=== PATIENT | female | born 1965 | race Caucasian/White ===

== ENCOUNTER 2020-03-28 07:28 | Outpatient (REF) | payer OTHER, SELFPAY ==
[2020-03-28 11:29] LABS: Hematocrit 45.1 % (37-47); Hemoglobin 13.8 g/dl (12.0-16.0); Mean Corpuscular HGB Conc 30.6 g/dl (31.0-35.0); Mean Corpuscular Hemoglobin 26.7 pg (27.0-33.0); Mean Corpuscular Volume 87.4 fL (80-98); Platelet Count 358 X10*3/uL (160-400); Red Blood Count 5.16 X10*6/uL (4.20-5.50); Red Cell Distribution Width 14.4 % (11.0-16.0); White Blood Count 10.1 X10*3/uL (4.8-10.8)
[2020-03-28 11:51] LABS: Alanine Aminotransferase 37 U/L (0-31); Alkaline Phosphatase 65 U/L (39-117); Anion Gap 16 (12-20); Aspartate Amino Transferase 25 U/L (5-31); Bilirubin Total 0.4 mg/dL (0.0-1.0); Blood Urea Nitrogen 10 mg/dL (9-16); Calcium 9.1 mg/dL (8.4-10.2); Carbon Dioxide 26 mmol/L (22-29); Chloride 105 mmol/L (96-108); Cholesterol 201 mg/dL; Estimated Glomerular Filt Rate 59; Glucose Fasting 85 mg/dL (60-99); HDL Cholesterol 68 mg/dL; LDL Cholesterol Calculated 113 mg/dl; Potassium 4.6 mmol/l (3.3-5.1); Sodium 142 mmol/L (135-145); Total Protein 7.2 g/dL (6.5-8.0); Triglycerides 101 mg/dL
[2020-03-28 12:16] LABS: Estimated Average Glucose 120 mg/dL; Hemoglobin A1c % 5.8 %
== END 2020-03-28 07:29 | disposition home or self-care (01) ==
LOC: HO.HMGCLDS 07:28
PROVIDERS: PCP Internal Medicine; Visit Provider Internal Medicine
DX: R53.83 Other fatigue (principal); F17.210 Nicotine dependence, cigarettes, uncomplicated; E66.01 Morbid (severe) obesity due to excess calories; Z68.41 Body mass index [BMI] 40.0-44.9, adult
CPT/HCPCS: 36415; 80053; 80061; 83036; 85027

== ENCOUNTER 2020-05-17 09:12 | Outpatient (REF) | payer OTHER, SELFPAY ==
[2020-05-18 11:03] LABS: BV Int Neg Control Negative (Negative); BV Int Pos Control Positive (Positive)
[2020-05-23 09:47] LABS: HPV mRNA E6/E7 rflx Not Detected (Not Detected)
== END 2020-05-17 09:13 | disposition home or self-care (01) ==
LOC: HO.LAB 09:12
PROVIDERS: Visit Provider Obstetrics & Gynecology
DX: Z01.419 Encounter for gynecological examination (general) (routine) without abnormal findings (principal); Z78.0 Asymptomatic menopausal state
CPT/HCPCS: 87480; 87510; 87624; 87625; 87660; 88142

== ENCOUNTER → 2020-06-05 07:46 | Outpatient (BNVA) | payer OTHER, SELFPAY | PROVIDERS: PCP Internal Medicine; Referring Provider Internal Medicine; Visit Provider Student in an Organized Health Care Education/Training Program | DX: M70.62 Trochanteric bursitis, left hip (principal); M70.61 Trochanteric bursitis, right hip; M79.7 Fibromyalgia | CPT/HCPCS: 20610; 99212 ==

== ENCOUNTER 2020-06-12 08:36 | Outpatient (REF) | payer OTHER, SELFPAY ==
--- NOTE | 2020-06-12 | MR_ITS ---
MRI OF THE BRAIN WITHOUT IV CONTRAST INDICATION: Encephalopathy. COMPARISON: None available. TECHNIQUE: Multiplanar multisequence MR imaging of the brain was obtained without IV contrast. FINDINGS: There is no hydrocephalus, extra-axial surface collection, or herniation. No parenchymal signal abnormality. The major flow voids at the skull base are preserved. There is no acute infarct on diffusion-weighted imaging. There is no intracranial hemorrhage on the gradient recalled echo acquisition. The midline structures are normal. The cerebellar tonsils are normally positioned. The cerebellum and brainstem are normal. The craniocervical junction is normal. Osseous marrow signal intensity is homogenous. The visualized soft tissues are unremarkable. MR/MR head/brain wo con IMPRESSION: Unremarkable noncontrast MRI of the brain.
== END 2020-06-12 08:37 | disposition home or self-care (01) ==
LOC: HO.MRI 08:36
PROVIDERS: Visit Provider Psychiatry & Neurology Neurology
DX: G93.40 Encephalopathy, unspecified (principal)
CPT/HCPCS: 70551

== ENCOUNTER 2020-06-26 07:14 | Outpatient (REF) | payer OTHER, SELFPAY ==
--- NOTE | 2020-06-26 07:18 | MM_ITS ---
EXAMINATION: MM SCREENING DIGITAL BREAST TOMOSYNTHESIS, BILATERAL CLINICAL INFORMATION: Screening. Asymptomatic. The lifetime risk of breast cancer based on the Tyrer-Cuzick Model is 0.4%. COMPARISON: Mammography: October 27, 2018 and studies dating back to June 24, 2011 TECHNIQUE: Digital breast tomosynthesis is performed in both the craniocaudal and mediolateral oblique views along with computer-aided detection (CAD). Synthesized 2D images are generated from the tomosynthesis. FINDINGS: The breasts are heterogeneously dense, which may obscure small masses (ACR BI-RADS breast composition Category c). There are no significant masses, abnormal calcifications, or other abnormalities. MM/MM tomosynthesis screening BI IMPRESSION: There are no significant changes from prior study. ASSESSMENT: BI-RADS BI-RADS 1 RECOMMENDATION: Routine annual mammography screening. This patient's information was entered into a reminder system with a target due date for their next mammogram.
== END 2020-06-26 07:15 | disposition home or self-care (01) ==
LOC: HO.MAMMO 07:14
PROVIDERS: PCP Internal Medicine; Visit Provider Internal Medicine
DX: Z12.31 Encounter for screening mammogram for malignant neoplasm of breast (principal)
CPT/HCPCS: 77063; 77067

== ENCOUNTER → 2020-07-02 09:14 | Outpatient (BNVA) | payer OTHER, SELFPAY | PROVIDERS: PCP Internal Medicine; Visit Provider Internal Medicine | DX: E66.01 Morbid (severe) obesity due to excess calories (principal); G47.33 Obstructive sleep apnea (adult) (pediatric); J45.909 Unspecified asthma, uncomplicated; Z99.89 Dependence on other enabling machines and devices | CPT/HCPCS: 99212 ==

== ENCOUNTER 2020-08-26 03:28 | Emergency (ER) | payer OTHER, SELFPAY ==
[2020-08-26 03:46] VITALS: BP 161/81; PULSE 79; RESP 18; TEMP 36.6; O2SAT 96; BMI 45.7
[2020-08-26] MEDS: Ketorolac Tromethamine 60 MG/2 ML VIAL IM (04:16)
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
== END 2020-08-26 05:00 | disposition home or self-care (01) ==
PROVIDERS: Emergency Provider Emergency Medicine; PCP Internal Medicine
DX: M54.5 Low back pain (principal); Z87.891 Personal history of nicotine dependence; Z79.899 Other long term (current) drug therapy
CPT/HCPCS: 96372; 99283; 99284; J1885

== ENCOUNTER → 2020-10-03 07:38 | Outpatient (BNVA) | payer OTHER, SELFPAY | PROVIDERS: PCP Internal Medicine; Visit Provider Student in an Organized Health Care Education/Training Program | DX: M70.62 Trochanteric bursitis, left hip (principal); M70.61 Trochanteric bursitis, right hip; M79.7 Fibromyalgia | CPT/HCPCS: 20610; 99212 ==

== ENCOUNTER → 2020-11-18 10:38 | Outpatient (BNVA) | payer OTHER, SELFPAY | PROVIDERS: PCP Internal Medicine; Visit Provider Physician Assistant | DX: D21.6 Benign neoplasm of connective and other soft tissue of trunk, unspecified (principal); G47.33 Obstructive sleep apnea (adult) (pediatric); Z99.89 Dependence on other enabling machines and devices; Z79.899 Other long term (current) drug therapy | CPT/HCPCS: 99202 ==

== ENCOUNTER → 2020-12-16 08:55 | Outpatient (BNVA) | payer OTHER, SELFPAY | PROVIDERS: PCP Internal Medicine; Visit Provider Internal Medicine | DX: Z01.818 Encounter for other preprocedural examination (principal); E66.01 Morbid (severe) obesity due to excess calories; G47.33 Obstructive sleep apnea (adult) (pediatric); J45.909 Unspecified asthma, uncomplicated; Z99.89 Dependence on other enabling machines and devices | CPT/HCPCS: 99212 ==

== ENCOUNTER 2020-12-17 11:10 | Day surgery (SDC) | payer OTHER, SELFPAY ==
[2020-12-12 11:27] VITALS: BMI 45.7
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
[2020-12-17 12:08] VITALS: BP 130/78; PULSE 74; RESP 16; TEMP 36.2; O2SAT 96
[2020-12-17 12:14] VITALS: BMI 45.7
[2020-12-17] MEDS: Lactated Ringers 1,000 ML 100 ML IVCONT (12:28)
--- NOTE | 2020-12-17 13:37 | MHC.SHP ---
Pre-Procedural Eval Section A Date of Service: 12/17/20 The patient is an INPATIENT: No Changes since office visit: Yes Patient answered all questions; No Cold of Flu in the past 2 weeks, No New Medical Problems and No Changes in Medication The History & Physical has been completed within 30 days and I have reviewed it.: Yes Section B Chief Complaint: benign neoplasm of colon Allergies: Allergies Allergy/AdvReac Type Severity Reaction Status Date / Time amphetamine [Adderall] Allergy Severe Difficulty Verified 12/17/20 11:51 Breathing dextroamphetamine Allergy Severe DIFFICULTY Verified 12/17/20 11:51 [From ADDERALL] BREATHING bupropion Allergy Intermediate TREMORS Verified 12/17/20 11:51 [From WELLBUTRIN SR] gabapentin [GABAPENTIN] Allergy Intermediate TREMORS Verified 12/17/20 11:51 risperidone [From RISPERDAL] Allergy Intermediate TARDIVE Verified 12/17/20 11:51 DYSKINESIA Exam Surgical H&P Exam: Normal: Heart, Normal: Lungs, Normal: Extremities and Normal: Abdomen Plan Diagnosis/Plan: Unchanged I have reviewed the history and physical and performed a pertinent physical examination on my patient. No changes have occurred unless specified.
[2020-12-17 14:15] VITALS: PULSE 71; RESP 18; TEMP 36.1; O2SAT 98
--- NOTE | 2020-12-17 14:22 | PC.NURSE ---
patient alert and awake. laying on left side. passing flatus. no nausea.
--- NOTE | 2020-12-17 14:24 | PC.NURSE ---
md mcgee by bedside speaking to patient.
--- NOTE | 2020-12-17 14:27 | PC.NURSE ---
hob 90 degrees. patient alert and awake. drinking apple juice. emelia nausea or pain.
[2020-12-17 14:30] VITALS: BP 131/86; PULSE 62; RESP 16; TEMP 36.8; O2SAT 98
--- NOTE | 2020-12-17 17:46 | W.PM.OPN ---
Operative Note Operative Note Date of Service: 12/17/20 Narrative: Pre-op diagnosis: Colon cancer screening, hx of colon polyps Post-op diagnosis: other (Colon polyps, diverticulosis, hemorrhoids) Procedure: COLONOSCOPY TILL CECUM WITH BIOPSIES Consent: Indications for the procedure and potential complications of bleeding, perforation, reaction to medications and missed diagnosis were discussed with the patient and informed consent was obtained. Instrument: Olympus PCF H 190 L variable stiffness pediatric colonoscope Monitoring: Vital signs and clinical assessment, intermittent blood pressure monitoring, continuous EKG monitoring, Pulse oximetry and Carbon Dioxide monitoring were done throughout the procedure. Colon withdrawl time was 17 minutes. Procedure: The patient was placed in the left lateral decubitis position and pre-procedure medications were administered. After a digital rectal examination of the ano-rectum, the video colonoscope was inserted into the rectum and advanced through the colon to the cecum. The colonoscope was slowly withdrawn in a retrograde panoramic fashion and the colon mucosa was carefully examined including a retroflexed view of the rectum. Findings and interventions are described below. Procedure Difficulty: Without difficulty Findings: Terminal Ileum: Not evaluated Cecum: Normal Ascending Colon: Normal Transverse Colon: Normal Descending Colon: Normal Sigmoid Colon: A 3-4 mm sessile polyp removed with a cold bx. Moderate diverticulosis Rectum: A few 5-7 mm diminutive appearing polyps - one was biopsied. Ano-rectum: Normal Colon preparation: Good of after some irrigation Impression and Post Procedure Diagnosis: Colonoscopy Findings: One tiny polyp removed. A few 5-7 mm diminutive appearing polyps - one was biopsied. Moderate diverticulosis seen in the sigmoid colon Moderate hemorrhoids on retroflexed exam. Plan: Await pathology results Patient has an appointment on 02/05/21 in the GI Clinic with ALAN Alvarado . Repeat Colonoscopy interval based on path results - in 3-5 years if polyps are adenomatous and 10 years if polyps are hyperplastic. Above findings were reviewed with the patient and colon polyps and diverticulosis handouts were given in the discharge area Surgeon: Satish Ledesma MD Anesthesia: MAC (Dr Vo) Was an Silverware Buffing Machine Operator used for this Procedure?: Yes Silverware Buffing Machine Operator: Jesse Gray Estimated blood loss (mL): 0 Pathology: other (A- RANDOM COLON BXS R/O MICROSCOPIC COLITIS B- SIGMOID POLYP C- RECTUM POLYP) Condition: stable Disposition: PACU
== END 2020-12-17 15:00 | disposition home or self-care (01) ==
PROVIDERS: PCP Internal Medicine; Visit Provider Internal Medicine Gastroenterology
PROC: 0DJD8ZZ Inspection of Lower Intestinal Tract, Via Natural or Artificial Opening Endoscopic (ICD-10-PCS; CPT 45378; principal; 2020-12-17 12:30)
DX: Z12.11 Encounter for screening for malignant neoplasm of colon (principal); Z86.010 Personal history of colon polyps; D12.5 Benign neoplasm of sigmoid colon; K62.1 Rectal polyp; K57.30 Diverticulosis of large intestine without perforation or abscess without bleeding; K64.8 Other hemorrhoids; J45.20 Mild intermittent asthma, uncomplicated; G47.33 Obstructive sleep apnea (adult) (pediatric); E66.01 Morbid (severe) obesity due to excess calories; Z79.899 Other long term (current) drug therapy; Z99.89 Dependence on other enabling machines and devices; Z88.8 Allergy status to other drugs, medicaments and biological substances; F17.210 Nicotine dependence, cigarettes, uncomplicated
CPT/HCPCS: 45380; 88305

== ENCOUNTER 2020-12-29 21:52 | Emergency (ER) | payer OTHER, SELFPAY ==
[2020-12-29 22:26] VITALS: BP 144/85; PULSE 76; RESP 18; TEMP 36.6; O2SAT 95; BMI 45.7
--- NOTE | 2020-12-29 23:16 | ED.SKABFB ---
HPI - Skin/Abscess/Foreign Bdy General Chief complaint: Skin/Abscess/Foreign Body Stated complaint: leg pain Time Seen by Provider: 12/29/20 23:15 Source: patient Mode of arrival: ambulatory Limitations: no limitations History of Present Illness HPI narrative: 55-year-old female came in for evaluation of possible skin infection in both legs. Symptoms started 2 days ago with bilateral leg pain and redness that is been progressing and getting worse, patient declined any fever chills, no recent trauma, no swelling or calf tenderness, no recent travel, however patient stated that she has been having sun exposure lately, patient also been using CBD oil rubbing her legs which may contribute to worsening of the redness. Related Data Home Medications Medication Instructions Recorded Confirmed albuterol sulfate 90 mcg/actuation 2 puff INHALATION Q6H PRN 04/02/20 12/12/20 aerosol inhaler aripiprazole 20 mg tablet 20 mg PO QAM 04/02/20 12/12/20 benztropine 1 mg tablet 1 mg PO BID 04/02/20 12/12/20 diclofenac sodium 1 % topical gel g TOPICAL 04/02/20 10/11/20 hydroxyzine pamoate 25 mg capsule 25 mg PO Q6H PRN 04/02/20 12/12/20 nystatin 100,000 unit/gram topical 1 applic TOPICAL TID 04/02/20 10/11/20 cream trazodone 100 mg tablet 100 mg PO BEDTIME PRN 04/02/20 12/12/20 oxcarbazepine 150 mg tablet 150 mg PO DAILY tab 07/02/20 12/12/20 oxcarbazepine 300 mg tablet 300 mg PO .qhs tab 07/02/20 12/12/20 lamotrigine 25 mg tablet 25 mg PO DAILY 08/30/20 12/12/20 Previous Rx's Medication Instructions Recorded tizanidine 4 mg tablet 4 mg PO BEDTIME PRN #30 tab 06/05/20 tramadol 50 mg tablet 50 mg PO BID PRN #60 tab 06/05/20 doxycycline hyclate 100 mg PO BID #14 tab 12/30/20 Allergies Allergy/AdvReac Type Severity Reaction Status Date / Time amphetamine [Adderall] Allergy Severe Difficulty Verified 12/17/20 11:51 Breathing dextroamphetamine Allergy Severe DIFFICULTY Verified 12/17/20 11:51 [From ADDERALL] BREATHING bupropion Allergy Intermediate TREMORS Verified 12/17/20 11:51 [From WELLBUTRIN SR] gabapentin [GABAPENTIN] Allergy Intermediate TREMORS Verified 12/17/20 11:51 risperidone [From RISPERDAL] Allergy Intermediate TARDIVE Verified 12/17/20 11:51 DYSKINESIA Review of Systems Review of Systems: All other systems are reviewed and are negative Constitutional: Reports as per HPI and Reports no additional constitutional complaints Eyes: Reports as per HPI and Reports no additional eye complaints Reports system reviewed and no additional complaints, except as documented Cardiovascular: Reports as per HPI and Reports no additional cardiovascular complaints Respiratory: Reports as per HPI and Reports no additional respiratory complaints Gastrointestinal: Reports as per HPI and Reports no additional gastrointestinal complaints Genitourinary: Reports no additional female genitourinary complaints Musculoskeletal: Reports no additional musculoskeletal complaints Skin/Breast: Reports system reviewed and no additional complaints, except as docu Psychiatric: Reports no additional psychiatric complaints Endocrine: Reports no additional endocrine complaints Hematologic/Lymphatic: Reports no additional hematologic/lymphatic complaints Allergic/Immunologic: Reports no additional allergic/immunologic complaints Reports system reviewed and no additional complaints, except as documented and Reports Abnormal speech present [facility] Past Medical History Medical History Asthma Bipolar 1 disorder Fibromyalgia Hiatal hernia History of cocaine abuse History of ETOH abuse History of post traumatic stress disorder Impaired fasting blood sugar Memory changes Morbid obesity Obesity Obstructive sleep apnea NELSON on CPAP Surgical History History of back surgery History of esophagogastroduodenoscopy (EGD) History of knee surgery History of suburethral sling procedure Family History Family History Father Medical history non-contributory Mother Medical history non-contributory Other Adopted Social History Social History Household Members: Friend(s) Alcohol intake: never Patient Tobacco Use Status: Current everyday Tobacco user Tobacco use type: Cigarette Cigarettes Per Day: 12 Years Smoked: 25 Advance Directives: No Advance Directives Information Provided: Yes Patient : No 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 Blood pressure normal. Heart rate normal. Respiration rate normal. Temperature normal. Oxygen saturation normal. Appearance: Alert. Oriented X3. No acute distress. Head: Normal external exam. Normocephalic. Atraumatic. No Roberson signs noted. No raccoon eyes noted Eyes: PERRLA. EOMI. Conjunctiva and sclera normal. Eyelids normal. ENT: TM's Normal. Pharynx normal. Uvula midline. Moist mucous membranes. No trismus noted. No drooling noted. No muffled voice noted. Neck: Normal inspection. Neck supple. FROM. No adenopathy. Thyroid Normal. No meningeal signs. No neck mass noted. CVS: Normal heart rate and rhythm. Heart sound normal. No murmurs noted. Pulses normal throughout. Respiratory: No respiratory distress. Painless inspiration. Breath sounds normal. No wheezes/rales/rhonchi noted. Chest nontender. No accessory muscle usage noted or decreased air movement noted. Abdomen: Soft and nontender. Bowel sounds normal in all 4 quadrants. No distention noted. No organomegaly noted. No visible injury noted. Back: No CVA tenderness. Full range of motion noted. Skin: Skin warm and dry. Normal skin color. Normal skin turgor. No rashes/lesions/lacerations noted. Extremities: Bilateral lower extremities about 5 x 7 cm area of redness, hotness, tenderness to touch, neurovascular exam is intact bilaterally. Neuro: Oriented X 3. No motor deficit. No sensory deficit. Reflexes normal. Course Course Course Narrative: Assessment and plan. 55-year-old female came in with bilateral lower extremities cellulitis, possible sunburn. Patient do not meet criteria for SIRS will start the patient doxycycline for 1 week. MDM - Skin/Abscess/Foreign Bdy Medical Records Attestation: I reviewed the patient's medical records. Lab Data Attestation: I reviewed the patient's lab results. Result diagrams: 12/29/20 23:37 12/29/20 23:37 Labs: Lab Results 12/29/20 12/29/20 Range/Units 23:37 23:37 WBC 10.8 (4.8-10.8) X10*3/uL RBC 4.93 (4.20-5.50) X10*6/uL Hgb 13.5 (12.0-16.0) g/dl Hct 41.6 (37-47) % MCV 84.4 (80-98) fL MCH 27.4 (27.0-33.0) pg MCHC 32.5 (31.0-35.0) g/dl RDW 14.2 (11.0-16.0) % Plt Count 325 (160-400) X10*3/uL MPV 9.4 (9.4-12.3) fL Immature Gran % (Auto) 0.5 H (0.0-0.4) % Neut % (Auto) 60.8 (45-73) % Lymph % (Auto) 29.0 (20-40) % Upson % (Auto) 6.5 (2-11) % Eos % (Auto) 2.7 (0-4) % Baso % (Auto) 0.5 (0-2) % Lymph # (Auto) 3.1 (1.2-4.9) X10*3/uL Upson # (Auto) 0.7 (0.1-1.2) X10*3/uL Eos # (Auto) 0.3 (0.0-0.4) X10*3/uL Baso # (Auto) 0.1 (0.0-0.2) X10*3/uL Abs Immat Gran (auto) 0.05 H (0.00-0.03) X10*3/uL Absolute Neuts (auto) 6.5 (2.0-8.3) X10*3/uL Absolute Nucleated RBC 0.000 (0.0-0.012) X10*3/uL Nucleated RBC % (auto) 0.0 (0.0-0.2) /100WBC Sodium 142 (135-145) mmol/L Potassium 3.9 (3.3-5.1) mmol/L Chloride 106 (96-108) mmol/L Carbon Dioxide 27 (22-29) mmol/L Anion Gap 13 (12-20) BUN 16 D (9-16) mg/dL Creatinine 0.84 (0.5-1.4) mg/dL Estim Creat Clear Calc 84.7 Estimated GFR > 60 Random Glucose 104 (60-115) mg/dL Calcium 8.9 (8.4-10.2) mg/dL Discharge Plan Discharge Clinical Impression: Cellulitis Qualifiers: Site of cellulitis of extremity: lower extremity Laterality: unspecified laterality Patient Disposition: Home, Self-Care Instructions: Cellulitis (ED) Prescriptions: New doxycycline hyclate 100 mg tablet 100 mg PO BID Qty: 14 RF: 0 No Action nystatin 100,000 unit/gram cream 1 applic topical TID RF: 0 diclofenac sodium 1 % gel topical RF: 0 aripiprazole 20 mg tablet 20 mg PO QAM RF: 0 hydroxyzine pamoate 25 mg capsule 25 mg PO Q6H PRN (Reason: anxiety) RF: 0 benztropine 1 mg tablet 1 mg PO BID RF: 0 trazodone 100 mg tablet 100 mg PO BEDTIME PRN (Reason: insomnia) RF: 0 albuterol sulfate 90 mcg/actuation HFA aerosol inhaler 2 puff inhalation Q6H PRN (Reason: Wheezing) RF: 0 oxcarbazepine 300 mg tablet 300 mg PO .qhs RF: 0 oxcarbazepine 150 mg tablet 150 mg PO DAILY RF: 0 lamotrigine 25 mg tablet 25 mg PO DAILY RF: 0 tizanidine 4 mg tablet 4 mg PO BEDTIME PRN (Reason: muscle spasticity) Qty: 30 RF: 3 tramadol 50 mg tablet 50 mg PO BID PRN (Reason: pain) Qty: 60 RF: 3 Referrals: Adilson Prak MD [Primary Care Provider] - 2 days
[2020-12-29 23:42] LABS: Basophils Absolute Auto 0.1 X10*3/uL (0.0-0.2); Basophils Percent Auto 0.5 % (0-2); Eosinophils Absolute Auto 0.3 X10*3/uL (0.0-0.4); Eosinophils Percent Auto 2.7 % (0-4); Hematocrit 41.6 % (37-47); Hemoglobin 13.5 g/dl (12.0-16.0); Imm Gran Abs Auto 0.05 X10*3/uL (0.00-0.03); Imm Gran Pct Auto 0.5 % (0.0-0.4); Lymphocytes Absolute Auto 3.1 X10*3/uL (1.2-4.9); MANUAL DIFF FLAG NO; Mean Corpuscular HGB Conc 32.5 g/dl (31.0-35.0); Mean Corpuscular Hemoglobin 27.4 pg (27.0-33.0); Mean Corpuscular Volume 84.4 fL (80-98); Mean Platelet Volume 9.4 fL (9.4-12.3); Monocytes Absolute Auto 0.7 X10*3/uL (0.1-1.2); Monocytes Percent Auto 6.5 % (2-11); Neutrophils Absolute Auto 6.5 X10*3/uL (2.0-8.3); Neutrophils Percent Auto 60.8 % (45-73); Platelet Count 325 X10*3/uL (160-400); Red Blood Count 4.93 X10*6/uL (4.20-5.50); Red Cell Distribution Width 14.2 % (11.0-16.0); White Blood Count 10.8 X10*3/uL (4.8-10.8)
[2020-12-30 00:19] LABS: Anion Gap 13 (12-20); Blood Urea Nitrogen 16 mg/dL (9-16); Calcium 8.9 mg/dL (8.4-10.2); Carbon Dioxide 27 mmol/L (22-29); Chloride 106 mmol/L (96-108); Creatinine Clr Calc Pharmacy 84.7; Estimated Glomerular Filt Rate > 60; Glucose Random 104 mg/dL (60-115); Potassium 3.9 mmol/L (3.3-5.1); Sodium 142 mmol/L (135-145)
--- NOTE | 2020-12-30 00:41 | PC.NURSE ---
REDNESS TO BILATERAL LOWER EXTREMITIES, BELOW THE KNEES. PT SLEEPING WHEN READY FOR DISCHARGE. PT UNDERSTANDS TO RETURN FOR ANY FEVER, CHILLS OR NAUSEA. RETURN FOR INCREASED REDNESS OR SWELLING. TAKE ENTIRE COURSE OF ANTIBIOTICS.
== END 2020-12-30 00:44 | disposition home or self-care (01) ==
PROVIDERS: Emergency Provider Emergency Medicine; PCP Internal Medicine
DX: L03.116 Cellulitis of left lower limb (principal); L03.115 Cellulitis of right lower limb; M79.605 Pain in left leg; M79.604 Pain in right leg; E66.01 Morbid (severe) obesity due to excess calories
CPT/HCPCS: 36415; 80048; 85025; 99283

== ENCOUNTER → 2021-01-31 07:16 | Outpatient (BNVA) | payer OTHER, SELFPAY | PROVIDERS: PCP Internal Medicine; Visit Provider Student in an Organized Health Care Education/Training Program | DX: M70.62 Trochanteric bursitis, left hip (principal); M70.61 Trochanteric bursitis, right hip; E66.01 Morbid (severe) obesity due to excess calories; Z68.42 Body mass index [BMI] 45.0-49.9, adult; Z88.8 Allergy status to other drugs, medicaments and biological substances; Z79.899 Other long term (current) drug therapy | CPT/HCPCS: 20610; 99212 ==

== ENCOUNTER → 2021-02-05 11:06 | Outpatient (BNVA) | payer OTHER, SELFPAY | PROVIDERS: PCP Internal Medicine; Visit Provider Physician Assistant | CPT/HCPCS: Q3014 ==

== ENCOUNTER 2021-05-10 12:46 | Outpatient (REF) | payer OTHER, SELFPAY | END 2021-05-10 12:47 | disposition home or self-care (01) | LOC: HO.LNP 12:46 | PROVIDERS: Visit Provider Physician Assistant Medical | DX: Z20.822 Contact with and (suspected) exposure to COVID-19 (principal) | CPT/HCPCS: U0003; U0005 ==

== ENCOUNTER → 2021-05-23 09:38 | Outpatient (BNVA) | payer OTHER, SELFPAY | PROVIDERS: Visit Provider Advanced Practice Midwife ==

== ENCOUNTER 2021-05-28 14:06 | Outpatient (REF) | payer OTHER, SELFPAY | END 2021-05-28 14:07 | disposition home or self-care (01) | LOC: HO.HMGCLDS 14:06 | PROVIDERS: Visit Provider Internal Medicine | DX: Z20.822 Contact with and (suspected) exposure to COVID-19 (principal) | CPT/HCPCS: C9803; U0003; U0005 ==

== ENCOUNTER → 2021-06-18 08:50 | Outpatient (BNVA) | payer OTHER, SELFPAY | PROVIDERS: PCP Internal Medicine; Visit Provider Internal Medicine | DX: G47.33 Obstructive sleep apnea (adult) (pediatric) (principal); E66.01 Morbid (severe) obesity due to excess calories; Z68.42 Body mass index [BMI] 45.0-49.9, adult; Z99.89 Dependence on other enabling machines and devices | CPT/HCPCS: 99212 ==

== ENCOUNTER 2021-07-24 07:27 | Outpatient (REF) | payer OTHER, SELFPAY ==
--- NOTE | ~2021-07-24 | MM_ITS ---
EXAMINATION: MM SCREENING DIGITAL BREAST TOMOSYNTHESIS, BILATERAL CLINICAL INFORMATION: Screening. Asymptomatic. The lifetime risk of breast cancer based on the Tyrer-Cuzick Model is 10%. COMPARISON: Mammography: 08/05/2020, 10/27/2018, 09/30/2017, 08/31/2016, 07/27/2015, 08/29/2014 TECHNIQUE: Digital breast tomosynthesis is performed in both the craniocaudal and mediolateral oblique views along with computer-aided detection (CAD). Synthesized 2D images are generated from the tomosynthesis. Additional left MLO view is provided. FINDINGS: The breasts are heterogeneously dense, which may obscure small masses (ACR BI-RADS breast composition Category c). Left breast parenchymal pattern is similar to prior studies. There is no interval mass or developing density. There is chronic mild bilateral anterior breasts ductal ectasia similar to prior exams. Neither breast shows architectural abnormality or abnormal calcifications. The bilateral axilla and skin contours are unremarkable. Right CC view has asymmetric density anterior outer aspect 6.5 cm from nipple, more conspicuous when compared with prior exams. Patient will be recalled for additional imaging. MM/MM tomosynthesis screening BI IMPRESSION: 1. Right: Asymmetric density anterior outer right breast on CC view. 2. Left: No mammographic evidence of malignancy. ASSESSMENT: BI-RADS 0: Incomplete - Need Additional Imaging Evaluation RECOMMENDATION: 1. Additional views of the right breast (spot CC, rolled CC x2). 2. Targeted ultrasound if warranted after review of the additional views. 3. Radiology department staff will contact the patient for additional imaging. This patient's information was entered into a reminder system with a target due date for their next mammogram.
== END 2021-07-24 07:28 | disposition home or self-care (01) ==
LOC: HO.MAMMO 07:27
PROVIDERS: PCP Internal Medicine; Visit Provider Internal Medicine
DX: Z12.31 Encounter for screening mammogram for malignant neoplasm of breast (principal)
CPT/HCPCS: 77063; 77067

== ENCOUNTER 2021-07-29 08:06 | Outpatient (REF) | payer OTHER, SELFPAY ==
--- NOTE | ~2021-07-29 | MM_ITS ---
EXAMINATION: MM DIAGNOSTIC DIGITAL BREAST TOMOSYNTHESIS, RIGHT US DIAGNOSTIC ULTRASOUND BREAST, RIGHT CLINICAL INFORMATION: Recall from screening for nodular asymmetric density anterior outer right breast. COMPARISON: Mammography: 07/24/2021, 06/26/2020, 10/27/2018, 09/30/2017, 08/31/2016, 07/15/2015, 08/29/2014 TECHNIQUE: Digital breast tomosynthesis is performed. 2D images are generated from the tomosynthesis. The following views are obtained: Spot CC, rolled CC x2 Ultrasound right breast is targeted to the anterior outer breast. Grayscale imaging and color Doppler are performed without and with harmonics. FINDINGS: The breasts are heterogeneously dense, which may obscure small masses (ACR BI-RADS breast composition Category c). The additional views confirm a nodule anterior outer right breast corresponding to recent screening exam. The margins are smooth. There is no spiculation. Some minor duct ectasia is again seen retroareolar breast similar to prior studies. Ultrasound right breast demonstrates an acorn cyst 9:00 position 5-7 cm from nipple with overall dimensions approximately 0.9 x 0.5 cm. There are some geographic internal echoes. Margins are circumscribed. There is no internal or peripheral color flow. Finding most likely represents a complicated cyst related to apocrine metaplasia. Nodule will be reassessed again in 6 months. Results are discussed with the patient at time of visit. MM/MM tomosynthesis added views R IMPRESSION: Smooth benign-appearing subcentimeter complicated avascular acorn cyst 9:00 right breast. ASSESSMENT: BI-RADS 3: Probably Benign RECOMMENDATION: Diagnostic right mammography and targeted right breast ultrasound in 6 months. This patient's information was entered into a reminder system with a target due date for their next mammogram.
== END 2021-07-29 08:07 | disposition home or self-care (01) ==
LOC: HO.MAMMO 08:06
PROVIDERS: Visit Provider Internal Medicine
DX: R92.2 Inconclusive mammogram (principal)
CPT/HCPCS: 76642; 77061; 77065

== ENCOUNTER 2021-08-06 08:33 | Outpatient (REF) | payer OTHER, SELFPAY ==
[2021-08-06 11:03] LABS: MANUAL DIFF FLAG NO
[2021-08-06 11:11] LABS: Basophils Absolute Auto 0.1 X10*3/uL (0.0-0.2); Basophils Percent Auto 0.6 % (0-2); Eosinophils Absolute Auto 0.3 X10*3/uL (0.0-0.4); Eosinophils Percent Auto 3.8 % (0-4); Hemoglobin 15.1 g/dl (12.0-16.0); Imm Gran Abs Auto 0.03 X10*3/uL (0.00-0.03); Imm Gran Pct Auto 0.4 % (0.0-0.4); Lymphocytes Absolute Auto 2.3 X10*3/uL (1.2-4.9); Lymphocytes Percent Auto 27.9 % (20-40); Mean Corpuscular HGB Conc 32.1 g/dl (31.0-35.0); Mean Corpuscular Hemoglobin 26.9 pg (27.0-33.0); Mean Corpuscular Volume 83.8 fL (80.0-98.0); Mean Platelet Volume 10.3 fL (9.4-12.3); Monocytes Absolute Auto 0.5 X10*3/uL (0.1-1.2); Monocytes Percent Auto 6.1 % (2-11); Neutrophils Absolute Auto 5.1 x10*3/uL (2.0-8.3); Neutrophils Percent Auto 61.2 % (45-73); Platelet Count 350 X10*3/uL (160-400); Red Blood Count 5.61 X10*6/uL (4.20-5.50); Red Cell Distribution Width 13.7 % (11.0-16.0); White Blood Count 8.2 X10*3/uL (4.8-10.8)
[2021-08-06 11:30] LABS: Estimated Average Glucose 126 mg/dL
[2021-08-06 11:44] LABS: TSH reflex Free T4 1.62 uIU/mL (0.32-4.0)
[2021-08-06 11:59] LABS: Alanine Aminotransferase 45 U/L (0-31); Albumin Level 4.1 g/dL (3.5-5.0); Alkaline Phosphatase 61 U/L (39-117); Anion Gap 15 (12-20); Aspartate Amino Transferase 35 U/L (5-31); Bilirubin Total 0.6 mg/dL (0.0-1.0); Blood Urea Nitrogen 14 mg/dL (9-16); Calcium 9.6 mg/dL (8.4-10.2); Carbon Dioxide 24 mmol/L (22-29); Chloride 104 mmol/L (96-108); Cholesterol 187 mg/dL; Estimated Glomerular Filt Rate 59; Glucose Fasting 96 mg/dL (60-99); HDL Cholesterol 54 mg/dL; LDL Cholesterol Calculated 113 mg/dl; Potassium 4.4 mmol/L (3.3-5.1); Sodium 139 mmol/L (135-145); Total Protein 7.3 g/dL (6.5-8.0); Triglycerides 104 mg/dL
[2021-08-07 07:02] LABS: LDL Cholesterol Direct 110 mg/dL (<100)
== END 2021-08-06 08:34 | disposition home or self-care (01) ==
LOC: HO.HMGCLDS 08:33
PROVIDERS: Visit Provider Internal Medicine
DX: Z00.01 Encounter for general adult medical examination with abnormal findings (principal); G47.33 Obstructive sleep apnea (adult) (pediatric); K44.9 Diaphragmatic hernia without obstruction or gangrene; R73.01 Impaired fasting glucose; E66.01 Morbid (severe) obesity due to excess calories; F32.2 Major depressive disorder, single episode, severe without psychotic features
CPT/HCPCS: 36415; 80048; 80053; 80061; 83036; 83721; 84443; 85025

== ENCOUNTER 2021-08-12 07:54 | Outpatient (REF) | payer OTHER, SELFPAY ==
--- NOTE | ~2021-08-12 | XR_ITS ---
EXAMINATION: XR BILATERAL HIPS WITH AP PELVIS CLINICAL INFORMATION: Pain. COMPARISON: None TECHNIQUE: AP view of the pelvis and single views of each hip were obtained. FINDINGS: The bones and soft tissues are normal. No fracture. Sacroiliac and hip joints are normal. Pubic symphysis is normal. There is a calcified enthesophyte incidentally noted arising from the right ischium. No further abnormal soft tissue calcifications. XR/XR hip BI w [id number] IMPRESSION: Unremarkable pelvis and hips.
--- NOTE | ~2021-08-12 | XR_ITS ---
EXAMINATION: XR HAND, RIGHT CLINICAL INFORMATION: Pain. COMPARISON: None TECHNIQUE: PA, lateral, and oblique views of the right hand. FINDINGS: Bony alignment and mineralization are normal. There is a mild ulnar minus variance. There is mild osteoarthritic change of the interphalangeal joint of the thumb, the second through fifth distal interphalangeal joints and the second, fourth and fifth proximal interphalangeal joints. No fracture or dislocation is seen. The proximal and distal carpal rows are intact. There is no abnormal bony erosive change. No soft tissue swelling or foreign body is seen. XR/XR hand LT 2V IMPRESSION: 1. There are multi-focal mild osteoarthritic changes of the right fingers. 2. No fracture or dislocation is seen. 3. There is no abnormal bony erosive change. EXAMINATION: XR HAND, LEFT CLINICAL INFORMATION: Pain. COMPARISON: None TECHNIQUE: PA, lateral, and oblique views of the left hand. FINDINGS: Bony alignment and mineralization are normal. There is a slight ulnar minus variance. There is mild osteoarthritic change of the interphalangeal joint of the thumb, of the second through fifth distal interphalangeal joints and of the second and fourth proximal interphalangeal joints. There is mild osteoarthritic change of the first carpometacarpal joint. No fracture or dislocation is seen. The proximal distal carpal rows are intact. There is no abnormal bony erosive change. No soft tissue swelling or foreign body is seen. IMPRESSION: 1. There are multi-focal mild osteoarthritic changes of the left fingers and of the first carpometacarpal joint. 2. No fracture or dislocation is seen. 3. There is no abnormal bony erosive change.
--- NOTE | ~2021-08-12 | XR_ITS ---
EXAMINATION: XR HAND, RIGHT CLINICAL INFORMATION: Pain. COMPARISON: None TECHNIQUE: PA, lateral, and oblique views of the right hand. FINDINGS: Bony alignment and mineralization are normal. There is a mild ulnar minus variance. There is mild osteoarthritic change of the interphalangeal joint of the thumb, the second through fifth distal interphalangeal joints and the second, fourth and fifth proximal interphalangeal joints. No fracture or dislocation is seen. The proximal and distal carpal rows are intact. There is no abnormal bony erosive change. No soft tissue swelling or foreign body is seen. XR/XR hand RT 2V IMPRESSION: 1. There are multi-focal mild osteoarthritic changes of the right fingers. 2. No fracture or dislocation is seen. 3. There is no abnormal bony erosive change. EXAMINATION: XR HAND, LEFT CLINICAL INFORMATION: Pain. COMPARISON: None TECHNIQUE: PA, lateral, and oblique views of the left hand. FINDINGS: Bony alignment and mineralization are normal. There is a slight ulnar minus variance. There is mild osteoarthritic change of the interphalangeal joint of the thumb, of the second through fifth distal interphalangeal joints and of the second and fourth proximal interphalangeal joints. There is mild osteoarthritic change of the first carpometacarpal joint. No fracture or dislocation is seen. The proximal distal carpal rows are intact. There is no abnormal bony erosive change. No soft tissue swelling or foreign body is seen. IMPRESSION: 1. There are multi-focal mild osteoarthritic changes of the left fingers and of the first carpometacarpal joint. 2. No fracture or dislocation is seen. 3. There is no abnormal bony erosive change.
== END 2021-08-12 07:55 | disposition home or self-care (01) ==
LOC: HO.XRAY 07:54
PROVIDERS: PCP Internal Medicine; Visit Provider Internal Medicine Rheumatology
DX: M25.50 Pain in unspecified joint (principal); M79.7 Fibromyalgia; M19.041 Primary osteoarthritis, right hand; M19.042 Primary osteoarthritis, left hand; G47.33 Obstructive sleep apnea (adult) (pediatric); Z99.89 Dependence on other enabling machines and devices
CPT/HCPCS: 73120; 73521; 99212

== ENCOUNTER → 2021-11-10 07:46 | Outpatient (BNVA) | payer OTHER, SELFPAY | PROVIDERS: PCP Internal Medicine; Visit Provider Internal Medicine Rheumatology | DX: M70.61 Trochanteric bursitis, right hip (principal); M70.62 Trochanteric bursitis, left hip; M79.7 Fibromyalgia; M47.816 Spondylosis without myelopathy or radiculopathy, lumbar region; M19.049 Primary osteoarthritis, unspecified hand | CPT/HCPCS: 20610; 99212 ==

== ENCOUNTER → 2021-12-30 08:58 | Outpatient (BNVA) | payer OTHER, SELFPAY | PROVIDERS: PCP Internal Medicine; Visit Provider Internal Medicine | DX: J45.909 Unspecified asthma, uncomplicated (principal); G47.33 Obstructive sleep apnea (adult) (pediatric); E66.01 Morbid (severe) obesity due to excess calories; Z99.89 Dependence on other enabling machines and devices | CPT/HCPCS: 99212 ==

== ENCOUNTER 2022-01-01 09:26 | Outpatient (REF) | payer OTHER, SELFPAY ==
--- NOTE | 2022-01-01 09:29 | EMG_ITS ---
Right tibial and peroneal motor studies were performed. Right superficial peroneal and sural sensory studies were performed. Tibial H-reflex was obtained and paraspinal muscles were tested with a needle. IMPRESSION: [id number] sensory and motor chronic peripheral neuropathy. MD RAHEEM Kimble/CORTNEY / [id number]
== END 2022-01-01 09:27 | disposition home or self-care (01) ==
LOC: HO.NEURO 09:26
PROVIDERS: PCP Internal Medicine; Visit Provider Internal Medicine
DX: R20.2 Paresthesia of skin (principal)
CPT/HCPCS: 95886; 95909

== ENCOUNTER 2022-01-27 08:53 | Outpatient (REF) | payer OTHER, SELFPAY ==
--- NOTE | ~2022-01-27 | MM_ITS ---
EXAMINATION: MM DIAGNOSTIC DIGITAL BREAST TOMOSYNTHESIS, RIGHT. Targeted right breast ultrasound CLINICAL INFORMATION: Six-month follow-up right breast nodule The lifetime risk of breast cancer based on the Tyrer-Cuzick Model is 9.1%. COMPARISON: Mammography: July 29, 2021 and studies dating back to July 15, 2015 TECHNIQUE: Digital breast tomosynthesis is performed in both the craniocaudal and mediolateral oblique views along with computer-aided detection (CAD). Synthesized 2D images are generated from the tomosynthesis. Targeted right breast ultrasound FINDINGS: The breasts are heterogeneously dense, which may obscure small masses (ACR BI-RADS breast composition Category c). There are no new significant masses, abnormal calcifications, or other abnormalities. Multiple circumscribed densities are again noted. Targeted right breast ultrasound demonstrated at the 9:00 position 7 cm from the nipple stable appearance of a circumscribed heterogeneous hypoechoic lesion with some increased through sound transmission and no distal sound shadowing without internal vascularity and measuring 8 x 6 mm in size. Lesion is wider than it is tall. Results are discussed with the patient at time of visit. MM/MM tomosynthesis diagnostic RT IMPRESSION: There are no significant changes from prior study. Probably benign complex cyst. Recommend 6 month follow-up ultrasound examination bilateral mammography. ASSESSMENT: BI-RADS 3: Probably Benign RECOMMENDATION: Diagnostic mammography in 6 months. This patient's information was entered into a reminder system with a target due date for their next mammogram.
== END 2022-01-27 08:54 | disposition home or self-care (01) ==
LOC: HO.MAMMO 08:53
PROVIDERS: Visit Provider Internal Medicine
DX: N63.15 Unspecified lump in the right breast, overlapping quadrants (principal)
CPT/HCPCS: 76642; 77061; 77065

== ENCOUNTER → 2022-02-02 09:09 | Outpatient (BNVA) | payer OTHER, SELFPAY | PROVIDERS: PCP Internal Medicine; Visit Provider Internal Medicine | DX: M96.1 Postlaminectomy syndrome, not elsewhere classified (principal) | CPT/HCPCS: 99202 ==

== ENCOUNTER → 2022-07-07 09:39 | Outpatient (BNVA) | payer OTHER, SELFPAY | PROVIDERS: PCP Internal Medicine; Visit Provider Internal Medicine | DX: G47.33 Obstructive sleep apnea (adult) (pediatric) (principal); J45.909 Unspecified asthma, uncomplicated; E66.01 Morbid (severe) obesity due to excess calories; Z99.89 Dependence on other enabling machines and devices; Z68.38 Body mass index [BMI] 38.0-38.9, adult | CPT/HCPCS: 99212 ==

== ENCOUNTER 2022-07-15 12:17 | Outpatient (REF) | payer OTHER, SELFPAY ==
[2022-07-15 13:03] LABS: Influenza A PCR NEGATIVE (Negative); Influenza B PCR NEGATIVE (Negative); Resp Syncy Virus RNA Qual PCR NEGATIVE (Negative); SARS COV2 PCR INHOUSE NEGATIVE (Negative)
== END 2022-07-15 12:18 | disposition home or self-care (01) ==
LOC: HO.LNP 12:17
PROVIDERS: Visit Provider Internal Medicine
DX: R09.89 Other specified symptoms and signs involving the circulatory and respiratory systems (principal); Z20.822 Contact with and (suspected) exposure to COVID-19
CPT/HCPCS: 0241U

== ENCOUNTER 2022-10-14 14:22 | Outpatient (REF) | payer OTHER, SELFPAY ==
--- NOTE | ~2022-10-14 | MM_ITS ---
EXAMINATION: MM DIAGNOSTIC DIGITAL BREAST TOMOSYNTHESIS, BILATERAL US DIAGNOSTIC ULTRASOUND BREAST, RIGHT CLINICAL INFORMATION: Due for yearly. Also follow-up probable benign complicated cyst lateral right breast. The lifetime risk of breast cancer based on the Tyrer-Cuzick Model is 9%. COMPARISON: Mammography: 01/27/2022, 07/29/2021, 07/24/2021 (BI-RADS 0), 06/26/2020, 10/27/2018; right breast ultrasound 01/27/2022 and 07/29/2021. TECHNIQUE: Digital breast tomosynthesis is performed in both the craniocaudal and mediolateral oblique views along with computer-aided detection (CAD). Synthesized 2D images are generated from the tomosynthesis. Additional left CC view is provided. Ultrasound ultrasound right breast is targeted to the lateral breast using grayscale imaging and color Doppler without and with harmonics. FINDINGS: The breasts are heterogeneously dense, which may obscure small masses (ACR BI-RADS breast composition Category c). Parenchymal pattern is similar to prior studies and there is no interval developing density or architectural abnormality or significant mass. There are no abnormal calcifications. Smooth nodularity anterior medial right breast is stable. The axilla and skin contours are unremarkable. Ultrasound right breast demonstrates the complicated cyst 9:00 position 7 cm from nipple with similar ultrasound characteristics to prior targeted ultrasound exams. The margins appear smooth. The overall size is similar, just under 1 cm. There is no associated internal or peripheral color flow. There is mild increased through-transmission of sound. Results are discussed with the patient at time of visit. Management plan is for short interval six-month follow-up targeted right breast ultrasound. MM/MM tomosynthesis diagnostic BI IMPRESSION: -Mammogram shows no significant changes from prior exams. -Benign-appearing complicated cyst lateral right breast likely apocrine metaplasia/acorn cyst, stable. ASSESSMENT: BI-RADS 3: Probably Benign RECOMMENDATION: Targeted ultrasound right breast in 6 months. This patient's information was entered into a reminder system with a target due date for their next mammogram.
== END 2022-10-14 14:23 | disposition home or self-care (01) ==
LOC: HO.MAMMO 14:22
PROVIDERS: PCP Internal Medicine; Visit Provider Internal Medicine
DX: N60.01 Solitary cyst of right breast (principal)
CPT/HCPCS: 76642; 77062; 77066

== ENCOUNTER 2022-12-22 08:06 | Outpatient (REF) | payer OTHER, SELFPAY ==
--- NOTE | ~2022-12-22 | XR_ITS ---
EXAMINATION: XR KNEE, RIGHT CLINICAL INFORMATION: Right knee pain. COMPARISON: 03/20/2019 TECHNIQUE: 3 views of the right knee. FINDINGS: Patella is more inferiorly located relative to the femur on the lateral view with progression of moderate degenerative changes. Moderate narrowing of the medial and patellofemoral compartment joint spaces and small marginal osteophytes. Small suprapatellar effusion. Redemonstration of sclerotic density with central lucency in the proximal tibia, possibly from previous intervention. XR/XR knee RT 3V IMPRESSION: Progression of degenerative changes in the medial and patellofemoral compartment as detailed above. Redemonstration of ill-defined sclerotic density in the proximal left tibia of indeterminate etiology, possibly related to prior intervention. Correlation with clinical history and exam recommended to determine further management. Additional imaging with CT scan or MRI should be considered for better visualization as these modalities are much more sensitive for detection of fracture or other underlying pathology.
== END 2022-12-22 08:07 | disposition home or self-care (01) ==
LOC: HO.HOSX 08:06
PROVIDERS: Visit Provider Orthopaedic Surgery
DX: S83.241A Other tear of medial meniscus, current injury, right knee, initial encounter (principal)
CPT/HCPCS: 73562; 99202

== ENCOUNTER 2022-12-22 08:51 | Outpatient (AMB) | payer OTHER, SELFPAY ==
[2022-12-22 09:09] VITALS: BMI 38.7
--- NOTE | 2022-12-22 09:09 | A.OFFVIS_ITS ---
Intake Vital Signs 12/22/22 09:09 Height 5 ft 1 in Weight 205 lb BMI 38.7 Intake Visit Reasons: New Pt - Right Knee Pain Intake Note: Anjelica is a 57 year old female who presents today as a new patient with complaints of right knee pain and giving way. The patient reports that she had an Arthroscopic Surgery done with Dr. Santiago in 2018. The patient states that initially she got fairly good relief from that procedure. She states that approximately 2 years ago she twisted her knee and had acute onset of pain along the medial aspect of her knee. Her symptoms have gotten worse in spite of continued non operative treatments. She has had multiple injections which gave her minimal relief. She has also done physical therapy for 12 weeks over the last 6 months which aggravated her pain. She has tried Tylenol and anti- inflammatory medicines which gave her minimal relief. She states the right knee will give out several times per day. Allergies amphetamine [Adderall] Allergy (Severe, Verified 12/22/22 09:12) Difficulty Breathing dextroamphetamine [From ADDERALL] Allergy (Severe, Verified 12/22/22 09:12) DIFFICULTY BREATHING gabapentin [GABAPENTIN] Allergy (Intermediate, Verified 12/22/22 09:12) TREMORS risperidone [From RISPERDAL] Allergy (Intermediate, Verified 12/22/22 09:12) TARDIVE DYSKINESIA Medication List - Last Reconciled 12/22/22 by Stevo Crowe MD benztropine 1 mg PO BID hydroxyzine pamoate 25 mg PO Q6H PRN lamotrigine 25 mg PO DAILY oxcarbazepine 300 mg PO .qhs oxcarbazepine 150 mg PO DAILY tizanidine 4 mg PO BEDTIME PRN PFSH Medical History Asthma Bipolar 1 disorder Fibromyalgia Hiatal hernia History of cocaine abuse History of ETOH abuse History of post traumatic stress disorder Impaired fasting blood sugar Memory changes Morbid obesity Morbid obesity Obesity Obstructive sleep apnea NELSON on CPAP Osteoarthritis of lumbar spine Osteoarthritis, hand, primary localized Surgical History History of back surgery History of esophagogastroduodenoscopy (EGD) History of knee surgery History of suburethral sling procedure Hx of colonoscopy Family History Father Medical history non-contributory Mother Medical history non-contributory Other Adopted Social History (Updated 12/22/22 @ 09:13 by Tracy Neri CMA) Household Members: Friend(s) Housing: House Alcohol intake: never Patient Tobacco Use Status: Former Tobacco user Tobacco use type: Cigarette Cigarettes Per Day: 12 Years Smoked: Quit smoking 2 weeks ago has patches and gum e-Cigarette/Vaping Use: Never Used Substance Use Type: Crack/Cocaine service: No Current occupational status: employed 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 - [employer] Sexual orientation: Lesbian/Kelley/Homosexual Gender identity: Female Cognitive needs: No Hearing needs: No Vision needs: No Female Reproductive History Menstrual Age of Menarche: 9 Physical Exam Vital Signs: BMI result Body Mass Index 38.7 Const Other: Well-nourished well-developed very friendly female awake alert and oriented x3 in no acute distress Extrem Other: Bilateral lower extremity examination shows good capillary refill, no skin lesions noted, normal sensation light touch Right knee examination shows a minimal effusion, minimal crepitus with range of motion, tenderness along her medial joint line, positive Melissa's test, no instability Results Reviewed Results Reviewed: X-rays of the patient's right knee taken today show mild to moderate diffuse joint space narrowing, no acute Assessment & Plan Assessment & Plan (1) Tear of medial meniscus of right knee: Code(s): S83.241A - Other tear of medial meniscus, current injury, right knee, initial encounter Plan: Ms. Amaral presents with progressively worsening right knee pain and mechanical symptoms due to early degenerative joint disease as well as possible tearing of her medial meniscus. Thus, I will send the patient for an MRI of her right knee for further evaluation. I will see her back once the MRI is completed to discuss the findings and treatment options. Feel free to call me at any time should questions regarding her orthopedic management arise. Thank you very much for asking me to see this very friendly patient. Orders: Orders XR knee RT 3V Today M25.561 - Pain in right knee MR knee RT wo con Today S83.241A - Other tear of medial meniscus, current injury, right knee, initial encounter Coding Level of Care Code New Pt Level 2 (61933) Diagnoses Tear of medial meniscus of right knee S83.241A
== END 2022-12-22 09:42 | disposition home or self-care (01) ==
PROVIDERS: PCP Internal Medicine; Visit Provider Orthopaedic Surgery
DX: S83.241A Other tear of medial meniscus, current injury, right knee, initial encounter (principal)
CPT/HCPCS: 99202

== ENCOUNTER 2022-12-31 10:31 | Outpatient (AMB) | payer OTHER, SELFPAY ==
--- NOTE | 2022-12-31 10:48 | A.OFFVIS_ITS ---
Intake Intake Visit Reasons: aida Intake Note: Patient states here today follow up CPAP doing well. Independent Living Specialist Required: No Allergies amphetamine [Adderall] Allergy (Severe, Verified 12/31/22 11:03) Difficulty Breathing dextroamphetamine [From ADDERALL] Allergy (Severe, Verified 12/31/22 11:03) DIFFICULTY BREATHING gabapentin [GABAPENTIN] Allergy (Intermediate, Verified 12/31/22 11:03) TREMORS risperidone [From RISPERDAL] Allergy (Intermediate, Verified 12/31/22 11:03) TARDIVE DYSKINESIA Medication List - Last Reconciled 12/31/22 by Clyde Sewell MD benztropine 1 mg PO BID CPAP (CPAP Machine/Device) As directed hydroxyzine pamoate 25 mg PO Q6H PRN lamotrigine 25 mg PO DAILY oxcarbazepine 300 mg PO .qhs oxcarbazepine 150 mg PO DAILY tizanidine 4 mg PO BEDTIME PRN Do you need a note to return to daycare/school/sports/work: No HPI aida HPI Details Yady is 57 years old female, moderately obese and diagnosis of obstructive sleep apnea. She is a regular user of CPAP, comes after 6 months for follow-up. The current large fullface mask is fairly comfortable, and she is using the CPAP on a regular basis, . Sleeps well She also smokes about 1 and half pack of cigarettes a day, which she has done , throughout her adult life. Has mild intermittent cough but denies any wheezing or shortness of breath. Talked about quitting or at least cutting down on the smoking. She she said she is trying her best, and would cut it down to 1 pack a day. So for she has not been treated for obstructive airway disorder, but does need an up to date pulmonary function test. We also talked about annual lung screening program, and she is agreeable to participate in the program. PFSH Medical History Asthma Bipolar 1 disorder Fibromyalgia Hiatal hernia History of cocaine abuse History of ETOH abuse History of post traumatic stress disorder Impaired fasting blood sugar Memory changes Morbid obesity Morbid obesity Obesity Obstructive sleep apnea AIDA on CPAP Osteoarthritis of lumbar spine Osteoarthritis, hand, primary localized Smoker Surgical History History of back surgery History of esophagogastroduodenoscopy (EGD) History of knee surgery History of suburethral sling procedure Hx of colonoscopy Family History Father Medical history non-contributory Mother Medical history non-contributory Other Adopted Social History Household Members: Friend(s) Housing: House Alcohol intake: never Patient Tobacco Use Status: Former Tobacco user Tobacco use type: Cigarette Cigarettes Per Day: 12 Years Smoked: Quit smoking 2 weeks ago has patches and gum e-Cigarette/Vaping Use: Never Used Substance Use Type: Crack/Cocaine service: No Current occupational status: employed 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 - [employer] Sexual orientation: Lesbian/Kelley/Homosexual Gender identity: Female Cognitive needs: No Hearing needs: No Vision needs: No Female Reproductive History Menstrual Age of Menarche: 9 Review of Systems Const All systems reviewed & are unremarkable except as noted in HPI and below Eyes Reports no additional complaints ENT Reports nasal congestion (Off and on) Card Denies chest pain, Denies irregular heart rhythm and Denies leg edema Resp Reports cough (Occasional) GI Reports no additional complaints Reports no additional complaints Musc Reports no additional complaints Skin/Breast Reports system reviewed and no additional complaints, except as documented Neuro Reports no additional complaints Psych Reports anxiety, Reports depression and Reports mood swings Physical Exam Const General: comfortable, no acute distress, alert and awake Orientation/consciousness: patient oriented x3 HEENT Head: Yes normal to inspection General nose exam: No nasal polyps present and No nasal discharge present Face and sinus: Yes sinuses nontender Mouth: oropharynx normal Throat: Yes posterior oropharynx normal Eyes General: appearance normal, both eyes and all related structures Neck Neck: Yes normal visual inspection, Yes no lymphadenopathy, Yes trachea midline and Yes no JVD Thyroid: Thyroid normal Chest Chest palpation & inspection: normal inspection of the chest, normal palpation of entire chest wall and no tenderness Resp Effort & Inspection: normal respiratory effort Auscultation: clear to auscultation bilaterally, no rhonchi and no wheezes Percussion: percussion normal Cardio Palpation: normal PMI Rate: regular rate Rhythm: regular rhythm Heart sounds: no gallops and no murmurs Peripheral pulses: Peripheral pulses 2+ throughout GI Palpation (GI): Soft to palpation, nontender, No hepatosplenomegaly present, no masses and Other GI palpation findings present (Abdomen is quite obese and slightly protuberant) Auscultation: normal bowel sounds Back/Spine/Pelvis Thoracic/Lumbar Spine: thoracic and lumbar spine normal to inspection Skin General skin exam: no rashes or lesions noted Neuro General: patient oriented x3 and no focal motor deficits Cranial nerves: Yes CN's II-XII intact bilaterally Extrem General: Yes normal to inspection, No no clubbing, cyanosis or edema and Yes no calf tenderness Psych Appearance: grossly normal Speech and movement: Normal speech and movement present Assessment & Plan Assessment & Plan (1) Morbid obesity: Comment: BMI=38.7 She remains grossly obese but has lost some weight . Encouraged to keep on losing some weight. Trying to watch her diet and has lost some weight in the last 6 months. Encouraged to continue watching her diet and also walk on a daily basis. Code(s): E66.01 - Morbid (severe) obesity due to excess calories (2) AIDA on CPAP: Comment: She is well used to the CPAP therapy, very compliant and Sleeping well . Uses very regularly and sleeps well. Feels more comfortable with the current large size fullface mask. Code(s): G47.33 - Obstructive sleep apnea (adult) (pediatric); Z99.89 - Dependence on other enabling machines and devices (3) Asthma: Comment: Very mild, intermittent . SPIROMETRY WAS NORMAL . Advised to use Albuterol MDI 2 puffs q 4-6 Hrs , only if any wheezing , not for exertional Dyspnea , Because of her continued smoking, she should have complete PULMONARY FUNCTION TEST which is being scheduled, Code(s): J45.909 - Unspecified asthma, uncomplicated (4) Smoker: Comment: HISTORY OF SMOKING FOR AT LEAST 40 YEARS,, 1-1 AND HALF PACK CIGARETTES A DAY. COUNSELED TO QUIT. DOES NOT HAVE MUCH MOTIVATION OR INTENTION TO QUIT. SMOKING COMPLETELY I URGED HER TO CUT DOWN TO LESS THAN 1 PACK. A DAY FOR THE TIME BEING DISCUSSED ABOUT ANNUAL LUNG SCREENING PROGRAM AND SHE IS AGREEABLE. Code(s): F17.200 - Nicotine dependence, unspecified, uncomplicated Orders: Orders PFT pulmonary function test Today E66.01 - Morbid (severe) obesity due to excess calories, F17.200 - Nicotine dependence, unspecified, uncomplicated, J45.909 - Unspecified asthma, uncomplicated Referrals Thoracic Surgery Referral F17.200 - Nicotine dependence, unspecified, uncomplicated Coding Level of Care Code Est Pt Level 4 (05065) Diagnoses Morbid obesity E66.01 AIDA on CPAP G47.33; Z99.89 Asthma J45.909 Smoker F17.200
== END 2022-12-31 11:16 | disposition home or self-care (01) ==
PROVIDERS: PCP Internal Medicine; Visit Provider Internal Medicine
DX: E66.01 Morbid (severe) obesity due to excess calories (principal); G47.33 Obstructive sleep apnea (adult) (pediatric); Z99.89 Dependence on other enabling machines and devices; J45.909 Unspecified asthma, uncomplicated; F17.200 Nicotine dependence, unspecified, uncomplicated
CPT/HCPCS: 99214

== ENCOUNTER → 2022-12-31 10:31 | Outpatient (BNVA) | payer OTHER, SELFPAY | PROVIDERS: Visit Provider Internal Medicine | DX: G47.33 Obstructive sleep apnea (adult) (pediatric) (principal); J45.909 Unspecified asthma, uncomplicated; E66.01 Morbid (severe) obesity due to excess calories; F17.200 Nicotine dependence, unspecified, uncomplicated; Z68.38 Body mass index [BMI] 38.0-38.9, adult; Z99.89 Dependence on other enabling machines and devices | CPT/HCPCS: 99212 ==

== ENCOUNTER 2023-01-09 12:59 | Inpatient (IN) | payer OTHER, SELFPAY ==
--- NOTE | 2023-01-09 | ECG_ITS ---
Test Reason : ALCON SUBSTANCE Blood Pressure : / mmHG Vent. Rate : 079 BPM Atrial Rate : 079 BPM P-R Int : 138 ms QRS Dur : 076 ms QT Int : 394 ms P-R-T Axes : 062 051 059 degrees QTc Int : 451 ms Normal sinus rhythm Normal ECG When compared with ECG of 30-JUN-2018 13:51, Nonspecific T wave abnormality no longer evident in Lateral leads Referred By: Ally Hoffman Electronically Signed By:DAYANA GONZALEZ
--- NOTE | ~2023-01-09 | XR_ITS ---
EXAMINATION: XR CHEST CLINICAL INFORMATION: Pain, shortness of breath COMPARISON: Chest x-ray on 05/16/2019 TECHNIQUE: 2 views of the chest were obtained. FINDINGS: No significant abnormality is noted involving the heart, lungs, mediastinum, bony thorax or soft tissues. XR/XR chest 2V IMPRESSION: Unremarkable examination.
[2023-01-09 13:01] VITALS: BP 141/84; PULSE 88; RESP 16; TEMP 35.6; O2SAT 97; BMI 37.9
--- NOTE | 2023-01-09 13:01 | ED.PSYCH ---
HPI - Psych General Chief Complaint: Psychiatric Symptoms Stated Complaint: crisis si Time Seen by Provider: 01/09/23 13:28 Source: patient Mode of arrival: ambulatory Limitations: no limitations History of Present Illness HPI Narrative: This is a 57-year-old female with a history of polysubstance use, bipolar disorder who presents to the ER with complaints of suicidal thoughts with plans to get a gun from her drug dealer and shoot herself in the head. Patient denies homicidal ideations. She reports that she has been off her bipolar medications for more than 6 months and has been having manic and depressive episodes. She reports T he recently relapsed on crack cocaine a few months ago and has been smoking crack daily. She is complaining of body pain all over. No other physical complaints. Related Data Home Medications Medication Instructions Recorded Confirmed benztropine 1 mg tablet 1 mg PO BID 04/02/20 01/09/23 oxcarbazepine 150 mg tablet 150 mg PO DAILY 07/02/20 01/09/23 oxcarbazepine 300 mg tablet 300 mg PO BEDTIME 07/02/20 01/09/23 lamotrigine 25 mg tablet 100 mg PO DAILY 08/30/20 01/09/23 CPAP (CPAP Machine/Device) 12/31/22 01/09/23 aripiprazole 20 mg tablet 20 mg PO DAILY 01/09/23 01/09/23 sertraline 25 mg tablet 25 mg PO DAILY 01/09/23 01/09/23 Allergies Allergy/AdvReac Type Severity Reaction Status Date / Time amphetamine [Adderall] Allergy Severe Difficulty Verified 12/31/22 11:03 Breathing dextroamphetamine Allergy Severe DIFFICULTY Verified 12/31/22 11:03 [From ADDERALL] BREATHING gabapentin [GABAPENTIN] Allergy Intermediate TREMORS Verified 12/31/22 11:03 risperidone [From RISPERDAL] Allergy Intermediate TARDIVE Verified 12/31/22 11:03 DYSKINESIA Review of Systems Review of Systems: Yes all other systems are reviewed and are negative Constitutional: Constitutional: Reports no additional constitutional complaints, Denies body ache(s), Denies chills, Denies fever(s), Denies headache(s) and Denies weakness Eyes: Eyes: Reports no additional eye complaints and Denies change in vision ENT: Reports system reviewed and no additional complaints, except as documented, Denies dizziness, Denies headache(s), Denies nasal congestion, Denies nasal discharge and Denies neck pain Cardiovascular: Cardiovascular: Reports no additional cardiovascular complaints, Denies chest pain, Denies leg edema and Denies dyspnea Respiratory: Respiratory: Reports no additional respiratory complaints, Denies cough and Denies dyspnea Gastrointestinal: Gastrointestinal: Reports no additional gastrointestinal complaints, Denies abdominal pain, Denies diarrhea, Denies nausea and Denies vomiting Genitourinary: Genitourinary: Reports no additional female genitourinary complaints and Denies urinary incontinence Musculoskeletal: Musculoskeletal: Reports no additional musculoskeletal complaints, Denies back pain, Denies arthralgias, Denies joint swelling, Denies neck pain, Denies numbness and Denies tingling Integumentary/Breasts: Skin/Breast: Reports system reviewed and no additional complaints, except as docu and Denies rash Neurologic: Reports system reviewed and no additional complaints, except as documented, Denies Abnormal speech present, Denies dizziness, Denies headache(s), Denies numbness, Denies tingling and Denies weakness Psychiatric: Psychiatric: Reports depression, Denies homicidal ideation and Reports suicidal ideation [facility] Past Medical History Attestation statement: The following information was validated with the patient. Source: old records reviewed and nursing notes reviewed Medical History Asthma Bipolar 1 disorder Fibromyalgia Hiatal hernia History of cocaine abuse History of ETOH abuse History of post traumatic stress disorder Impaired fasting blood sugar Memory changes Morbid obesity Morbid obesity Obesity Obstructive sleep apnea NELSON on CPAP Osteoarthritis of lumbar spine Osteoarthritis, hand, primary localized Smoker Surgical History History of back surgery History of esophagogastroduodenoscopy (EGD) History of knee surgery History of suburethral sling procedure Hx of colonoscopy Family History Family History Father Medical history non-contributory Mother Medical history non-contributory Other Adopted Social History Social History Household Members: Friend(s) Housing: House Alcohol intake: never Patient Tobacco Use Status: Former Tobacco user Tobacco use type: Cigarette Cigarettes Per Day: 12 Years Smoked: Quit smoking 2 weeks ago has patches and gum e-Cigarette/Vaping Use: Never Used Substance Use Type: Crack/Cocaine Advance Directives: No Advance Directives Information Provided: No service: No Current occupational status: employed 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 - [employer] Sexual orientation: Lesbian/Kelley/Homosexual Gender identity: Female Cognitive needs: No Hearing needs: No Vision needs: No Physical Exam Vital Signs: Vital Signs: Last Vital Signs Temp 97.7 F 01/09/23 13:31 Pulse 78 01/09/23 13:31 Resp 18 01/09/23 13:31 BP 159/93 H 01/09/23 13:31 Pulse Ox 98 01/09/23 13:31 O2 Del Method Room Air 01/09/23 13:31 BMI result Body Mass Index 37.9 Const: General: cooperative, healthy appearing, comfortable and no acute distress Orientation/consciousness: patient oriented x3 Limitations: no limitations HEENT: Head: Yes normal to inspection Ears: hearing grossly normal bilaterally General nose exam: Normal external nose present Face and sinus: Yes normal facial exam Mouth: Normal oral and palatal mucosa present Throat: Yes posterior oropharynx normal Eyes: General: appearance normal, both eyes and all related structures Pupils: Equal, round and reactive pupils present Neck: Neck: Yes normal visual inspection Chest: Chest palpation & inspection: normal inspection of the chest Resp: Effort & Inspection: normal respiratory effort Auscultation: clear to auscultation bilaterally Cardio: Rate: regular rate Rhythm: regular rhythm Peripheral pulses: Peripheral pulses 2+ throughout GI: Inspection: Yes normal to inspection Palpation (GI): Soft to palpation and nontender Auscultation: normal bowel sounds Back/Spine/Pelvis: Thoracic/Lumbar Spine: thoracic and lumbar spine normal to inspection Skin: General skin exam: no rashes or lesions noted Neuro: General: patient oriented x3, no focal motor deficits and normal sensation to monofilament Cranial nerves: Yes Equal, round and reactive pupils present Cognition (Neuro): normal cognition Speech: No Abnormal speech present Gait exam (Neuro): Normal gait present Motor exam (neuro): 5/5 motor strength present throughout Extrem: General: Yes normal to inspection Course Course Course Narrative: This is an RME: Additional HPI, ROS, PE not included below will be deferred to primary provider. Patient is a 57-year-old female who presents to the emergency department for evaluation of suicidal ideations, with thoughts of shooting herself with a gun, but she doesn't have access to this. Has an intermittent relationship with a girlfriend who does have a gun, denies homicidal ideations. relapsed on crack a few months ago, wants detox, has not been taking her medications. endoring A/V hallucinations, states I'm manic and addicted to everything . Denies ETOH usage, 7 years sober, brought to ED by her AA sponsor. Plan: labs, urinalysis, placed in POD, will require CARE team evaluation. Reevaluation(s) Reevaluation #1: 1520-reviewed labs which show a very mildly elevated CPK. Patient can orally rehydrate. No need for IV fluids. Will place patient in physician observation pending crisis consultation. Medications Administered Generic Name Dose Route Start Last Admin Trade Name Maycol PRN Reason Stop Dose Admin Aripiprazole 20 mg 01/09/23 14:15 01/09/23 14:21 Aripiprazole 20 Mg Tablet PO 20 mg DAILY LAINEY Administration Benztropine Mesylate 1 mg 01/09/23 14:15 01/09/23 14:21 Benztropine Mesylate 1 Mg Tablet PO 1 mg BID LAINEY Administration Lamotrigine 100 mg 01/09/23 14:15 01/09/23 14:21 Lamotrigine 100 Mg Tablet PO 100 mg DAILY LAINEY Administration Oxcarbazepine 150 mg 01/09/23 14:15 01/09/23 14:21 Oxcarbazepine 150 Mg Tablet PO 150 mg DAILY LAINEY Administration Sertraline HCl 25 mg 01/09/23 14:15 01/09/23 14:21 Sertraline Hcl 25 Mg Tablet PO 25 mg DAILY LAINEY Administration Medical Decision Making Medical Decision Making [facility] Narrative: 57-year-old female with a history of polysubstance use, bipolar disorder presents the ER with complaints of suicidal thoughts with planned to get a gun from her drug dealer in she had herself in her head, has also been off all her psychiatric medication. Complaining of all over body pain but no other physical complaints Will obtain labs, drug screen, crisis consultation. No concern for acute ingestion or trauma. Differential Diagnosis Differential Diagnoses: The differential diagnosis associated with the presentation includes Poly substance use, bipolar disorder, depression Lab Data [facility] Lab Attestation statement: I reviewed the patient's lab results. 01/09/23 14:07 01/09/23 14:07 Labs: Lab Results 01/09/23 01/09/23 01/09/23 Range/Units 14:07 14:07 14:07 WBC 8.9 (4.8-10.8) X10*3/uL RBC 5.18 (4.20-5.50) X10*6/uL Hgb 14.3 (12.0-16.0) g/dl Hct 43.8 (37.0-47.0) % MCV 84.6 (80.0-98.0) fL MCH 27.6 (27.0-33.0) pg MCHC 32.6 (31.0-35.0) g/dl RDW 13.0 (11.0-16.0) % Plt Count 291 (160-400) X10*3/uL MPV 9.8 (9.4-12.3) fL Immature Gran % (Auto) 0.2 (0.0-0.4) % Neut % (Auto) 53.8 (45-73) % Lymph % (Auto) 36.2 (20-40) % [place] % (Auto) 6.4 (2-11) % Eos % (Auto) 2.8 (0-4) % Baso % (Auto) 0.6 (0-2) % Lymph # (Auto) 3.2 (1.2-4.9) X10*3/uL [place] # (Auto) 0.6 (0.1-1.2) X10*3/uL Eos # (Auto) 0.3 (0.0-0.4) X10*3/uL Baso # (Auto) 0.1 (0.0-0.2) X10*3/uL Abs Immat Gran (auto) 0.02 (0.00-0.03) X10*3/uL Absolute Neuts (auto) 4.8 (2.0-8.3) x10*3/uL Absolute Nucleated RBC 0.000 (0.0-0.012) X10*3/uL Nucleated RBC % (auto) 0.0 (0.0-0.2) /100WBC Sodium 141 (135-145) mmol/L Potassium 3.7 (3.3-5.1) mmol/L Chloride 107 (96-108) mmol/L Carbon Dioxide 23 (22-29) mmol/L Anion Gap 15 (12-20) BUN 14 (9-16) mg/dL Creatinine 0.93 (0.5-1.4) mg/dL Estim Creat Clear Calc 66.8 Estimated GFR > 60 Random Glucose 87 (60-115) mg/dL Calcium 9.3 (8.4-10.2) mg/dL Total Bilirubin 0.3 (0.0-1.0) mg/dL AST 19 (5-31) U/L ALT 23 (0-31) U/L Alkaline Phosphatase 58 (39-117) U/L Total Creatine Kinase 151 H (26-140) U/L Total Protein 6.9 (6.5-8.0) g/dL Albumin 3.8 (3.5-5.0) g/dL Ethyl Alcohol < 10 mg/dL Discharge Plan Discharge Clinical Impression: Suicidal ideation Patient Disposition: Still a Patient Prescriptions: No Action sertraline 25 mg tablet 25 mg PO DAILY aripiprazole 20 mg tablet 20 mg PO DAILY benztropine 1 mg tablet 1 mg PO BID oxcarbazepine 300 mg tablet 300 mg PO BEDTIME oxcarbazepine 150 mg tablet 150 mg PO DAILY lamotrigine 25 mg tablet 100 mg PO DAILY (DME) CPAP Machine/Device Device See Rx Instructions .Route Rx Instructions: As directed
[2023-01-09 13:31] VITALS: BP 159/93; PULSE 78; RESP 18; TEMP 36.5; O2SAT 98
[2023-01-09 14:14] LABS: MANUAL DIFF FLAG NO
[2023-01-09 14:16] LABS: Basophils Absolute Auto 0.1 X10*3/uL (0.0-0.2); Basophils Percent Auto 0.6 % (0-2); Eosinophils Absolute Auto 0.3 X10*3/uL (0.0-0.4); Eosinophils Percent Auto 2.8 % (0-4); Hematocrit 43.8 % (37.0-47.0); Hemoglobin 14.3 g/dl (12.0-16.0); Imm Gran Abs Auto 0.02 X10*3/uL (0.00-0.03); Imm Gran Pct Auto 0.2 % (0.0-0.4); Lymphocytes Absolute Auto 3.2 X10*3/uL (1.2-4.9); Lymphocytes Percent Auto 36.2 % (20-40); Mean Corpuscular HGB Conc 32.6 g/dl (31.0-35.0); Mean Corpuscular Hemoglobin 27.6 pg (27.0-33.0); Mean Corpuscular Volume 84.6 fL (80.0-98.0); Mean Platelet Volume 9.8 fL (9.4-12.3); Monocytes Absolute Auto 0.6 X10*3/uL (0.1-1.2); Monocytes Percent Auto 6.4 % (2-11); Neutrophils Absolute Auto 4.8 x10*3/uL (2.0-8.3); Neutrophils Percent Auto 53.8 % (45-73); Platelet Count 291 X10*3/uL (160-400); Red Blood Count 5.18 X10*6/uL (4.20-5.50); White Blood Count 8.9 X10*3/uL (4.8-10.8)
[2023-01-09] MEDS: lamoTRIgine 100 MG TABLET PO (14:21)
[2023-01-09] MEDS: OXcarbazepine 150 MG TABLET PO (14:21)
[2023-01-09] MEDS: Benztropine Mesylate 1 MG TABLET PO ×2 (14:21→20:06)
[2023-01-09] MEDS: ARIPiprazole 20 MG TABLET PO (14:21)
[2023-01-09] MEDS: Sertraline HCL 25 MG TABLET PO (14:21)
[2023-01-09 14:26] LABS: Ethanol < 10 mg/dL
[2023-01-09 14:34] LABS: Alanine Aminotransferase 23 U/L (0-31); Albumin Level 3.8 g/dL (3.5-5.0); Alkaline Phosphatase 58 U/L (39-117); Anion Gap 15 (12-20); Aspartate Amino Transferase 19 U/L (5-31); Bilirubin Total 0.3 mg/dL (0.0-1.0); Blood Urea Nitrogen 14 mg/dL (9-16); Calcium 9.3 mg/dL (8.4-10.2); Carbon Dioxide 23 mmol/L (22-29); Chloride 107 mmol/L (96-108); Creatinine Clr Calc Pharmacy 66.8; Estimated Glomerular Filt Rate > 60; Glucose Random 87 mg/dL (60-115); Potassium 3.7 mmol/L (3.3-5.1); Sodium 141 mmol/L (135-145); Total Protein 6.9 g/dL (6.5-8.0)
[2023-01-09 15:49] VITALS: BP 159/93; PULSE 78; RESP 16; TEMP 36.6; O2SAT 98
[2023-01-09 16:10] VITALS: BP 140/79; PULSE 73; RESP 16; TEMP 36.8; O2SAT 98
[2023-01-09 16:31] LABS: Appearance Urine Clear; Color Urine Yellow; Glucose Urine UA Negative (Negative); Leukocyte Esterase Urine Trace (Negative); Nitrite Urine Negative (Negative); UMIC TRIGGER UACC YES; Urine Blood Negative (Negative); Urine Ketones Negative (Negative); Urine Protein Negative (Neg-Trace)
[2023-01-09 16:34] LABS: Bacteria Urine 1+ (None Seen); Hyaline Casts Urine 0-2 /LPF (0-2); RBC Urine 0-2 /HPF (0-2); UACC Culture Trigger YES
[2023-01-09 16:39] LABS: Amphetamine Screen Urine Not Detected (Not Detect); Barbiturates, Urine Not Detected (Not Detect); Benzodiazepines Screen Urine Not Detected (Not Detect); Cannabinoid Screen Urine POSITIVE (Not Detect); Cocaine Screen Urine POSITIVE (Not Detect); Fentanyl, urine Not Detected (Not Detect); Opiate Screen Urine Not Detected (Not Detect); Phencyclidine Screen Urine Not Detected (Not Detect)
--- NOTE | 2023-01-09 17:17 | MHC.CARE ---
Patient seen by CARE team, she is voluntary for inpatient psych. Unit to be determined/ pending acceptance.
[2023-01-09] MEDS: OXcarbazepine 300 MG TABLET PO (20:06)
[2023-01-09 21:05] LABS: COVID-19 Test Negative (Negative); IDNOW Serial# BCCEAD1C
[2023-01-10] VITALS: BP 146/78; PULSE 76; RESP 18; TEMP 36.4; O2SAT 98
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
[2023-01-10 06:00] VITALS: BP 140/80; PULSE 74; RESP 18
[2023-01-10] MEDS: Benztropine Mesylate 1 MG TABLET PO ×2 (09:32→21:02)
[2023-01-10] MEDS: Sertraline HCL 25 MG TABLET PO (09:32)
[2023-01-10] MEDS: lamoTRIgine 100 MG TABLET PO (09:32)
[2023-01-10] MEDS: OXcarbazepine 150 MG TABLET PO (09:32)
[2023-01-10] MEDS: ARIPiprazole 20 MG TABLET PO (09:32)
[2023-01-10] MEDS: Nicotine 14 MG PATCH.TD24 TRANSDERMA (09:33)
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
[2023-01-10 20:54] VITALS: BP 143/87; PULSE 77; RESP 18; TEMP 36.1
[2023-01-10] MEDS: OXcarbazepine 300 MG TABLET PO (21:02)
[2023-01-11] MEDS: Nicotine Polacrilex 2 MG GUM BUCCAL (06:14)
[2023-01-11 08:25] VITALS: BP 144/87; PULSE 79; RESP 18; TEMP 36.1; O2SAT 99
[2023-01-11] MEDS: OXcarbazepine 150 MG TABLET PO (09:36)
[2023-01-11] MEDS: Sertraline HCL 25 MG TABLET PO (09:37)
[2023-01-11] MEDS: Benztropine Mesylate 1 MG TABLET PO ×2 (09:37→20:14)
[2023-01-11] MEDS: lamoTRIgine 100 MG TABLET PO (09:37)
[2023-01-11] MEDS: ARIPiprazole 20 MG TABLET PO (09:37)
[2023-01-11] MEDS: Nicotine 14 MG PATCH.TD24 TRANSDERMA (09:38)
[2023-01-11 10:02] LABS: Folate 10.7 ng/mL (> or = 4.0); Vitamin B12 537 pg/mL (200-900)
--- NOTE | 2023-01-11 11:49 | MHC.RECOVRN ---
This bid writer met with patient after addiction consult was placed, pt presented to ED thoughts of SI and increased COY use. Pt resting comfortably. Pt reports has been in recovery for 7 years from ETOH use. Pt reports has AA sponsor, pt reports has attended [facility] in the past. Pt reports no ETOH cravings at this time. Pt states April/May 2022, broke up with girlfriend, due to increased stress from breakup, started using daily COY $50-300. 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 Pt states plans to attend NA meetings and obtain NA sponsor, as 12 step model has worked for sustained ETOH remission. Reviewed medications for stimulant use. Pt reports interested in medications for stimulant use, pt interested in intake appt at [facility]. This bid writer to make MAT intake appt when more information is obtained related to pt discharge, t/w to contact CM with plan.
--- NOTE | 2023-01-11 15:24 | PC.RT ---
pt unable to wear cpap last night due to unavailable sitter.
--- NOTE | 2023-01-11 16:39 | HO.PSYCHPN ---
Subjective Subjective Date of Service: 01/11/23 Reason For Visit: SI Subjective Notes: Conditional Voluntary Interim History: Reviewed with team and Dr. Mercedes. Patient reports she came into the hospital d/t wanting to blow my brains out in front of my ex-girlfriend . Pt stated I don't want to blow my head off anymore, my ex isn't worth it. She just goes on with her life like nothing happened. I need to start a new life . She would like to focus on her sobriety and attend AA and NA groups. Reports +AH and +VH of chatter in the back round and people ; pt reports some paranoia of people following me . Denies SI/HI at this time. Medication Compliance: Yes Side effects from medications: No Attending Groups: Intermittent Review of Systems Constitutional: Reports as per HPI Eyes: Reports as per HPI Reports as per HPI Cardiovascular: Reports as per HPI Respiratory: Reports as per HPI Gastrointestinal: Reports as per HPI Genitourinary: Reports as per HPI Musculoskeletal: Reports as per HPI Skin/Breast: Reports as per HPI Reports as per HPI Psychiatric: Reports as per HPI Endocrine: Reports as per HPI Hematologic/Lymphatic: Reports as per HPI Allergic/Immunologic: Reports as per HPI Mental Status Exam Mental Status Exam Narrative: Pt is alert and oriented; behavior is cooperative, friendly and calm; patient is not in distress; dressed in casual attire; mood is described as okay ; eye contact appropriate; Speech is normal rate, volume and prosody and not pressured; no psychomotor agitation/retardation present; thought process is organized; Thought content is on tx; pt stated, I have some paranoia that people following me . denies SI/HI. Pt reports auditory and visual hallucinations of chatter in the back round and people . Patients insight and judgment are poor. Diagnostics Vital Signs (24Hr): Vital Signs - 24 hr 01/10/23 20:54 01/11/23 08:25 Temperature 97 F 96.9 F Pulse Rate 77 79 Respiratory Rate 18 18 Blood Pressure 143/87 H 144/87 H Pulse Oximetry 99 Oxygen Delivery Method Room Air BMI result Body Mass Index 37.9 Labs 01/09/23 14:07 01/09/23 14:07 Labs: Laboratory Results - last 48 hr 01/09/23 01/09/23 01/11/23 16:20 20:44 08:43 Vitamin B12 537 Folate 10.7 Urine Opiates Screen Not Detected Urine Fentanyl Screen Not Detected Ur Barbiturates Screen Not Detected Ur Phencyclidine Scrn Not Detected Ur Amphetamines Screen Not Detected U Benzodiazepines Scrn Not Detected Urine Cocaine Screen POSITIVE H U Marijuana (THC) Screen POSITIVE H COVID-19 ([facility]) Negative COVID-19 Clin Com See Note Medications Medications Current Medications Acetaminophen (Acetaminophen 325 Mg Tablet) 650 mg PO Q6H PRN PRN Reason: Headache/Pain Mild Scale (1-3) Al Hydroxide/Mg Hydroxide (Magnesium Hydrox/Alum Hydrox 30 Ml Oral.Susp) 30 ml PO Q6H PRN PRN Reason: Heartburn/Nausea Aripiprazole (Aripiprazole 20 Mg Tablet) 20 mg PO DAILY [facility] Last Admin: 01/11/23 09:37 Dose: 20 mg Benztropine Mesylate (Benztropine Mesylate 1 Mg Tablet) 1 mg PO BID [facility] Last Admin: 01/11/23 09:37 Dose: 1 mg Hydroxyzine HCl (Hydroxyzine Hcl 25 Mg Tablet) 25 mg PO Q6H PRN PRN Reason: Anxiety Lamotrigine (Lamotrigine 100 Mg Tablet) 100 mg PO DAILY [facility] Last Admin: 01/11/23 09:37 Dose: 100 mg Magnesium Hydroxide (Milk Of Magnesia 30 Ml Oral.Susp) 30 ml PO DAILY PRN PRN Reason: Constipation Nicotine (Nicotine 14 Mg Patch.Td24) 14 mg TRANSDERMA DAILY [facility] Last Admin: 01/11/23 09:38 Dose: 14 mg Nicotine Polacrilex (Nicotine Polacrilex 2 Mg Gum) 2 mg BUCCAL Q2H PRN PRN Reason: Nicotine Cravings Last Admin: 01/11/23 06:14 Dose: 2 mg Oxcarbazepine (Oxcarbazepine 150 Mg Tablet) 150 mg PO DAILY [facility] Last Admin: 01/11/23 09:36 Dose: 150 mg Oxcarbazepine (Oxcarbazepine 300 Mg Tablet) 300 mg PO BEDTIME [facility] Last Admin: 01/10/23 21:02 Dose: 300 mg Sertraline HCl (Sertraline Hcl 25 Mg Tablet) 25 mg PO DAILY [facility] Last Admin: 01/11/23 09:37 Dose: 25 mg Trazodone HCl (Trazodone Hcl 50 Mg Tablet) 50 mg PO BEDTIME MRX1 PRN PRN Reason: Insomnia Allergies Allergies Allergy/AdvReac Type Severity Reaction Status Date / Time amphetamine [Adderall] Allergy Severe Difficulty Verified 12/31/22 11:03 Breathing dextroamphetamine Allergy Severe DIFFICULTY Verified 12/31/22 11:03 [From ADDERALL] BREATHING gabapentin [GABAPENTIN] Allergy Intermediate TREMORS Verified 12/31/22 11:03 risperidone [From RISPERDAL] Allergy Intermediate TARDIVE Verified 12/31/22 11:03 DYSKINESIA Assessment & Plan Assessment & Plan (1) Bipolar disorder, rapid cycling: Status: Acute Code(s): F31.9 - Bipolar disorder, unspecified (2) Cocaine use disorder: Status: Acute Code(s): F14.10 - Cocaine abuse, uncomplicated (3) Cannabis use disorder: Status: Acute Code(s): F12.90 - Cannabis use, unspecified, uncomplicated (4) PTSD (post-traumatic stress disorder): Status: Acute Code(s): F43.10 - Post-traumatic stress disorder, unspecified Plan 57 yo female, hx of rapid cycling bipolar disorder with psychosis,PTSD, reported issues with anger mgt, cocaine use disorder, cannabis use disorder presents with SI with plan to OD on cocaine or obtain a gun from her dealer and self inflict a gunshot wound. Pt reports precipitants include loss of relationship May 2022, however both still live together as room-mates, and stopping psychotropic meds after relationship ended which precipitated increase in cocaine use. Plan: Re-establish regime CPAP Chest xray-lung pain B12, Folate Aftercare planning Full milieu suggested 01/11: Pt stated I don't want to blow my head off anymore, my ex isn't worth it . She would like to focus on her sobriety and attend AA and NA groups. Reports +AH and +VH of chatter in the back round and people ; pt reports some paranoia of people following me . Denies SI/HI at this time. Continue current tx plan. Patient educated on: diagnosis, medication risk/benefits and therapeutic strategies Informed Consent: understands Reason for continued inpatient stay Substantial Risk for: med/psych decompensation Time Spent With Patient Time: Total time managing care of this patient today _30___ minutes.
[2023-01-11 18:00] VITALS: BP 138/90; PULSE 80; RESP 17; TEMP 36.3; O2SAT 96
[2023-01-11] MEDS: OXcarbazepine 300 MG TABLET PO (20:14)
[2023-01-12] MEDS: hydrOXYzine HCL 25 MG TABLET PO ×2 (00:46→20:07)
--- NOTE | 2023-01-12 07:21 | PC.RT ---
pt did not wear cpap last night due to no sitter availability
--- NOTE | 2023-01-12 08:44 | PC.NURSE ---
pt signed a 3day notice, up on 01/15/23. SW and UR aware
[2023-01-12 08:57] VITALS: BP 134/86; PULSE 84; RESP 16; TEMP 36.8; O2SAT 98
[2023-01-12] MEDS: Benztropine Mesylate 1 MG TABLET PO ×2 (09:00→20:07)
[2023-01-12] MEDS: OXcarbazepine 150 MG TABLET PO (09:00)
[2023-01-12] MEDS: ARIPiprazole 20 MG TABLET PO (09:00)
[2023-01-12] MEDS: Sertraline HCL 25 MG TABLET PO (09:00)
[2023-01-12] MEDS: lamoTRIgine 100 MG TABLET PO (09:00)
[2023-01-12] MEDS: Nicotine 14 MG PATCH.TD24 TRANSDERMA (09:03)
--- NOTE | 2023-01-12 14:29 | P.PNPSI_ITS ---
Subjective Subjective Date of Service: 01/12/23 Reason For Visit: SI Subjective Notes: Conditional Voluntary and 3 Day Interim History: Pt reports increase psychosis with cocaine use, reports they are better now. She reports wanting substance use treatment. she denied SI/HI. No VH/AH. She reports she has been on abilify for a long time and feels like it works. We discussed baclofen for cocaine cravings, which pt was willing to try. She signs 3 day, up tomorrow. no imminent safety concern at this time. Medication Compliance: Yes Review of Systems Review of Systems Yes all other systems are reviewed and are negative Constitutional: Reports as per HPI, Reports no additional constitutional complaints, Denies body ache(s), Denies chills, Denies fever(s), Denies headache(s) and Denies weakness Eyes: Reports as per HPI, Reports no additional eye complaints and Denies change in vision Reports system reviewed and no additional complaints, except as documented, Reports as per HPI, Denies dizziness, Denies headache(s), Denies nasal congestion, Denies nasal discharge and Denies neck pain Cardiovascular: Reports as per HPI, Reports no additional cardiovascular complaints, Denies chest pain, Denies leg edema and Denies dyspnea Respiratory: Reports as per HPI, Reports no additional respiratory complaints, Reports chest congestion, Denies cough, Denies dyspnea and Reports other (lung pain from crack use) Gastrointestinal: Reports as per HPI, Reports no additional gastrointestinal complaints, Denies abdominal pain, Denies diarrhea, Denies nausea and Denies vomiting Musculoskeletal: Reports no additional musculoskeletal complaints, Reports as per HPI, Denies back pain, Denies arthralgias, Denies joint swelling, Denies ne ck pain, Denies numbness, Denies tingling and Reports other (knee pain-pending surgery she reports) Skin/Breast: Reports system reviewed and no additional complaints, except as docu, Reports as per HPI and Denies rash Reports system reviewed and no additional complaints, except as documented, Reports as per HPI, Denies Abnormal speech present, Reports behavioral changes, Denies dizziness, Denies headache(s), Denies numbness, Denies tingling and Denies weakness Psychiatric: Reports as per HPI, Reports abnormal sleep pattern, Reports anxiety, Reports behavioral changes, Reports change in appetite, Reports depression, Reports difficulty concentrating, Reports hopelessness, Reports irritability, Reports anhedonia, Reports mood swings, Denies homicidal ideation and Reports suicidal ideation Endocrine: Reports no additional endocrine complaints and Reports as per HPI Hematologic/Lymphatic: Reports no additional hematologic/lymphatic complaints and Reports as per HPI Allergic/Immunologic: Reports no additional allergic/immunologic complaints and Reports as per HPI Mental Status Exam Mental Status Exam Narrative: Pt is alert and oriented; behavior is cooperative, friendly and calm; patient is not in distress; dressed in casual attire; mood is described as okay ; eye contact appropriate; Speech is normal rate, volume and prosody and not pressured; no psychomotor agitation/retardation present; thought process is organized; Thought content is on tx; pt stated, I have some paranoia that people following me . denies SI/HI. Pt reports auditory and visual hallucinations of chatter in the back round and people . Patients insight and judgment are poor. Patient Appearance: Fatigued Patient Orientation: Person, Place, Time and Situation Level of Consciousness: Alert Patient Behavior: Appropriate, Talkative, Cooperative and Good Eye Contact Mood Description: Depressed Affect Description: Flat Patient Cognition Impaired: No Ability to Follow Directions: Good Speech Pattern: Spontaneous Speech Memory Description: Intact Diagnostics Vital Signs (24Hr): Vital Signs - 24 hr 01/11/23 18:00 01/12/23 08:57 Temperature 97.3 F 98.2 F Pulse Rate 80 84 Respiratory Rate 17 16 Blood Pressure 138/90 H 134/86 Pulse Oximetry 96 98 Oxygen Delivery Method Room Air Room Air BMI result Body Mass Index 37.9 Labs 01/09/23 14:07 01/09/23 14:07 Labs: Laboratory Results - last 48 hr 01/11/23 08:43 Vitamin B12 537 Folate 10.7 Imaging Radiology Impressions: ITS Impressions Chest X-Ray 01/10/23 17:15 IMPRESSION: Unremarkable examination. Medications Medications Current Medications Acetaminophen (Acetaminophen 325 Mg Tablet) 650 mg PO Q6H PRN PRN Reason: Headache/Pain Mild Scale (1-3) Al Hydroxide/Mg Hydroxide (Magnesium Hydrox/Alum Hydrox 30 Ml Oral.Susp) 30 ml PO Q6H PRN PRN Reason: Heartburn/Nausea Aripiprazole (Aripiprazole 20 Mg Tablet) 20 mg PO DAILY [facility] Last Admin: 01/12/23 09:00 Dose: 20 mg Benztropine Mesylate (Benztropine Mesylate 1 Mg Tablet) 1 mg PO BID [facility] Last Admin: 01/12/23 09:00 Dose: 1 mg Hydroxyzine HCl (Hydroxyzine Hcl 25 Mg Tablet) 25 mg PO Q6H PRN PRN Reason: Anxiety Last Admin: 01/12/23 00:46 Dose: 25 mg Lamotrigine (Lamotrigine 100 Mg Tablet) 100 mg PO DAILY [facility] Last Admin: 01/12/23 09:00 Dose: 100 mg Magnesium Hydroxide (Milk Of Magnesia 30 Ml Oral.Susp) 30 ml PO DAILY PRN PRN Reason: Constipation Nicotine (Nicotine 14 Mg Patch.Td24) 14 mg TRANSDERMA DAILY [facility] Last Admin: 01/12/23 09:03 Dose: 14 mg Nicotine Polacrilex (Nicotine Polacrilex 2 Mg Gum) 2 mg BUCCAL Q2H PRN PRN Reason: Nicotine Cravings Last Admin: 01/11/23 06:14 Dose: 2 mg Oxcarbazepine (Oxcarbazepine 150 Mg Tablet) 150 mg PO DAILY [facility] Last Admin: 01/12/23 09:00 Dose: 150 mg Oxcarbazepine (Oxcarbazepine 300 Mg Tablet) 300 mg PO BEDTIME [facility] Last Admin: 01/11/23 20:14 Dose: 300 mg Trazodone HCl (Trazodone Hcl 50 Mg Tablet) 50 mg PO BEDTIME MRX1 PRN PRN Reason: Insomnia Allergies Allergies Allergy/AdvReac Type Severity Reaction Status Date / Time amphetamine [Adderall] Allergy Severe Difficulty Verified 12/31/22 11:03 Breathing dextroamphetamine Allergy Severe DIFFICULTY Verified 12/31/22 11:03 [From ADDERALL] BREATHING gabapentin [GABAPENTIN] Allergy Intermediate TREMORS Verified 12/31/22 11:03 risperidone [From RISPERDAL] Allergy Intermediate TARDIVE Verified 12/31/22 11:03 DYSKINESIA Assessment & Plan Assessment & Plan (1) Bipolar disorder, rapid cycling: Status: Acute Code(s): F31.9 - Bipolar disorder, unspecified (2) Cocaine use disorder: Status: Acute Code(s): F14.10 - Cocaine abuse, uncomplicated (3) Cannabis use disorder: Status: Acute Code(s): F12.90 - Cannabis use, unspecified, uncomplicated (4) PTSD (post-traumatic stress disorder): Status: Acute Code(s): F43.10 - Post-traumatic stress disorder, unspecified Plan 57 yo female, hx of rapid cycling bipolar disorder with psychosis,PTSD, reported issues with anger mgt, cocaine use disorder, cannabis use disorder presents with SI with plan to OD on cocaine or obtain a gun from her dealer and self inflict a gunshot wound. Pt reports precipitants include loss of relationship May 2022, however both still live together as room-mates, and stopping psychotropic meds after relationship ended which precipitated increase in cocaine use. Plan: Re-establish regime CPAP Chest xray-lung pain B12, Folate Aftercare planning Full milieu suggested 01/11: Pt stated I don't want to blow my head off anymore, my ex isn't worth it . She would like to focus on her sobriety and attend AA and NA groups. Reports +AH and +VH of chatter in the back round and people ; pt reports some paranoia of people following me . Denies SI/HI at this time. Continue current tx plan. 01/12 add baclofen 10mg po BID for cocaine cravings. Reason for continued inpatient stay Substantial Risk for: stable for discharge Time Spent With Patient Time: Total time managing care of this patient today ____ minutes.
[2023-01-12 18:35] VITALS: BP 140/99; PULSE 90; TEMP 36.2
[2023-01-12] MEDS: Baclofen 10 MG TABLET PO (20:07)
[2023-01-12] MEDS: OXcarbazepine 300 MG TABLET PO (20:08)
[2023-01-13] MEDS: Nicotine 14 MG PATCH.TD24 TRANSDERMA (08:25)
[2023-01-13] MEDS: lamoTRIgine 100 MG TABLET PO (08:25)
[2023-01-13] MEDS: Benztropine Mesylate 1 MG TABLET PO (08:25)
[2023-01-13] MEDS: Baclofen 10 MG TABLET PO (08:25)
[2023-01-13] MEDS: OXcarbazepine 150 MG TABLET PO (08:25)
[2023-01-13] MEDS: ARIPiprazole 20 MG TABLET PO (08:25)
--- NOTE | 2023-01-13 10:39 | PM.PSYDC ---
DS: Providers Provider Date of Service: 01/13/23 Date of admission: 01/09/23 23:39 Date of discharge: 01/13/23 Primary care physician: Adilson Park MD Consults: 01/09/23 13:33 Consult to Care Team Routine Comment: Reason for consultation: SI with plan 01/10/23 15:36 Addiction Medicine Routine Consulting Provider: Addiction Covering Reason for consultation: cocaine use disorder, needs NA connection, recovery coaching Has provider been notified: No DS: Diagnosis Discharge Diagnosis (1) Bipolar disorder, rapid cycling: Status: Acute (2) Cocaine use disorder: Status: Acute (3) Cannabis use disorder: Status: Acute (4) PTSD (post-traumatic stress disorder): Status: Deleted DS: Medications Discharge Medications Home Medications: Home Medications Medication Instructions Recorded Confirmed CPAP (CPAP Machine/Device) 12/31/22 01/09/23 Previous Rx's Medication Instructions Recorded aripiprazole 20 mg tablet (Abilify) 20 mg PO DAILY #30 tabs 01/13/23 baclofen 10 mg tablet 10 mg PO BID #60 tabs 01/13/23 benztropine 1 mg tablet 1 mg PO BID #60 tabs 01/13/23 lamotrigine 100 mg tablet 100 mg PO DAILY #30 tabs 01/13/23 nicotine 14 mg/24 hr daily 14 mg transdermal DAILY #30 ea 01/13/23 transdermal patch oxcarbazepine 150 mg tablet 150 mg PO DAILY #30 tabs 01/13/23 oxcarbazepine 300 mg tablet 300 mg PO BEDTIME #30 tabs 01/13/23 Mental Status Exam Mental Status Exam Narrative: Appearance: casually groomed, good hygiene, in NAD Behavior: cooperative Psychomotor: no agitation or retardation noted Speech: clear, normal rate/rhythm/volume, spontaneous TP: linear TC:no overt delusions or psychosis, future oriented Mood: good Affect: congruent SI: denies HI: denies VH/AH: none Delusions: none Insight/judgment: fair x 2. Memory/cog: alert, oriented x 3. Data Data Completed and Pending Completed studies during hospitalization [Text1]: 01/09/23 01/09/23 01/09/23 14:07 14:07 14:07 WBC 8.9 RBC 5.18 Hgb 14.3 Hct 43.8 MCV 84.6 MCH 27.6 MCHC 32.6 RDW 13.0 Plt Count 291 MPV 9.8 Immature Gran % (Auto) 0.2 Neut % (Auto) 53.8 Lymph % (Auto) 36.2 [place] % (Auto) 6.4 Eos % (Auto) 2.8 Baso % (Auto) 0.6 Lymph # (Auto) 3.2 [place] # (Auto) 0.6 Eos # (Auto) 0.3 Baso # (Auto) 0.1 Abs Immat Gran (auto) 0.02 Absolute Neuts (auto) 4.8 Absolute Nucleated RBC 0.000 Nucleated RBC % (auto) 0.0 Sodium 141 Potassium 3.7 Chloride 107 Carbon Dioxide 23 Anion Gap 15 BUN 14 Creatinine 0.93 Estim Creat Clear Calc 66.8 Estimated GFR > 60 Random Glucose 87 Calcium 9.3 Total Bilirubin 0.3 AST 19 ALT 23 Alkaline Phosphatase 58 Total Creatine Kinase 151 H Total Protein 6.9 Albumin 3.8 Vitamin B12 Folate Urine Color Urine Appearance Urine pH Ur Specific [place] Urine Protein Urine Glucose (UA) Urine Ketones Urine Blood Urine Nitrite Ur Leukocyte Esterase Urine RBC Urine WBC Ur Squamous Epith Cells Urine Bacteria Hyaline Casts Urine Opiates Screen Urine Fentanyl Screen Ur Barbiturates Screen Ur Phencyclidine Scrn Ur Amphetamines Screen U Benzodiazepines Scrn Urine Cocaine Screen U Marijuana (THC) Screen Ethyl Alcohol < 10 COVID-19 (DARIUS) COVID-19 Clin Com 01/09/23 01/09/23 01/09/23 16:20 16:20 20:44 WBC RBC Hgb Hct MCV MCH MCHC RDW Plt Count MPV Immature Gran % (Auto) Neut % (Auto) Lymph % (Auto) [place] % (Auto) Eos % (Auto) Baso % (Auto) Lymph # (Auto) [place] # (Auto) Eos # (Auto) Baso # (Auto) Abs Immat Gran (auto) Absolute Neuts (auto) Absolute Nucleated RBC Nucleated RBC % (auto) Sodium Potassium Chloride Carbon Dioxide Anion Gap BUN Creatinine Estim Creat Clear Calc Estimated GFR Random Glucose Calcium Total Bilirubin AST ALT Alkaline Phosphatase Total Creatine Kinase Total Protein Albumin Vitamin B12 Folate Urine Color Yellow Urine Appearance Clear Urine pH 7.0 Ur Specific [place] 1.020 Urine Protein Negative Urine Glucose (UA) Negative Urine Ketones Negative Urine Blood Negative Urine Nitrite Negative Ur Leukocyte Esterase Trace H Urine RBC 0-2 Urine WBC 6-10 H Ur Squamous Epith Cells 11-20 Urine Bacteria 1+ Hyaline Casts 0-2 Urine Opiates Screen Not Detected Urine Fentanyl Screen Not Detected Ur Barbiturates Screen Not Detected Ur Phencyclidine Scrn Not Detected Ur Amphetamines Screen Not Detected U Benzodiazepines Scrn Not Detected Urine Cocaine Screen POSITIVE H U Marijuana (THC) Screen POSITIVE H Ethyl Alcohol COVID-19 (DARIUS) Negative COVID-19 Clin Com See Note 01/11/23 08:43 WBC RBC Hgb Hct MCV MCH MCHC RDW Plt Count MPV Immature Gran % (Auto) Neut % (Auto) Lymph % (Auto) [place] % (Auto) Eos % (Auto) Baso % (Auto) Lymph # (Auto) [place] # (Auto) Eos # (Auto) Baso # (Auto) Abs Immat Gran (auto) Absolute Neuts (auto) Absolute Nucleated RBC Nucleated RBC % (auto) Sodium Potassium Chloride Carbon Dioxide Anion Gap BUN Creatinine Estim Creat Clear Calc Estimated GFR Random Glucose Calcium Total Bilirubin AST ALT Alkaline Phosphatase Total Creatine Kinase Total Protein Albumin Vitamin B12 537 Folate 10.7 Urine Color Urine Appearance Urine pH Ur Specific [place] Urine Protein Urine Glucose (UA) Urine Ketones Urine Blood Urine Nitrite Ur Leukocyte Esterase Urine RBC Urine WBC Ur Squamous Epith Cells Urine Bacteria Hyaline Casts Urine Opiates Screen Urine Fentanyl Screen Ur Barbiturates Screen Ur Phencyclidine Scrn Ur Amphetamines Screen U Benzodiazepines Scrn Urine Cocaine Screen U Marijuana (THC) Screen Ethyl Alcohol COVID-19 ([facility]ARIUS) COVID-19 Clin Com 01/09/23 Unknown Urine clean catch - Urine jonas top Urine Culture - Final Imaging Diagnostic Imaging Impressions Chest X-Ray 01/10/23 17:15 IMPRESSION: Unremarkable examination. DS: Summary Hospital Course Hospital Course: Subjective Notes: Story Warning and Conditional Voluntary Healthcare Proxy: No Guardianship: No Medical Problems Affecting Mental Status: No Narrative: 57 yo female, history of rapid cycling bipolar disorder w/psychosis and cocaine use disorder, presents with AA sponsor due to SI with plans to overdose on cocaine to promote cardiac arrest or obtain a gun from her dealer and self inflict a gunshot wound. Precipitants-break up with partner, May 2022. Both still live together as friends. Stopped psych meds May 2022, dieting with Slim-Fast, appetite supressants and increased cocaine use. Lost ~70 lbs (275-<200) Reports 7 years sobriety from alcohol with AA connection. Pt reports she is wanting help-using $50-$300/day. Has a dog, a home and finds the structure she had put into her life with daily swimming and AA was very helpful-wanting to return to this type of life. Pt believes she needs anger mgt treatment and trauma group therapy treatment. Worries about missing ability to pay bills and care for her dog,home and lawn. Past Psychiatric History: IP: [facility] [id number] ?? ? [place] ?? ? [facility] ?? ? [place] OP: N OrGalileo Calderón Chelsea Fontaine-psychotherapy, Nicci Capellan-psychopharmacolgy Several addiction residential programs Hx of ~23 [facility] programs Hopes for anger mgt and trauma groups Medical Evaluation Reviewed: Yes HOSPITAL COURSE On the unit, pt was admitted on a CV and placed on 15 minutes checks for safety. Pt adamantly denied suicidal or homicidal ideation. She reported having argument with ex-GF. She also reports substances affecting the way she responds when feeling overwhelmed. She agreed to be referred to substance use treatment programs. She was continued on abilify which she reported had been beneficial in the past. She signed 3 days notice. Pt was visible on the unit. She was social with select peers. There were no incidences of disruptive behaviors nor need for restraints. She was sleeping and eating well. No signs of psychosis nor over delusional content noted or reported. Status at Discharge Cognitive/behavioral status at discharge: Pt with brighter, non labile affect. No SI/HI. No overt psychosis or delusions. Pt sleeping and eating well. No signs of aggression towards self or others. Functional status at discharge: independent ambulation Overall status at discharge: patient is not back to baseline Time Spent with Patient Time attestation: Total time managing care of this patient today __30__ minutes. Time spent: Greater than 30 minutes Discharge Plan Discharge Anticipated Discharge Date/Time: 01/13/23 10:38 Patient Disposition: Home, Self-Care Discharge Diagnosis: Bipolar Disorder cocaine use disorder Referrals: Ashleigh Fontaine (Therapist): [facility] [Other] - 01/21/23 8:00 am (Follow-up appointment with therapist. Appointment is by telephone call.) Nicci Capellan (psychiatry): [facility] [Other] - 01/20/23 11:30 am (Follow-up appointment with psychiatric provider Appointment is video call) Adilson Park MD [Primary Care Provider] - 1 Week () Discharge Medications: New nicotine 14 mg/24 hr Patch 24 Hour 14 mg transdermal DAILY Qty: 30 0RF baclofen 10 mg Tablet 10 mg PO BID Qty: 60 0RF oxcarbazepine 150 mg Tablet 150 mg PO DAILY Qty: 30 0RF oxcarbazepine 300 mg Tablet 300 mg PO BEDTIME Qty: 30 0RF benztropine 1 mg Tablet 1 mg PO BID Qty: 60 0RF lamotrigine 100 mg Tablet 100 mg PO DAILY Qty: 30 0RF aripiprazole [Abilify] 20 mg Tablet 20 mg PO DAILY Qty: 30 0RF Continued (DME) CPAP Machine/Device Device See Rx Instructions .Route Rx Instructions: As directed Discontinued sertraline 25 mg tablet 25 mg PO DAILY aripiprazole 20 mg tablet 20 mg PO DAILY benztropine 1 mg tablet 1 mg PO BID oxcarbazepine 300 mg tablet 300 mg PO BEDTIME oxcarbazepine 150 mg tablet 150 mg PO DAILY lamotrigine 25 mg tablet 100 mg PO DAILY Discharge Orders: Discharge Order (Routine); Ordered 01/13/23 Ordered By: Yola Curtis Diet: Regular diet Activity on Discharge: As tolerated Stand Alone Forms: Patient Portal Discharge page, Community Support Care Plan Goals: 1. Maintain mood 2. No SI/HI 3. No aggression towards self or others Health Concerns: Follow up with PCP Plan of Treatment: 1. Take medications as prescribed 2. Go to nearest ED or call 911 in event of emergency Assessment: Pt with brighter, non labile affect. No SI/HI. No psychosis or delusions. Pt sleeping and eating well. Pt presents as future oriented looking forward to continue tx. Discharge Date/Time: 01/13/23 11:15
== END 2023-01-13 11:15 | disposition home or self-care (01) | DRG 885 ==
LOC: HO.ED 15:01 → HO.PM5 23:43
PROVIDERS: Clinical Nurse Specialist Psychiatric/Mental Health, Adult; Nurse Practitioner Family; Admitting Provider Psychiatry & Neurology Psychiatry; Emergency Provider Emergency Medicine; PCP Internal Medicine; Visit Provider Social Worker
DX: F31.60 Bipolar disorder, current episode mixed, unspecified (principal); R45.851 Suicidal ideations; F14.10 Cocaine abuse, uncomplicated; F12.10 Cannabis abuse, uncomplicated; F43.10 Post-traumatic stress disorder, unspecified; G47.33 Obstructive sleep apnea (adult) (pediatric); F17.210 Nicotine dependence, cigarettes, uncomplicated; Z20.822 Contact with and (suspected) exposure to COVID-19; Z71.6 Tobacco abuse counseling; Z79.899 Other long term (current) drug therapy
CPT/HCPCS: 36415; 71046; 80053; 80307; 81001; 82550; 82607; 82746; 85025; 87086; 87635; 93005; 99285; S9485

== ENCOUNTER → 2023-01-09 20:44 | Outpatient (BNV) | payer OTHER, SELFPAY | PROVIDERS: Admitting Provider Psychiatry & Neurology Psychiatry; Emergency Provider Emergency Medicine; PCP Internal Medicine; Visit Provider Internal Medicine | DX: R45.851 Suicidal ideations (principal); F31.9 Bipolar disorder, unspecified | CPT/HCPCS: 93010 ==

== ENCOUNTER → 2023-01-09 23:39 | Outpatient (BNV) | payer OTHER, SELFPAY | PROVIDERS: Admitting Provider Psychiatry & Neurology Psychiatry; Emergency Provider Emergency Medicine; PCP Internal Medicine; Visit Provider Clinical Nurse Specialist Psychiatric/Mental Health, Adult | DX: F31.64 Bipolar disorder, current episode mixed, severe, with psychotic features (principal); F14.10 Cocaine abuse, uncomplicated; F43.11 Post-traumatic stress disorder, acute; F12.90 Cannabis use, unspecified, uncomplicated | CPT/HCPCS: 90792; 99231; 99232; 99239 ==

== ENCOUNTER 2023-02-01 07:58 | Outpatient (REF) | payer OTHER, SELFPAY ==
--- NOTE | 2023-02-01 08:49 | PFT_ITS ---
FLOWS: FEV1 97% of predicted at 2.24 L. FVC 93% of predicted at 2.77 L. FEV1 to FVC ratio of 0.81. No bronchodilator response. LUNG VOLUMES: Total lung capacity 97% of predicted at 4.49 L. Residual volume 99% of predicted at 1.82 L. Slow vital capacity 96% of predicted at 2.67 L. Expiratory reserve volume 65% of predicted at 0.50 L. Diffusion capacity is normal. IMPRESSION: No obstructive or restrictive ventilatory defect. No bronchodilator response. Decreased expiratory reserve volume suggests extrathoracic restriction, likely secondary to abdominal obesity. Ignacio Argueta MD AP/MODL / [id number]
== END 2023-02-01 07:59 | disposition home or self-care (01) ==
LOC: HO.RESP 07:58
PROVIDERS: PCP Internal Medicine; Visit Provider Internal Medicine
DX: J45.909 Unspecified asthma, uncomplicated (principal); E66.01 Morbid (severe) obesity due to excess calories; F17.200 Nicotine dependence, unspecified, uncomplicated
CPT/HCPCS: 94010; 94727; 94729

== ENCOUNTER → 2023-02-01 08:49 | Outpatient (BNV) | payer OTHER, SELFPAY | PROVIDERS: PCP Internal Medicine; Visit Provider Internal Medicine Pulmonary Disease | DX: J45.909 Unspecified asthma, uncomplicated (principal) | CPT/HCPCS: 94060 ==

== ENCOUNTER 2023-02-25 08:47 | Outpatient (AMB) | payer OTHER, SELFPAY ==
[2023-02-25 09:07] VITALS: BP 120/72; PULSE 66; O2SAT 99; BMI 37.0
--- NOTE | 2023-02-25 09:07 | A.OFFVIS_ITS ---
Intake Vital Signs 02/25/23 09:07 Height 5 ft 1 in Weight 196 lb BMI 37.0 BP 120/72 Blood Pressure Location Lt brachial Position Sitting Pulse 66 Pulse Source Pulse Oximeter Pulse Oximetry (%) 99 Oxygen Delivery Method Room Air Intake Visit Reasons: aida Intake Note: pt is here for follow up and states she is feeling okay with breathing, using cpap, most of time, lost some weight. Community Integration Specialist Required: No Allergies amphetamine [Adderall] Allergy (Severe, Verified 02/25/23 09:20) Difficulty Breathing dextroamphetamine [From ADDERALL] Allergy (Severe, Verified 02/25/23 09:20) DIFFICULTY BREATHING gabapentin [GABAPENTIN] Allergy (Intermediate, Verified 02/25/23 09:20) TREMORS risperidone [From RISPERDAL] Allergy (Intermediate, Verified 02/25/23 09:20) TARDIVE DYSKINESIA Medication List - Last Reconciled 02/25/23 by Clyde Sewell MD aripiprazole (Abilify) 20 mg PO DAILY baclofen 10 mg PO BID benztropine 1 mg PO BID CPAP (CPAP Machine/Device) As directed lamotrigine 100 mg PO DAILY nicotine 14 mg transdermal DAILY oxcarbazepine 150 mg PO DAILY oxcarbazepine 300 mg PO BEDTIME Do you need a note to return to daycare/school/sports/work: No HPI aida HPI Details This 57 years old female with bipolar disorder, obesity, AIDA, smoking , Is here today for follow-up for her AIDA and smoking. Recently admitted to the psych unit and treated for acute rapid cycle bipolar disorder. She had pulmonary function test a few weeks ago. Uses her CPAP regularly every night but does not sleep more than a few hours on some of the nights. Breathing is okay. Cough is minimal mostly related to her smoking. Still smoking about 1 pack of cigarettes a day. She is on a Slim-Fast type of diet and is losing weight. [facility] Medical History (Updated 02/25/23 @ 09:28 by Clyde Sewell MD) Smoker Nicotine dependence, cigarettes, uncomplicated Cannabis use disorder Cocaine use disorder Bipolar disorder, rapid cycling Osteoarthritis of lumbar spine Osteoarthritis, hand, primary localized Morbid obesity Asthma AIDA on CPAP Fibromyalgia History of post traumatic stress disorder History of ETOH abuse Memory changes Impaired fasting blood sugar Hiatal hernia Obesity Surgical History History of pubovaginal sling History of right knee surgery History of colonoscopy History of back surgery History of esophagogastroduodenoscopy (EGD) Family History Father Medical history non-contributory Mother Medical history non-contributory Other Adopted Social History Household Members: Other Household Members Other:: 3 roommates Housing: House Do you presently have visiting nurse or other home services: No Alcohol intake: never Patient Tobacco Use Status: Current everyday Tobacco user Tobacco use type: Cigarette Cigarettes Per Day: 12 Years Smoked: Quit smoking 2 weeks ago has patches and gum e-Cigarette/Vaping Use: Never Used Second Hand Smoke Exposure: Yes Substance Use Type: Crack/Cocaine and Marijuana service: No Current occupational status: employed 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 - [employer] Sexual orientation: Lesbian/Kelley/Homosexual Gender identity: Female Cognitive needs: No Hearing needs: No Vision needs: No Female Reproductive History Menstrual Age of Menarche: 9 Review of Systems Const All systems reviewed & are unremarkable except as noted in HPI and below Eyes Reports no additional complaints ENT Reports nasal congestion (Off and on) Card Denies chest pain, Denies irregular heart rhythm and Denies leg edema Resp Reports cough (Occasional) GI Reports no additional complaints Reports no additional complaints Musc Reports no additional complaints Skin/Breast Reports system reviewed and no additional complaints, except as documented Neuro Reports no additional complaints Psych Reports anxiety, Reports depression and Reports mood swings Physical Exam Vital Signs: Last Vital Signs Pulse 66 02/25/23 09:07 BP 120/72 02/25/23 09:07 Pulse Ox 99 02/25/23 09:07 Oxygen Delivery Method Room Air 02/25/23 09:07 BMI result Body Mass Index 37.0 Const General: comfortable, no acute distress, alert and awake Orientation/consciousness: patient oriented x3 HEENT Head: Yes normal to inspection General nose exam: No nasal polyps present and No nasal discharge present Face and sinus: Yes sinuses nontender Mouth: oropharynx normal Throat: Yes posterior oropharynx normal Eyes General: appearance normal, both eyes and all related structures Neck Neck: Yes normal visual inspection, Yes no lymphadenopathy, Yes trachea midline and Yes no JVD Thyroid: Thyroid normal Chest Chest palpation & inspection: normal inspection of the chest, normal palpation of entire chest wall and no tenderness Resp Effort & Inspection: normal respiratory effort Auscultation: clear to auscultation bilaterally, no rhonchi and no wheezes Percussion: percussion normal Cardio Palpation: normal PMI Rate: regular rate Rhythm: regular rhythm Heart sounds: no gallops and no murmurs Peripheral pulses: Peripheral pulses 2+ throughout GI Palpation (GI): Soft to palpation, nontender, No hepatosplenomegaly present, no masses and Other GI palpation findings present (Abdomen is quite obese and slightly protuberant) Auscultation: normal bowel sounds Back/Spine/Pelvis Thoracic/Lumbar Spine: thoracic and lumbar spine normal to inspection Skin General skin exam: no rashes or lesions noted Neuro General: patient oriented x3 and no focal motor deficits Cranial nerves: Yes CN's II-XII intact bilaterally Extrem General: Yes normal to inspection, No no clubbing, cyanosis or edema and Yes no calf tenderness Psych Appearance: grossly normal Speech and movement: Normal speech and movement present Results Reviewed Results Reviewed: Pulmonary function test on 02/01/23 essentially normal. No obstructive or restrictive lung disorder. COMPLIANCE REPORT FOR THE LAST 30 NIGHTS IS REVIEWED. USED /30 NIGHTS, 87%. AVERAGE USE IT PER NIGHT 5 HOURS 36 MINUTE ON SOME OF THE NIGHTS HER USAGE IS LESS THAN 4 HOURS. . PRESSURE 15 CM ONLY MINIMAL AIR LEAK. RESIDUAL AHI 6.2 Assessment & Plan Assessment & Plan (1) Smoker: Comment: CONTINUES TO SMOKE, SAY , 1 PACK OF CIGARETTES A DAY. ALSO SMOKES, COCAINE AND MARIJUANA. HAS BIPOLAR DISORDER, WITH FLUCTUATING MOODS. FINDS IT DIFFICULT TO QUIT SMOKING. SHE IS REGISTERED FOR ANNUAL LUNG SCREENING PROGRAM Code(s): F17.200 - Nicotine dependence, unspecified, uncomplicated (2) Asthma: Comment: Very mild, intermittent . PULMONARY FUNCTION TEST IS NORMAL. Code(s): J45.909 - Unspecified asthma, uncomplicated (3) AIDA on CPAP: Comment: She is well used to the CPAP therapy, very compliant and Sleeping well . Uses very regularly and sleeps well. Feels more comfortable with the current large size fullface mask. Instructed that she should use every night and try to use it more than 4 hours per night. Code(s): G47.33 - Obstructive sleep apnea (adult) (pediatric); Z99.89 - Dependence on other enabling machines and devices Coding Level of Care Code Est Pt Level 3 (85952) Diagnoses Smoker F17.200 Asthma J45.909 AIDA on CPAP G47.33; Z99.89
== END 2023-02-25 09:19 | disposition home or self-care (01) ==
PROVIDERS: PCP Internal Medicine; Visit Provider Internal Medicine
DX: F17.200 Nicotine dependence, unspecified, uncomplicated (principal); J45.909 Unspecified asthma, uncomplicated; G47.33 Obstructive sleep apnea (adult) (pediatric); Z99.89 Dependence on other enabling machines and devices
CPT/HCPCS: 99213

== ENCOUNTER → 2023-02-25 08:47 | Outpatient (BNVA) | payer OTHER, SELFPAY | PROVIDERS: PCP Internal Medicine; Visit Provider Internal Medicine | DX: J45.20 Mild intermittent asthma, uncomplicated (principal); G47.33 Obstructive sleep apnea (adult) (pediatric); F17.210 Nicotine dependence, cigarettes, uncomplicated; Z99.89 Dependence on other enabling machines and devices | CPT/HCPCS: 99212 ==

== ENCOUNTER 2023-04-09 12:24 | Outpatient (AMB) | payer OTHER, SELFPAY ==
--- NOTE | 2023-04-09 12:25 | MHC.PC.OV ---
Vital Signs 04/09/23 12:26 Height 5 ft 1 in Weight 194 lb BMI 36.7 BP 140/90 H Blood Pressure Location Lt brachial Position Sitting Pulse 100 Pulse Source Pulse Oximeter Pulse Oximetry (%) 97 Oxygen Delivery Method Room Air Intake Visit Reasons: Annual PE Intake Note: Pt is here today for PE. Allergies amphetamine [Adderall] Allergy (Severe, Verified 04/09/23 12:27) Difficulty Breathing dextroamphetamine [From ADDERALL] Allergy (Severe, Verified 04/09/23 12:27) DIFFICULTY BREATHING gabapentin [GABAPENTIN] Allergy (Intermediate, Verified 04/09/23 12:27) TREMORS risperidone [From RISPERDAL] Allergy (Intermediate, Verified 04/09/23 12:27) TARDIVE DYSKINESIA Tobacco use date assessed: 04/09/23 Dental Screening Dental Screen Date: 04/09/23 Did you have a dental visit in the last 12 months?: Yes Did you have a dental problem in the last 6 months where you did not have access to dental care?: No Was dental information given to patient?: Patient has dentist HPI Annual PE HPI Details Patient is a 57-year-old female came in today for physical examination Patient had colonoscopy in 2018 Mammogram is up-to-date Patient is also going to [facility] for breast exam Pap smears She tells me that her girlfriend has been diagnosed with pancreatic cancer She was under lot of stress and started using crack again Patient have a long history of drug abuse She has an appointment with addiction [facility] on April 23. Patient is also obese with BMI of 36.7 however lost some weight since she started using crack She is already seeing a therapist and a psychiatrist She has a history of bipolar disorder None of her medications are through PCP office [facility] Medical History Smoker Nicotine dependence, cigarettes, uncomplicated Cannabis use disorder Cocaine use disorder Bipolar disorder, rapid cycling Osteoarthritis of lumbar spine Osteoarthritis, hand, primary localized Morbid obesity Asthma NELSON on CPAP Fibromyalgia History of post traumatic stress disorder History of ETOH abuse Memory changes Impaired fasting blood sugar Hiatal hernia Obesity Surgical History History of pubovaginal sling History of right knee surgery History of colonoscopy History of back surgery History of esophagogastroduodenoscopy (EGD) Family History Father Medical history non-contributory Mother Medical history non-contributory Other Adopted Social History Household Members: Other Household Members Other:: 3 roommates Housing: House Do you presently have visiting nurse or other home services: No Alcohol intake: never Patient Tobacco Use Status: Current everyday Tobacco user Tobacco use type: Cigarette Cigarettes Per Day: 12 Years Smoked: Quit smoking 2 weeks ago has patches and gum e-Cigarette/Vaping Use: Never Used Second Hand Smoke Exposure: Yes Substance Use Type: Crack/Cocaine and Marijuana service: No Current occupational status: employed Current occupation: [email or web address] Sexual orientation: Lesbian/Kelley/Homosexual Gender identity: Female Cognitive needs: No Hearing needs: No Vision needs: No Female Reproductive History Menstrual Age of Menarche: 9 Questionnaire PHQ-9 Over the last 2 weeks, how often have you been bothered by any of the following problems? 1. Little interest or pleasure in doing things: nearly every day 2. Feeling down, depressed, or hopeless: more than half the days 3. Trouble falling or staying asleep, or sleeping too much: nearly every day 4. Feeling tired or having little energy: more than half the days 5. Poor appetite or overeating: more than half the days 6. Feeling bad about yourself - or that you are a failure or have let yourself or your family down: nearly every day 7. Trouble concentrating on things, such as reading the newspaper or watching television: nearly every day 8. Moving or speaking so slowly that other people could have noticed. Or the opposite - being so fidgety or restless that you have been moving around a lot more than usual: nearly every day 9. Thoughts that you would be better off or of hurting yourself in some way: nearly every day Total score: 24 Depression Screening Interpretation: Positive Depression Screening Follow-up: Existing condition and In treatment Depression Screening Done: Yes 68610 - PHQ-9 Billing: Yes Source: Developed by Drs. Lester Frost, Amie Dong, Delta Leung and colleagues, with an educational abraham from [employer]. Thrive Questionnaire Date Thrive assessed: 04/09/23 I am a: Patient What is your living situation today?: I have a place to live, but I am worried about losing it in the future Within the past 12 months, did the food you bought not last and you didn't have the money to get more?: Sometimes True Within the past 12 months, did you worry whether your food would run out before you got money to buy more?: Sometimes True Do you have trouble paying for medicines?: Yes Do you have trouble getting transportation to medical appointments?: No Do you have trouble paying your heating and electricity bill?: Yes Do you have trouble taking care of your child, family member or friend?: No Do you have trouble with day-to-day activities such as bathing, preparing meals, shopping, managing finances, etc.?: Yes Are you currently unemployed and looking for a job?: No Are you interested in more education?: No Please select the resources that you would like help with: None Currently or been in a relationship where the following occur: no concerns reported AUDIT C Alcohol Use Questionnaire (AUDIT-C) 1. How often do you have a drink containing alcohol?: Never 3. How often do you have six or more drinks on one occasion?: Never Total Score: 0 CHECO-7 AMB Questionnaire CHECO-7 Date CHECO - 7 assessed: 04/09/23 Feeling nervous, anxious, or on edge: 3 = Nearly every day Not being able to stop or control worryin = Nearly every day Worrying too much about different things: 3 = Nearly every day Trouble relaxin = More than half the days Being so restless that it is hard to sit still: 3 = Nearly every day Becoming easily annoyed or irritable: 2 = More than half the days Feeling afraid as if something awful might happen: 3 = Nearly every day Total CHECO-7 score (0-4 normal; 5-9 mild; 10-14 moderate; 15-21 severe): 19 Source: Developed by Drs. Lester Frost, Amie Dong, Delta Leung and colleagues, with an educational abraham from [employer]. CHECO-7 Assessment Billing CHECO-7 Assessment Tool: CHECO-7 Assessment 42097 Review of Systems Const Denies chills, Denies fever(s) and Denies headache(s) Eyes Denies blurry vision ENT Denies headache(s), Denies nasal discharge, Denies nasal obstruction, Denies odynophagia and Denies sinus pain Card Denies chest pain at rest and Denies chest pain with activity Resp Denies cough and Denies hemoptysis GI Denies diarrhea, Denies odynophagia, Denies vomiting and Denies hematemesis Reports as per HPI Musc Denies abnormal gait Skin/Breast Reports as per HPI Neuro Denies Neuro-related abnormal movements, Denies Abnormal speech present, Denies abnormal gait, Denies headache(s) and Denies Sensory deficit (Neuro) Psych Denies mood swings and Denies paranoia Endo Reports as per HPI Jovanny/Lymph Reports as per HPI Aller/Immun Reports as per HPI Physical exam (Primary Care) Vital Signs: Last Vital Signs Pulse 100 04/09/23 12:26 BP 140/90 H 04/09/23 12:26 Pulse Ox 97 04/09/23 12:26 Oxygen Delivery Method Room Air 04/09/23 12:26 BMI result Body Mass Index 36.7 Tobacco/Smoking Status: Tobacco use Status Tobacco use date assessed 04/09/23 04/09/23 12:30 Patient Tobacco Use Status Current everyday Tobacco 04/09/23 12:30 Tobacco use type Cigarette 04/09/23 12:30 e-Cigarette/Vaping Use Never Used 04/09/23 12:30 PHQ-9: PHQ-9 Score PHQ-9: Total score 24 04/09/23 13:13 Depression Screening Interpretation: Positive Depression Screening Follow-up: Existing condition and In treatment Thrive Assessment: Date of Thrive Assessment Date Thrive assessed 04/09/23 04/09/23 13:13 Currently or been in a relationship where the following occur: no concerns reported Const General: cooperative, comfortable and no acute distress Orientation/consciousness: patient oriented x3 HENMT Head: Yes normocephalic and Yes atraumatic Eyes General: appearance normal, both eyes and all related structures Pupils: Equal, round and reactive pupils present EOM: EOMs intact bilaterally Neck Neck: Yes supple and No lymphadenopathy Thyroid: Thyroid normal Lymphatic: no lymphadenopathy noted Resp Effort & Inspection: normal respiratory effort and able to speak in complete sentences Auscultation: clear to auscultation bilaterally Cardio Heart sounds: S1 normal heart sound present and S2 normal heart sound present GI Palpation (GI): Soft to palpation and nontender Auscultation: normal bowel sounds General: Yes no CVA tenderness Back/Spine/Pelvis Back: no CVA tenderness Skin General skin exam: elasticity normal and turgor normal Neuro General: patient oriented x3 and gait normal Cranial nerves: Yes Equal, round and reactive pupils present Speech: No Abnormal speech present Sensory Exam: No Sensory deficit (Neuro) Coordination: tandem gait normal and Romberg test negative Extrem General: Yes normal exam except as noted and No edema Assessment and Plan Assessment & Plan (1) Encounter for general adult medical examination with abnormal findings: Code(s): Z00.01 - Encounter for general adult medical examination with abnormal findings (2) Bipolar disorder, rapid cycling: Code(s): F31.9 - Bipolar disorder, unspecified (3) Cocaine use disorder: Code(s): F14.10 - Cocaine abuse, uncomplicated (4) NELSON on CPAP: Comment: She is well used to the CPAP therapy, very compliant and Sleeping well . Uses very regularly and sleeps well. Feels more comfortable with the current large size fullface mask. Instructed that she should use every night and try to use it more than 4 hours per night. Code(s): G47.33 - Obstructive sleep apnea (adult) (pediatric); Z99.89 - Dependence on other enabling machines and devices (5) Tubular adenoma of colon: Onset Date: ~2015 Comment: (TA on 2015 and 2020 scopes) Code(s): D12.6 - Benign neoplasm of colon, unspecified (6) Obesity due to excess calories: Code(s): E66.09 - Other obesity due to excess calories Qualifiers: Obesity classification: adult class 2 (BMI 35 - 39.9) Serious obesity comorbidity presence: with serious comorbidity Body mass index: BMI 36.0-36.9 Qualified Code(s): E66.01 - Morbid (severe) obesity due to excess calories; Z68.36 - Body mass index [BMI] 36.0-36.9, adult Plan Patient is a 57-year-old female came in today for physical examination Patient had colonoscopy in 2020 Mammogram is up-to-date Patient is also going to OBGYN for breast exam Pap smears She tells me that her girlfriend has been diagnosed with pancreatic cancer She was under lot of stress and started using crack again Patient have a long history of drug abuse She has an appointment with addiction Treatment [facility] on April 23. Patient is also obese with BMI of 36.7 however lost some weight since she started using crack She is already seeing a therapist and a psychiatrist, she has a history of bipolar disorder She has a history of bipolar disorder Patient have sleep apnea and is using CPAP machine None of her medications are through PCP office Coding Level of Care Code Est Pt Prev Care 40-64y(17601) Diagnoses Encounter for general adult medical examination with abnormal findings Z00.01 Bipolar disorder, rapid cycling F31.9 Cocaine use disorder F14.10 NELSON on CPAP G47.33; Z99.89 Tubular adenoma of colon D12.6 Class 2 severe obesity due to excess calories with serious comorbidity and body mass index (BMI) of 36.0 to 36.9 in adult E66.01; Z68.36 Obesity classification: adult class 2 (BMI 35 - 39.9) Serious obesity comorbidity presence: with serious comorbidity Body mass index: BMI 36.0-36.9 Additional Codes CHECO-7 Assessment Billing - CHECO-7 Assessment Tool: CHECO-7 Assessment 69417 ([id number])
[2023-04-09 12:26] VITALS: BP 140/90; PULSE 100; O2SAT 97; BMI 36.7
== END 2023-04-09 12:56 | disposition home or self-care (01) ==
PROVIDERS: Visit Provider Internal Medicine
DX: Z00.00 Encounter for general adult medical examination without abnormal findings (principal); F31.9 Bipolar disorder, unspecified; E66.01 Morbid (severe) obesity due to excess calories; F14.10 Cocaine abuse, uncomplicated; Z68.36 Body mass index [BMI] 36.0-36.9, adult; G47.33 Obstructive sleep apnea (adult) (pediatric); Z99.89 Dependence on other enabling machines and devices; D12.6 Benign neoplasm of colon, unspecified
CPT/HCPCS: 99396

== ENCOUNTER 2023-04-21 08:00 | Outpatient (AMB) | payer OTHER, SELFPAY ==
[2023-04-21 08:09] VITALS: BP 110/80; PULSE 72; TEMP 36.8; O2SAT 97; BMI 37.2
--- NOTE | 2023-04-21 08:09 | AM.OFFWIN_ITS ---
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 Patient Tobacco Use Status: Current everyday Tobacco user Allergies amphetamine [Adderall] Allergy (Severe, Verified 04/21/23 08:33) Difficulty Breathing dextroamphetamine [From ADDERALL] Allergy (Severe, Verified 04/21/23 08:33) DIFFICULTY BREATHING gabapentin [GABAPENTIN] Allergy (Intermediate, Verified 04/21/23 08:33) TREMORS risperidone [From RISPERDAL] Allergy (Intermediate, Verified 04/21/23 08:33) TARDIVE DYSKINESIA Medication List - Last Reconciled 04/21/23 by Flo Presley MD aripiprazole (Abilify) 20 mg PO DAILY baclofen 10 mg PO BID benztropine 1 mg PO BID CPAP (CPAP Machine/Device) As directed lamotrigine 100 mg PO DAILY nicotine 14 mg transdermal DAILY oxcarbazepine 150 mg PO DAILY oxcarbazepine 300 mg PO BEDTIME HPI EST/possible broken right wrist (lobby) HPI Details 57-year-old female presents [facility] for a sick visit. Patient is complaining of pain and swelling in the right wrist. Symptoms present for the past few days. 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 when symptoms started [facility] Medical History Smoker Nicotine dependence, cigarettes, uncomplicated Cannabis use disorder Cocaine use disorder Bipolar disorder, rapid cycling Osteoarthritis of lumbar spine Osteoarthritis, hand, primary localized Morbid obesity Asthma NELSON on CPAP Fibromyalgia History of post traumatic stress disorder History of ETOH abuse Memory changes Impaired fasting blood sugar Hiatal hernia Obesity Surgical History History of pubovaginal sling History of right knee surgery History of colonoscopy History of back surgery History of esophagogastroduodenoscopy (EGD) Family History Father Medical history non-contributory Mother Medical history non-contributory Other Adopted Social History Household Members: Other Household Members Other:: 3 roommates Housing: House Do you presently have visiting nurse or other home services: No Alcohol intake: never Patient Tobacco Use Status: Current everyday Tobacco user Tobacco use type: Cigarette Cigarettes Per Day: 12 Years Smoked: Quit smoking 2 weeks ago has patches and gum e-Cigarette/Vaping Use: Never Used Second Hand Smoke Exposure: Yes Substance Use Type: Crack/Cocaine and Marijuana service: No Current occupational status: employed 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 - [employer] Sexual orientation: Lesbian/Kelley/Homosexual Gender identity: Female Cognitive needs: No Hearing needs: No Vision needs: No Female Reproductive History Menstrual Age of Menarche: 9 Physical Exam Vital Signs: Last Vital Signs Temp 98.2 F 04/21/23 08:09 Pulse 72 04/21/23 08:09 BP 110/80 04/21/23 08:09 Pulse Ox 97 04/21/23 08:09 BMI result Body Mass Index 37.2 Const General: cooperative and healthy appearing Nutritional Appearance: well nourished Orientation/consciousness: patient oriented x3 Limitations: no limitations HEENT Head: Yes normal to inspection Eyes General: appearance normal, both eyes and all related structures Neck Neck: Yes normal visual inspection Chest Chest palpation & inspection: normal palpation of entire chest wall Resp Effort & Inspection: normal respiratory effort Neuro General: patient oriented x3 Extrem Other: Wrist: Right: Dorsum of the wrist is swollen. Tender to touch. Full range of motion including flexion and extension. Assessment & Plan Assessment & Plan (1) Right wrist sprain: Code(s): S63.501A - Unspecified sprain of right wrist, initial encounter Plan: X-ray images were personally reviewed by me. No fractures seen. Reassurance. Orders: Orders XR wrist RT min 3V Today S63.501A - Unspecified sprain of right wrist, initial encounter Coding Level of Care Code Est Pt Level 4 (23224) Diagnoses Right wrist sprain S63.501A
== END 2023-04-21 08:59 | disposition home or self-care (01) ==
PROVIDERS: PCP Internal Medicine; Visit Provider Internal Medicine
DX: S63.501A Unspecified sprain of right wrist, initial encounter (principal)
CPT/HCPCS: 99214

== ENCOUNTER 2023-04-21 08:31 | Outpatient (REF) | payer OTHER, SELFPAY ==
--- NOTE | ~2023-04-21 | XR_ITS ---
EXAMINATION: XR WRIST, RIGHT CLINICAL INFORMATION: Sprain. Pain COMPARISON: None available. TECHNIQUE: PA, lateral, and oblique views of the right wrist. FINDINGS: Moderate narrowing of the radiocarpal joint space and moderate degenerative change at the first CMC. No fracture, dislocation or destructive process. XR/XR wrist RT min 3V IMPRESSION: Degenerative changes noted. No acute abnormalities.
== END 2023-04-21 08:32 | disposition home or self-care (01) ==
LOC: HO.HMGCX 08:31
PROVIDERS: PCP Internal Medicine; Visit Provider Internal Medicine
DX: S63.501A Unspecified sprain of right wrist, initial encounter (principal); X58.XXXA Exposure to other specified factors, initial encounter; Y93.9 Activity, unspecified; Y92.9 Unspecified place or not applicable; Y99.9 Unspecified external cause status
CPT/HCPCS: 73110

== ENCOUNTER 2023-04-23 09:11 | Outpatient (AMB) | payer OTHER, SELFPAY ==
--- NOTE | 2023-04-23 08:30 | MHC.OFFVIS ---
Intake Intake Visit Reasons: LDCT SD Allergies amphetamine [Adderall] Allergy (Severe, Verified 04/21/23 08:33) Difficulty Breathing dextroamphetamine [From ADDERALL] Allergy (Severe, Verified 04/21/23 08:33) DIFFICULTY BREATHING gabapentin [GABAPENTIN] Allergy (Intermediate, Verified 04/21/23 08:33) TREMORS risperidone [From RISPERDAL] Allergy (Intermediate, Verified 04/21/23 08:33) TARDIVE DYSKINESIA HPI LDCT SD HPI Details Initial telehealth/phone SDM visit for this 57yo smoker with a 20+PYH. Patient has been smoking since age 35 for 22years at 1ppd. . Denies second hand smoke exposure. Denies exposure to chemicals or substances like asbestos. . Denies known family history of lung cancer. Denies personal history of cancers. Denies chest CT in last year. . Denies recent travel outside the [place]. Denies recent respiratory illness or recent hospitalization for respiratory issues. Report testing positive for COVID. Admits receiving COVID Vaccine. . Reports history of substance abuse. Still using cocaine. Occasional marijuana. NELSON on CPAP. Denies fever, chills, new/worsening cough, hemoptysis, hoarseness or dysphagia. Denies significant chest pain, significant dyspnea or unintentional weight loss. Patient Lung Cancer Screening Questionnaire reviewed with patient by provider. . Shared Decision Making Completed. Patient meets criteria. Discussed in detail with patient, the risk vs benefit of LDCT screening. Patient consents to proceed with scan. Discussed smoking cessation. [facility], [facility] Medical History (Updated 04/23/23 @ 09:11 by Cathy Sanford PA-C) Nicotine dependence, cigarettes, uncomplicated Cannabis use disorder Cocaine use disorder Bipolar disorder, rapid cycling Osteoarthritis of lumbar spine Osteoarthritis, hand, primary localized Morbid obesity Asthma NELSON on CPAP Fibromyalgia History of post traumatic stress disorder History of ETOH abuse Memory changes Impaired fasting blood sugar Hiatal hernia Obesity Surgical History History of pubovaginal sling History of right knee surgery History of colonoscopy History of back surgery History of esophagogastroduodenoscopy (EGD) Family History Father Medical history non-contributory Mother Medical history non-contributory Other Adopted Social History (Updated 04/23/23 @ 09:12 by Cathy Sanford PA-C) Household Members: Other Household Members Other:: 3 roommates Housing: House Do you presently have visiting nurse or other home services: No Alcohol intake: never Patient Tobacco Use Status: Current everyday Tobacco user Tobacco use type: Cigarette Years Smoked: onset 35yo, 1ppd x22yrs, 20+PYH e-Cigarette/Vaping Use: Never Used Second Hand Smoke Exposure: Yes Substance Use Type: Crack/Cocaine and Marijuana service: No Current occupational status: employed 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 - Patient meets criteria for LDCT for lung cancer screening purposes and is asymptomatic. - Smoking cessation counseling offered. Patients can always call [phone]. - Will arrange for a LDCT scan of the chest for screening purposes at [facility]. - Risks, benefits, and alternatives were discussed in detail and the patient agrees to proceed. - Risks discussed include but are not limited to: radiation exposure, anxiety during testing and while awaiting results, false negatives, false positives and possibility of additional intervention such as further imaging or surgical procedures for benign disease. - Benefits are obviously detection of lung cancer at an early stage which can lead to improved outcomes. - Discussed the importance of screening program compliance with adherence to yearly LDCT scan as scheduled - or sooner interval scans for personalized screening regimen. - Discussed follow up plan. Our office will send a letter discussing results and if needed set up phone call and office visit based on CT findings. - Patient educated on results categorization and the management decisions for suspicious findings potentially found on the screening LDCT scan. Any patient with a Lung RADS score of 3 or 4 will be reviewed by a multidisciplinary team at [facility] to form a plan of action in regards to scan findings. - If further work up is warranted for a suspicious lung finding this will be followed by the Lung Cancer Screening program in conjunction with the Thoracic Surgery Department at [facility]. - A copy of the office note and LDCT will be sent to the patient's PCP - as well as documentation on any associated further plans of care. - Incidental findings on LDCT are the PCP's responsibility. These findings are indicated with an S finding on the LDCT Assessment. A note discussing the findings will be sent to the PCP who is then responsible for further management. - All questions answered.? Telehealth Telehealth Location of provider rendering services: practice address Location of patient: address on file Patient Identification confirmed using: Name, : Yes Telehealth method: voice only Patient verbally consented to treatment: Yes Patient verbally consented to billing insurance company: Yes Patient informed of any privacy concerns related to visit: Yes Minutes spent on Phone/Video with Pt.: 15 Coding Level of Care Code Lung Cancer Screening G0296 Diagnoses Nicotine dependence, cigarettes, uncomplicated F17.210
== END 2023-04-23 10:04 | disposition home or self-care (01) ==
LOC: HO.HMS 09:11
PROVIDERS: PCP Internal Medicine; Visit Provider Physician Assistant Medical
DX: F17.210 Nicotine dependence, cigarettes, uncomplicated (principal)
CPT/HCPCS: G0296

== ENCOUNTER 2023-04-23 14:10 | Outpatient (REF) | payer OTHER, SELFPAY ==
--- NOTE | ~2023-04-23 | CT_ITS ---
EXAMINATION: CT CHEST SCREENING CLINICAL INFORMATION: Current smoker with 22 History. COMPARISON: None available. TECHNIQUE: Multidetector volumetric CT imaging of the chest is performed without contrast using low dose technique. Additional 2D coronal and sagittal reformatted images and axial 3D maximum intensity projection (MIP) images are generated on the CT workstation. This CT examination was performed using dose optimization techniques as appropriate, variously including the following: *Automated exposure control *Adjustment of mA and/or kV according to patient size (this includes techniques or standardized protocols for targeted exams where dose is matched to indication/reason for exam; i.e. 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 Diffuse mild bronchial wall thickening. Bilateral lower lobe atelectasis. NODULES: Multiple varying sized nodules. RUL: 2 mm, 6:156, 3 mm, 6:194, 3 mm 6:195, 3 mm, 6:199, 2-3 mm, 6:242 RML: Two 3 mm nodules, 6:260 and 262. RLL: 4 mm, 262, 4mm, 278 adjacent to the major fissure, 2-3 mm, 6:348 FLETCHER: 2 mm, 9:35 LLL: Possible 5-6 mm subpleural lesion versus atelectasis, 6:321 MEDIASTINUM: Unremarkable thyroid. No pathologic lymphadenopathy. Nonenlarged heart. No pericardial effusion. Maximum diameter of the ascending aorta is 4 cm. Nonenlarged pulmonary arteries. CORONARY ARTERY CALCIFICATION: Mild PLEURA: There is no pleural effusion. No pleural mass or thickening. AXILLA: No lymphadenopathy. UPPER ABDOMEN: Liver measures 16.3 cm in AP dimension. Debris-filled stomach. 1.1 cm hypodensity pancreatic body, 3:58. OSSEOUS STRUCTURES: Unremarkable. CT/CT lung screening IMPRESSION: Multiple pulmonary nodules, largest measuring 6 mm. Prominent liver. 1.1 cm pancreatic body hypodensity. ASSESSMENT: Lung-RADS category 2S: Benign RECOMMENDATION: 6 month follow-up chest CT. Pancreatic CT protocol CT or MRI.
== END 2023-04-23 14:11 | disposition home or self-care (01) ==
LOC: HO.CT 14:10
PROVIDERS: PCP Internal Medicine; Visit Provider Physician Assistant Medical
DX: Z12.2 Encounter for screening for malignant neoplasm of respiratory organs (principal); F17.210 Nicotine dependence, cigarettes, uncomplicated
CPT/HCPCS: 71271; G0296

== ENCOUNTER 2023-05-05 08:59 | Outpatient (AMB) | payer OTHER, SELFPAY ==
[2023-05-05 09:19] VITALS: BP 110/70; PULSE 76; O2SAT 97; BMI 37.1
--- NOTE | 2023-05-05 09:19 | MHC.OFFVIS ---
Intake Vital Signs 05/05/23 09:19 Height 5 ft 1 in Weight 196 lb 3.382 oz BMI 37.1 BP 110/70 Blood Pressure Location Lt brachial Position Sitting Pulse 76 Pulse Source Pulse Oximeter Pulse Oximetry (%) 97 Oxygen Delivery Method Room Air Intake Visit Reasons: aida Intake Note: pt is here for follow up and states she is she is feeling okay. 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 Allergies amphetamine [Adderall] Allergy (Severe, Verified 05/05/23 09:23) Difficulty Breathing dextroamphetamine [From ADDERALL] Allergy (Severe, Verified 05/05/23 09:23) DIFFICULTY BREATHING gabapentin [GABAPENTIN] Allergy (Intermediate, Verified 05/05/23 09:23) TREMORS risperidone [From RISPERDAL] Allergy (Intermediate, Verified 05/05/23 09:23) TARDIVE DYSKINESIA Medication List - Last Reconciled 05/05/23 by Clyde Sewell MD aripiprazole (Abilify) 20 mg PO DAILY baclofen 10 mg PO BID benztropine 1 mg PO BID CPAP (CPAP Machine/Device) As directed lamotrigine 100 mg PO DAILY nicotine 14 mg transdermal DAILY oxcarbazepine 150 mg PO DAILY oxcarbazepine 300 mg PO BEDTIME HPI aida HPI Details 57 years old female, smoker,, overweight, known case of obstructive sleep apnea, supposed to use CPAP regularly. Has bipolar disorder . With fluctuating moods Lately has not been using CPAP regularly, she claims that she did not have supplies. She say is that she is sleeping okay. Breathing has been okay only occasional post smoking cough. She has not been using any inhalers and does not even have a rescue inhaler on hand. She had is low-dose CT scan of the chest just a week ago which has not been read officially. [facility] Medical History Nicotine dependence, cigarettes, uncomplicated Cannabis use disorder Cocaine use disorder Bipolar disorder, rapid cycling Osteoarthritis of lumbar spine Osteoarthritis, hand, primary localized Morbid obesity Asthma AIDA on CPAP Fibromyalgia History of post traumatic stress disorder History of ETOH abuse Memory changes Impaired fasting blood sugar Hiatal hernia Obesity Surgical History History of pubovaginal sling History of right knee surgery History of colonoscopy History of back surgery History of esophagogastroduodenoscopy (EGD) Family History Father Medical history non-contributory Mother Medical history non-contributory Other Adopted Social History Household Members: Other Household Members Other:: 3 roommates Housing: House Do you presently have visiting nurse or other home services: No Alcohol intake: never Patient Tobacco Use Status: Current everyday Tobacco user Tobacco use type: Cigarette Years Smoked: onset 35yo, 1ppd x22yrs, 20+PYH e-Cigarette/Vaping Use: Never Used Second Hand Smoke Exposure: Yes Substance Use Type: Crack/Cocaine and Marijuana service: No Current occupational status: employed 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 - [employer] Sexual orientation: Lesbian/Kelley/Homosexual Gender identity: Female Cognitive needs: No Hearing needs: No Vision needs: No Female Reproductive History Menstrual Age of Menarche: 9 Review of Systems Const All systems reviewed & are unremarkable except as noted in HPI and below Eyes Reports no additional complaints ENT Reports nasal congestion (Off and on) Card Denies chest pain, Denies irregular heart rhythm and Denies leg edema Resp Reports cough (Occasional) GI Reports no additional complaints Reports no additional complaints Musc Reports no additional complaints Skin/Breast Reports system reviewed and no additional complaints, except as documented Neuro Reports no additional complaints Psych Reports anxiety, Reports depression and Reports mood swings Physical Exam Vital Signs: Last Vital Signs Pulse 76 05/05/23 09:19 BP 110/70 05/05/23 09:19 Pulse Ox 97 05/05/23 09:19 Oxygen Delivery Method Room Air 05/05/23 09:19 BMI result Body Mass Index 37.1 Const General: comfortable, no acute distress, alert and awake Orientation/consciousness: patient oriented x3 HEENT Head: Yes normal to inspection General nose exam: No nasal polyps present and No nasal discharge present Face and sinus: Yes sinuses nontender Mouth: oropharynx normal Throat: Yes posterior oropharynx normal Eyes General: appearance normal, both eyes and all related structures Neck Neck: Yes normal visual inspection, Yes no lymphadenopathy, Yes trachea midline and Yes no JVD Thyroid: Thyroid normal Chest Chest palpation & inspection: normal inspection of the chest, normal palpation of entire chest wall and no tenderness Resp Effort & Inspection: normal respiratory effort Auscultation: clear to auscultation bilaterally, no rhonchi and no wheezes Percussion: percussion normal Cardio Palpation: normal PMI Rate: regular rate Rhythm: regular rhythm Heart sounds: no gallops and no murmurs Peripheral pulses: Peripheral pulses 2+ throughout GI Palpation (GI): Soft to palpation, nontender, No hepatosplenomegaly present, no masses and Other GI palpation findings present (Abdomen is quite obese and slightly protuberant) Auscultation: normal bowel sounds Back/Spine/Pelvis Thoracic/Lumbar Spine: thoracic and lumbar spine normal to inspection Skin General skin exam: no rashes or lesions noted Neuro General: patient oriented x3 and no focal motor deficits Cranial nerves: Yes CN's II-XII intact bilaterally Extrem General: Yes normal to inspection, No no clubbing, cyanosis or edema and Yes no calf tenderness Psych Appearance: grossly normal Speech and movement: Normal speech and movement present Results Reviewed Results Reviewed: Compliance report for the last 30 nights is reviewed. She used only for 6 nights, average usage per night 4 hours 32 minutes. Residual AHI 5.3. Assessment & Plan Assessment & Plan (1) Morbid obesity: Comment: BMI=37.1 She remains grossly obese but has lost some weight . Encouraged to keep on losing weight. Trying to watch her diet and has lost some weight in the last 6 months. Encouraged to continue watching her diet and also walk on a daily basis. Code(s): E66.01 - Morbid (severe) obesity due to excess calories (2) AIDA on CPAP: Comment: Lately she has been non compliant. Claims that she needs new supplies Instructed that she should use every night and try to use it more than 4 hours per night. Code(s): G47.33 - Obstructive sleep apnea (adult) (pediatric); Z99.89 - Dependence on other enabling machines and devices (3) Nicotine dependence, cigarettes, uncomplicated: Comment: (current smoker - onset 35yo, 1ppd x22yrs, 20+PYH), patient is registered in annual lung screening program. Code(s): F17.210 - Nicotine dependence, cigarettes, uncomplicated (4) Asthma: Comment: Very mild, intermittent . PULMONARY FUNCTION TEST IS NORMAL. tx : Albuterol HFA 2 puffs Q 4-6 hours only p.r.n.. Code(s): J45.909 - Unspecified asthma, uncomplicated Medications: New albuterol sulfate 90 mcg/actuation 2 puffs inhalation Q4-6H 30 days PRN 6.7 grams 3RF shortness of breath or wheezing Coding Level of Care Code Est Pt Level 3 (51976) Diagnoses Morbid obesity E66.01 AIDA on CPAP G47.33; Z99.89 Nicotine dependence, cigarettes, uncomplicated F17.210 Asthma J45.909
== END 2023-05-05 09:30 | disposition home or self-care (01) ==
PROVIDERS: PCP Internal Medicine; Visit Provider Internal Medicine
DX: E66.01 Morbid (severe) obesity due to excess calories (principal); G47.33 Obstructive sleep apnea (adult) (pediatric); Z99.89 Dependence on other enabling machines and devices; F17.210 Nicotine dependence, cigarettes, uncomplicated; J45.909 Unspecified asthma, uncomplicated
CPT/HCPCS: 99213

== ENCOUNTER → 2023-05-05 08:59 | Outpatient (BNVA) | payer OTHER, SELFPAY | PROVIDERS: PCP Internal Medicine; Visit Provider Internal Medicine | DX: G47.33 Obstructive sleep apnea (adult) (pediatric) (principal); J45.909 Unspecified asthma, uncomplicated; E66.01 Morbid (severe) obesity due to excess calories; F17.210 Nicotine dependence, cigarettes, uncomplicated; Z99.89 Dependence on other enabling machines and devices; Z68.37 Body mass index [BMI] 37.0-37.9, adult | CPT/HCPCS: 99212 ==

== ENCOUNTER 2023-06-02 14:39 | Outpatient (AMB) | payer OTHER, SELFPAY ==
--- NOTE | 2023-06-02 14:44 | MHC.OFFVIS ---
Intake Vital Signs 06/02/23 14:46 Height 5 ft 1 in Weight 190 lb BMI 35.9 BP 148/77 H Blood Pressure Location Lt brachial Position Sitting Pulse 96 Intake Visit Reasons: congenital malformations of pancreas Intake Note: Patient follow up for a new problem : Congenital malformations of pancreas. Patient cc: acid reflex with burping, diarrhea and vomit, and some swallowing problems. 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: No Accompanied by: Self / Same As Patient Allergies amphetamine [Adderall] Allergy (Severe, Verified 06/04/23 08:26) Difficulty Breathing dextroamphetamine [From ADDERALL] Allergy (Severe, Verified 06/04/23 08:26) DIFFICULTY BREATHING gabapentin [GABAPENTIN] Allergy (Intermediate, Verified 06/04/23 08:26) TREMORS risperidone [From RISPERDAL] Allergy (Intermediate, Verified 06/04/23 08:26) TARDIVE DYSKINESIA Medication List - Last Reconciled 06/02/23 by Aby Jacobsen PA-C albuterol sulfate 90 mcg/actuation 2 puffs inhalation Q4-6H PRN 30 days aripiprazole (Abilify) 20 mg PO DAILY baclofen 10 mg PO BID benztropine 1 mg PO BID CPAP (CPAP Machine/Device) As directed lamotrigine 100 mg PO DAILY nicotine 14 mg transdermal DAILY oxcarbazepine 150 mg PO DAILY oxcarbazepine 300 mg PO BEDTIME HPI HPI Comments History of Present Illness Details A 57 y/o male seen in 2020- for colonoscopy consult- referred for pancreatic abnormality- she does not know any further- She smokes crack last time a couple days ago- smoke MJ- no etoh in 7 years- She broke up with her girlfriend- recently-assess cause her added stress She burps-she has not taken any medications in greater than a year- she took some this morning-she does not want to take pills and get addicted- She has new lung nodules- noted on CT, she was told she had an abnormal pancreas Cpap- Her appetite is good She has no bowel issues She has no nausea vomiting she has had no fever or chills. She has had no abdominal pain, she has not had alcohol PFSH Medical History Nicotine dependence, cigarettes, uncomplicated Cannabis use disorder Cocaine use disorder Bipolar disorder, rapid cycling Osteoarthritis of lumbar spine Osteoarthritis, hand, primary localized Morbid obesity Asthma NELSON on CPAP Fibromyalgia History of post traumatic stress disorder History of ETOH abuse Memory changes Impaired fasting blood sugar Hiatal hernia Obesity Surgical History History of pubovaginal sling History of right knee surgery History of colonoscopy History of back surgery History of esophagogastroduodenoscopy (EGD) Family History Father Medical history non-contributory Mother Medical history non-contributory Other Adopted Social History Household Members: Other Household Members Other:: 3 roommates Housing: House Do you presently have visiting nurse or other home services: No Alcohol intake: never Patient Tobacco Use Status: Current everyday Tobacco user Tobacco use type: Cigarette Years Smoked: onset 35yo, 1ppd x22yrs, 20+PYH e-Cigarette/Vaping Use: Never Used Second Hand Smoke Exposure: Yes Substance Use Type: Crack/Cocaine and Marijuana service: No Current occupational status: employed 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 - [email or web address] Sexual orientation: Lesbian/Kelley/Homosexual Gender identity: Female Cognitive needs: No Hearing needs: No Vision needs: No Female Reproductive History Menstrual Age of Menarche: 9 Review of Systems Const All systems reviewed & are unremarkable except as noted in HPI and below Physical Exam Vital Signs: Last Vital Signs Pulse 96 06/02/23 14:46 BP 148/77 H 06/02/23 14:46 BMI result Body Mass Index 35.9 Const General: cooperative, comfortable, no acute distress and anxious Nutritional Appearance: overweight Orientation/consciousness: patient oriented x3 Eyes Sclerae: sclerae normal Resp Effort & Inspection: normal respiratory effort and able to speak in complete sentences Auscultation: clear to auscultation bilaterally, no rales, no rhonchi and no wheezes Cardio Rate: regular rate Heart sounds: S1 normal heart sound present and S2 normal heart sound present GI Palpation (GI): Soft to palpation and nontender Percussion: Yes normal to percussion Auscultation: normal bowel sounds Neuro General: patient oriented x3 Extrem General: Yes full ROM Psych Speech and movement: Pressured speech present Affect: Animated affect present and Anxious affect present Attitude: cooperative Thought process: Flight of ideas present Thought content: suicidality and no homicidality Results Reviewed Results Reviewed: CT/CT lung screening IMPRESSION: Multiple pulmonary nodules, largest measuring 6 mm. Prominent liver. 1.1 cm pancreatic body hypodensity. Assessment & Plan Assessment & Plan (1) Pancreatic abnormality: Comment: 57-year-old female referred after recent CT for further evaluation pancreatic abnormality Somewhat difficult to get history she talks incessantly, no focus Actively using crack cocaine-she does attend meeting-not consistent CT/CT lung screening IMPRESSION: Multiple pulmonary nodules, largest measuring 6 mm. Prominent liver. 1.1 cm pancreatic body hypodensity. Code(s): Q45.3 - Other congenital malformations of pancreas and pancreatic duct (2) Acid reflux: Code(s): K21.9 - Gastro-esophageal reflux disease without esophagitis Plan: Reflux precautions reviewed Be consistent with medication Plan Omeprazole daily be consistent Reflux precaution Orders: Orders Cocaine Screen Urine 06/02/23 Q45.3 - Other congenital malformations of pancreas and pancreatic duct Comprehensive Met. Panel 06/02/23 Q45.3 - Other congenital malformations of pancreas and pancreatic duct CT abdomen pelvis w IV con 06/02/23 E66.01 - Morbid (severe) obesity due to excess calories, Q45.3 - Other congenital malformations of pancreas and pancreatic duct, R91.8 - Other nonspecific abnormal finding of lung field Lipase 06/02/23 E66.01 - Morbid (severe) obesity due to excess calories, Q45.3 - Other congenital malformations of pancreas and pancreatic duct Medications: New omeprazole 20 mg PO DAILY 30 caps 5RF Patient Instructions: 57-year-old female referred after recent CT for further evaluation pancreatic abnormality-acid reflux Somewhat difficult to get history she talks incessantly, not focus Reviewed CT, will need updated labs-she is agreeable Reviewed reflux precautions Avoid culprits Consistent with medication Encouraged to call with any questions or concerns This note is constructed using voice recognition software. While every effort has been made to ensure accuracy, landfill gas collection operator errors may have been included. Coding Level of Care Code New Pt Level 3 (40042) Diagnoses Pancreatic abnormality Q45.3 Acid reflux K21.9 Time Spent (min) 30
[2023-06-02 14:46] VITALS: BP 148/77; PULSE 96; BMI 35.9
== END 2023-06-02 15:39 | disposition home or self-care (01) ==
PROVIDERS: PCP Internal Medicine; Visit Provider Physician Assistant
DX: Q45.3 Other congenital malformations of pancreas and pancreatic duct (principal); K21.9 Gastro-esophageal reflux disease without esophagitis
CPT/HCPCS: 99213

== ENCOUNTER → 2023-06-02 14:39 | Outpatient (BNVA) | payer OTHER, SELFPAY | PROVIDERS: PCP Internal Medicine; Visit Provider Physician Assistant | DX: Q45.3 Other congenital malformations of pancreas and pancreatic duct (principal); K21.9 Gastro-esophageal reflux disease without esophagitis | CPT/HCPCS: 99212 ==

== ENCOUNTER 2023-06-04 08:06 | Outpatient (AMB) | payer OTHER, SELFPAY ==
--- NOTE | 2023-06-04 08:21 | A.OFFVIS_ITS ---
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 She is doing well with no concerns. Admits to actively using crack cocaine, attending meetings. Reports has had therapy since age 6 and has been and adduct her whole. Upset due to the break-up of her partner 1 year ago. Currently sexually active. Admits to multiple partners male and female. She does not use condoms Denies any vaginal dryness or irritation. Admits a vaginal odor. STI testing offered; she accepts. Last pap smear; 2020-neg. Last mammogram; UTD, repeat 6 mo. Colonoscopy is UTD. Denies any family history of breast, ovarian or colon cancer. [facility] Medical History Nicotine dependence, cigarettes, uncomplicated Cannabis use disorder Cocaine use disorder Bipolar disorder, rapid cycling Osteoarthritis of lumbar spine Osteoarthritis, hand, primary localized Morbid obesity Asthma NELSON on CPAP Fibromyalgia History of post traumatic stress disorder History of ETOH abuse Memory changes Impaired fasting blood sugar Hiatal hernia Obesity Surgical History History of pubovaginal sling History of right knee surgery History of colonoscopy History of back surgery History of esophagogastroduodenoscopy (EGD) Family History Father Medical history non-contributory Mother Medical history non-contributory Other Adopted Social History Household Members: Other Household Members Other:: 3 roommates Housing: House Do you presently have visiting nurse or other home services: No Alcohol intake: never Patient Tobacco Use Status: Current everyday Tobacco user Tobacco use type: Cigarette Years Smoked: onset 35yo, 1ppd x22yrs, 20+PYH e-Cigarette/Vaping Use: Never Used Second Hand Smoke Exposure: Yes Substance Use Type: Crack/Cocaine and Marijuana service: No Current occupational status: employed 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 - [employer] Sexual orientation: Lesbian/Kelley/Homosexual Gender identity: Female Cognitive needs: No Hearing needs: No Vision needs: No Female Reproductive History Menstrual Age of Menarche: 9 Menopause type: natural Total pregnancies: 0 Date of last pap smear: 05/20/20 Date of Mammogram: 10/14/22 Review of Systems Const All systems reviewed & are unremarkable except as noted in HPI and below Reports as per HPI Eyes Reports no additional complaints ENT Reports no additional complaints Card Reports no additional complaints Resp Reports no additional complaints GI Reports as per HPI and Reports no additional complaints Reports as per HPI Musc Reports no additional complaints Skin/Breast Reports as per HPI Neuro Reports no additional complaints Psych Reports no additional complaints Endo Reports no additional complaints Jovanny/Lymph Reports no additional complaints Aller/Immun Reports no additional complaints Physical Exam Vital Signs: Last Vital Signs BP 122/80 06/04/23 08:22 BMI result Body Mass Index 37.8 Const General: cooperative, no acute distress, well developed, alert and poor hygiene Orientation/consciousness: patient oriented x3 HEENT Head: Yes normal to inspection Eyes General: appearance normal, both eyes and all related structures Neck Neck: Yes normal visual inspection Thyroid: Thyroid normal Chest Chest palpation & inspection: normal inspection of the chest and other (no puckering, dimpling, peau de orange, retraction, discharge, masses) Breast/axilla inspection: normal inspection of the breasts Breast/axilla palpation: normal palpation of the breasts Resp Effort & Inspection: normal respiratory effort GI Inspection: Yes normal to inspection Palpation (GI): Soft to palpation Rectal Exam - Female: deferred General: Yes bladder normal to palpation External Female Exam: normal external appearance and normal appearance of the urethra Speculum Exam - Vagina: normal appearance of the vagina, normal palpation and normal vaginal discharge Speculum Exam - Cervix: normal appearance of the cervix and normal palpation Bimanual exam- vagina & uterus: normal bimanual exam, normal palpation, uterine size normal, bladder normal to palpation, normal palpation and non-tender Bimanual Exam- Adnexa, other: no masses Skin General skin exam: no rashes or lesions noted Rashes: no rashes Neuro General: patient oriented x3 Cognition (Neuro): normal cognition Extrem General: Yes normal to inspection Psych Attitude: cooperative Thought process: Normal thought process present Assessment & Plan Assessment & Plan (1) Encounter for well woman exam with routine gynecological exam: Code(s): Z01.419 - Encounter for gynecological examination (general) (routine) without abnormal findings Plan Discussed: Current recommendations for pap smears per ASCCP guidelines. Breast awareness, periodic self breast exams and yearly mammogram. Reminded to not wear any lotions, deodorant, powders, or perfumes for her mammogram follow- up. Use of condoms for STI prevention always. Contact the office with any postmenopausal bleeding. Encouraged her to continue in therapy and support groups, and to strive to stop using crack cocaine. All of her questions and concerns were addressed to the best of my ability. 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 This note is constructed using voice recognition software. While every effort has been made to ensure accuracy, liaison inspection laboratory assistant errors may have been included. Orders: Orders HIV Ab/Ag Today Z20.2 - Contact with and (suspected) exposure to infections with a predominantly sexual mode of transmission Hepatitis B Core Antibody Today Z20.2 - Contact with and (suspected) exposure to infections with a predominantly sexual mode of transmission Hepatitis C Antibody Today Z20.2 - Contact with and (suspected) exposure to infections with a predominantly sexual mode of transmission Syphilis Screen Today Z20.2 - Contact with and (suspected) exposure to infections with a predominantly sexual mode of transmission CT NG by PCR Today N89.8 - Other specified noninflammatory disorders of vagina Bacterial Vaginosis Panel Today N89.8 - Other specified noninflammatory disorders of vagina Coding Level of Care Code Est Pt Prev Care 40-64y(35322) Diagnoses Encounter for well woman exam with routine gynecological exam Z01.419
[2023-06-04 08:22] VITALS: BP 122/80; BMI 37.8
== END 2023-06-04 11:58 | disposition home or self-care (01) ==
LOC: HO.HWS 08:07
PROVIDERS: PCP Internal Medicine; Visit Provider Advanced Practice Midwife
DX: Z01.419 Encounter for gynecological examination (general) (routine) without abnormal findings (principal)
CPT/HCPCS: 99396

== ENCOUNTER 2023-06-04 08:55 | Outpatient (REF) | payer OTHER, SELFPAY ==
--- NOTE | ~2023-06-04 | US_ITS ---
EXAMINATION: US DIAGNOSTIC ULTRASOUND BREAST, RIGHT CLINICAL INFORMATION: 6 month interval follow-up complicated cysts (if stable, this will represent 2 years of stability), right breast 9:00 axis, 7 cm and 5 cm from the nipple. COMPARISON: Ultrasound right breast 10/14/2022, 01/27/2022, 07/29/2021. TECHNIQUE: Ultrasound of the breast is performed with real-time jonas scale imaging and color Doppler. Attention was paid to the region of the complicated cyst in the 9:00 axis, 7 cm from the nipple. FINDINGS: There are 2 stable minimally complicated cysts, the first located at the 9:00 axis, 7 cm from the nipple, measuring 0.4 x 0.3 x 1.0 cm, previously this same, with good through transmission and no internal color Doppler flow. The second is an acorn cyst located at the 9:00 axis, 5 cm from the nipple, measuring 0.8 x 0.5 x 0.4 cm, with stable internal debris and a solitary punctate mural calcification. There is good through transmission. There is no internal color Doppler flow. This has also remained stable since 01/27/2022. Both findings are benign, demonstrating two-year stability. No further follow-up recommended. Results were discussed with the patient at time of visit. US/US breast RT limited mamm only IMPRESSION: Stable complicated cysts in the 9:00 axis of the right breast, unchanged over 2 years and benign. No further follow-up recommended. Recommend the patient resume routine annual screening. ASSESSMENT: BI-RADS 2: Benign RECOMMENDATION: Routine annual mammography screening. This patient's information was entered into a reminder system with a target due date for their next mammogram.
[2023-06-04 11:15] LABS: HBc Num1 0.07 S/CO (0.00-0.79); HIV AB/AG Nonreactive (Nonreactive); HIV Num 1 0.05 S/CO (0.00-0.99); Hepatitis B Core Antibody Nonreactive (Nonreactive); Syphilis Screen Nonreactive (Nonreactive); ~HepC Num1 0.07 S/CO (0.00-0.79); ~Hepatitis C Antibody Nonreactive (Nonreactive)
[2023-06-04 14:47] LABS: CT PCR NOT DETECTED (Not Detect.); NG PCR NOT DETECTED (Not Detect.)
[2023-06-05 14:19] LABS: BV Int Neg Control Negative (Negative); BV Int Pos Control Positive (Positive)
== END 2023-06-04 08:56 | disposition home or self-care (01) ==
LOC: HO.MAMMO 08:55
PROVIDERS: Absent Provider Advanced Practice Midwife; PCP Internal Medicine; Visit Provider Internal Medicine
DX: Z01.419 Encounter for gynecological examination (general) (routine) without abnormal findings (principal); N89.8 Other specified noninflammatory disorders of vagina; N60.01 Solitary cyst of right breast; Z11.3 Encounter for screening for infections with a predominantly sexual mode of transmission; Z20.2 Contact with and (suspected) exposure to infections with a predominantly sexual mode of transmission; Z78.0 Asymptomatic menopausal state
CPT/HCPCS: 0353U; 36415; 76642; 86704; 86780; 86803; 87389; 87480; 87510; 87660

== ENCOUNTER 2023-06-04 09:15 | Outpatient (REF) | payer OTHER, SELFPAY | END 2023-06-04 09:16 | disposition home or self-care (01) | LOC: HO.LNP 09:15 | PROVIDERS: Visit Provider Advanced Practice Midwife | DX: Z13.89 Encounter for screening for other disorder (principal) ==

== ENCOUNTER → 2023-06-04 15:30 | Outpatient (BNV) | payer OTHER, SELFPAY | PROVIDERS: Absent Provider Advanced Practice Midwife; PCP Internal Medicine; Visit Provider Radiology Diagnostic Radiology | DX: N60.01 Solitary cyst of right breast (principal) | CPT/HCPCS: 76642 ==

== ENCOUNTER 2023-06-25 15:55 | Emergency (ER) | payer OTHER, SELFPAY ==
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
[2023-06-25 16:23] VITALS: BP 134/86; BP 136/72; PULSE 100; PULSE 95; RESP 20; TEMP 36.9; O2SAT 95; O2SAT 98; BMI 36.0
--- NOTE | 2023-06-25 16:45 | ECG_ITS ---
Test Reason : dizzy Blood Pressure : / mmHG Vent. Rate : 083 BPM Atrial Rate : 083 BPM P-R Int : 142 ms QRS Dur : 076 ms QT Int : 374 ms P-R-T Axes : 010 029 039 degrees QTc Int : 439 ms Normal sinus rhythm Normal ECG When compared with ECG of 09-JAN-2023 20:44, No significant change was found Referred By: Yvonne Mesa Electronically Signed By:DAYANA GONZALEZ
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
[2023-06-25 17:56] LABS: MANUAL DIFF FLAG NO
--- NOTE | 2023-06-25 17:59 | PC.NURSE ---
sleeping. aware that [facility] records are in and many scans were cancelled. had head ct. no neuro deficits noted by RN in brief exam.
[2023-06-25 18:04] LABS: Basophils Percent Auto 0.3 % (0-2); Eosinophils Absolute Auto 0.2 X10*3/uL (0.0-0.4); Eosinophils Percent Auto 1.9 % (0-4); Hematocrit 38.6 % (37.0-47.0); Hemoglobin 12.9 g/dl (12.0-16.0); Imm Gran Abs Auto 0.03 X10*3/uL (0.00-0.03); Imm Gran Pct Auto 0.3 % (0.0-0.4); Lymphocytes Percent Auto 28.6 % (20-40); Mean Corpuscular HGB Conc 33.4 g/dl (31.0-35.0); Mean Corpuscular Hemoglobin 27.9 pg (27.0-33.0); Mean Corpuscular Volume 83.5 fL (80.0-98.0); Mean Platelet Volume 10.1 fL (9.4-12.3); Monocytes Absolute Auto 0.7 X10*3/uL (0.1-1.2); Monocytes Percent Auto 6.1 % (2-11); Neutrophils Absolute Auto 6.7 x10*3/uL (2.0-8.3); Neutrophils Percent Auto 62.8 % (45-73); Platelet Count 257 X10*3/uL (160-400); Red Blood Count 4.62 X10*6/uL (4.20-5.50); White Blood Count 10.6 X10*3/uL (4.8-10.8)
[2023-06-25 18:10] LABS: Ethanol < 10 mg/dL
[2023-06-25 18:11] LABS: Anion Gap 12 (12-20); Blood Urea Nitrogen 18 mg/dL (9-16); Carbon Dioxide 27 mmol/L (22-29); Chloride 105 mmol/L (96-108); Creatinine Clr Calc Pharmacy 80.7; Estimated Glomerular Filt Rate > 60; Glucose Random 125 mg/dL (60-115); Potassium 3.7 mmol/L (3.3-5.1); Sodium 140 mmol/L (135-145)
[2023-06-25 19:30] VITALS: BP 125/70; PULSE 85; RESP 20; TEMP 36.8; O2SAT 97
== END 2023-06-25 19:33 | disposition home or self-care (01) ==
PROVIDERS: Emergency Provider Emergency Medicine Emergency Medical Services
DX: S06.0XAA Concussion with loss of consciousness status unknown, initial encounter (principal); V49.9XXA Car occupant (driver) (passenger) injured in unspecified traffic accident, initial encounter; M25.561 Pain in right knee; Y93.89 Activity, other specified; Y92.410 Unspecified street and highway as the place of occurrence of the external cause; Y99.9 Unspecified external cause status
CPT/HCPCS: 36415; 70450; 73562; 80048; 80307; 85025; 93005; 99284; 99285

== ENCOUNTER → 2023-06-25 16:45 | Outpatient (BNV) | payer OTHER, SELFPAY | PROVIDERS: Emergency Provider Emergency Medicine Emergency Medical Services; Visit Provider Internal Medicine | DX: R42 Dizziness and giddiness (principal) | CPT/HCPCS: 93010 ==

== ENCOUNTER 2023-07-07 11:54 | Outpatient (REF) | payer OTHER, SELFPAY ==
[2023-07-07 12:26] LABS: MANUAL DIFF FLAG NO
[2023-07-07 12:37] LABS: Basophils Absolute Auto 0.1 X10*3/uL (0.0-0.2); Basophils Percent Auto 0.8 % (0-2); Eosinophils Absolute Auto 0.2 X10*3/uL (0.0-0.4); Eosinophils Percent Auto 2.5 % (0-4); Hemoglobin 14.5 g/dl (12.0-16.0); Imm Gran Abs Auto 0.02 X10*3/uL (0.00-0.03); Imm Gran Pct Auto 0.2 % (0.0-0.4); Lymphocytes Absolute Auto 2.7 X10*3/uL (1.2-4.9); Lymphocytes Percent Auto 32.5 % (20-40); Mean Corpuscular Hemoglobin 27.7 pg (27.0-33.0); Mean Platelet Volume 9.6 fL (9.4-12.3); Monocytes Absolute Auto 0.5 X10*3/uL (0.1-1.2); Monocytes Percent Auto 5.9 % (2-11); Neutrophils Absolute Auto 4.8 x10*3/uL (2.0-8.3); Neutrophils Percent Auto 58.1 % (45-73); Platelet Count 418 X10*3/uL (160-400); Red Blood Count 5.24 X10*6/uL (4.20-5.50); Red Cell Distribution Width 13.1 % (11.0-16.0); White Blood Count 8.3 X10*3/uL (4.8-10.8)
[2023-07-07 13:19] LABS: Estimated Average Glucose 111 mg/dL; Hemoglobin A1c % 5.5 % (<6.0)
[2023-07-07 13:31] LABS: Alanine Aminotransferase 30 U/L (0-31); Albumin Level 4.2 g/dL (3.5-5.0); Alkaline Phosphatase 105 U/L (39-117); Anion Gap 13 (12-20); Aspartate Amino Transferase 25 U/L (5-31); Bilirubin Total 0.4 mg/dL (0.0-1.0); Blood Urea Nitrogen 15 mg/dL (9-16); Calcium 9.6 mg/dL (8.4-10.2); Carbon Dioxide 24 mmol/L (22-29); Chloride 107 mmol/L (96-108); Estimated Glomerular Filt Rate > 60; Glucose Random 123 mg/dL (60-115); Potassium 4.3 mmol/L (3.3-5.1); Sodium 140 mmol/L (135-145); Total Protein 8.1 g/dL (6.5-8.0)
[2023-07-07 13:34] LABS: Syphilis Screen Nonreactive (Nonreactive)
[2023-07-07 13:36] LABS: TSH reflex Free T4 1.54 uIU/mL (0.32-4.0)
[2023-07-07 13:41] LABS: Amphetamine Screen Urine Not Detected (Not Detect); Barbiturates, Urine Not Detected (Not Detect); Benzodiazepines Screen Urine Not Detected (Not Detect); Cannabinoid Screen Urine POSITIVE (Not Detect); Cocaine Screen Urine Not Detected (Not Detect); Fentanyl, urine Not Detected (Not Detect); Opiate Screen Urine Not Detected (Not Detect); Phencyclidine Screen Urine Not Detected (Not Detect)
[2023-07-07 13:42] LABS: Vitamin B12 590 pg/mL (200-900)
[2023-07-07 13:50] LABS: Appearance Urine Cloudy; Color Urine Yellow; Glucose Urine UA Negative (Negative); Leukocyte Esterase Urine Negative (Negative); Nitrite Urine Negative (Negative); PH 5.5 (5.0-9.0); Specific Gravity - Urine 1.025 (1.005-1.025); Urine Blood Negative (Negative); Urine Ketones Negative (Negative); Urine Protein Negative (Neg-Trace)
[2023-07-07 17:04] LABS: CT PCR NOT DETECTED (Not Detect.); NG PCR NOT DETECTED (Not Detect.)
[2023-07-08 04:05] LABS: HBc Num1 0.06 S/CO (0.00-0.79); Hepatitis B Core Antibody Nonreactive (Nonreactive)
[2023-07-08 04:29] LABS: HBS Num1 27.65 mIU/mL (0-7.99); HBsAGNum1 0.31 S/CO (0.00-0.99); HIV AB/AG Nonreactive (Nonreactive); HIV Num 1 0.06 S/CO (0.00-0.99); Hepatitis B Surface Antigen Negative (Negative); ~HepC Num1 0.09 S/CO (0.00-0.79); ~Hepatitis B Surface Antibody REACTIVE (Nonreactive); ~Hepatitis C Antibody Nonreactive (Nonreactive)
== END 2023-07-07 11:55 | disposition home or self-care (01) ==
LOC: HO.LAB 11:54
PROVIDERS: PCP Internal Medicine; Visit Provider Psychiatry & Neurology Psychiatry
DX: F31.9 Bipolar disorder, unspecified (principal)
CPT/HCPCS: 0353U; 80053; 80307; 81003; 82607; 83036; 84443; 85025; 86704; 86706; 86780; 86803; 87340; 87389

== ENCOUNTER 2023-07-09 13:01 | Outpatient (AMB) | payer OTHER, SELFPAY ==
[2023-07-09 13:07] VITALS: BP 148/86; PULSE 94; O2SAT 98; BMI 38.4
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
== END 2023-07-09 16:17 | disposition home or self-care (01) ==
PROVIDERS: PCP Internal Medicine; Visit Provider Internal Medicine
DX: S42.001A Fracture of unspecified part of right clavicle, initial encounter for closed fracture (principal); S06.0X0A Concussion without loss of consciousness, initial encounter; S89.91XA Unspecified injury of right lower leg, initial encounter; Z04.3 Encounter for examination and observation following other accident; V89.2XXA Person injured in unspecified motor-vehicle accident, traffic, initial encounter
CPT/HCPCS: 99214

== ENCOUNTER 2023-07-12 11:00 | Outpatient (RCR) | payer OTHER, SELFPAY ==
[2023-07-06 11:51] VITALS: BP 140/82; PULSE 80; TEMP 36.9
[2023-07-06 11:56] VITALS: BMI 35.0
[2023-07-06 14:24] LABS: Amphetamine Screen Urine Not Detected (Not Detect); Barbiturates, Urine Not Detected (Not Detect); Benzodiazepines Screen Urine Not Detected (Not Detect); Cannabinoid Screen Urine POSITIVE (Not Detect); Cocaine Screen Urine Not Detected (Not Detect); Fentanyl, urine Not Detected (Not Detect); Opiate Screen Urine Not Detected (Not Detect); Phencyclidine Screen Urine Not Detected (Not Detect)
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
--- NOTE | 2023-07-13 15:31 | PC.NURSE ---
Patient brought in medications last week to [facility] as requested by the [facility] prescriber. The medications patient brought in 08/27/22. She stated she has more current medications that she is taking and will bring them to the program to confirm what she has been taking and review them with Dr Soto . Patient has not brought medications to the program to confirm what she has been taking.
== END 2023-07-12 23:59 | disposition home or self-care (01) ==
LOC: HO.PHPA 11:00
PROVIDERS: Visit Provider Psychiatry & Neurology Psychiatry
DX: F31.9 Bipolar disorder, unspecified (principal); F43.12 Post-traumatic stress disorder, chronic; F14.20 Cocaine dependence, uncomplicated; Q86.0 Fetal alcohol syndrome (dysmorphic)
CPT/HCPCS: 80307; 90791; 90853

== ENCOUNTER → 2023-07-12 11:00 | Outpatient (BNV) | payer OTHER, SELFPAY | PROVIDERS: Visit Provider Psychiatry & Neurology Psychiatry | DX: F31.9 Bipolar disorder, unspecified (principal); F14.20 Cocaine dependence, uncomplicated; F43.12 Post-traumatic stress disorder, chronic; Q86.0 Fetal alcohol syndrome (dysmorphic) | CPT/HCPCS: 90792 ==

== ENCOUNTER 2023-08-03 08:00 | Outpatient (RCR) | payer OTHER, SELFPAY | END 2024-03-09 07:26 | disposition home or self-care (01) | LOC: HO.PTCHIC 08:00 | PROVIDERS: PCP Internal Medicine; Visit Provider Physician Assistant | DX: S70.11XA Contusion of right thigh, initial encounter (principal) | CPT/HCPCS: 97110; 97163 ==

== ENCOUNTER 2023-08-20 11:19 | Outpatient (AMB) | payer OTHER, SELFPAY ==
[2023-08-20 11:39] VITALS: BP 136/74; PULSE 87; O2SAT 96; BMI 38.0
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
== END 2023-08-20 15:58 | disposition home or self-care (01) ==
PROVIDERS: PCP Internal Medicine; Visit Provider Internal Medicine
DX: S42.001A Fracture of unspecified part of right clavicle, initial encounter for closed fracture (principal); S06.0X0A Concussion without loss of consciousness, initial encounter; S89.91XA Unspecified injury of right lower leg, initial encounter; Z04.3 Encounter for examination and observation following other accident; V89.2XXA Person injured in unspecified motor-vehicle accident, traffic, initial encounter
CPT/HCPCS: 99213

== ENCOUNTER 2023-08-20 11:58 | Outpatient (AMB) | payer OTHER, SELFPAY ==
--- NOTE | 2023-08-20 11:59 | A.OFFPC_ITS ---
Intake Visit Reasons: Acute Illness~ Allergies amphetamine [Adderall] Allergy (Severe, Verified 08/20/23 11:40) Difficulty Breathing dextroamphetamine [From ADDERALL] Allergy (Severe, Verified 08/20/23 11:40) DIFFICULTY BREATHING gabapentin [GABAPENTIN] Allergy (Intermediate, Verified 08/20/23 11:40) TREMORS risperidone [From RISPERDAL] Allergy (Intermediate, Verified 08/20/23 11:40) TARDIVE DYSKINESIA Medication List - Last Reconciled 08/20/23 by Adilson Park MD aripiprazole (Abilify) 20 mg PO DAILY benztropine Take 1/2 tab in the am and 1 tag at bedtime. Last filled 01/12/23. 30 day supply. CPAP (CPAP Machine/Device) As directed diclofenac sodium 75 mg PO BID 10 days lamotrigine 100 mg PO DAILY nicotine 1 patch transdermal DAILY omeprazole 20 mg PO DAILY oxcarbazepine 150 mg PO DAILY oxcarbazepine 300 mg PO BEDTIME sertraline 25 mg PO DAILY tramadol 50 mg PO QID PRN Tobacco use date assessed: 08/20/23 HPI Acute Illness~ HPI Details Patient is a 57 year female came in today to talk about relapsing using cocaine crack Patient is smoking it, she has longstanding history of drug abuse I have offered her help, however she says that she just have to stop, she has gone through so many meetings that she can actually conductor meeting She is upset about some family aware Patient was adopted when she was young, her family members have been Except 1 brother, who is giving time with inheritance money She seems to be under the influence of drugs today however able to answer questions appropriately. Patient will reach out to me if she needed any assistance. [facility] Medical History Absence seizure History of seizure History of concussion Cataract Glaucoma Nicotine dependence, cigarettes, uncomplicated Cannabis use disorder Cocaine use disorder Bipolar disorder, rapid cycling Osteoarthritis of lumbar spine Osteoarthritis, hand, primary localized Morbid obesity Asthma NELSON on CPAP Fibromyalgia History of post traumatic stress disorder History of ETOH abuse Memory changes Impaired fasting blood sugar Hiatal hernia Obesity Surgical History History of pubovaginal sling History of right knee surgery History of colonoscopy History of back surgery History of esophagogastroduodenoscopy (EGD) Family History Father Medical history non-contributory Mother Medical history non-contributory Other Adopted Social History Household Members: Other Household Members Other:: 3 roommates Housing: House Do you presently have visiting nurse or other home services: No Alcohol intake: never Patient Tobacco Use Status: Former Tobacco user Quit Date: 3 weeks ago Tobacco use type: Cigarette Years Smoked: onset 35yo, 1ppd x22yrs, 20+PYH e-Cigarette/Vaping Use: Never Used Second Hand Smoke Exposure: Yes Substance Use Type: Crack/Cocaine service: No Current occupational status: employed 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 Lester Frost, Amie Dong, Delta Leung and colleagues, with an educational abraham from [employer]. Review of Systems Const Denies chills and Denies fever(s) ENT Denies epistaxis and Denies nasal discharge Card Denies chest pain Resp Denies chest congestion, Denies cough and Denies hemoptysis GI Denies diarrhea and Denies nausea Skin/Breast Denies rash Neuro Reports no additional complaints Psych Reports no additional complaints Endo Reports no additional complaints Physical exam (Primary Care) Tobacco/Smoking Status: Tobacco use Status Tobacco use date assessed 08/20/23 08/20/23 11:41 Patient Tobacco Use Status Former Tobacco user 08/20/23 11:41 Tobacco use type Cigarette 08/20/23 11:41 e-Cigarette/Vaping Use Never Used 08/20/23 11:41 Thrive Assessment: Date of Thrive Assessment Date Thrive assessed 04/09/23 08/20/23 11:41 Const General: cooperative, comfortable and no acute distress Orientation/consciousness: patient oriented x3 HENMT Head: Yes normocephalic Neck Neck: Yes supple Resp Effort & Inspection: normal respiratory effort, no cough and no stridor Cardio Rhythm: regular rhythm Heart sounds: S1 normal heart sound present and S2 normal heart sound present Skin General skin exam: turgor normal Neuro General: patient oriented x3, tone normal and moves all extremities Extrem Right lower extremity: no edema Left lower extremity: no edema Assessment and Plan Assessment & Plan (1) Cocaine dependence: Code(s): F14.20 - Cocaine dependence, uncomplicated Qualifiers: Substance use status: with unspecified cocaine-induced disorder Qualified Code(s): F14.29 - Cocaine dependence with unspecified cocaine-induced disorder Plan Patient is a 57 year female came in today to talk about relapsing using cocaine crack Patient is smoking it, she has longstanding history of drug abuse I have offered her help, however she says that she just have to stop, she has gone through so many meetings that she can actually conductor meeting She is upset about some family aware Patient was adopted when she was young, her family members have been Except 1 brother, who is giving time with inheritance money She seems to be under the influence of drugs today however able to answer questions appropriately. Patient will reach out to me if she needed any assistance. Coding Level of Care Code Est Pt Level 3 (68076) Diagnoses Cocaine dependence with cocaine-induced disorder F14.29 Substance use status: with unspecified cocaine-induced disorder
== END 2023-08-20 16:00 | disposition home or self-care (01) ==
PROVIDERS: PCP Internal Medicine; Visit Provider Internal Medicine
DX: F14.29 Cocaine dependence with unspecified cocaine-induced disorder (principal)
CPT/HCPCS: 99213

== ENCOUNTER 2023-08-21 05:05 | Emergency (ER) | payer OTHER, SELFPAY ==
--- NOTE | 2023-08-21 | ECG_ITS ---
Test Reason : CLAUDIA Blood Pressure : / mmHG Vent. Rate : 055 BPM Atrial Rate : 055 BPM P-R Int : 142 ms QRS Dur : 084 ms QT Int : 464 ms P-R-T Axes : 038 035 017 degrees QTc Int : 443 ms Sinus bradycardia with sinus arrhythmia Nonspecific T wave abnormality Abnormal ECG When compared with ECG of 25-JUN-2023 17:44, Vent. rate has decreased BY 28 BPM Nonspecific T wave abnormality now evident in Inferior leads Nonspecific T wave abnormality, worse in Lateral leads Referred By: Ally Hoffman Electronically Signed By:YISEL WU MD
--- NOTE | ~2023-08-21 | CT_ITS ---
CT HEAD WITHOUT IV CONTRAST CT MAXILLOFACIAL WITHOUT IV CONTRAST INDICATION: Head trauma. Trauma to the right eye. COMPARISON: Head CT 06/25/2023. TECHNIQUE: Multidetector CT acquisitions of the head and maxillofacial region were obtained without IV contrast. Multiplanar reformats were acquired and utilized for image interpretation. This CT examination was performed using dose optimization techniques as appropriate, variously including the following: *Automated exposure control *Adjustment of mA and/or kV according to patient size (this includes techniques or standardized protocols for targeted exams where dose is matched to indication/reason for exam; i.e. extremities or head) *Use of iterative reconstruction technique FINDINGS: HEAD: There is no intracranial hemorrhage, hydrocephalus, extra-axial surface collection, midline shift, or other herniation pattern. [place] to white matter differentiation is diffusely maintained without evidence of an evolved acute territorial infarct. The basilar cisterns are preserved. No significant soft tissue abnormality. MAXILLOFACIAL: There is a markedly depressed and comminuted right orbital floor fracture associated with herniation of large volume extraconal fat and the right inferior rectus muscle through the fracture defect into the right maxillary sinus. There is right inferior rectus muscle entrapment. There is significant periorbital and intraconal hematoma, the latter surrounding the right optic nerve which is stretched. There is right-sided proptosis. Emergent ophthalmologic consultation advised given the concern for right optic nerve injury and right inferior rectus muscle entrapment. There is also a mildly displaced fracture involving the upper anterior right maxillary sinus wall. There is gas within the veins and the partially imaged suprahyoid neck from intravenous line access. CT/CT facial bones wo IV con IMPRESSION: - There is a markedly depressed and comminuted right orbital floor fracture associated with herniation of large volume extraconal fat and the right inferior rectus muscle through the fracture defect into the right maxillary sinus where there is hemo-sinus. There is right inferior rectus muscle entrapment. There is significant periorbital and intraconal hematoma, the latter surrounding the right optic nerve which is stretched. There is right-sided proptosis. Emergent ophthalmologic consultation advised given the concern for right optic nerve injury and right inferior rectus muscle entrapment. - There is also a mildly displaced fracture involving the upper anterior right maxillary sinus wall. - No acute intracranial findings.
[2023-08-21 05:21] VITALS: BP 144/94; BP 157/96; PULSE 72; RESP 16; TEMP 36.5; O2SAT 98; BMI 38.1
[2023-08-21 05:33] VITALS: RESP 18
[2023-08-21] MEDS: HYDROmorphone HCl 1 MG/ML SYRINGE IVPUSH ×2 (05:33→08:35)
[2023-08-21] MEDS: 0.9 % Sodium Chloride 1,000 ML 999 ML IV (05:33)
[2023-08-21] MEDS: ondansetron HCL 4 MG/2 ML VIAL IVPUSH (05:33)
[2023-08-21 05:36] LABS: Basophils Absolute Auto 0.1 X10*3/uL (0.0-0.2); Basophils Percent Auto 0.6 % (0-2); Eosinophils Absolute Auto 0.1 X10*3/uL (0.0-0.4); Eosinophils Percent Auto 1.5 % (0-4); Hematocrit 44.6 % (37.0-47.0); Imm Gran Abs Auto 0.02 X10*3/uL (0.00-0.03); Imm Gran Pct Auto 0.3 % (0.0-0.4); Lymphocytes Absolute Auto 2.1 X10*3/uL (1.2-4.9); Lymphocytes Percent Auto 26.1 % (20-40); MANUAL DIFF FLAG NO; Mean Corpuscular HGB Conc 33.6 g/dl (31.0-35.0); Mean Corpuscular Hemoglobin 27.7 pg (27.0-33.0); Mean Corpuscular Volume 82.4 fL (80.0-98.0); Mean Platelet Volume 9.7 fL (9.4-12.3); Monocytes Absolute Auto 0.6 X10*3/uL (0.1-1.2); Monocytes Percent Auto 7.2 % (2-11); Neutrophils Absolute Auto 5.1 x10*3/uL (2.0-8.3); Neutrophils Percent Auto 64.3 % (45-73); Platelet Count 351 X10*3/uL (160-400); Red Blood Count 5.41 X10*6/uL (4.20-5.50); Red Cell Distribution Width 12.9 % (11.0-16.0)
[2023-08-21 05:50] LABS: Anion Gap 15 (12-20); Blood Urea Nitrogen 15 mg/dL (9-16); Carbon Dioxide 27 mmol/L (22-29); Chloride 105 mmol/L (96-108); Creatinine Clr Calc Pharmacy 61.7; Estimated Glomerular Filt Rate 56; Glucose Random 117 mg/dL (60-115); Potassium 3.7 mmol/L (3.3-5.1); Sodium 143 mmol/L (135-145)
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
--- NOTE | 2023-08-21 06:11 | PC.NURSE ---
Addendum entered by Autumn Muñoz 08/21/23 06:18: company controller aware and called security to have them lock belongings in a pod locker Original Note: security called for changeover on pt as pt used crack. security checked pt belongings however pt refusing to take off pants. security checked pants/pockets for pt safety. per security pt belongings are not supposed to go into decon if the pt did not come in as an overdose. all belongings checked by security and are at bedside.
[2023-08-21] MEDS: Lidocaine HCl 1 % MPF 5 ML VIAL SUBCUT (06:37)
[2023-08-21 07:50] VITALS: BP 121/66; PULSE 68; RESP 18; TEMP 36.5; O2SAT 97
--- NOTE | 2023-08-21 08:58 | PC.NURSE ---
this RN resumed care of pt at this time. pt moved from 12 to 22H so sitter can be present. a&ox4 but seemingly tired when conversating. pt mumbles when answering questions but responds appropriately. pt is responsive to verbal stimuli. pt speaks w/ eyes closed when conversating but pt states it is because an increase in 9/10 pain the right eye. pt unable to open right eye. right eye blue/purple/swollen in nature. laceration noted to the right eyebrow - sutures in place. medication administered per provider order. effectiveness pending. pt verbalizing she is SI at this time. denies HI. pt states she does not have a specific plan to kill herself but states she needs to do it first before somebody else does it for her. pt waiting for CT scans. respirations even and unlabored. plan of care ongoing.
[2023-08-21 10:32] VITALS: BP 149/92; PULSE 57; RESP 15; TEMP 36.6; O2SAT 97
--- NOTE | 2023-08-21 11:06 | PC.NURSE ---
report given to BLS at this time. pt leaving via [facility] to [facility] at this time.
--- NOTE | 2023-08-21 11:25 | PC.NURSE ---
report given to DANIEL Mitchell at [facility] at this time.
[2023-08-21 11:26] VITALS: BP 149/92; PULSE 57; RESP 16; TEMP 36.6; O2SAT 97
== END 2023-08-21 11:27 | disposition still patient (30) ==
PROVIDERS: Emergency Medicine; Emergency Provider Emergency Medicine; PCP Internal Medicine
DX: S01.111A Laceration without foreign body of right eyelid and periocular area, initial encounter (principal); S05.11XA Contusion of eyeball and orbital tissues, right eye, initial encounter; Y04.8XXA Assault by other bodily force, initial encounter; Y93.89 Activity, other specified; Y92.9 Unspecified place or not applicable; Y99.9 Unspecified external cause status; Z65.4 Victim of crime and terrorism
CPT/HCPCS: 12013; 36415; 70450; 70486; 80048; 85025; 93005; 96361; 96374; 96375; 96376; 99285; J1170; J2405

== ENCOUNTER → 2023-08-21 05:42 | Outpatient (BNV) | payer OTHER, SELFPAY | PROVIDERS: Emergency Provider Emergency Medicine; PCP Internal Medicine; Visit Provider Internal Medicine Cardiovascular Disease | DX: R00.1 Bradycardia, unspecified (principal) | CPT/HCPCS: 93010 ==

== ENCOUNTER 2023-09-06 13:20 | Outpatient (AMB) | payer OTHER, SELFPAY ==
[2023-09-06 13:29] VITALS: BP 110/80; PULSE 84; TEMP 36.7; O2SAT 96; BMI 38.0
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
== END 2023-09-06 13:52 | disposition home or self-care (01) ==
PROVIDERS: PCP Internal Medicine; Visit Provider Nurse Practitioner Family
DX: S05.91XA Unspecified injury of right eye and orbit, initial encounter (principal)
CPT/HCPCS: 99212

== ENCOUNTER 2023-09-08 12:17 | Outpatient (AMB) | payer OTHER, SELFPAY ==
[2023-09-08 12:26] VITALS: BP 140/86; PULSE 99; O2SAT 98; BMI 38.0
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
== END 2023-09-08 13:51 | disposition home or self-care (01) ==
PROVIDERS: PCP Internal Medicine; Visit Provider Internal Medicine
DX: S09.93XA Unspecified injury of face, initial encounter (principal); S02.85XA Fracture of orbit, unspecified, initial encounter for closed fracture; Z48.02 Encounter for removal of sutures; H53.2 Diplopia
CPT/HCPCS: 99215

== ENCOUNTER 2023-09-18 15:09 | Emergency (ER) | payer OTHER, SELFPAY ==
[2023-09-18 15:16] VITALS: BP 130/80; BP 147/93; PULSE 85; PULSE 92; RESP 18; TEMP 36.6; O2SAT 97; BMI 35.9
[2023-09-18 15:45] LABS: MANUAL DIFF FLAG NO
[2023-09-18 15:48] LABS: Basophils Percent Auto 0.6 % (0-2); Eosinophils Absolute Auto 0.2 X10*3/uL (0.0-0.4); Eosinophils Percent Auto 2.9 % (0-4); Hematocrit 45.8 % (37.0-47.0); Hemoglobin 15.3 g/dl (12.0-16.0); Imm Gran Abs Auto 0.02 X10*3/uL (0.00-0.03); Imm Gran Pct Auto 0.3 % (0.0-0.4); Lymphocytes Absolute Auto 2.2 X10*3/uL (1.2-4.9); Lymphocytes Percent Auto 31.5 % (20-40); Mean Corpuscular HGB Conc 33.4 g/dl (31.0-35.0); Mean Corpuscular Hemoglobin 27.3 pg (27.0-33.0); Mean Corpuscular Volume 81.6 fL (80.0-98.0); Mean Platelet Volume 9.7 fL (9.4-12.3); Monocytes Absolute Auto 0.5 X10*3/uL (0.1-1.2); Monocytes Percent Auto 7.2 % (2-11); Neutrophils Percent Auto 57.5 % (45-73); Platelet Count 318 X10*3/uL (160-400); Red Blood Count 5.61 X10*6/uL (4.20-5.50); Red Cell Distribution Width 12.9 % (11.0-16.0)
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
[2023-09-18 15:53] LABS: Amphetamine Screen Urine Not Detected (Not Detect); Barbiturates, Urine Not Detected (Not Detect); Benzodiazepines Screen Urine Not Detected (Not Detect); Cannabinoid Screen Urine POSITIVE (Not Detect); Cocaine Screen Urine POSITIVE (Not Detect); Fentanyl, urine Not Detected (Not Detect); Opiate Screen Urine Not Detected (Not Detect); Phencyclidine Screen Urine Not Detected (Not Detect)
[2023-09-18 16:08] LABS: Alanine Aminotransferase 19 U/L (0-31); Albumin Level 4.1 g/dL (3.5-5.0); Alkaline Phosphatase 77 U/L (39-117); Anion Gap 14 (12-20); Aspartate Amino Transferase 22 U/L (5-31); Bilirubin Total 0.4 mg/dL (0.0-1.0); Blood Urea Nitrogen 16 mg/dL (9-16); Calcium 9.4 mg/dL (8.4-10.2); Carbon Dioxide 27 mmol/L (22-29); Chloride 106 mmol/L (96-108); Estimated Glomerular Filt Rate > 60; Ethanol < 10 mg/dL; Glucose Random 103 mg/dL (60-115); Lipase 18 U/L (8-78); Magnesium 2.1 mg/dL (1.6-2.6); Potassium 3.6 mmol/L (3.3-5.1); Sodium 143 mmol/L (135-145); Total Protein 7.7 g/dL (6.5-8.0)
[2023-09-18 16:13] LABS: Acetaminophen LAB < 3 mcg/mL (<30); Salicylate < 5.0 mg/dL (15-30)
[2023-09-18 17:07] LABS: Appearance Urine Error; Color Urine Dark Yellow; Glucose Urine UA Negative (Negative); Leukocyte Esterase Urine Small (1+) (Negative); Nitrite Urine Negative (Negative); PH 5.5 (5.0-9.0); Specific Gravity - Urine >= 1.030 (1.005-1.025); UMIC TRIGGER UACC YES; Urine Blood Negative (Negative); Urine Ketones Negative (Negative); Urine Protein Trace mg/dL (Neg-Trace)
[2023-09-18 17:15] LABS: Troponin-I High Sensitivity < 2.7 ng/L (<3.5-17.0)
[2023-09-18 18:26] LABS: Bacteria Urine 4+ (None Seen); Hyaline Casts Urine 0-2 /LPF (0-2); Squamous Epithelial Cell Urine >20 /HPF (0-2); UACC Culture Trigger YES; WBC Urine 21-50 /HPF (0-5)
--- NOTE | 2023-09-18 20:16 | PHA.MEDREC ---
Pharmacy Consult ? Medication Reconciliation Pharmacy has REVIEWED the medication reconciliation COMPLETED BY NURSING.
[2023-09-18] MEDS: OXcarbazepine 300 MG TABLET PO (20:34)
[2023-09-18] MEDS: Benztropine Mesylate 1 MG TABLET PO (20:34)
--- NOTE | 2023-09-18 21:43 | MHC.CARE ---
CARE Team evelliot complete. Pt is a dual dx bedsearch and is on a section 12A for safety. Pod RN, ED provider and Pt are aware of disposition. Inquired bed availability at [facility] (no beds), [facility] (left VM), [facility] (no answer) and [facility] (faxed). [facility] was give clinical for initial auth and request clinical every 24 hours that Pt is not placed or secures a bed.
[2023-09-19 05:07] VITALS: BP 143/105; PULSE 88; RESP 16; TEMP 36.3; O2SAT 95
[2023-09-19 06:00] VITALS: RESP 18
[2023-09-19 07:54] VITALS: BP 145/100; PULSE 84; RESP 18; TEMP 36.9; O2SAT 97
[2023-09-19] MEDS: ARIPiprazole 20 MG TABLET PO (08:00)
[2023-09-19] MEDS: OXcarbazepine 150 MG TABLET PO (08:00)
[2023-09-19] MEDS: lamoTRIgine 100 MG TABLET PO (08:00)
[2023-09-19] MEDS: Benztropine Mesylate 0.5 MG TABLET PO (08:00)
[2023-09-19] MEDS: Sertraline HCL 25 MG TABLET PO (08:00)
--- NOTE | 2023-09-19 12:25 | MHC.CARE ---
Pt accepted to [facility]- [address] [place] [address] Dr. Toro ZIMMER DEANDRA
[2023-09-19 13:56] VITALS: BP 145/90; PULSE 80; RESP 18; TEMP 36.9; O2SAT 97
== END 2023-09-19 13:58 | disposition short-term general hospital (02) ==
PROVIDERS: Physician Assistant; Emergency Provider Emergency Medicine Emergency Medical Services
DX: R45.851 Suicidal ideations (principal); F31.9 Bipolar disorder, unspecified; F14.90 Cocaine use, unspecified, uncomplicated; Z88.8 Allergy status to other drugs, medicaments and biological substances
CPT/HCPCS: 36415; 80053; 80143; 80179; 80307; 81001; 81003; 83690; 83735; 84484; 85025; 87086; 99285; S9485

== ENCOUNTER 2023-11-03 17:33 | Emergency (ER) | payer OTHER, SELFPAY ==
--- NOTE | ~2023-11-03 | CT_ITS ---
EXAMINATION: CT ABDOMEN AND PELVIS WITHOUT CONTRAST CLINICAL INFORMATION: Hematuria COMPARISON: Previous pelvic ultrasound from 2018 TECHNIQUE: Multidetector volumetric imaging was performed from the superior aspect of the liver through the pubic symphysis. Sagittal and coronal reformatted images were obtained on the technologist's workstation. This CT examination was performed using dose optimization techniques as appropriate, variously including the following: *Automated exposure control *Adjustment of mA and/or kV according to patient size (this includes techniques or standardized protocols for targeted exams where dose is matched to indication/reason for exam; i.e. extremities or head) *Use of iterative reconstruction technique DLP: 803 mGy-cm FINDINGS: LUNG BASES: 3 mm peripheral or subpleural right lower lobe nodule adjacent to the major fissure. This probably represents a subpleural lymph node. Lung bases otherwise clear. LIVER, GALLBLADDER, AND BILIARY TREE: The liver is slightly enlarged and very heterogeneous in attenuation. This probably represents areas of fatty infiltration and focal fatty sparing. No biliary duct dilatation. Normal gallbladder. The gallbladder is unremarkable with no evidence of radiopaque gallstones, gallbladder wall thickening, or obvious pericholecystic inflammatory changes. PANCREAS: Unremarkable. SPLEEN: Unremarkable. ADRENAL GLANDS: Unremarkable. KIDNEYS AND URETERS: The kidneys are normal in size, shape, and attenuation. There is no renal stone. There is no hydronephrosis. There is question of a small 1-2 mm right mid ureteral stone axial image 55 series 3. There is a peripelvic cyst in the lower pole of the left kidney. BLADDER: There is question focal wall thickening of the superior and anterior bladder wall and stranding of the perivesicular fat. GASTROINTESTINAL TRACT: Mild diverticulosis of the colon. The small and large bowel are otherwise unremarkable. The appendix is unremarkable. There is a 3.6 x 6.6 x 6.3 cm cyst in the right lower quadrant anterior to the right psoas muscle. This appears separate from the bowel. It is possible this represents an exophytic high right ovarian cyst. This could be further evaluated with pelvic ultrasound. ABDOMINAL WALL: No significant hernia is appreciated. LYMPH NODES: Normal. VASCULAR: Unremarkable. PELVIC VISCERA: Question right ovarian cyst described above. Uterus and left adnexa are unremarkable. OSSEOUS STRUCTURES: Degenerative changes of the spine. CT/CT abdomen pelvis wo IV con IMPRESSION: Question small nonobstructing right mid ureteral stone measuring 1 to 2 mm. Mild wall thickening of the bladder wall and stranding of the perivesicular fat. Correlation with urinalysis recommended. Enlarged heterogeneous liver probably representing fatty infiltration with focal fatty sparing. 6.6 x 6.3 x 3.6 cm right lower quadrant cyst. This could represent a right adnexal cyst. Follow-up pelvic ultrasound recommended. Fleischner guidelines were followed.
[2023-11-03 17:47] VITALS: BP 130/91; PULSE 97; RESP 16; TEMP 37; O2SAT 96; BMI 42.4
--- NOTE | 2023-11-03 17:55 | ED_ITS ---
HPI - Female Genitourinary General Chief complaint: Urogenital-Female Stated complaint: possible kidney stones Time Seen by Provider: 11/03/23 20:14 Source: patient, RN notes reviewed and old records reviewed Mode of arrival: ambulatory Limitations: no limitations History of Present Illness ED Provider: Meseret BROWNLEE Narrative: 57-year-old female presents for evaluation of lower abdominal pain. Her pain started last night. She also has intermittent flank pain. It tends to be worse in the right compared to the left. She is noticed blood in her urine She reports chills but has not had any fevers No upper abdominal pain, nausea, vomiting She states that she use medical marijuana last night with good improvement in her symptoms and she was able to sleep overnight by her symptoms returned this morning Her primary doctor was concerned for obstructive uropathy. The patient denies any history of this Denies any vaginal bleeding or discharge Related Data Home Medications ?Medication ?Instructions ?Recorded ?Confirmed CPAP (CPAP Machine/Device) 12/31/22 09/08/23 benztropine 1 mg tablet 1 mg PO BEDTIME 07/06/23 09/18/23 sertraline 25 mg tablet 25 mg PO DAILY 07/06/23 09/18/23 benztropine 0.5 mg tablet 0.5 mg PO DAILY 09/18/23 09/18/23 Previous Rx's ?Medication ?Instructions ?Recorded aripiprazole 20 mg tablet (Abilify) 20 mg PO DAILY #30 tabs 01/13/23 lamotrigine 100 mg tablet 100 mg PO DAILY #30 tabs 01/13/23 oxcarbazepine 150 mg tablet 150 mg PO DAILY #30 tabs 01/13/23 oxcarbazepine 300 mg tablet 300 mg PO BEDTIME #30 tabs 01/13/23 cefuroxime axetil 250 mg tablet 250 mg PO Q12H #10 tabs 11/03/23 phenazopyridine 200 mg tablet 200 mg PO TID PRN pain 6 doses #6 11/03/23 (Pyridium) tabs Allergies Allergy/AdvReac Type Severity Reaction Status Date / Time amphetamine [Adderall] Allergy Severe Difficulty Verified 11/03/23 17:53 Breathing dextroamphetamine Allergy Severe DIFFICULTY Verified 11/03/23 17:53 [From ADDERALL] BREATHING gabapentin [GABAPENTIN] Allergy Intermediate TREMORS Verified 11/03/23 17:53 risperidone [From RISPERDAL] Allergy Intermediate TARDIVE Verified 11/03/23 17:53 DYSKINESIA Review of Systems 2 Constitutional: Constitutional: Denies body ache(s), Reports chills, Denies fever(s) and Denies headache(s) Eyes: Eyes: Denies blurry vision ENT: Denies headache(s) and Denies sore throat Cardiovascular: Cardiovascular: Denies chest pain and Denies dyspnea Respiratory: Respiratory: Denies cough and Denies dyspnea Gastrointestinal: Gastrointestinal: Reports abdominal pain, Denies nausea and Denies vomiting Genitourinary: Genitourinary: Reports hematuria, Reports dysuria and Reports flank pain Musculoskeletal: Musculoskeletal: Reports back pain Integumentary/Breasts: Skin/Breast: Denies rash Neurologic: Denies headache(s) [facility] Past Medical History Medical History Absence seizure History of seizure History of concussion Cataract Glaucoma Nicotine dependence, cigarettes, uncomplicated Cannabis use disorder Cocaine use disorder Bipolar disorder, rapid cycling Osteoarthritis of lumbar spine Osteoarthritis, hand, primary localized Morbid obesity Asthma NELSON on CPAP Fibromyalgia History of post traumatic stress disorder History of ETOH abuse Memory changes Impaired fasting blood sugar Hiatal hernia Obesity Surgical History History of pubovaginal sling History of right knee surgery History of colonoscopy History of back surgery History of esophagogastroduodenoscopy (EGD) Family History Family History Father Medical history non-contributory Mother Medical history non-contributory Other Adopted Social History Social History Household Members: Other Household Members Other:: 3 roommates Housing: House Do you presently have visiting nurse or other home services: No Alcohol intake: current Alcohol intake frequency: a few times a week Patient Tobacco Use Status: Current everyday Tobacco user Tobacco use type: Cigarette Years Smoked: onset 35yo, 1ppd x22yrs, 20+PYH Smoked in Last 30 Days: Yes e-Cigarette/Vaping Use: Never Used Second Hand Smoke Exposure: Yes Substance Use Type: Crack/Cocaine and Marijuana Last Used Substance: Days (ago) Advance Directives: No Advance Directives Information Provided: No Patient : No service: No Current occupational status: employed 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 - [employer] Sexual orientation: Lesbian/Kelley/Homosexual Gender identity: Female Cognitive needs: No Hearing needs: No Vision needs: No Physical Exam 2 Vital Signs: Vital Signs: Last Vital Signs Temp 98.6 F 11/03/23 17:47 Pulse 90 11/03/23 19:58 Resp 18 11/03/23 19:58 BP 132/69 11/03/23 19:58 Pulse Ox 97 11/03/23 19:58 O2 Del Method Room Air 11/03/23 17:47 BMI result Body Mass Index 42.4 Const: General: healthy appearing, comfortable, no acute distress, alert and awake Nutritional Appearance: well nourished Orientation/consciousness: p atient oriented x3 HEENT: Head: Yes normocephalic and Yes atraumatic Eyes: Eyelids: Yes eyelids normal Conjunctivae: conjunctivae normal S clerae: sclerae normal Corneas: corneas normal Pupils: Equal, round and reactive pupils present EOM: EOMs intact bilaterally Neck: Neck: Yes full ROM Resp: Effort & Inspection: normal respiratory effort, able to speak in complete sentences and not labored GI: Inspection: No distended Palpation (GI): Soft to palpation, not firm, Tenderness to palpation present (GI) in the LLQ, in the RLQ and suprapubicly; with no rebound tenderness, no guarding and not rigid Auscultation: n ormoactive bowel sounds : General: Yes CVA tenderness bilateral Back/Spine/Pelvis: Back: CVA tenderness Skin: General skin exam: elasticity normal Neuro: General: patient oriented x3 Cranial nerves: Yes Equal, round and reactive pupils present and Yes Bilaterally intact EOM present Cognition (Neuro): normal cognition Course Course Course Narrative: This is an RME done by [facility]: Additional HPI, ROS, PE not included below will be deferred to primary provider. 57 year old female with pmh of PTSD, glaucoma, cocaine use disorder, bipolr disorder, osteoarthritis, asthma, NELSON, ETOH abuse presents with reports that her PCP told her she has a kidney stone. She reports pressure to her pee hole and hematuria. Denies fever, abdominal or flank pain, nausea, or vomiting. Has been using medical marijuana for pain which she says provides relief. Appearance: Alert.? Oriented X3.? No acute cardiopulmonary distress distress.? Head: Normocephalic, atraumatic, no step-offs or deformities CVS: Pulses normal.? Respiratory: No respiratory distress.? Abdomen: Soft and nontender.? Skin: ? Normal skin color. Back: No midline tenderness, no C-spine tenderness, full range of motion, No CVA tenderness bilaterally Neuro: Oriented X 3.? No motor deficit.? No sensory deficit. Reevaluation(s) Reevaluation #1: Patient's CT scan shows concern for cystitis which correlates with her urinalysis. We will treat with cefuroxime. We will give her 1st dose in the ER and she will be discharged home with the same Time: 22:15 Medications Administered Discontinued Medications Generic Name Dose Route Start Last Admin Trade Name Freq PRN Reason Stop Dose Admin Sodium Chloride 1,000 mls @ 999 mls/hr 11/03/23 20:45 11/03/23 21:31 Ns IV 11/03/23 21:45 Infused .Q1H1M LAINEY Infusion Morphine Sulfate 4 mg 11/03/23 20:34 11/03/23 20:39 Morphine Sulfate 4 Mg/Ml Cartridge IVPUSH 11/03/23 20:35 4 mg ONCE ONE Administration Protocol Ondansetron HCl 4 mg 11/03/23 20:34 11/03/23 20:39 Ondansetron Hcl 4 Mg/2 Ml Vial IVPUSH 11/03/23 20:35 4 mg ONCE ONE Administration Medical Decision Making Medical Decision Making [facility] Narrative: 57-year-old female presents for evaluation of lower abdominal pain, dysuria, hematuria and flank pain since last night. She endorses subjective chills. She is afebrile but does have a mild leukocytosis. There is no significant anemia. Patient's chemistries are within normal limits, her renal function is within normal limits. Given her tenderness on exam and CVA tenderness plan for CT scan of the abdomen pelvis without contrast. Patient's urinalysis shows a significant amount of blood as well as leukocytes. There is esterase without nitrites. There is only trace bacteria. Concerning for obstructive uropathy Differential Diagnosis Differential Diagnoses: The differential diagnosis associated with the presentation includes Obstructive uropathy Pyelonephritis Cystitis Flank pain Lab Data [facility] Lab Attestation statement: I reviewed the patient's lab results. See medical decision making 11/03/23 18:02 11/03/23 18:02 Labs: Lab Results 11/03/23 11/03/23 Range/Units 18:02 18:04 WBC 12.9 H (4.8-10.8) X10*3/uL RBC 4.83 (4.20-5.50) X10*6/uL Hgb 13.6 (12.0-16.0) g/dl Hct 40.7 (37.0-47.0) % MCV 84.3 (80.0-98.0) fL MCH 28.2 (27.0-33.0) pg MCHC 33.4 (31.0-35.0) g/dl RDW 14.3 (11.0-16.0) % Plt Count 330 (160-400) X10*3/uL MPV 9.4 (9.4-12.3) fL Immature Gran % (Auto) 0.3 (0.0-0.4) % Neut % (Auto) 69.0 (45-73) % Lymph % (Auto) 22.0 (20-40) % [place] % (Auto) 6.6 (2-11) % Eos % (Auto) 1.6 (0-4) % Baso % (Auto) 0.5 (0-2) % Lymph # (Auto) 2.8 (1.2-4.9) X10*3/uL [place] # (Auto) 0.9 (0.1-1.2) X10*3/uL Eos # (Auto) 0.2 (0.0-0.4) X10*3/uL Baso # (Auto) 0.1 (0.0-0.2) X10*3/uL Abs Immat Gran (auto) 0.04 H (0.00-0.03) X10*3/uL Absolute Neuts (auto) 8.9 H (2.0-8.3) x10*3/uL Absolute Nucleated RBC 0.000 (0.0-0.012) X10*3/uL Nucleated RBC % (auto) 0.0 (0.0-0.2) /100WBC Sodium 141 (135-145) mmol/L Potassium 4.3 (3.3-5.1) mmol/L Chloride 107 (96-108) mmol/L Carbon Dioxide 23 (22-29) mmol/L Anion Gap 15 (12-20) BUN 14 (9-16) mg/dL Creatinine 0.85 (0.5-1.4) mg/dL Estim Creat Clear Calc 78.0 Estimated GFR > 60 Random Glucose 111 (60-115) mg/dL Calcium 8.9 (8.4-10.2) mg/dL Urine Color Dark Yellow Urine Appearance Turbid Urine pH 7.0 (5.0-9.0) Ur Specific [place] 1.020 (1.005-1.025) Urine Protein 300 (3+) H (Neg-Trace) mg/dL Urine Glucose (UA) Negative (Negative) mg/dL Urine Ketones Negative (Negative) mg/dL Urine Blood Large (3+) H (Negative) Urine Nitrite Negative (Negative) Ur Leukocyte Esterase Large (3+) H (Negative) Urine RBC >20 H (0-2) /HPF Urine WBC >50 H (0-5) /HPF Ur Squamous Epith Cells 0-2 (0-2) /HPF Urine Bacteria Trace (None Seen) Hyaline Casts 0-2 (0-2) /LPF Independent Interpretation I performed an independent interpretation of an: CT Scan Interpretation: No significant hydronephrosis Radiology Impression Discussion of test interpretation with radiology: I have reviewed the radiologist's reading. Radiologist Impression: CT/CT abdomen pelvis wo IV con IMPRESSION: Question small nonobstructing right mid ureteral stone measuring 1 to 2 mm. Mild wall thickening of the bladder wall and stranding of the perivesicular fat. Correlation with urinalysis recommended. Enlarged heterogeneous liver probably representing fatty infiltration with focal fatty sparing. 6.6 x 6.3 x 3.6 cm right lower quadrant cyst. This could represent a right adnexal cyst. Follow-up pelvic ultrasound recommended. Discharge Plan Discharge Clinical Impression: Urinary tract infection Patient Disposition: Home, Self-Care Instructions: Urinary Tract Infection in Women (ED) Additional Instructions: Your workup showed a urinary tract infection. You did not have any significant kidney stone Drink lots of fluids. Take cefuroxime twice daily for 5 days Take Pyridium as needed for urinary discomfort Drink lots of fluids Follow-up with your primary doctor Prescriptions: New cefuroxime axetil 250 mg tablet 250 mg PO Q12H Qty: 10 0RF phenazopyridine [Pyridium] 200 mg tablet 200 mg PO TID PRN (Reason: pain) Qty: 6 0RF No Action benztropine 1 mg tablet 1 mg PO BEDTIME sertraline 25 mg Tablet 25 mg PO DAILY oxcarbazepine 150 mg Tablet 150 mg PO DAILY Qty: 30 0RF oxcarbazepine 300 mg Tablet 300 mg PO BEDTIME Qty: 30 0RF lamotrigine 100 mg Tablet 100 mg PO DAILY Qty: 30 0RF aripiprazole [Abilify] 20 mg Tablet 20 mg PO DAILY Qty: 30 0RF Patient Comments: Last filled medications per pharmacy 01/12/23. Patient stated she started taking her prescriptions a month ago that were filled 01/12/23. Patient to bring in her medications to confirm. benztropine 0.5 mg Tablet 0.5 mg PO DAILY (DME) CPAP Machine/Device Device See Rx Instructions .Route Rx Instructions: As directed Print Language: [place]er
[2023-11-03 18:11] LABS: MANUAL DIFF FLAG NO
[2023-11-03 18:15] LABS: Basophils Absolute Auto 0.1 X10*3/uL (0.0-0.2); Basophils Percent Auto 0.5 % (0-2); Eosinophils Absolute Auto 0.2 X10*3/uL (0.0-0.4); Eosinophils Percent Auto 1.6 % (0-4); Hematocrit 40.7 % (37.0-47.0); Hemoglobin 13.6 g/dl (12.0-16.0); Imm Gran Abs Auto 0.04 X10*3/uL (0.00-0.03); Imm Gran Pct Auto 0.3 % (0.0-0.4); Lymphocytes Absolute Auto 2.8 X10*3/uL (1.2-4.9); Mean Corpuscular HGB Conc 33.4 g/dl (31.0-35.0); Mean Corpuscular Hemoglobin 28.2 pg (27.0-33.0); Mean Corpuscular Volume 84.3 fL (80.0-98.0); Mean Platelet Volume 9.4 fL (9.4-12.3); Monocytes Absolute Auto 0.9 X10*3/uL (0.1-1.2); Monocytes Percent Auto 6.6 % (2-11); Neutrophils Absolute Auto 8.9 x10*3/uL (2.0-8.3); Platelet Count 330 X10*3/uL (160-400); Red Blood Count 4.83 X10*6/uL (4.20-5.50); Red Cell Distribution Width 14.3 % (11.0-16.0); White Blood Count 12.9 X10*3/uL (4.8-10.8)
[2023-11-03 18:20] LABS: Appearance Urine Turbid; Color Urine Dark Yellow; Glucose Urine UA Negative (Negative); Leukocyte Esterase Urine Large (3+) (Negative); Nitrite Urine Negative (Negative); UMIC TRIGGER UACC YES; Urine Blood Large (3+) (Negative); Urine Ketones Negative (Negative); Urine Protein 300 (3+) mg/dL (Neg-Trace)
[2023-11-03 18:21] LABS: Bacteria Urine Trace (None Seen); Hyaline Casts Urine 0-2 /LPF (0-2); RBC Urine >20 /HPF (0-2); Squamous Epithelial Cell Urine 0-2 /HPF (0-2); UACC Culture Trigger YES; WBC Urine >50 /HPF (0-5)
[2023-11-03 18:27] LABS: Anion Gap 15 (12-20); Blood Urea Nitrogen 14 mg/dL (9-16); Calcium 8.9 mg/dL (8.4-10.2); Carbon Dioxide 23 mmol/L (22-29); Chloride 107 mmol/L (96-108); Estimated Glomerular Filt Rate > 60; Glucose Random 111 mg/dL (60-115); Potassium 4.3 mmol/L (3.3-5.1); Sodium 141 mmol/L (135-145)
[2023-11-03 19:58] VITALS: BP 132/69; PULSE 90; RESP 18; O2SAT 97
[2023-11-03] MEDS: 0.9 % Sodium Chloride 1,000 ML 999 ML IV (20:39)
[2023-11-03] MEDS: Morphine Sulfate 4 MG/ML CARTRIDGE IVPUSH (20:39)
[2023-11-03] MEDS: ondansetron HCL 4 MG/2 ML VIAL IVPUSH (20:39)
[2023-11-03] MEDS: cefuroxime axetiL 250 MG TABLET PO (22:26)
[2023-11-03 22:28] VITALS: BP 134/84; PULSE 82; RESP 18; TEMP 36.8; O2SAT 98
== END 2023-11-03 22:30 | disposition home or self-care (01) ==
PROVIDERS: Emergency Provider Emergency Medicine
DX: N39.0 Urinary tract infection, site not specified (principal); R10.30 Lower abdominal pain, unspecified; F17.210 Nicotine dependence, cigarettes, uncomplicated; F31.9 Bipolar disorder, unspecified; F22 Delusional disorders; F14.20 Cocaine dependence, uncomplicated; F43.12 Post-traumatic stress disorder, chronic; F12.90 Cannabis use, unspecified, uncomplicated; Z79.899 Other long term (current) drug therapy
CPT/HCPCS: 36415; 74176; 80048; 81001; 85025; 87086; 96361; 96374; 96375; 99284; 99285; J2270; J2405

== ENCOUNTER 2023-11-15 01:51 | Emergency (ER) | payer OTHER, SELFPAY ==
[2023-11-15 02:17] VITALS: BP 153/119; PULSE 68; RESP 18; TEMP 36.8; O2SAT 99; BMI 39.7
[2023-11-15 04:26] VITALS: BP 155/64; PULSE 92; RESP 22; TEMP 36.9; O2SAT 97
--- NOTE | 2023-11-15 08:41 | ED_ITS ---
HPI - General Adult General Chief complaint: General Medical Stated complaint: thinks she has bugs on her body Time Seen by Provider: 11/15/23 08:23 Source: patient Mode of arrival: ambulatory Limitations: no limitations History of Present Illness ED Provider: DR. Hall HPI narrative: 57-year-old female came in for evaluation of persistent itching and possible bug infestation under her skin. Patient has been itching for the past 2-3 weeks, patient also describes bed bugs that she can get out of her nose sometimes, patient is itching all over her body but mostly hands and feet, patient stated that she showers and care for herself daily. Patient also use CPAP machine at home that she thinks it is infested with the bug. Patient otherwise has no SI, no HI, no visual or auditory hallucination, patient confirmed there is no psychiatric symptoms. Related Data Home Medications ?Medication ?Instructions ?Recorded ?Confirmed CPAP (CPAP Machine/Device) 12/31/22 09/08/23 benztropine 1 mg tablet 1 mg PO BEDTIME 07/06/23 09/18/23 sertraline 25 mg tablet 25 mg PO DAILY 07/06/23 09/18/23 benztropine 0.5 mg tablet 0.5 mg PO DAILY 09/18/23 09/18/23 Previous Rx's ?Medication ?Instructions ?Recorded aripiprazole 20 mg tablet (Abilify) 20 mg PO DAILY #30 tabs 01/13/23 lamotrigine 100 mg tablet 100 mg PO DAILY #30 tabs 01/13/23 oxcarbazepine 150 mg tablet 150 mg PO DAILY #30 tabs 01/13/23 oxcarbazepine 300 mg tablet 300 mg PO BEDTIME #30 tabs 01/13/23 cefuroxime axetil 250 mg tablet 250 mg PO Q12H #10 tabs 11/03/23 phenazopyridine 200 mg tablet 200 mg PO TID PRN pain 6 doses #6 11/03/23 (Pyridium) tabs diphenhydramine HCl 25 mg capsule 25 mg PO TID PRN itching #14 caps 11/15/23 (Benadryl) permethrin 5 % topical cream 1 appl topical Q14D 2 doses #60 11/15/23 grams Allergies Allergy/AdvReac Type Severity Reaction Status Date / Time amphetamine [Adderall] Allergy Severe Difficulty Verified 11/15/23 02:18 Breathing dextroamphetamine Allergy Severe DIFFICULTY Verified 11/15/23 02:18 [From ADDERALL] BREATHING gabapentin [GABAPENTIN] Allergy Intermediate TREMORS Verified 11/15/23 02:18 risperidone [From RISPERDAL] Allergy Intermediate TARDIVE Verified 11/15/23 02:18 DYSKINESIA Review of Systems Review of Systems: All other systems are reviewed and are negative Constitutional: Reports as per HPI and Reports no additional constitutional complaints Eyes: Reports as per HPI and Reports no additional eye complaints Reports system reviewed and no additional complaints, except as documented Cardiovascular: Reports as per HPI and Reports no additional cardiovascular complaints Respiratory: Reports as per HPI and Reports no additional respiratory complaints Gastrointestinal: Reports as per HPI and Reports no additional gastrointestinal complaints Genitourinary: Reports no additional female genitourinary complaints Musculoskeletal: Reports no additional musculoskeletal complaints Skin/Breast: Reports system reviewed and no additional complaints, except as docu Psychiatric: Reports no additional psychiatric complaints Endocrine: Reports no additional endocrine complaints Hematologic/Lymphatic: Reports no additional hematologic/lymphatic complaints Allergic/Immunologic: Reports no additional allergic/immunologic complaints Reports system reviewed and no additional complaints, except as documented and Reports Abnormal speech present PMFSH Past Medical History Medical History Absence seizure History of seizure History of concussion Cataract Glaucoma Nicotine dependence, cigarettes, uncomplicated Cannabis use disorder Cocaine use disorder Bipolar disorder, rapid cycling Osteoarthritis of lumbar spine Osteoarthritis, hand, primary localized Morbid obesity Asthma NELSON on CPAP Fibromyalgia History of post traumatic stress disorder History of ETOH abuse Memory changes Impaired fasting blood sugar Hiatal hernia Obesity Surgical History History of pubovaginal sling History of right knee surgery History of colonoscopy History of back surgery History of esophagogastroduodenoscopy (EGD) Family History Family History Father Medical history non-contributory Mother Medical history non-contributory Other Adopted Social History Social History Household Members: Other Household Members Other:: 3 roommates Housing: House Do you presently have visiting nurse or other home services: No Alcohol intake: never Patient Tobacco Use Status: Current everyday Tobacco user Tobacco use type: Cigarette Years Smoked: onset 35yo, 1ppd x22yrs, 20+PYH Smoked in Last 30 Days: Yes e-Cigarette/Vaping Use: Never Used Second Hand Smoke Exposure: Yes Use of substances other than those prescribed or required for medical reasons: Yes Substance Use Type: Crack/Cocaine Substance Use Frequency: Daily Advance Directives: No Advance Directives Information Provided: No Patient : No service: No Current occupational status: employed 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 Blood pressure elevated. Heart rate normal. Respiratory rate normal. Temperature normal. Oxygen saturation normal. Appearance: Alert. Oriented X3. No acute distress. Head: Normal external exam. Normocephalic. Atraumatic. No Roberson signs noted. No raccoon eyes noted Eyes: PERRLA. EOMI. Conjunctiva and sclera normal. Eyelids normal. ENT: TM's Normal. Pharynx normal. Uvula midline. Moist mucous membranes. No trismus noted. No drooling noted. No muffled voice noted. Neck: Normal inspection. Neck supple. FROM. No adenopathy. Thyroid Normal. No meningeal signs. No neck mass noted. CVS: Normal heart rate and rhythm. Heart sound normal. No murmurs noted. Pulses normal throughout. Respiratory: No respiratory distress. Painless inspiration. Breath sounds normal. No wheezes/rales/rhonchi noted. Chest nontender. No accessory muscle usage noted or decreased air movement noted. Abdomen: Soft and nontender. Bowel sounds normal in all 4 quadrants. No distention noted. No organomegaly noted. No visible injury noted. Back: No CVA tenderness. Full range of motion noted. Skin: Multiple burrows and a thin brown lines on the right forearm and left on an upper abdominal area Extremities: No lower extremity edema. Extremities exhibit normal range of motion. Extremities nontender. Neuro: Oriented X 3. Cranial nerve exam: II-XII are grossly intact No motor deficit. No sensory deficit. Reflexes normal. Course Reevaluation(s) Reevaluation #1: Physical exam today revealed no acute psychiatric issue, patient has a complaint of itching and likely scabies infestation on her skin for the past few weeks, therapeutic strategy was discussed with the patient will prescribe permethrin and Benadryl. Patient stated that she is in the process of moving out of her place. Time: 08:54 Medical Decision Making Differential Diagnosis Differential Diagnoses: The differential diagnosis associated with the presentation includes (Scabies, bedbugs, hives, acute psychosis.) Admission/Observation Consideration of admission/observation: Escalation of care including admission/observation considered Discharge Plan Discharge Clinical Impression: Scabies Patient Disposition: Home, Self-Care Instructions: Scabies (ED) Prescriptions: New permethrin 5 % cream 1 appl topical Q14D Qty: 60 0RF Rx Instructions: apply second treatment 14 days after first treatment if live lice remain diphenhydramine HCl [Benadryl] 25 mg capsule 25 mg PO TID PRN (Reason: itching) Qty: 14 0RF No Action benztropine 1 mg tablet 1 mg PO BEDTIME sertraline 25 mg Tablet 25 mg PO DAILY oxcarbazepine 150 mg Tablet 150 mg PO DAILY Qty: 30 0RF oxcarbazepine 300 mg Tablet 300 mg PO BEDTIME Qty: 30 0RF lamotrigine 100 mg Tablet 100 mg PO DAILY Qty: 30 0RF aripiprazole [Abilify] 20 mg Tablet 20 mg PO DAILY Qty: 30 0RF Patient Comments: Last filled medications per pharmacy 01/12/23. Patient stated she started taking her prescriptions a month ago that were filled 01/12/23. Patient to bring in her medications to confirm. benztropine 0.5 mg Tablet 0.5 mg PO DAILY cefuroxime axetil 250 mg tablet 250 mg PO Q12H Qty: 10 0RF phenazopyridine [Pyridium] 200 mg tablet 200 mg PO TID PRN (Reason: pain) Qty: 6 0RF (DME) CPAP Machine/Device Device See Rx Instructions .Route Rx Instructions: As directed Referrals: Adilson Park MD [Primary Care Provider] - Print Language: Hebrew
[2023-11-15 09:04] VITALS: BP 155/64; PULSE 92; RESP 20; TEMP 36.9; O2SAT 97
== END 2023-11-15 09:05 | disposition home or self-care (01) ==
PROVIDERS: Emergency Provider Emergency Medicine; PCP Internal Medicine
DX: B86 Scabies (principal)
CPT/HCPCS: 99283

== ENCOUNTER 2023-11-20 14:15 | Inpatient (IN) | payer OTHER, SELFPAY ==
--- NOTE | ~2023-11-20 | CT_ITS ---
EXAMINATION: CT facial bones wo IV con CLINICAL INFORMATION: recent depressed/comminuted right orbital floor fx COMPARISON: CT facial bones 08/21/2023 TECHNIQUE: Imaging was performed from the skull base to vertex without intravenous administration of contrast. In addition, helical noncontrast CT imaging was acquired through the facial bones and source images were reviewed along with axial reconstructions and sagittal and coronal MPRs. This CT examination was performed using dose optimization techniques as appropriate, variously including the following: * Automated exposure control * Adjustment of mA and/or kV according to patient size (this includes techniques or standardized protocols for targeted exams where dose is matched to indication/reason for exam; i.e. extremities or head) Use of iterative reconstruction technique Total exam dose-length product 312 mGy-cm FINDINGS: Interval plate and screw fixation of right orbital floor blowout fracture and anterior right maxillary sinus wall fracture. Hardware is intact. Mild residual fat herniation into the right maxillary sinus medially. Resolution of previously seen right proptosis as well as the periorbital and intraconal hematoma. The orbits demonstrate a normal appearance bilaterally. The globes are intact, and there are no suspicious findings to suggest retrobulbar hemorrhage. Prominent bilateral level 1B cervical lymph nodes measuring up to 2.3 cm in long axis on the right and up to 1.7 cm and the left, likely reactive. No new fracture identified. The mandible, maxilla, pterygoid plates, nasal bones, zygomatic arches, paranasal sinus mondragon, and bony orbits are intact. The frontal, maxillary, ethmoid, and sphenoid sinuses are well aerated. The uncinate process is normal bilaterally. The infundibula and middle meati are patent. There is a leftward nasal septal deviation. The mandibular heads are well-seated in the condylar fossa. Imaged intracranial compartment is unremarkable. CT/CT facial bones wo IV con IMPRESSION: 1. Interval plate and screw fixation of right orbital floor blowout fracture and anterior right maxillary sinus wall fracture. Hardware is intact. Mild residual fat herniation into the right maxillary sinus medially. Resolution of previously seen right proptosis as well as the periorbital and intraconal hematoma. 2. Prominent bilateral level 1B cervical lymph nodes, likely reactive.
[2023-11-20 14:27] VITALS: BP 127/85; BP 176/84; PULSE 87; PULSE 97; RESP 16; TEMP 37.2; O2SAT 97; BMI 46.9
[2023-11-20 14:30] VITALS: RESP 16
--- NOTE | 2023-11-20 14:33 | PC.NURSE ---
Anjelica comes to the ED today requesting help due to increased agitation secondary to scabies on her nose and mouth. She reports that she is frustrated about the scabies and is extremely itchy and uncomfortable. Patient can be seen frequently picking at and touching affected areas. According to EMS, patient made a suicidal statement in the ambulance to the effect of I just want these scabies to kill me because holy shit this sucks . Patient denies SI, stating that the scabies are just terrible to deal with and she wants them gone. She reports that she has been taking the medication prescribed to her but it is not helping. Patient does appear mildly agitated, with a manic-like affect, although she does report to this RN that she took $100 worth of cocaine in the last hour to feel better. Patient is currently calm and cooperative, alert and oriented x4, skin pwd, no apparent distress noted. Awaiting provider at this time
[2023-11-20] MEDS: diphenhydrAMINE HCL 25 MG CAPSULE PO (15:40)
[2023-11-20] MEDS: HaloperidoL 5 MG TABLET PO (15:40)
--- NOTE | 2023-11-20 15:54 | PC.NURSE ---
this RN attempted to draw patient, no success
[2023-11-20 16:41] LABS: MANUAL DIFF FLAG NO
[2023-11-20 16:51] LABS: Basophils Absolute Auto 0.1 X10*3/uL (0.0-0.2); Basophils Percent Auto 0.6 % (0-2); Eosinophils Absolute Auto 0.2 X10*3/uL (0.0-0.4); Eosinophils Percent Auto 2.3 % (0-4); Hematocrit 44.7 % (37.0-47.0); Hemoglobin 14.7 g/dl (12.0-16.0); Imm Gran Abs Auto 0.03 X10*3/uL (0.00-0.03); Imm Gran Pct Auto 0.3 % (0.0-0.4); Lymphocytes Absolute Auto 2.3 X10*3/uL (1.2-4.9); Lymphocytes Percent Auto 22.3 % (20-40); Mean Corpuscular HGB Conc 32.9 g/dl (31.0-35.0); Mean Corpuscular Hemoglobin 27.4 pg (27.0-33.0); Mean Corpuscular Volume 83.4 fL (80.0-98.0); Mean Platelet Volume 9.6 fL (9.4-12.3); Monocytes Absolute Auto 0.7 X10*3/uL (0.1-1.2); Monocytes Percent Auto 6.6 % (2-11); Neutrophils Absolute Auto 6.9 x10*3/uL (2.0-8.3); Neutrophils Percent Auto 67.9 % (45-73); Platelet Count 396 X10*3/uL (160-400); Red Blood Count 5.36 X10*6/uL (4.20-5.50); Red Cell Distribution Width 13.6 % (11.0-16.0); White Blood Count 10.2 X10*3/uL (4.8-10.8)
[2023-11-20 17:01] LABS: Alanine Aminotransferase 22 U/L (0-31); Albumin Level 4.4 g/dL (3.5-5.0); Alkaline Phosphatase 74 U/L (39-117); Anion Gap 16 (12-20); Aspartate Amino Transferase 25 U/L (5-31); Bilirubin Total 0.5 mg/dL (0.0-1.0); Blood Urea Nitrogen 13 mg/dL (9-16); Calcium 9.8 mg/dL (8.4-10.2); Carbon Dioxide 25 mmol/L (22-29); Chloride 104 mmol/L (96-108); Creatinine Clr Calc Pharmacy 86.8; Estimated Glomerular Filt Rate > 60; Ethanol < 10 mg/dL; Glucose Random 99 mg/dL (60-115); Potassium 3.9 mmol/L (3.3-5.1); Sodium 141 mmol/L (135-145); Total Protein 8.4 g/dL (6.5-8.0)
--- NOTE | 2023-11-20 18:47 | ED.PSYCH ---
HPI - Psych General Chief Complaint: Psychiatric Symptoms Stated Complaint: FEELS LIKE BUGS IN NOSE/MOUTH,MOM STS SI STATEMENT Time Seen by Provider: 11/20/23 14:45 Source: patient, EMS, RN notes reviewed and old records reviewed Mode of arrival: EMS History of Present Illness ED Provider: Latoya Orourke PA-C HPI Narrative: 57-year-old female with a past medical history of seizure, substance use, bipolar, osteoarthritis, NELSON on CPAP, asthma, fibromyalgia, presenting to the ED via EMS from home reporting bugs are crawling all over her, states her scabies is worsening and she can not handle this anymore. Patient was seen and treated in our ED on 11/14 diagnosed with scabies prescribed permethrin which she states she only apply to her head without relief. States she sees bugs crawling out of her nose and around her face/eyes in black lines. Admits to sticking a steak knife inside of her nose to extract strings of bugs. Admits to crack cocaine use, about $2000 dollars a month. Denies SI, HI. Related Data Home Medications ?Medication ?Instructions ?Recorded ?Confirmed CPAP (CPAP Machine/Device) 12/31/22 09/08/23 benztropine 1 mg tablet 1 mg PO BEDTIME 07/06/23 09/18/23 sertraline 25 mg tablet 25 mg PO DAILY 07/06/23 09/18/23 benztropine 0.5 mg tablet 0.5 mg PO DAILY 09/18/23 09/18/23 Previous Rx's ?Medication ?Instructions ?Recorded aripiprazole 20 mg tablet (Abilify) 20 mg PO DAILY #30 tabs 01/13/23 lamotrigine 100 mg tablet 100 mg PO DAILY #30 tabs 01/13/23 oxcarbazepine 150 mg tablet 150 mg PO DAILY #30 tabs 01/13/23 oxcarbazepine 300 mg tablet 300 mg PO BEDTIME #30 tabs 01/13/23 cefuroxime axetil 250 mg tablet 250 mg PO Q12H #10 tabs 11/03/23 phenazopyridine 200 mg tablet 200 mg PO TID PRN pain 6 doses #6 11/03/23 (Pyridium) tabs diphenhydramine HCl 25 mg capsule 25 mg PO TID PRN itching #14 caps 11/15/23 (Benadryl) permethrin 5 % topical cream 1 appl topical Q14D 2 doses #60 11/15/23 grams Allergies Allergy/AdvReac Type Severity Reaction Status Date / Time amphetamine [Adderall] Allergy Severe Difficulty Verified 11/20/23 14:30 Breathing dextroamphetamine Allergy Severe DIFFICULTY Verified 11/20/23 14:30 [From ADDERALL] BREATHING gabapentin [GABAPENTIN] Allergy Intermediate TREMORS Verified 11/20/23 14:30 risperidone [From RISPERDAL] Allergy Intermediate TARDIVE Verified 11/20/23 14:30 DYSKINESIA Review of Systems Review of Systems: Constitutional: No Fever, No Chills, No Fatigue, No Malaise ENT/Mouth: No Ear Pain, No Nasal Congestion, No sore throat, No Rhinorrhea, No Swallowing Difficulty Eyes: No Eye Pain, No Swelling, No Redness, No Vision Changes Cardiovascular: No Chest Pain, No SOB Respiratory: No Cough, No Sputum, No Dyspnea Gastrointestinal: No Nausea, No Vomiting, No Diarrhea, No Constipation, No Abdominal pain Musculoskeletal: No joint pain, No Myalgias, No Joint Swelling Skin: + Skin Lesions, No rash, +pruritis Neuro: No Weakness, No Headache Psych: No Anxiety/Panic, No Depression, No SI/HI/AH, +VH, + Social Issues Yes all other systems are reviewed and are negative Constitutional: Constitutional: Reports as per [facility] Past Medical History Attestation statement: The following information was validated with the patient. Source: old records reviewed Medical History Absence seizure History of seizure History of concussion Cataract Glaucoma Nicotine dependence, cigarettes, uncomplicated Cannabis use disorder Cocaine use disorder Bipolar disorder, rapid cycling Osteoarthritis of lumbar spine Osteoarthritis, hand, primary localized Morbid obesity Asthma NELSON on CPAP Fibromyalgia History of post traumatic stress disorder History of ETOH abuse Memory changes Impaired fasting blood sugar Hiatal hernia Obesity Surgical History History of pubovaginal sling History of right knee surgery History of colonoscopy History of back surgery History of esophagogastroduodenoscopy (EGD) Family History Family History Father Medical history non-contributory Mother Medical history non-contributory Other Adopted Social History Social History Household Members: Other Household Members Other:: 3 roommates Housing: House Do you presently have visiting nurse or other home services: No Alcohol intake: never Patient Tobacco Use Status: Current everyday Tobacco user Tobacco use type: Cigarette Years Smoked: onset 35yo, 1ppd x22yrs, 20+PYH Smoked in Last 30 Days: Yes e-Cigarette/Vaping Use: Never Used Second Hand Smoke Exposure: Yes Use of substances other than those prescribed or required for medical reasons: Yes Substance Use Type: Crack/Cocaine Substance Use Frequency: Chronic Longstanding Last Used Substance: Hours (ago) Advance Directives: No Advance Directives Information Provided: No Patient : No service: No Current occupational status: employed 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 Head: Yes atraumatic Ears: hearing grossly normal bilaterally Mouth: no drooling Throat: Yes uvula midline, No uvula laterally displaced and No uvular edema Eyes: General: appearance normal, both eyes and all related structures EOM: EOMs intact bilaterally Neck: Neck: Yes normal visual inspection and Yes no meningeal signs Resp: Effort & Inspection: normal respiratory effort and no respiratory distress Cardio: Rate: regular rate Skin: Other: + skin picking noted to bilateral inner thighs. No linear excoriations. + fungal infection to pannus Neuro: General: patient oriented x3, tone normal, no meningeal signs and CN's II-XI intact bilaterally Cranial nerves: Yes CN's II-XII intact bilaterally Gait exam (Neuro): Normal gait present Extrem: General: Yes normal to inspection Psych: Speech and movement: Pressured speech present Thought content: suicidality, no homicidality, Paranoid delusions present and Hallucination(s) present visual Course Course Course Narrative: -labs reassuring -1899--ED care transferred to ALAN Alvares pending tox screen and CARE team consult. Phys obs initiated Medications Administered Discontinued Medications Generic Name Dose Route Start Last Admin Trade Name Freq PRN Reason Stop Dose Admin Diphenhydramine HCl 25 mg 11/20/23 15:34 11/20/23 15:40 Diphenhydramine Hcl 25 Mg Capsule PO 11/20/23 15:35 25 mg ONCE ONE Administration Haloperidol 5 mg 11/20/23 15:34 11/20/23 15:40 Haloperidol 5 Mg Tablet PO 11/20/23 15:35 5 mg ONCE ONE Administration Medical Decision Making Medical Decision Making [facility] Narrative: 57-year-old female with a past medical history of seizure, substance use, bipolar, osteoarthritis, NELSON on CPAP, asthma, fibromyalgia, presenting to the ED via EMS from home reporting bugs are crawling all over her, states her scabies is worsening and she can not handle this anymore. On exam vital signs stable, manic with pressured speech paranoid delusions. 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 Low suspicion for active scabies without linear excoriations. Suspect self-induced scabs. Case discussed with ED attending Dr. Garner who also evaluated patient Plan: Labs tox screen, topical antibiotics to Nose, topical antifungal to pannus, CARE team consult Please refer to course for remaining clinical decision making, interpretation of labs/imaging results, and discussions with consultants and/or family members. Differential Diagnosis Differential Diagnoses: The differential diagnosis associated with the presentation includes As above Admission/Observation Consideration of admission/observation: Escalation of care including admission/observation considered Consult Healthcare Provider Management of the patient was discussed with: Behavioral Health Provider Lab Data [facility] Lab Attestation statement: I reviewed the patient's lab results. 11/20/23 16:36 11/20/23 16:36 Labs: Lab Results 11/20/23 Range/Units 16:36 WBC 10.2 (4.8-10.8) X10*3/uL RBC 5.36 (4.20-5.50) X10*6/uL Hgb 14.7 (12.0-16.0) g/dl Hct 44.7 (37.0-47.0) % MCV 83.4 (80.0-98.0) fL MCH 27.4 (27.0-33.0) pg MCHC 32.9 (31.0-35.0) g/dl RDW 13.6 (11.0-16.0) % Plt Count 396 (160-400) X10*3/uL MPV 9.6 (9.4-12.3) fL Immature Gran % (Auto) 0.3 (0.0-0.4) % Neut % (Auto) 67.9 (45-73) % Lymph % (Auto) 22.3 (20-40) % Jewell % (Auto) 6.6 (2-11) % Eos % (Auto) 2.3 (0-4) % Baso % (Auto) 0.6 (0-2) % Lymph # (Auto) 2.3 (1.2-4.9) X10*3/uL Jewell # (Auto) 0.7 (0.1-1.2) X10*3/uL Eos # (Auto) 0.2 (0.0-0.4) X10*3/uL Baso # (Auto) 0.1 (0.0-0.2) X10*3/uL Abs Immat Gran (auto) 0.03 (0.00-0.03) X10*3/uL Absolute Neuts (auto) 6.9 (2.0-8.3) x10*3/uL Absolute Nucleated RBC 0.000 (0.0-0.012) X10*3/uL Nucleated RBC % (auto) 0.0 (0.0-0.2) /100WBC Sodium 141 (135-145) mmol/L Potassium 3.9 (3.3-5.1) mmol/L Chloride 104 (96-108) mmol/L Carbon Dioxide 25 (22-29) mmol/L Anion Gap 16 (12-20) BUN 13 (9-16) mg/dL Creatinine 0.78 (0.5-1.4) mg/dL Estim Creat Clear Calc 86.8 Estimated GFR > 60 Random Glucose 99 (60-115) mg/dL Calcium 9.8 D (8.4-10.2) mg/dL Total Bilirubin 0.5 (0.0-1.0) mg/dL AST 25 (5-31) U/L ALT 22 (0-31) U/L Alkaline Phosphatase 74 (39-117) U/L Total Protein 8.4 H (6.5-8.0) g/dL Albumin 4.4 (3.5-5.0) g/dL Ethyl Alcohol < 10 mg/dL Independent Historian Clinical information obtained from an independent historian. History obtained from or confirmed by: EMS External Record Review External record reviewed: Inpatient record, Office record, Outpatient record, Prior outpatient labs, Prior outpatient radiology, Primary care record and Outside ED record Tests considered The following testing was considered but not selected: As above Prescription Management I considered prescription management with: Antibiotic Social Determinants Patient?s care significantly limited by Social Determinants of Health including: Inadequate housing, Low income, Alcoholism and drug addiction in family and Problems related to primary support group Discharge Plan Discharge Clinical Impression: Delusions of parasitosis, Substance use Patient Disposition: Still a Patient Prescriptions: No Action benztropine 1 mg tablet 1 mg PO BEDTIME sertraline 25 mg Tablet 25 mg PO DAILY permethrin 5 % cream 1 appl topical Q14D Qty: 60 0RF Rx Instructions: apply second treatment 14 days after first treatment if live lice remain diphenhydramine HCl [Benadryl] 25 mg capsule 25 mg PO TID PRN (Reason: itching) Qty: 14 0RF oxcarbazepine 150 mg Tablet 150 mg PO DAILY Qty: 30 0RF oxcarbazepine 300 mg Tablet 300 mg PO BEDTIME Qty: 30 0RF lamotrigine 100 mg Tablet 100 mg PO DAILY Qty: 30 0RF aripiprazole [Abilify] 20 mg Tablet 20 mg PO DAILY Qty: 30 0RF Patient Comments: Last filled medications per pharmacy 01/12/23. Patient stated she started taking her prescriptions a month ago that were filled 01/12/23. Patient to bring in her medications to confirm. benztropine 0.5 mg Tablet 0.5 mg PO DAILY cefuroxime axetil 250 mg tablet 250 mg PO Q12H Qty: 10 0RF phenazopyridine [Pyridium] 200 mg tablet 200 mg PO TID PRN (Reason: pain) Qty: 6 0RF (DME) CPAP Machine/Device Device See Rx Instructions .Route Rx Instructions: As directed Interventions: [place]-Suicide Risk Severity Scale Last Done: 11/20/23 15:55 Print Language: Korean
[2023-11-20] MEDS: Bacitracin Oint 14 GM TUBE 1 APPL TOPICAL (20:17)
[2023-11-20] MEDS: Nystatin Powder 15 GM BOTTLE 1 APPL TOPICAL (20:18)
[2023-11-20 20:40] VITALS: BP 122/97; PULSE 91; RESP 16; TEMP 36.6; O2SAT 96
--- NOTE | 2023-11-20 20:52 | MHC.CARE ---
Pt is sedated. Attempted to meet with Pt x2 and was unrousable. Pt not able to engage in an evaluation appropriately at this time.
[2023-11-21 04:23] VITALS: BP 147/94; PULSE 100; RESP 18; TEMP 36.9; O2SAT 97
[2023-11-21] MEDS: Bacitracin Oint 14 GM TUBE 1 APPL TOPICAL ×2 (07:39→19:36)
[2023-11-21] MEDS: Nystatin Powder 15 GM BOTTLE 1 APPL TOPICAL ×2 (07:39→19:37)
--- NOTE | 2023-11-21 08:42 | PC.NURSE ---
Assumed care of patient at 0645, patient ambulating with steady around BH pod, currently speaking with CARE team clinician Ana. No apparent distress noted, patient not itching at nose or mouth like yesterday.
--- NOTE | 2023-11-21 09:03 | PC.NURSE ---
Addendum entered by Dania Givens 11/21/23 09:26: patient willingly took Ativan, Benadryl and Haldol orally Original Note: Patient talked with CARE team, determination for Sec 12 inpatient bedsearch. patient obviously irritated, yelling at this RN, calling her sponser a no good for leticia leiva . MD Garner aware
[2023-11-21] MEDS: diphenhydrAMINE HCL 25 MG CAPSULE PO (09:14)
[2023-11-21] MEDS: LORazepam 1 MG TABLET 2 MG PO ×2 (09:14→18:28)
[2023-11-21] MEDS: HaloperidoL 5 MG TABLET PO (09:14)
--- NOTE | 2023-11-21 10:35 | PC.NURSE ---
RE: med rec this RN completed med rec with previous medical hx. Patient unable to verify medications at this time.
[2023-11-21 15:16] VITALS: RESP 16
[2023-11-21 18:11] LABS: Appearance Urine Clear; Color Urine Yellow; Glucose Urine UA Negative (Negative); Leukocyte Esterase Urine Trace (Negative); Nitrite Urine Negative (Negative); Specific Gravity - Urine 1.015 (1.005-1.025); UMIC TRIGGER UACC YES; Urine Blood Negative (Negative); Urine Ketones Negative (Negative); Urine Protein Negative (Neg-Trace)
[2023-11-21 18:13] LABS: Bacteria Urine Trace (None Seen); Hyaline Casts Urine 0-2 /LPF (0-2); RBC Urine 0-2 /HPF (0-2); WBC Urine 0-5 /HPF (0-5)
[2023-11-21 18:23] LABS: Amphetamine Screen Urine Not Detected (Not Detect); Barbiturates, Urine Not Detected (Not Detect); Benzodiazepines Screen Urine Not Detected (Not Detect); Buprenorphine Scr Not Detected (Not Detect); Cannabinoid Screen Urine POSITIVE (Not Detect); Cocaine Screen Urine POSITIVE (Not Detect); Fentanyl, urine Not Detected (Not Detect); Methadone Screen, Urine Not Detected (Not Detect); Opiate Screen Urine Not Detected (Not Detect); Oxycodone Screen Urine Not Detected (Not Detect); Phencyclidine Screen Urine Not Detected (Not Detect)
--- NOTE | 2023-11-21 19:06 | PC.NURSE ---
patient appears to remain at rest at present, respirations are even and unlabored patient appears in no distress
[2023-11-21 19:44] VITALS: RESP 16
--- NOTE | 2023-11-22 | ECG_ITS ---
Test Reason : CHECK QT Blood Pressure : / mmHG Vent. Rate : 076 BPM Atrial Rate : 076 BPM P-R Int : 128 ms QRS Dur : 072 ms QT Int : 354 ms P-R-T Axes : 098 067 064 degrees QTc Int : 398 ms Poor data quality Normal sinus rhythm T wave abnormality, consider lateral ischemia Abnormal ECG When compared with ECG of 21-AUG-2023 05:42, Nonspecific T wave abnormality, improved in Inferior leads Referred By: Vernon Garner Electronically Signed By:YISEL WU MD
[2023-11-22 06:03] VITALS: BP 145/93; PULSE 84; RESP 18; TEMP 36.4; O2SAT 97
[2023-11-22] MEDS: Bacitracin Oint 14 GM TUBE 1 APPL TOPICAL ×2 (08:19→20:34)
[2023-11-22] MEDS: Nystatin Powder 15 GM BOTTLE 1 APPL TOPICAL ×2 (08:19→20:34)
[2023-11-22] MEDS: LORazepam 1 MG TABLET 2 MG PO (08:59)
--- NOTE | 2023-11-22 09:00 | PC.NURSE ---
Pt alert, reports an increase in anxiety and restlessness. Provider alerted and pt medicated per MAR.
--- NOTE | 2023-11-22 13:15 | PHA.MEDREC ---
Pharmacy Consult ? Medication Reconciliation Pharmacy has completed the medication reconciliation. Reviewed med rec done by Harper garces annotated that despite the claim history date of last fill pt reported only beginning to take prescriptions from last year about a month ago
[2023-11-22] MEDS: ARIPiprazole 20 MG TABLET PO (13:49)
[2023-11-22] MEDS: Sertraline HCL 25 MG TABLET PO (13:49)
[2023-11-22] MEDS: lamoTRIgine 100 MG TABLET PO (13:49)
[2023-11-22] MEDS: OXcarbazepine 150 MG TABLET PO (14:12)
--- NOTE | 2023-11-22 14:14 | PC.NURSE ---
medication administered per provider order. pharmacy called d/t cream not being readily available - will adminster when able.
[2023-11-22] MEDS: Permethrin 5 % Cream 60 GM TUBE 1 APPL TOPICAL (14:22)
[2023-11-22 16:39] VITALS: BP 150/100; PULSE 89; RESP 16; TEMP 36.1; O2SAT 98
--- NOTE | 2023-11-22 19:00 | PC.NURSE ---
patient appears to remain at rest at present respirations are ev en and unlabored patient appears in no distress
[2023-11-22] MEDS: Benztropine Mesylate 1 MG TABLET PO (20:34)
[2023-11-22] MEDS: OXcarbazepine 300 MG TABLET PO (20:34)
[2023-11-22] MEDS: HaloperidoL 5 MG TABLET PO (23:06)
[2023-11-22] MEDS: diphenhydrAMINE HCL 25 MG CAPSULE 50 MG PO (23:06)
--- NOTE | 2023-11-23 00:31 | MHC.CARE ---
This procedure writer spoke to [facility] and cancelled initial authorization as she did not transfer to the unit as planned. They stated to please call in 24 hours with updated clinical while boarding. Information will be passed to the first shift care team.
[2023-11-23 02:35] VITALS: BP 147/107; PULSE 79; RESP 18; TEMP 36.7; O2SAT 99
--- NOTE | 2023-11-23 07:07 | PC.NURSE ---
Assumed care of patient at 0645. Patient is observed resting in their bed. No signs of distress observed. Will continue plan of care.
[2023-11-23] MEDS: OXcarbazepine 150 MG TABLET PO (08:23)
[2023-11-23] MEDS: Bacitracin Oint 14 GM TUBE 1 APPL TOPICAL ×2 (08:23→20:03)
[2023-11-23] MEDS: lamoTRIgine 100 MG TABLET PO (08:23)
[2023-11-23] MEDS: Nystatin Powder 15 GM BOTTLE 1 APPL TOPICAL ×2 (08:23→20:03)
[2023-11-23] MEDS: Sertraline HCL 25 MG TABLET PO (08:23)
[2023-11-23] MEDS: ARIPiprazole 20 MG TABLET PO (08:23)
[2023-11-23] MEDS: Nicotine 21 MG PATCH.TD24 TRANSDERMA (09:48)
[2023-11-23 11:38] VITALS: BP 145/88; PULSE 76; RESP 16; TEMP 36.4; O2SAT 97
[2023-11-23 13:19] VITALS: BMI 39.3
[2023-11-23 13:20] VITALS: PULSE 89; RESP 18; TEMP 36.6; O2SAT 98
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
[2023-11-23] MEDS: OXcarbazepine 300 MG TABLET PO (20:02)
[2023-11-23] MEDS: traZODone HCL 50 MG TABLET PO (20:02)
[2023-11-23] MEDS: Benztropine Mesylate 1 MG TABLET PO (20:02)
[2023-11-23] MEDS: hydrOXYzine HCL 25 MG TABLET PO (20:05)
[2023-11-24] MEDS: traZODone HCL 50 MG TABLET PO ×2 (00:15→00:16)
[2023-11-24 08:29] LABS: Estimated Average Glucose 114 mg/dL; Hemoglobin A1c % 5.6 % (<6.0)
[2023-11-24 08:47] LABS: Cholesterol 172 mg/dL (<200); HDL Cholesterol 43 mg/dL (>40); LDL Cholesterol Calculated 105 mg/dL (<100); Magnesium 2.1 mg/dL (1.6-2.6); Triglycerides 123 mg/dL (<150)
[2023-11-24 08:55] VITALS: BP 163/73; PULSE 92; RESP 18; TEMP 36.5; O2SAT 96
[2023-11-24] MEDS: lamoTRIgine 100 MG TABLET PO (08:56)
[2023-11-24] MEDS: ARIPiprazole 20 MG TABLET PO (08:56)
[2023-11-24] MEDS: Sertraline HCL 25 MG TABLET PO (08:56)
[2023-11-24] MEDS: OXcarbazepine 150 MG TABLET PO (08:56)
[2023-11-24] MEDS: Bacitracin Oint 14 GM TUBE 1 APPL TOPICAL (08:59)
[2023-11-24] MEDS: Nystatin Powder 15 GM BOTTLE 1 APPL TOPICAL (09:00)
[2023-11-24 09:05] LABS: Free T4 (Free Thyroxine) 0.97 ng/dL (0.71-1.85); Thyroid Stimulating Hormone 1.03 uIU/mL (0.32-4.0)
[2023-11-24 09:13] LABS: Folate 11.2 ng/mL (> or = 4.0); Vitamin B12 484 pg/mL (200-900)
--- NOTE | 2023-11-24 10:58 | PC.NURSE ---
Patient has belongings double bagged and sealed in pt belongings closet-not inventoried-DO NOT OPEN PER INFECTION CONTROL. BAG IS TO LEAVE HOSPITAL SEALED.
--- NOTE | 2023-11-24 12:19 | HO.PSYCHPN ---
Subjective Subjective Date of Service: 11/24/23 Reason For Visit: Bipolar disorder; parasitosis; PTSD Subjective Notes: Conditional Voluntary and 3 Day Healthcare Proxy: No Guardianship: No Medical Problems Affecting Mental Status: No Interim History: Pt is visable in milieu, accepting medications. Med review with pt who again confirms regime/doses. Discussed wanting to leave before the end of her TDN. Education provided regarding restarting regime, assessment for efficacy, SE and mgt of presenting sx of delusional parasitosis. Verbalized understanding of rationale. 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 Continues with interest in DM[facility], VNA support upon discharge. Medication Compliance: Yes Side effects from medications: No Attending Groups: Intermittent Review of Systems Acute medical concerns: No Medical Review of Systems: unchanged Review of Systems Review of Systems Yes all other systems are reviewed and are negative Mental Status Exam Mental Status Exam Patient Appearance: Fatigued Patient Orientation: Person, Place, Time and Situation Level of Consciousness: Alert Patient Behavior: Appropriate, Talkative, Cooperative and Good Eye Contact Mood Description: Depressed Affect Description: Flat Patient Cognition Impaired: No Ability to Follow Directions: Good Speech Pattern: Spontaneous Speech Memory Description: Intact Hallucinations: None Delusions: Not Present Perceptual Disturbances: Derealization Thought Process: Rumination Thought Content: positive for Circumstantial and positive for Perseveration Depressive Symptoms: Thoughts of /Suicide (denies) and Low Self Esteem Judgement: Fair Diagnostics Vital Signs (24Hr): Vital Signs - 24 hr 11/23/23 13:20 11/24/23 08:55 Temperature 98 F 97.7 F Pulse Rate 89 92 Respiratory Rate 18 18 Blood Pressure 163/73 H Pulse Oximetry 98 96 Oxygen Delivery Method Room Air Room Air BMI result Body Mass Index 39.3 Labs 11/20/23 16:36 11/20/23 16:36 Labs: Laboratory Results - last 48 hr 11/24/23 07:52 Estimat Average Glucose 114 Hemoglobin A1c % 5.6 Magnesium 2.1 Triglycerides 123 Cholesterol 172 LDL Cholesterol, Calc 105 H HDL Cholesterol 43 Vitamin B12 484 Folate 11.2 TSH 1.03 Free T4 0.97 Medications Medications Current Medications Acetaminophen (Acetaminophen 325 Mg Tablet) 650 mg PO Q6H PRN PRN Reason: Headache/Pain Mild Scale (1-3) Al Hydroxide/Mg Hydroxide (Magnesium Hydrox/Alum Hydrox 30 Ml Oral.Susp) 30 ml PO Q6H PRN PRN Reason: Heartburn/Nausea Aripiprazole (Aripiprazole 20 Mg Tablet) 20 mg PO DAILY [facility] Last Admin: 11/24/23 08:56 Dose: 20 mg Bacitracin (Bacitracin Oint 14 Gm Tube) 1 appl TOPICAL BID LAINEY; Protocol Last Admin: 11/24/23 08:59 Dose: 1 appl Benztropine Mesylate (Benztropine Mesylate 1 Mg Tablet) 1 mg PO BEDTIME LAINEY Last Admin: 11/23/23 20:02 Dose: 1 mg Hydroxyzine HCl (Hydroxyzine Hcl 25 Mg Tablet) 25 mg PO Q6H PRN PRN Reason: Anxiety Last Admin: 11/23/23 20:05 Dose: 25 mg Lamotrigine (Lamotrigine 100 Mg Tablet) 100 mg PO DAILY LAINEY Last Admin: 11/24/23 08:56 Dose: 100 mg Magnesium Hydroxide (Milk Of Magnesia 30 Ml Oral.Susp) 30 ml PO DAILY PRN PRN Reason: Constipation Nicotine (Nicotine 21 Mg Patch.Td24) 21 mg TRANSDERMA DAILY PRN PRN Reason: nicotine cravings Nicotine Polacrilex (Nicotine Polacrilex 2 Mg Gum) 4 mg BUCCAL Q2H PRN PRN Reason: Nicotine Cravings Nystatin (Nystatin Powder 15 Gm Bottle) 1 appl TOPICAL BID LAINEY; Protocol Last Admin: 11/24/23 09:00 Dose: 1 appl Oxcarbazepine (Oxcarbazepine 150 Mg Tablet) 150 mg PO DAILY LAINEY Last Admin: 11/24/23 08:56 Dose: 150 mg Oxcarbazepine (Oxcarbazepine 300 Mg Tablet) 300 mg PO BEDTIME LAINEY Last Admin: 11/23/23 20:02 Dose: 300 mg Permethrin (Permethrin 5 % Cream 60 Gm Tube) 1 appl TOPICAL Q14D LAINEY; Protocol Last Admin: 11/22/23 14:22 Dose: 1 appl Sertraline HCl (Sertraline Hcl 25 Mg Tablet) 25 mg PO DAILY [facility] Last Admin: 11/24/23 08:56 Dose: 25 mg Trazodone HCl (Trazodone Hcl 50 Mg Tablet) 50 mg PO BEDTIME MRX1 PRN PRN Reason: Insomnia Last Admin: 11/24/23 00:16 Dose: 50 mg Allergies Allergies Allergy/AdvReac Type Severity Reaction Status Date / Time amphetamine [Adderall] Allergy Severe Difficulty Verified 11/20/23 14:30 Breathing dextroamphetamine Allergy Severe DIFFICULTY Verified 11/20/23 14:30 [From ADDERALL] BREATHING gabapentin [GABAPENTIN] Allergy Intermediate TREMORS Verified 11/20/23 14:30 risperidone [From RISPERDAL] Allergy Intermediate TARDIVE Verified 11/20/23 14:30 DYSKINESIA Assessment & Plan Assessment & Plan (1) Bipolar disorder with psychotic features: Status: Acute Code(s): F31.9 - Bipolar disorder, unspecified (2) Delusions of parasitosis: Status: Acute Code(s): F22 - Delusional disorders (3) Cocaine dependence: Qualifiers: Substance use status: with unspecified cocaine-induced disorder Qualified Code(s): F14.29 - Cocaine dependence with unspecified cocaine-induced disorder Status: Acute Code(s): F14.20 - Cocaine dependence, uncomplicated (4) Chronic post-traumatic stress disorder (PTSD): Status: Acute Code(s): F43.12 - Post-traumatic stress disorder, chronic Plan 11/24/23- Continue to re-establish regime TDN to 11/29/23. Encourage milieu involvement. Informed Consent: understands Reason for continued inpatient stay Substantial Risk for: harm to self, inability to function and rapid decompensation Time Spent With Patient Time: Total time managing care of this patient today ____ minutes.
[2023-11-24] MEDS: Omeprazole 20 MG CAPSULE.DR PO (17:33)
[2023-11-24 20:00] VITALS: BP 138/79; PULSE 88; RESP 16; TEMP 36.4; O2SAT 96
[2023-11-24] MEDS: OXcarbazepine 300 MG TABLET PO (21:48)
[2023-11-24] MEDS: Celecoxib 100 MG CAPSULE PO (21:48)
[2023-11-24] MEDS: Benztropine Mesylate 1 MG TABLET PO (21:48)
[2023-11-25] MEDS: Acetaminophen 325 MG TABLET 650 MG PO (04:25)
[2023-11-25] MEDS: hydrOXYzine HCL 25 MG TABLET PO ×2 (04:26→23:14)
[2023-11-25] MEDS: Omeprazole 20 MG CAPSULE.DR PO ×2 (06:21→17:30)
[2023-11-25 08:00] VITALS: BP 126/74; PULSE 67; RESP 16; TEMP 36.4; O2SAT 97
[2023-11-25] MEDS: Celecoxib 100 MG CAPSULE PO ×2 (08:43→20:43)
[2023-11-25] MEDS: lamoTRIgine 100 MG TABLET PO (08:43)
[2023-11-25] MEDS: ARIPiprazole 20 MG TABLET PO (08:43)
[2023-11-25] MEDS: Sertraline HCL 25 MG TABLET PO (08:43)
[2023-11-25] MEDS: OXcarbazepine 150 MG TABLET PO (08:44)
[2023-11-25] MEDS: Bacitracin Oint 14 GM TUBE 1 APPL TOPICAL ×2 (08:44→20:44)
[2023-11-25] MEDS: Nystatin Powder 15 GM BOTTLE 1 APPL TOPICAL ×2 (08:45→20:44)
--- NOTE | 2023-11-25 09:50 | HO.PSYCHPN ---
Subjective Subjective Date of Service: 11/25/23 Reason For Visit: Bipolar disorder; parasitosis; PTSD Subjective Notes: Conditional Voluntary and 3 Day Healthcare Proxy: No Guardianship: No Medical Problems Affecting Mental Status: No Interim History: Pt reports feeling as if she is getting back on track, feeling stronger. Slept 4 hours last night. Asks to return to Amitriptyline 50 mg HS as Trazodone is less helpful. Team have called [facility]. Application process will take 1-3 months. Pt's TDN to 11/28. Discussed that this will be the first time in her life living alone, so wanting [employer] [place] to help her transition into independent living. Anxious about upcoming court dates and what she will need to face in court. States she is finding the milieu a support currently. Medication Compliance: Yes Side effects from medications: No Review of Systems Review of Systems Yes all other systems are reviewed and are negative Mental Status Exam Mental Status Exam Patient Appearance: Appropriate Patient Orientation: Person, Place, Time and Situation Level of Consciousness: Alert Patient Behavior: Appropriate, Talkative, Cooperative and Good Eye Contact Mood Description: Depressed, Anxious and Apprehensive Affect Description: Flat Patient Cognition Impaired: No Ability to Follow Directions: Good Speech Pattern: Spontaneous Speech Memory Description: Intact Hallucinations: None Delusions: Not Present Perceptual Disturbances: Derealization Thought Process: Rumination Thought Content: positive for Circumstantial and positive for Perseveration Depressive Symptoms: Thoughts of /Suicide (denies) and Low Self Esteem Abnormal Motor Activity Signs and Symptoms: Restlessness Judgement: Fair Diagnostics Vital Signs (24Hr): Vital Signs - 24 hr 11/24/23 20:00 Temperature 97.5 F Pulse Rate 88 Respiratory Rate 16 Blood Pressure 138/79 Pulse Oximetry 96 Oxygen Delivery Method Room Air BMI result Body Mass Index 39.3 Labs 11/20/23 16:36 11/20/23 16:36 Labs: Laboratory Results - last 48 hr 11/24/23 07:52 Estimat Average Glucose 114 Hemoglobin A1c % 5.6 Magnesium 2.1 Triglycerides 123 Cholesterol 172 LDL Cholesterol, Calc 105 H HDL Cholesterol 43 Vitamin B12 484 Folate 11.2 TSH 1.03 Free T4 0.97 Medications Medications Current Medications Acetaminophen (Acetaminophen 325 Mg Tablet) 650 mg PO Q6H PRN PRN Reason: Headache/Pain Mild Scale (1-3) Last Admin: 11/25/23 04:25 Dose: 650 mg Al Hydroxide/Mg Hydroxide (Magnesium Hydrox/Alum Hydrox 30 Ml Oral.Susp) 30 ml PO Q6H PRN PRN Reason: Heartburn/Nausea Aripiprazole (Aripiprazole 20 Mg Tablet) 20 mg PO DAILY [facility] Last Admin: 11/25/23 08:43 Dose: 20 mg Bacitracin (Bacitracin Oint 14 Gm Tube) 1 appl TOPICAL BID [facility]; Protocol Last Admin: 11/25/23 08:44 Dose: 1 appl Benztropine Mesylate (Benztropine Mesylate 1 Mg Tablet) 1 mg PO BEDTIME [facility] Last Admin: 11/24/23 21:48 Dose: 1 mg Celecoxib (Celecoxib 100 Mg Capsule) 100 mg PO BID [facility] Last Admin: 11/25/23 08:43 Dose: 100 mg Hydroxyzine HCl (Hydroxyzine Hcl 25 Mg Tablet) 25 mg PO Q6H PRN PRN Reason: Anxiety Last Admin: 11/25/23 04:26 Dose: 25 mg Lamotrigine (Lamotrigine 100 Mg Tablet) 100 mg PO DAILY [facility] Last Admin: 11/25/23 08:43 Dose: 100 mg Magnesium Hydroxide (Milk Of Magnesia 30 Ml Oral.Susp) 30 ml PO DAILY PRN PRN Reason: Constipation Nicotine (Nicotine 21 Mg Patch.Td24) 21 mg TRANSDERMA DAILY PRN PRN Reason: nicotine cravings Nicotine Polacrilex (Nicotine Polacrilex 2 Mg Gum) 4 mg BUCCAL Q2H PRN PRN Reason: Nicotine Cravings Nystatin (Nystatin Powder 15 Gm Bottle) 1 appl TOPICAL BID [facility]; Protocol Last Admin: 11/25/23 08:45 Dose: 1 appl Omeprazole (Omeprazole 20 Mg Capsule.Dr) 20 mg PO BID@0630,1630 [facility] Last Admin: 11/25/23 06:21 Dose: 20 mg Oxcarbazepine (Oxcarbazepine 150 Mg Tablet) 150 mg PO DAILY [facility] Last Admin: 11/25/23 08:44 Dose: 150 mg Oxcarbazepine (Oxcarbazepine 300 Mg Tablet) 300 mg PO BEDTIME [facility] Last Admin: 11/24/23 21:48 Dose: 300 mg Permethrin (Permethrin 5 % Cream 60 Gm Tube) 1 appl TOPICAL Q14D [facility]; Protocol Last Admin: 11/22/23 14:22 Dose: 1 appl Sertraline HCl (Sertraline Hcl 25 Mg Tablet) 25 mg PO DAILY [facility] Last Admin: 11/25/23 08:43 Dose: 25 mg Trazodone HCl (Trazodone Hcl 50 Mg Tablet) 50 mg PO BEDTIME MRX1 PRN PRN Reason: Insomnia Last Admin: 11/24/23 00:16 Dose: 50 mg Allergies Allergies Allergy/AdvReac Type Severity Reaction Status Date / Time amphetamine [Adderall] Allergy Severe Difficulty Verified 11/20/23 14:30 Breathing dextroamphetamine Allergy Severe DIFFICULTY Verified 11/20/23 14:30 [From ADDERALL] BREATHING gabapentin [GABAPENTIN] Allergy Intermediate TREMORS Verified 11/20/23 14:30 risperidone [From RISPERDAL] Allergy Intermediate TARDIVE Verified 11/20/23 14:30 DYSKINESIA Assessment & Plan Assessment & Plan (1) Bipolar disorder with psychotic features: Status: Acute Code(s): F31.9 - Bipolar disorder, unspecified (2) Delusions of parasitosis: Status: Acute Code(s): F22 - Delusional disorders (3) Cocaine dependence: Qualifiers: Substance use status: with unspecified cocaine-induced disorder Qualified Code(s): F14.29 - Cocaine dependence with unspecified cocaine-induced disorder Status: Acute Code(s): F14.20 - Cocaine dependence, uncomplicated (4) Chronic post-traumatic stress disorder (PTSD): Status: Acute Code(s): F43.12 - Post-traumatic stress disorder, chronic Plan 11/25/23- Discontinue Trazodone Amitriptyline 50 mg HS Reason for continued inpatient stay Substantial Risk for: rapid decompensation Time Spent With Patient Time: Total time managing care of this patient today ____ minutes.
[2023-11-25 12:20] VITALS: BMI 40.5
[2023-11-25 20:00] VITALS: BP 163/91; PULSE 76; RESP 16; TEMP 36.3; O2SAT 98
[2023-11-25] MEDS: Benztropine Mesylate 1 MG TABLET PO (20:43)
[2023-11-25] MEDS: OXcarbazepine 300 MG TABLET PO (20:43)
[2023-11-25] MEDS: Amitriptyline HCl 50 MG TABLET PO (22:13)
[2023-11-26] MEDS: traZODone HCL 50 MG TABLET PO ×2 (00:30→21:19)
[2023-11-26] MEDS: Omeprazole 20 MG CAPSULE.DR PO ×2 (06:26→16:51)
[2023-11-26 08:00] VITALS: BP 132/78; PULSE 92; RESP 18; TEMP 36.9; O2SAT 96
[2023-11-26] MEDS: lamoTRIgine 100 MG TABLET PO (09:30)
[2023-11-26] MEDS: Sertraline HCL 25 MG TABLET PO (09:30)
[2023-11-26] MEDS: Nystatin Powder 15 GM BOTTLE 1 APPL TOPICAL ×2 (09:30→21:21)
[2023-11-26] MEDS: OXcarbazepine 150 MG TABLET PO (09:30)
[2023-11-26] MEDS: Celecoxib 100 MG CAPSULE PO ×2 (09:30→21:20)
[2023-11-26] MEDS: Bacitracin Oint 14 GM TUBE 1 APPL TOPICAL ×2 (09:30→21:20)
[2023-11-26] MEDS: ARIPiprazole 20 MG TABLET PO (09:58)
[2023-11-26] MEDS: Nicotine 21 MG PATCH.TD24 TRANSDERMA (10:37)
--- NOTE | 2023-11-26 16:33 | P.PNPSI_ITS ---
Subjective Subjective Date of Service: 11/26/23 Reason For Visit: Bipolar disorder; parasitosis; PTSD Subjective Notes: 3 Day Healthcare Proxy: No Guardianship: No Medical Problems Affecting Mental Status: No Interim History: Asking for early discharge. Discussed symptoms of concern with pt and wanting to monitor for SE of med regime restart. Grandiose, tangential at times Engaged with peers and milieu Discussing losses of partner, family home, brother. I will need to live on my own for the first time. Medication Compliance: Yes Side effects from medications: No Attending Groups: Intermittent Review of Systems Acute medical concerns: No Medical Review of Systems: unchanged Review of Systems Review of Systems Yes all other systems are reviewed and are negative Mental Status Exam Mental Status Exam Patient Appearance: Appropriate Patient Orientation: Person, Place, Time and Situation Level of Consciousness: Alert Patient Behavior: Appropriate, Talkative, Cooperative and Good Eye Contact Mood Description: Depressed, Anxious and Apprehensive Affect Description: Flat Patient Cognition Impaired: No Ability to Follow Directions: Good Speech Pattern: Spontaneous Speech Memory Description: Intact Hallucinations: None Delusions: Not Present and Grandiose Perceptual Disturbances: Derealization Thought Process: Rumination Thought Content: positive for Circumstantial and positive for Perseveration Depressive Symptoms: Thoughts of /Suicide (denies) and Low Self Esteem Abnormal Motor Activity Signs and Symptoms: Restlessness Judgement: Fair Diagnostics Vital Signs (24Hr): Vital Signs - 24 hr 11/25/23 20:00 11/26/23 08:00 Temperature 97.4 F 98.5 F Pulse Rate 76 92 Respiratory Rate 16 18 Blood Pressure 163/91 H 132/78 Pulse Oximetry 98 96 Oxygen Delivery Method Room Air Room Air BMI result Body Mass Index 40.5 Labs 11/20/23 16:36 11/20/23 16:36 Medications Medications Current Medications Acetaminophen (Acetaminophen 325 Mg Tablet) 650 mg PO Q6H PRN PRN Reason: Headache/Pain Mild Scale (1-3) Last Admin: 11/25/23 04:25 Dose: 650 mg Al Hydroxide/Mg Hydroxide (Magnesium Hydrox/Alum Hydrox 30 Ml Oral.Susp) 30 ml PO Q6H PRN PRN Reason: Heartburn/Nausea Amitriptyline HCl (Amitriptyline Hcl 50 Mg Tablet) 50 mg PO BEDTIME [facility] Last Admin: 11/25/23 22:13 Dose: 50 mg Aripiprazole (Aripiprazole 20 Mg Tablet) 20 mg PO DAILY [facility] Last Admin: 11/26/23 09:58 Dose: 20 mg Bacitracin (Bacitracin Oint 14 Gm Tube) 1 appl TOPICAL BID [facility]; Protocol Last Admin: 11/26/23 09:30 Dose: 1 appl Benztropine Mesylate (Benztropine Mesylate 1 Mg Tablet) 1 mg PO BEDTIME [facility] Last Admin: 11/25/23 20:43 Dose: 1 mg Celecoxib (Celecoxib 100 Mg Capsule) 100 mg PO BID [facility] Last Admin: 11/26/23 09:30 Dose: 100 mg Hydroxyzine HCl (Hydroxyzine Hcl 25 Mg Tablet) 25 mg PO Q6H PRN PRN Reason: Anxiety Last Admin: 11/25/23 23:14 Dose: 25 mg Lamotrigine (Lamotrigine 100 Mg Tablet) 100 mg PO DAILY [facility] Last Admin: 11/26/23 09:30 Dose: 100 mg Magnesium Hydroxide (Milk Of Magnesia 30 Ml Oral.Susp) 30 ml PO DAILY PRN PRN Reason: Constipation Nicotine (Nicotine 21 Mg Patch.Td24) 21 mg TRANSDERMA DAILY PRN PRN Reason: nicotine cravings Last Admin: 11/26/23 10:37 Dose: 21 mg Nicotine Polacrilex (Nicotine Polacrilex 2 Mg Gum) 4 mg BUCCAL Q2H PRN PRN Reason: Nicotine Cravings Nystatin (Nystatin Powder 15 Gm Bottle) 1 appl TOPICAL BID [facility]; Protocol Last Admin: 11/26/23 09:30 Dose: 1 appl Omeprazole (Omeprazole 20 Mg Capsule.Dr) 20 mg PO BID@0630,1630 [facility] Last Admin: 11/26/23 06:26 Dose: 20 mg Oxcarbazepine (Oxcarbazepine 150 Mg Tablet) 150 mg PO DAILY [facility] Last Admin: 11/26/23 09:30 Dose: 150 mg Oxcarbazepine (Oxcarbazepine 300 Mg Tablet) 300 mg PO BEDTIME [facility] Last Admin: 11/25/23 20:43 Dose: 300 mg Permethrin (Permethrin 5 % Cream 60 Gm Tube) 1 appl TOPICAL Q14D [facility]; Protocol Last Admin: 11/22/23 14:22 Dose: 1 appl Sertraline HCl (Sertraline Hcl 25 Mg Tablet) 25 mg PO DAILY [facility] Last Admin: 11/26/23 09:30 Dose: 25 mg Allergies Allergies Allergy/AdvReac Type Severity Reaction Status Date / Time amphetamine [Adderall] Allergy Severe Difficulty Verified 11/20/23 14:30 Breathing dextroamphetamine Allergy Severe DIFFICULTY Verified 11/20/23 14:30 [From ADDERALL] BREATHING gabapentin [GABAPENTIN] Allergy Intermediate TREMORS Verified 11/20/23 14:30 risperidone [From RISPERDAL] Allergy Intermediate TARDIVE Verified 11/20/23 14:30 DYSKINESIA Assessment & Plan Assessment & Plan (1) Bipolar disorder with psychotic features: Status: Acute Code(s): F31.9 - Bipolar disorder, unspecified (2) Delusions of parasitosis: Status: Acute Code(s): F22 - Delusional disorders (3) Cocaine dependence: Qualifiers: Substance use status: with unspecified cocaine-induced disorder Q ualified Code(s): F14.29 - Cocaine dependence with unspecified cocaine-induced disorder Status: Acute Code(s): F14.20 - Cocaine dependence, uncomplicated (4) Chronic post-traumatic stress disorder (PTSD): Status: Acute Code(s): F43.12 - Post-traumatic stress disorder, chronic Plan 11/25/23- Discontinue Trazodone Amitriptyline 50 mg HS 11/25- Discontinue Amitriptyline Return to Trazodone 50 mg HS MRx1 Reason for continued inpatient stay Substantial Risk for: rapid decompensation Time Spent With Patient Time: Total time managing care of this patient today ____ minutes.
[2023-11-26 20:00] VITALS: BP 142/76; PULSE 90; TEMP 36.4; O2SAT 95
--- NOTE | 2023-11-26 20:56 | PC.NURSE ---
Anjelica was up early. Still very angry she is not discharging today as her provider wants to monitor over the weekend for efficacy of a new med. She continues to deny SI/ HI/ A-V hallucinations but remains anxious as evidenced by constant contact, concerns voiced about upsetting her best friend for not being discharged today, and restless energy. She has been quick to anger over small perceived slights by others and responds by isolating. Med compliant, appetite good. 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
[2023-11-26] MEDS: OXcarbazepine 300 MG TABLET PO (21:19)
[2023-11-26] MEDS: Benztropine Mesylate 1 MG TABLET PO (21:20)
[2023-11-26] MEDS: hydrOXYzine HCL 25 MG TABLET PO (21:24)
--- NOTE | 2023-11-26 21:29 | PM.EVENT ---
Event Note Date of Service: 11/26/23 Event Note: Patient is a 57-year-old female admitted to [facility] with hospitalist consult placed for hypertension management. Patient's BP has been mostly elevated while on the unit as high as 163/91. Patient previously not on antihypertensives. Will start on amlodipine 2.5 mg daily, and will monitor BP titrate from there. Time Spent With Patient Time: Total time managing care of this patient today ____ minutes.
[2023-11-27] MEDS: Omeprazole 20 MG CAPSULE.DR PO ×2 (07:24→17:31)
[2023-11-27 09:40] VITALS: BP 147/79; PULSE 78; RESP 20; TEMP 36.4; O2SAT 98
[2023-11-27 09:41] VITALS: BP 147/79
[2023-11-27] MEDS: lamoTRIgine 100 MG TABLET PO (09:41)
[2023-11-27] MEDS: OXcarbazepine 150 MG TABLET PO (09:41)
[2023-11-27] MEDS: Sertraline HCL 25 MG TABLET PO (09:41)
[2023-11-27] MEDS: Celecoxib 100 MG CAPSULE PO ×2 (09:41→22:13)
[2023-11-27] MEDS: ARIPiprazole 20 MG TABLET PO (09:41)
[2023-11-27] MEDS: amLODIPine Besylate 2.5 MG TABLET PO (09:41)
[2023-11-27] MEDS: Bacitracin Oint 14 GM TUBE 1 APPL TOPICAL ×2 (09:44→22:14)
[2023-11-27] MEDS: Nystatin Powder 15 GM BOTTLE 1 APPL TOPICAL ×2 (09:44→22:14)
[2023-11-27] MEDS: Nicotine 21 MG PATCH.TD24 TRANSDERMA (09:46)
[2023-11-27] MEDS: hydrOXYzine HCL 25 MG TABLET PO ×2 (09:50→17:31)
[2023-11-27 13:41] VITALS: BP 127/66
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
[2023-11-27] MEDS: Cyclobenzaprine HCl 5 MG TABLET PO (18:38)
[2023-11-27] MEDS: Acetaminophen 325 MG TABLET 650 MG PO (18:38)
[2023-11-27 20:00] VITALS: BP 117/74; PULSE 89; TEMP 36.4
[2023-11-27] MEDS: traZODone HCL 50 MG TABLET PO (22:13)
[2023-11-27] MEDS: OXcarbazepine 300 MG TABLET PO (22:13)
[2023-11-27] MEDS: Benztropine Mesylate 1 MG TABLET PO (22:13)
[2023-11-28] MEDS: Acetaminophen 325 MG TABLET 650 MG PO (02:36)
[2023-11-28] MEDS: traZODone HCL 50 MG TABLET PO ×2 (02:36→20:09)
[2023-11-28] MEDS: hydrOXYzine HCL 25 MG TABLET PO (05:48)
[2023-11-28] MEDS: Nicotine 21 MG PATCH.TD24 TRANSDERMA (05:51)
[2023-11-28 08:15] VITALS: BP 152/85; PULSE 72; RESP 20; TEMP 36.8; O2SAT 97
[2023-11-28 08:40] VITALS: BP 152/85
[2023-11-28] MEDS: amLODIPine Besylate 2.5 MG TABLET PO (08:40)
[2023-11-28] MEDS: ARIPiprazole 20 MG TABLET PO (08:40)
[2023-11-28] MEDS: lamoTRIgine 100 MG TABLET PO (08:40)
[2023-11-28] MEDS: Sertraline HCL 25 MG TABLET PO (08:40)
[2023-11-28] MEDS: Celecoxib 100 MG CAPSULE PO ×2 (08:40→20:09)
[2023-11-28] MEDS: OXcarbazepine 150 MG TABLET PO (08:40)
[2023-11-28] MEDS: Nystatin Powder 15 GM BOTTLE 1 APPL TOPICAL ×2 (08:45→20:08)
[2023-11-28] MEDS: Bacitracin Oint 14 GM TUBE 1 APPL TOPICAL ×2 (08:45→20:08)
[2023-11-28] MEDS: Omeprazole 20 MG CAPSULE.DR PO (16:14)
--- NOTE | 2023-11-28 17:25 | HO.PSYCHPN ---
Subjective Subjective Date of Service: 11/28/23 Reason For Visit: Bipolar disorder; parasitosis; PTSD Subjective Notes: Conditional Voluntary Interim History: irritable, throwing objects in room, focused on being discharged; some difficulty redirecting. compliant with meds Medication Compliance: Yes Side effects from medications: No Review of Systems Acute medical concerns: No Medical Review of Systems: unchanged Review of Systems Review of Systems I am feeling better now. Yes all other systems are reviewed and are negative Constitutional: Reports as per [facility] Mental Status Exam Mental Status Exam Patient Appearance: Appropriate Patient Orientation: Person, Place, Time and Situation Level of Consciousness: Alert Patient Behavior: Appropriate, Talkative, Cooperative and Good Eye Contact Mood Description: Depressed, Anxious and Apprehensive Affect Description: Flat Patient Cognition Impaired: No Ability to Follow Directions: Good Speech Pattern: Spontaneous Speech Memory Description: Intact Hallucinations: None Delusions: Not Present Thought Process: Intact and Goal Oriented Thought Content: positive for Intact and positive for Goal Oriented Judgement: Poor Diagnostics Vital Signs (24Hr): Vital Signs - 24 hr 11/27/23 20:00 11/28/23 08:15 11/28/23 08:40 Temperature 97.5 F 98.2 F Pulse Rate 89 72 Respiratory Rate 20 Blood Pressure 117/74 152/85 H 152/85 H Pulse Oximetry 97 Oxygen Delivery Method Room Air BMI result Body Mass Index 40.5 Labs 11/20/23 16:36 11/20/23 16:36 Imaging Radiology Impressions: ITS Impressions Face CT 11/27/23 15:50 IMPRESSION: 1. Interval plate and screw fixation of right orbital floor blowout fracture and anterior right maxillary sinus wall fracture. Hardware is intact. Mild residual fat herniation into the right maxillary sinus medially. Resolution of previously seen right proptosis as well as the periorbital and intraconal hematoma. 2. Prominent bilateral level 1B cervical lymph nodes, likely reactive. Medications Medications Current Medications Acetaminophen (Acetaminophen 325 Mg Tablet) 650 mg PO Q6H PRN PRN Reason: Headache/Pain Mild Scale (1-3) Last Admin: 11/28/23 02:36 Dose: 650 mg Al Hydroxide/Mg Hydroxide (Magnesium Hydrox/Alum Hydrox 30 Ml Oral.Susp) 30 ml PO Q6H PRN PRN Reason: Heartburn/Nausea Amlodipine Besylate (Amlodipine Besylate 2.5 Mg Tablet) 2.5 mg PO DAILY LAINEY; Protocol Last Admin: 11/28/23 08:40 Dose: 2.5 mg Aripiprazole (Aripiprazole 20 Mg Tablet) 20 mg PO DAILY [facility] Last Admin: 11/28/23 08:40 Dose: 20 mg Bacitracin (Bacitracin Oint 14 Gm Tube) 1 appl TOPICAL BID LAINEY; Protocol Last Admin: 11/28/23 08:45 Dose: 1 appl Benztropine Mesylate (Benztropine Mesylate 1 Mg Tablet) 1 mg PO BEDTIME LAINEY Last Admin: 11/27/23 22:13 Dose: 1 mg Celecoxib (Celecoxib 100 Mg Capsule) 100 mg PO BID LAINEY Last Admin: 11/28/23 08:40 Dose: 100 mg Hydroxyzine HCl (Hydroxyzine Hcl 25 Mg Tablet) 25 mg PO Q6H PRN PRN Reason: Anxiety Last Admin: 11/28/23 05:48 Dose: 25 mg Lamotrigine (Lamotrigine 100 Mg Tablet) 100 mg PO DAILY LAINE[facility] Last Admin: 11/28/23 08:40 Dose: 100 mg Magnesium Hydroxide (Milk Of Magnesia 30 Ml Oral.Susp) 30 ml PO DAILY PRN PRN Reason: Constipation Nicotine (Nicotine 21 Mg Patch.Td24) 21 mg TRANSDERMA DAILY PRN PRN Reason: nicotine cravings Last Admin: 11/28/23 05:51 Dose: 21 mg Nicotine Polacrilex (Nicotine Polacrilex 2 Mg Gum) 4 mg BUCCAL Q2H PRN PRN Reason: Nicotine Cravings Nystatin (Nystatin Powder 15 Gm Bottle) 1 appl TOPICAL BID LAINEY; Protocol Last Admin: 11/28/23 08:45 Dose: 1 appl Omeprazole (Omeprazole 20 Mg Capsule.Dr) 20 mg PO BID@0630,1630 [facility] Last Admin: 11/28/23 16:14 Dose: 20 mg Oxcarbazepine (Oxcarbazepine 150 Mg Tablet) 150 mg PO DAILY LAINE[facility] Last Admin: 11/28/23 08:40 Dose: 150 mg Oxcarbazepine (Oxcarbazepine 300 Mg Tablet) 300 mg PO BEDTIME LAINEY Last Admin: 11/27/23 22:13 Dose: 300 mg Permethrin (Permethrin 5 % Cream 60 Gm Tube) 1 appl TOPICAL Q14D LAINEY; Protocol Last Admin: 11/22/23 14:22 Dose: 1 appl Sertraline HCl (Sertraline Hcl 25 Mg Tablet) 25 mg PO DAILY LAINEY Last Admin: 11/28/23 08:40 Dose: 25 mg Trazodone HCl (Trazodone Hcl 50 Mg Tablet) 50 mg PO BEDTIME MRX1 PRN PRN Reason: Insomnia Last Admin: 11/28/23 02:36 Dose: 50 mg Allergies Allergies Allergy/AdvReac Type Severity Reaction Status Date / Time amphetamine [Adderall] Allergy Severe Difficulty Verified 11/20/23 14:30 Breathing dextroamphetamine Allergy Severe DIFFICULTY Verified 11/20/23 14:30 [From ADDERALL] BREATHING gabapentin [GABAPENTIN] Allergy Intermediate TREMORS Verified 11/20/23 14:30 risperidone [From RISPERDAL] Allergy Intermediate TARDIVE Verified 11/20/23 14:30 DYSKINESIA Assessment & Plan Assessment & Plan (1) Bipolar disorder with psychotic features: Status: Acute Code(s): F31.9 - Bipolar disorder, unspecified (2) Delusions of parasitosis: Status: Acute Code(s): F22 - Delusional disorders (3) Cocaine dependence: Qualifiers: Substance use status: with unspecified cocaine-induced disorder Qualified Code(s): F14.29 - Cocaine dependence with unspecified cocaine-induced disorder Status: Acute Code(s): F14.20 - Cocaine dependence, uncomplicated (4) Chronic post-traumatic stress disorder (PTSD): Status: Acute Code(s): F43.12 - Post-traumatic stress disorder, chronic Plan 11/25/23- Discontinue Trazodone Amitriptyline 50 mg HS 11/25- Discontinue Amitriptyline Return to Trazodone 50 mg HS MRx1 11/26 continue tx plan 11/27 continue tx plan Patient educated on: diagnosis and therapeutic strategies Informed Consent: understands and further education needed Reason for continued inpatient stay Substantial Risk for: harm to self, harm to others and inability to function Time Spent With Patient Time: Total time managing care of this patient today ____ minutes.
[2023-11-28 20:00] VITALS: BP 165/94; PULSE 82; RESP 16; O2SAT 97
[2023-11-28] MEDS: Benztropine Mesylate 1 MG TABLET PO (20:09)
[2023-11-28] MEDS: OXcarbazepine 300 MG TABLET PO (20:09)
[2023-11-29] MEDS: Omeprazole 20 MG CAPSULE.DR PO (06:03)
[2023-11-29 08:00] VITALS: BP 166/124; PULSE 78; RESP 16; TEMP 36.6; O2SAT 97
[2023-11-29] MEDS: Bacitracin Oint 14 GM TUBE 1 APPL TOPICAL (09:26)
[2023-11-29] MEDS: ARIPiprazole 20 MG TABLET PO (09:27)
[2023-11-29] MEDS: lamoTRIgine 100 MG TABLET PO (09:27)
[2023-11-29] MEDS: Nystatin Powder 15 GM BOTTLE 1 APPL TOPICAL (09:27)
[2023-11-29] MEDS: Celecoxib 100 MG CAPSULE PO (09:27)
[2023-11-29] MEDS: amLODIPine Besylate 2.5 MG TABLET PO (09:27)
[2023-11-29] MEDS: Nicotine 21 MG PATCH.TD24 TRANSDERMA (09:53)
[2023-11-29] MEDS: OXcarbazepine 150 MG TABLET PO (09:59)
[2023-11-29] MEDS: Sertraline HCL 25 MG TABLET PO (09:59)
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
== END 2023-11-29 11:41 | disposition home or self-care (01) | DRG 885 ==
LOC: HO.ED 11-21 09:20 → HO.PADLT16 11-22 15:11 → HO.PM5 11-23 12:21
PROVIDERS: Emergency Medicine; Admitting Provider Clinical Nurse Specialist Psychiatric/Mental Health, Adult; Emergency Provider Emergency Medicine Emergency Medical Services; PCP Internal Medicine; Visit Provider Clinical Nurse Specialist Psychiatric/Mental Health, Adult
DX: F31.9 Bipolar disorder, unspecified (principal); F14.20 Cocaine dependence, uncomplicated; R45.851 Suicidal ideations; F17.210 Nicotine dependence, cigarettes, uncomplicated; F43.12 Post-traumatic stress disorder, chronic; M79.7 Fibromyalgia; F22 Delusional disorders; Z91.148 Patient's other noncompliance with medication regimen for other reason; Z71.6 Tobacco abuse counseling; Z79.899 Other long term (current) drug therapy
CPT/HCPCS: 36415; 70486; 80053; 80061; 80307; 81001; 82607; 82746; 83036; 83735; 84439; 84443; 85025; 93005; 99285; S9485

== ENCOUNTER → 2023-11-22 13:50 | Outpatient (BNV) | payer OTHER, SELFPAY | PROVIDERS: Emergency Provider Emergency Medicine Emergency Medical Services; PCP Internal Medicine; Visit Provider Internal Medicine Cardiovascular Disease | DX: R94.31 Abnormal electrocardiogram [ECG] [EKG] (principal) | CPT/HCPCS: 93010 ==

== ENCOUNTER → 2023-11-23 11:19 | Outpatient (BNV) | payer OTHER, SELFPAY | PROVIDERS: Admitting Provider Clinical Nurse Specialist Psychiatric/Mental Health, Adult; Emergency Provider Emergency Medicine Emergency Medical Services; PCP Internal Medicine; Visit Provider Clinical Nurse Specialist Psychiatric/Mental Health, Adult | DX: F31.64 Bipolar disorder, current episode mixed, severe, with psychotic features (principal); F14.29 Cocaine dependence with unspecified cocaine-induced disorder; F43.12 Post-traumatic stress disorder, chronic | CPT/HCPCS: 90792; 99231; 99232; 99239 ==

== ENCOUNTER 2023-12-15 10:26 | Outpatient (AMB) | payer OTHER, SELFPAY ==
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
[2023-12-15 10:34] VITALS: BP 120/78; PULSE 85; O2SAT 97; BMI 40.8
== END 2023-12-15 10:49 | disposition home or self-care (01) ==
PROVIDERS: PCP Internal Medicine; Visit Provider Internal Medicine
DX: G47.33 Obstructive sleep apnea (adult) (pediatric) (principal); Z99.89 Dependence on other enabling machines and devices; J45.909 Unspecified asthma, uncomplicated; F17.210 Nicotine dependence, cigarettes, uncomplicated
CPT/HCPCS: 99213

== ENCOUNTER → 2023-12-15 10:26 | Outpatient (BNVA) | payer OTHER, SELFPAY | PROVIDERS: PCP Internal Medicine; Visit Provider Internal Medicine | DX: G47.33 Obstructive sleep apnea (adult) (pediatric) (principal); J45.909 Unspecified asthma, uncomplicated; F17.210 Nicotine dependence, cigarettes, uncomplicated; Z99.89 Dependence on other enabling machines and devices | CPT/HCPCS: 99212 ==

== ENCOUNTER 2024-01-06 21:42 | Emergency (ER) | payer OTHER, SELFPAY ==
--- NOTE | ~2024-01-06 | XR_ITS ---
EXAMINATION: XR HAND, RIGHT CLINICAL INFORMATION: Injury COMPARISON: 08/12/2021 TECHNIQUE: PA, lateral, and oblique views of the right hand. FINDINGS: Suboptimal assessment of the digits on some series due to overlapping structures and positioning. Osseous alignment appears anatomic in this setting. No acute fracture is seen. Scattered degenerative changes in the digits with joint space narrowing and spurring. No significant focal soft tissue abnormality identified. XR/XR hand RT min 3V IMPRESSION: No acute findings identified.
[2024-01-06 21:46] VITALS: BP 127/103; PULSE 84; RESP 18; TEMP 36.3; O2SAT 93; BMI 41.6
[2024-01-06 22:05] VITALS: BP 138/59; PULSE 82; RESP 20; TEMP 36.4; O2SAT 95
--- NOTE | 2024-01-06 22:20 | ED.WOUNDLAC ---
HPI - Wound/Laceration General Chief Complaint: Wound/Laceration Stated Complaint: right hand wound Time Seen by Provider: 01/06/24 22:06 Source: patient and old records reviewed Mode of arrival: ambulatory Limitations: no limitations History of Present Illness ED Provider: PEDRO BROWNLEE narrative: 58 yo female with PMH of bipolar, seizures, ETOH abuse, NELSON, significant crack abuse, here with c/o R hand injury after breaking crack pipe into R hand - she thinks there is glass in it. She does not want detox or help with any mental health issues. No SI. Onset (ago): hour(s) (1) Extremity Location: right: hand Place: home Patient tetanus UTD: Yes Context: accidental Associated symptoms: pain Treatments prior to arrival: bandage Related Data Home Medications ?Medication ?Instructions ?Recorded ?Confirmed CPAP (CPAP Machine/Device) 12/31/22 09/08/23 Previous Rx's ?Medication ?Instructions ?Recorded amlodipine 2.5 mg tablet 2.5 mg PO DAILY #30 tabs 11/29/23 aripiprazole 20 mg tablet (Abilify) 20 mg PO DAILY #30 tabs 11/29/23 bacitracin 500 unit/gram topical 1 appl topical TID #14 grams 11/29/23 ointment benztropine 1 mg tablet 1 mg PO BEDTIME #30 tabs 11/29/23 celecoxib 100 mg capsule 100 mg PO BID #60 caps 11/29/23 lamotrigine 100 mg tablet 100 mg PO DAILY #30 tabs 11/29/23 nicotine 21 mg/24 hr daily 21 mg transdermal DAILY PRN 11/29/23 transdermal patch nicotine cravings #30 ea nystatin 100,000 unit/gram topical 1 appl topical BID #15 grams 11/29/23 powder omeprazole 20 mg capsule,delayed 20 mg PO BID@0630,1630 #60 caps 11/29/23 release oxcarbazepine 150 mg tablet 150 mg PO DAILY #30 tabs 11/29/23 oxcarbazepine 300 mg tablet 300 mg PO BEDTIME #30 tabs 11/29/23 permethrin 5 % topical cream 1 appl topical Q14D 2 doses #60 11/29/23 grams trazodone 50 mg tablet 50 mg PO BEDTIME PRN Insomnia #30 11/29/23 tabs Allergies Allergy/AdvReac Type Severity Reaction Status Date / Time amphetamine [Adderall] Allergy Severe Difficulty Verified 01/06/24 21:52 Breathing dextroamphetamine Allergy Severe DIFFICULTY Verified 01/06/24 21:52 [From ADDERALL] BREATHING gabapentin [GABAPENTIN] Allergy Intermediate TREMORS Verified 01/06/24 21:52 risperidone [From RISPERDAL] Allergy Intermediate TARDIVE Verified 01/06/24 21:52 DYSKINESIA Review of Systems Review of Systems: Constitutional : No Fever, No Chills, Cardiovascular : No Chest Pain, No SOB Respiratory : No Dyspnea Gastrointestinal : No abdominal pain Musculoskeletal : No Joint Swelling Skin : No rash, positive skin laceration Neuro : No Weakness, No Numbness Psych : No SI/HI All other systems reviewed and are negative PMFSH Past Medical History Attestation statement: The following information was validated with the patient. Source: old records reviewed Medical History Absence seizure History of seizure History of concussion Cataract Glaucoma Nicotine dependence, cigarettes, uncomplicated Cannabis use disorder Cocaine use disorder Bipolar disorder, rapid cycling Osteoarthritis of lumbar spine Osteoarthritis, hand, primary localized Morbid obesity Asthma NELSON on CPAP Fibromyalgia History of post traumatic stress disorder History of ETOH abuse Memory changes Impaired fasting blood sugar Hiatal hernia Obesity Surgical History History of pubovaginal sling History of right knee surgery History of colonoscopy History of back surgery History of esophagogastroduodenoscopy (EGD) Family History Family History Father Medical history non-contributory Mother Medical history non-contributory Other Adopted Social History Social History Household Members: Other Household Members Other:: 3 roommates Housing: House Do you presently have visiting nurse or other home services: No Alcohol intake: never Patient Tobacco Use Status: Current everyday Tobacco user Tobacco use type: Cigarette Cigarette Packs Per Day: 1 Cigarettes Per Day: 20.0 Years Smoked: 10 e-Cigarette/Vaping Use: Never Used Second Hand Smoke Exposure: Yes Substance Use Type: Crack/Cocaine and Marijuana Advance Directives: No Advance Directives Information Provided: No Do you have a plan to hurt others: No Plan service: No Current occupational status: employed 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 Oriented X3. No acute distress. loud boisterous Eyes: Pupils equal, round and reactive to light. ENT: Pharynx normal. Neck: Normal inspection. Neck supple. CVS: Pulses normal. Respiratory: No respiratory distress. Abdomen: Soft and non-tender. Skin: Skin warm and dry. Normal skin color. Normal skin turgor. Extremities: No lower extremity edema. R hand base of thumb palmar surface there is 3cm laceration no FB noted or seen she is moving thumb and bleeding controlled Neuro: Oriented X 3. No motor deficit. No sensory deficit. Course Course Course Narrative: the patient refused laceration repair or glue she would not let me clean her or attempt to use lidocaine she was rude and told me I was treating her like an idiot because I was trying to clean her hand. she states I was trying to hurt her more by cleaning her hand. I told her this was a terrible idea to not receive car and that she needed to get it repaired and she states she doesn't care and is leaving. She continued to say fuck this and you're rude you don't know what you're talking about . this is unfortunately her baseline. she walked in here on her own and has a steady gait. RN and techs present for entire conversation the exam was very limited as she kept jerking her hand away and yelling fuck - myself or tech were going to get stuck with tools or needle, she more than once almost kicked over the laceration tray. Medications Administered Discontinued Medications Generic Name Dose Route Start Last Admin Trade Name Freq PRN Reason Stop Dose Admin Lidocaine HCl 5 ml 01/06/24 22:20 01/06/24 22:26 Lidocaine Hcl 1 % Mpf 5 Ml Vial SUBCUT 01/06/24 22:21 5 ml ONCE ONE Administration Medical Decision Making Medical Decision Making MDM Narrative: 58 yo female with PMH of bipolar, seizures, ETOH abuse, NELSON, significant crack abuse, here with c/o cutting R thumb area on crack pipe worried glass is still in wound per her reports Tdap UTD at this time will obtain xray and clean area attempt to investigate for FB. She does not want help with detox or mental health no SI Differential Diagnosis Differential Diagnoses: The differential diagnosis associated with the presentation includes laceration , FB Independent Interpretation I performed an independent interpretation of an: Plain X-Ray Radiology Impression Discussion of test interpretation with radiology: I have reviewed the radiologist's reading. External Record Review External record reviewed: Inpatient record Social Determinants Patient?s care significantly limited by Social Determinants of Health including: Problems related to primary support group Discharge Plan Discharge Clinical Impression: Laceration of right thumb Patient Disposition: Left Against Medical Advice Instructions: Against Medical Advice (ED), Laceration Without Closure (ED) Additional Instructions: you need to keep the wound covered and clean. it is going to take a long time to heal. monitor for swelling, redness, yellow drainage you refused stitches no obvious foreign body seen on exam. Prescriptions: No Action oxcarbazepine 150 mg Tablet 150 mg PO DAILY Qty: 30 0RF trazodone 50 mg Tablet 50 mg PO BEDTIME PRN (Reason: Insomnia) Qty: 30 0RF amlodipine 2.5 mg Tablet 2.5 mg PO DAILY Qty: 30 0RF Protocol: Hold for SBP< HOLD for SBP < : 90 oxcarbazepine 300 mg Tablet 300 mg PO BEDTIME Qty: 30 0RF benztropine 1 mg Tablet 1 mg PO BEDTIME Qty: 30 0RF nicotine 21 mg/24 hr Patch 24 Hour 21 mg transdermal DAILY PRN (Reason: nicotine cravings) Qty: 30 0RF omeprazole 20 mg Capsule,Delayed Release(Dr/Ec) 20 mg PO BID@0630,1630 Qty: 60 0RF celecoxib 100 mg Capsule 100 mg PO BID Qty: 60 0RF lamotrigine 100 mg Tablet 100 mg PO DAILY Qty: 30 0RF aripiprazole [Abilify] 20 mg Tablet 20 mg PO DAILY Qty: 30 0RF bacitracin 500 unit/gram ointment 1 appl topical TID Qty: 14 0RF nystatin 100,000 unit/gram Powder 1 appl topical BID Qty: 15 0RF Protocol: Apply to: Apply to: pannus permethrin 5 % cream 1 appl topical Q14D Qty: 60 0RF Rx Instructions: apply second treatment 14 days after first treatment if live lice remain (DME) CPAP Machine/Device Device See Rx Instructions .Route Rx Instructions: As directed Interventions: ED Discharge Assessment Last Done: 01/06/24 22:54 Discharge Date/Time: 01/06/24 22:55 Print Language: Occitan
[2024-01-06] MEDS: Lidocaine HCl 1 % MPF 5 ML VIAL SUBCUT (22:26)
[2024-01-06 22:54] VITALS: BP 138/59; PULSE 82; RESP 20; TEMP 36.4; O2SAT 95
== END 2024-01-06 22:55 | disposition left against medical advice (07) ==
PROVIDERS: Emergency Provider Emergency Medicine; PCP Internal Medicine
DX: S61.011A Laceration without foreign body of right thumb without damage to nail, initial encounter (principal); W25.XXXA Contact with sharp glass, initial encounter; Z53.29 Procedure and treatment not carried out because of patient's decision for other reasons; F14.20 Cocaine dependence, uncomplicated; F31.9 Bipolar disorder, unspecified; F22 Delusional disorders; F43.12 Post-traumatic stress disorder, chronic; Y93.89 Activity, other specified; Y92.9 Unspecified place or not applicable; Y99.9 Unspecified external cause status
CPT/HCPCS: 73130; 99282; 99283

== ENCOUNTER 2024-02-10 10:40 | Outpatient (AMB) | payer OTHER, SELFPAY ==
[2024-02-10 10:47] VITALS: BP 126/84; PULSE 81; TEMP 36.6; O2SAT 97; BMI 39.7
--- NOTE | 2024-02-10 10:47 | MHC.OFFWIV ---
Intake Vital Signs 02/10/24 10:47 Height 5 ft 1 in Weight 210 lb BMI 39.7 BP 126/84 Blood Pressure Location Rt brachial Position Sitting Pulse 81 Pulse Source Pulse Oximeter Temp 97.8 F Temp Source Oral Pulse Oximetry (%) 97 Oxygen Delivery Method Room Air Intake Visit Reasons: EP-back pain shoulder blades Intake Note: pt c/o abscess on back between shoulder blades. Under breast also. Patient Tobacco Use Status: Current everyday Tobacco user Allergies amphetamine [Adderall] Allergy (Severe, Verified 02/10/24 10:52) Difficulty Breathing dextroamphetamine [From ADDERALL] Allergy (Severe, Verified 02/10/24 10:52) DIFFICULTY BREATHING gabapentin [GABAPENTIN] Allergy (Intermediate, Verified 02/10/24 10:52) TREMORS risperidone [From RISPERDAL] Allergy (Intermediate, Verified 02/10/24 10:52) TARDIVE DYSKINESIA HPI EP-back pain shoulder blades HPI Details This note is constructed using voice recognition software. While every effort has been made to ensure accuracy, die cutter operator errors may have been included. The patient is a 58 year old female who presents to the clinic today with pain between her shoulder blades due to abscess. She reports that she has been sober from drinking for quite some time, but has been relapsing on crack which she has smoked as recently as last night and was concerned that this is allowing her to forearm abscesses all over her body. She most recently had 1 beneath her right breast which she was able to squeeze the drainage out herself, however she is unable to reach the 1 on her back. She reports that the areas uncomfortable, and it is draining some. She denies fever, chills, difficulty moving arms and legs.. [facility] Medical History Absence seizure History of seizure History of concussion Cataract Glaucoma Nicotine dependence, cigarettes, uncomplicated Cannabis use disorder Cocaine use disorder Bipolar disorder, rapid cycling Osteoarthritis of lumbar spine Osteoarthritis, hand, primary localized Morbid obesity Asthma NELSON on CPAP Fibromyalgia History of post traumatic stress disorder History of ETOH abuse Memory changes Impaired fasting blood sugar Hiatal hernia Obesity Surgical History History of pubovaginal sling History of right knee surgery History of colonoscopy History of back surgery History of esophagogastroduodenoscopy (EGD) Family History Father Medical history non-contributory Mother Medical history non-contributory Other Adopted Social History Household Members: Other Household Members Other:: 3 roommates Housing: House Do you presently have visiting nurse or other home services: No Alcohol intake: never Patient Tobacco Use Status: Current everyday Tobacco user Tobacco use type: Cigarette Cigarette Packs Per Day: 1 Cigarettes Per Day: 20.0 Years Smoked: 10 e-Cigarette/Vaping Use: Never Used Second Hand Smoke Exposure: Yes Substance Use Type: Crack/Cocaine and Marijuana service: No Current occupational status: employed 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 - [employer] Sexual orientation: Lesbian/Kelley/Homosexual Gender identity: Female Cognitive needs: No Hearing needs: No Vision needs: No Female Reproductive History Menstrual Age of Menarche: 9 Review of Systems Const All systems reviewed & are unremarkable except as noted in HPI and below Physical Exam Vital Signs: Last Vital Signs Temp 97.8 F 02/10/24 10:47 Pulse 81 02/10/24 10:47 BP 126/84 02/10/24 10:47 Pulse Ox 97 02/10/24 10:47 Oxygen Delivery Method Room Air 02/10/24 10:47 BMI result Body Mass Index 39.7 Const General: cooperative, healthy appearing, comfortable, no acute distress and alert Orientation/consciousness: patient oriented x3 Limitations: no limitations Neck Neck: Yes normal visual inspection, Yes full ROM and Yes no lymphadenopathy Resp Effort & Inspection: normal respiratory effort and able to speak in complete sentences Auscultation: clear to auscultation bilaterally Cardio Jugular venous distension: no JVD Palpation: normal PMI Rate: regular rate Heart sounds: S1 normal heart sound present, S2 normal heart sound present, no click, no gallops, no murmurs and no rubs Skin Other: 3 cm raised, fluctuant lesion to the right of the spine in the thoracic region with some purulent drainage from the abscess. There is erythema over the abscess and minimally surrounding it. I and D performed with the assistance of ALAN Paniagua. General skin exam: elasticity normal and turgor normal Neuro General: patient oriented x3 Extrem General: Yes normal to inspection, Yes full ROM, Yes capillary refill normal and Yes normal exam except as noted Psych Appearance: grossly normal Mental Status: mental status grossly normal Speech and movement: Normal speech and movement present Affect: normal affect Office Procedures Incision and Drainage Informed consent given: Yes (verbal consent obtained) Anesthesia: topical cream Incision with: #11 blade Drainage quality: purulent Probed cavity: No Culture taken: No Lesion: erythema and fluctuance Lesion size (cm): 3 Hemostasis: pressure Cavity management: drain Dressing: gauze Patient tolerated procedure: with discomfort Complications: No Assessment & Plan Assessment & Plan (1) Abscess: Code(s): L02.91 - Cutaneous abscess, unspecified Plan: I and D performed in office to remove infection. Patient tolerated procedure with some discomfort, however reported feeling much better after the procedure was complete. Unable to pack the wound, pressure but dressing applied. Advised patient to return to clinic on Wednesday for follow up and evaluation of the area. Antibiotics not prescribed given I&D performance today. Would consider antibiotics should she have reaccumulation of the wound. Plan See above for full details and plan. Patient is planning to seek help for her crack addiction with a meeting [facility] through . Coding Level of Care Code Est Pt Level 4 (32918) Diagnoses Abscess L02.91
== END 2024-02-10 12:35 | disposition home or self-care (01) ==
PROVIDERS: PCP Internal Medicine; Visit Provider Registered Nurse
DX: L02.91 Cutaneous abscess, unspecified (principal)
CPT/HCPCS: 99214

== ENCOUNTER 2024-04-06 09:55 | Outpatient (REF) | payer OTHER, SELFPAY ==
[2024-04-07 08:14] LABS: HBS Num1 30.48 mIU/mL (0-7.99); HIV AB/AG Nonreactive (Nonreactive); HIV Num 1 0.06 S/CO (0.00-0.99); ~HepC Num1 0.09 S/CO (0.00-0.79); ~Hepatitis B Surface Antibody REACTIVE (Nonreactive); ~Hepatitis C Antibody Nonreactive (Nonreactive)
[2024-04-08 22:43] LABS: TS Negative Control Passed; TS Panel A 4; TS Panel B 14; TS Positive Control Passed; TSpotTB Positive (Negative)
== END 2024-04-06 09:56 | disposition home or self-care (01) ==
LOC: HO.HMGCLDS 09:55
PROVIDERS: PCP Internal Medicine; Visit Provider Internal Medicine
DX: Z20.2 Contact with and (suspected) exposure to infections with a predominantly sexual mode of transmission (principal); Z11.1 Encounter for screening for respiratory tuberculosis
CPT/HCPCS: 36415; 86481; 86706; 86803; 87389

== ENCOUNTER 2024-04-11 00:09 | Emergency (ER) | payer OTHER, SELFPAY ==
--- NOTE | ~2024-04-11 | XR_ITS ---
EXAMINATION: XR CHEST CLINICAL INFORMATION: Positive tuberculin spot test. COMPARISON: January 10, 2023 TECHNIQUE: 2 views of the chest were obtained. FINDINGS: The cardiomediastinal silhouette is normal. There is no focal lung consolidation or evidence for significant pleural effusions. There is mild loss of height of a upper thoracic vertebral body. The soft tissues are unremarkable. XR/XR chest 2V IMPRESSION: 1. No acute cardiopulmonary process. 2. Mild loss of height of a upper thoracic vertebral body. Electronically signed by: Gaurang Childress MD 04/11/2024 04:56 AM [facility]
[2024-04-11 00:10] VITALS: BP 126/84; PULSE 87; RESP 16; TEMP 36.3; O2SAT 96; BMI 37.8
--- NOTE | 2024-04-11 04:04 | ED_ITS ---
HPI - General Adult General Chief complaint: General Medical Stated complaint: needs chest xray for program Time Seen by Provider: 04/11/24 03:47 Source: patient Mode of arrival: ambulatory Limitations: no limitations History of Present Illness ED Provider: DR. Hall HPI narrative: 58-year-old female came in from PCP office to obtain chest x-ray to rule out active TB, patient tested positive for T spot testing, no coughing, no loss of weight, no night sweat, patient has an appointment with industrial maintenance mechanic. Patient stated that she always test positive for the TB, no recent travel, no k nown exposure to active TB in the past. Related Data Home Medications ?Medication ?Instructions ?Recorded ?Confirmed CPAP (CPAP Machine/Device) 12/31/22 09/08/23 Previous Rx's ?Medication ?Instructions ?Recorded amlodipine 2.5 mg tablet 2.5 mg PO DAILY #30 tabs 11/29/23 aripiprazole 20 mg tablet (Abilify) 20 mg PO DAILY #30 tabs 11/29/23 bacitracin 500 unit/gram topical 1 appl topical TID #14 grams 11/29/23 ointment benztropine 1 mg tablet 1 mg PO BEDTIME #30 tabs 11/29/23 celecoxib 100 mg capsule 100 mg PO BID #60 caps 11/29/23 lamotrigine 100 mg tablet 100 mg PO DAILY #30 tabs 11/29/23 omeprazole 20 mg capsule,delayed 20 mg PO BID@0630,1630 #60 caps 11/29/23 release oxcarbazepine 150 mg tablet 150 mg PO DAILY #30 tabs 11/29/23 oxcarbazepine 300 mg tablet 300 mg PO BEDTIME #30 tabs 11/29/23 permethrin 5 % topical cream 1 appl topical Q14D 2 doses #60 11/29/23 grams trazodone 50 mg tablet 50 mg PO BEDTIME PRN Insomnia #30 11/29/23 tabs nystatin 100,000 unit/gram topical 1 appl topical BID #15 grams 01/31/24 powder Allergies Allergy/AdvReac Type Severity Reaction Status Date / Time amphetamine [Adderall] Allergy Severe Difficulty Verified 04/11/24 00:14 Breathing dextroamphetamine Allergy Severe DIFFICULTY Verified 04/11/24 00:14 [From ADDERALL] BREATHING gabapentin [GABAPENTIN] Allergy Intermediate TREMORS Verified 04/11/24 00:14 risperidone [From RISPERDAL] Allergy Intermediate TARDIVE Verified 04/11/24 00:14 DYSKINESIA Review of Systems Review of Systems: All other systems are reviewed and are negative Constitutional: Reports as per HPI and Reports no additional constitutional complaints Eyes: Reports as per HPI and Reports no additional eye complaints Reports system reviewed and no additional complaints, except as documented Cardiovascular: Reports as per HPI and Reports no additional cardiovascular complaints Respiratory: Reports as per HPI and Reports no additional respiratory complaints Gastrointestinal: Reports as per HPI and Reports no additional gastrointestinal complaints Genitourinary: Reports no additional female genitourinary complaints Musculoskeletal: Reports no additional musculoskeletal complaints Skin/Breast: Reports system reviewed and no additional complaints, except as docu Psychiatric: Reports no additional psychiatric complaints Endocrine: Reports no additional endocrine complaints Hematologic/Lymphatic: Reports no additional hematologic/lymphatic complaints Allergic/Immunologic: Reports no additional allergic/immunologic complaints Reports system reviewed and no additional complaints, except as documented and Reports Abnormal speech present PMFSH Past Medical History Medical History Absence seizure History of seizure History of concussion Cataract Glaucoma Nicotine dependence, cigarettes, uncomplicated Cannabis use disorder Cocaine use disorder Bipolar disorder, rapid cycling Osteoarthritis of lumbar spine Osteoarthritis, hand, primary localized Morbid obesity Asthma NELSON on CPAP Fibromyalgia History of post traumatic stress disorder History of ETOH abuse Memory changes Impaired fasting blood sugar Hiatal hernia Obesity Surgical History History of pubovaginal sling History of right knee surgery History of colonoscopy History of back surgery History of esophagogastroduodenoscopy (EGD) Family History Family History Father Medical history non-contributory Mother Medical history non-contributory Other Adopted Social History Social History Household Members: Other Household Members Other:: 3 roommates Housing: House Do you presently have visiting nurse or other home services: No Alcohol intake: never Patient Tobacco Use Status: Current everyday Tobacco user Tobacco use type: Cigarette Cigarette Packs Per Day: 1 Cigarettes Per Day: 20.0 Years Smoked: 10 e-Cigarette/Vaping Use: Never Used Second Hand Smoke Exposure: Yes Substance Use Type: Crack/Cocaine and Marijuana Advance Directives: No Advance Directives Information Provided: No Do you have a plan to hurt others: No Plan service: No Current occupational status: employed 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 Blood pressure elevated. Heart rate normal. Respiratory rate normal. Temperature normal. Oxygen saturation normal. Appearance: Alert. Oriented X3. No acute distress. Head: Normal external exam. Normocephalic. Atraumatic. No Roberson signs noted. No raccoon eyes noted Eyes: PERRLA. EOMI. Conjunctiva and sclera normal. Eyelids normal. ENT: TM's Normal. Pharynx normal. Uvula midline. Moist mucous membranes. No trismus noted. No drooling noted. No muffled voice noted. Neck: Normal inspection. Neck supple. FROM. No adenopathy. Thyroid Normal. No meningeal signs. No neck mass noted. CVS: Normal heart rate and rhythm. Heart sound normal. No murmurs noted. Pulses normal throughout. Respiratory: No respiratory distress. Painless inspiration. Breath sounds normal. No wheezes/rales/rhonchi noted. Chest nontender. No accessory muscle usage noted or decreased air movement noted. Abdomen: Soft and nontender. Bowel sounds normal in all 4 quadrants. No distention noted. No organomegaly noted. No visible injury noted. Back: No CVA tenderness. Full range of motion noted. Skin: Skin warm and dry. Normal skin color. Normal skin turgor. No rashes/lesions/lacerations noted. Extremities: No lower extremity edema. Extremities exhibit normal range of motion. Extremities nontender. Neuro: Oriented X 3. Cranial nerve exam: II-XII are grossly intact No motor deficit. No sensory deficit. Reflexes normal. Course Reevaluation(s) Reevaluation #1: T spot test is positive for tuberculosis, patient is here for chest x-ray, no symptoms of active TB. Time: 04:10 Medical Decision Making Differential Diagnosis Differential Diagnoses: The differential diagnosis associated with the presentation includes (Active TB, pneumonia.) Admission/Observation Consideration of admission/observation: Escalation of care including admission/observation considered Independent Interpretation I performed an independent interpretation of an: Plain X-Ray (Chest: No acute intrathoracic pathology.) Radiology Impression Discussion of test interpretation with radiology: I have reviewed the radiologist's reading. Discharge Plan Discharge Clinical Impression: Normal screening chest x-ray for tuberculosis Patient Disposition: Home, Self-Care Instructions: Tuberculosis (DC) Prescriptions: No Action nystatin 100,000 unit/gram powder 1 appl topical BID Qty: 15 0RF Protocol: Apply to: Apply to: pannus oxcarbazepine 150 mg Tablet 150 mg PO DAILY Qty: 30 0RF trazodone 50 mg Tablet 50 mg PO BEDTIME PRN (Reason: Insomnia) Qty: 30 0RF amlodipine 2.5 mg Tablet 2.5 mg PO DAILY Qty: 30 0RF Protocol: Hold for SBP< HOLD for SBP < : 90 oxcarbazepine 300 mg Tablet 300 mg PO BEDTIME Qty: 30 0RF benztropine 1 mg Tablet 1 mg PO BEDTIME Qty: 30 0RF omeprazole 20 mg Capsule,Delayed Release(Dr/Ec) 20 mg PO BID@0630,1630 Qty: 60 0RF celecoxib 100 mg Capsule 100 mg PO BID Qty: 60 0RF lamotrigine 100 mg Tablet 100 mg PO DAILY Qty: 30 0RF aripiprazole [Abilify] 20 mg Tablet 20 mg PO DAILY Qty: 30 0RF bacitracin 500 unit/gram ointment 1 appl topical TID Qty: 14 0RF permethrin 5 % cream 1 appl topical Q14D Qty: 60 0RF Rx Instructions: apply second treatment 14 days after first treatment if live lice remain (DME) CPAP Machine/Device Device See Rx Instructions .Route Rx Instructions: As directed Interventions: ED Discharge Assessment Last Done: 04/11/24 06:06 Discharge Date/Time: 04/11/24 06:07 Print Language: Japanese
[2024-04-11 06:06] VITALS: BP 120/68; PULSE 82; RESP 18; TEMP 36.8; O2SAT 98
== END 2024-04-11 06:07 | disposition home or self-care (01) ==
PROVIDERS: Emergency Provider Emergency Medicine
DX: R76.11 Nonspecific reaction to tuberculin skin test without active tuberculosis (principal); Z11.1 Encounter for screening for respiratory tuberculosis
CPT/HCPCS: 71046; 99282; 99283

== ENCOUNTER 2024-05-11 20:17 | Inpatient (IN) | payer OTHER, SELFPAY ==
--- NOTE | ~2024-05-11 | CT_ITS ---
EXAMINATION: CT HEAD WITHOUT CONTRAST CLINICAL INFORMATION: Carpal speech COMPARISON: 06/25/2023 TECHNIQUE: Contiguous axial imaging was performed from the skull base to vertex without intravenous administration of contrast. This CT examination was performed using dose optimization techniques as appropriate, variously including the following: *Automated exposure control *Adjustment of mA and/or kV according to patient size (this includes techniques or standardized protocols for targeted exams where dose is matched to indication/reason for exam; i.e. extremities or head) *Use of iterative reconstruction technique DLP: 727 mGy-cm FINDINGS: No intra or extra-axial fluid collection or hemorrhage, mass, or mass effect. Calvarium intact. Postsurgical changes related to the right orbit create a fair amount of streak artifact. CT/CT head/brain wo IV con IMPRESSION: No acute intracranial pathology. Electronically signed by: Juan Gould MD 05/17/2024 03:11 PM [facility]
--- NOTE | ~2024-05-11 | XR_ITS ---
EXAMINATION: XR CHEST CLINICAL INFORMATION: cough,congestion, cocaine abuse COMPARISON: 04/11/2024 TECHNIQUE: 2 views of the chest were obtained. FINDINGS: Lungs clear. No pleural effusions. Heart and pulmonary vessels normal. XR/XR chest 2V IMPRESSION: No active disease. Electronically signed by: Juan Guold MD 05/17/2024 12:25 PM [facility]
[2024-05-11 20:43] VITALS: BP 124/80; BP 154/94; PULSE 88; PULSE 92; RESP 16; TEMP 36.7; O2SAT 95; O2SAT 98; BMI 34.3
[2024-05-11 21:27] LABS: Appearance Urine Cloudy; Color Urine Yellow; Glucose Urine UA Negative (Negative); Leukocyte Esterase Urine Small (1+) (Negative); Nitrite Urine Negative (Negative); Specific Gravity - Urine 1.025 (1.005-1.025); UMIC TRIGGER UA YES; Urine Blood Negative (Negative); Urine Ketones Negative (Negative); Urine Protein Trace mg/dL (Neg-Trace)
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
--- NOTE | 2024-05-11 21:32 | PC.NURSE ---
late entry-t/w completed person search indicating no injury evident and also no contraband present. now clinet rambles and self sidlogues in room constant talk just sang somebody kill me to self in room
[2024-05-11 21:37] LABS: Amphetamine Screen Urine Not Detected (Not Detect); Barbiturates, Urine Not Detected (Not Detect); Benzodiazepines Screen Urine Not Detected (Not Detect); Buprenorphine Scr Not Detected (Not Detect); Cannabinoid Screen Urine Not Detected (Not Detect); Cocaine Screen Urine POSITIVE (Not Detect); Fentanyl, urine Not Detected (Not Detect); Methadone Screen, Urine Not Detected (Not Detect); Opiate Screen Urine Not Detected (Not Detect); Oxycodone Screen Urine Not Detected (Not Detect); Phencyclidine Screen Urine Not Detected (Not Detect)
[2024-05-11 21:47] LABS: Bacteria Urine 3+ (None Seen); RBC Urine 0-2 /HPF (0-2); Squamous Epithelial Cell Urine >20 /HPF (0-2)
[2024-05-11] MEDS: LORazepam 1 MG TABLET PO (22:07)
[2024-05-11 22:54] LABS: MANUAL DIFF FLAG NO
[2024-05-11 22:56] LABS: Basophils Absolute Auto 0.1 X10*3/uL (0.0-0.2); Basophils Percent Auto 0.4 % (0-2); Eosinophils Absolute Auto 0.1 X10*3/uL (0.0-0.4); Eosinophils Percent Auto 0.7 % (0-4); Hematocrit 40.7 % (37.0-47.0); Hemoglobin 13.4 g/dl (12.0-16.0); Imm Gran Abs Auto 0.04 X10*3/uL (0.00-0.03); Imm Gran Pct Auto 0.3 % (0.0-0.4); Lymphocytes Absolute Auto 3.1 X10*3/uL (1.2-4.9); Lymphocytes Percent Auto 25.1 % (20-40); Mean Corpuscular HGB Conc 32.9 g/dl (31.0-35.0); Mean Corpuscular Hemoglobin 27.2 pg (27.0-33.0); Mean Corpuscular Volume 82.6 fL (80.0-98.0); Monocytes Absolute Auto 0.9 X10*3/uL (0.1-1.2); Monocytes Percent Auto 7.2 % (2-11); Neutrophils Absolute Auto 8.2 x10*3/uL (2.0-8.3); Neutrophils Percent Auto 66.3 % (45-73); Platelet Count 264 X10*3/uL (160-400); Red Blood Count 4.93 X10*6/uL (4.20-5.50); Red Cell Distribution Width 14.2 % (11.0-16.0); White Blood Count 12.4 X10*3/uL (4.8-10.8)
[2024-05-11 23:14] LABS: Acetaminophen LAB < 3 mcg/mL (<30); Alanine Aminotransferase 29 U/L (0-31); Albumin Level 3.9 g/dL (3.5-5.0); Alkaline Phosphatase 70 U/L (39-117); Anion Gap 12 (12-20); Aspartate Amino Transferase 31 U/L (5-31); Bilirubin Total 1.1 mg/dL (0.0-1.0); Blood Urea Nitrogen 20 mg/dL (9-16); Calcium 9.2 mg/dL (8.4-10.2); Carbon Dioxide 26 mmol/L (22-29); Chloride 104 mmol/L (96-108); Creatinine Clr Calc Pharmacy 52.5; Estimated Glomerular Filt Rate 55; Ethanol < 10 mg/dL; Glucose Random 128 mg/dL (60-115); Potassium 3.6 mmol/L (3.3-5.1); Salicylate < 5.0 mg/dL (15-30); Sodium 138 mmol/L (135-145); Total Protein 7.1 g/dL (6.5-8.0)
--- NOTE | 2024-05-12 | ECG_ITS ---
Test Reason : mmedical clearance Blood Pressure : / mmHG Vent. Rate : 083 BPM Atrial Rate : 083 BPM P-R Int : 136 ms QRS Dur : 082 ms QT Int : 390 ms P-R-T Axes : 046 052 044 degrees QTc Int : 458 ms Normal sinus rhythm Normal ECG When compared with ECG of 22-NOV-2023 13:50, T wave inversion no longer evident in Lateral leads QT has lengthened Referred By: Vernon Garner Electronically Signed By:Thad Ott
[2024-05-12] MEDS: Nicotine 21 MG PATCH.TD24 TRANSDERMA (06:52)
[2024-05-12 08:17] VITALS: BP 142/87; PULSE 90; RESP 20; TEMP 36.8; O2SAT 95
[2024-05-12] MEDS: Ibuprofen 400 MG TABLET PO ×2 (11:24→20:28)
[2024-05-12] MEDS: LORazepam 1 MG TABLET 2 MG PO ×2 (13:10→20:28)
--- NOTE | 2024-05-12 14:18 | PHA.MEDREC ---
Addendum entered by Jamie Waddell 05/12/24 14:24: reviewed Original Note: Pharmacy Consult ? Medication Reconciliation Pharmacy has completed the medication reconciliation. Spoke with patients nurse in [facility] and she stated to me that the patient has not taken any medication in the last month and states the facility the patient was at wouldn't let her take medication while she was in their facility.
[2024-05-12 20:34] VITALS: BP 121/79; PULSE 89; RESP 18; TEMP 36.6; O2SAT 97
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
[2024-05-13 06:20] VITALS: BP 109/85; PULSE 91; RESP 16; TEMP 36.7; O2SAT 97
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
[2024-05-13] MEDS: lamoTRIgine 25 MG TABLET PO (14:02)
[2024-05-13] MEDS: OXcarbazepine 150 MG TABLET PO (14:02)
[2024-05-13] MEDS: ARIPiprazole 10 MG TABLET PO (14:02)
[2024-05-13 16:43] VITALS: BP 140/90; PULSE 112; RESP 22; TEMP 37.2; O2SAT 94
--- NOTE | 2024-05-13 16:46 | MHC.EDTECH ---
making round patient was on the phone. When done she sat in the hallyway chair and i did a set of vitals. I ask patient if she needed anything patient reply a cup of coffee please
[2024-05-13] MEDS: Nicotine 21 MG PATCH.TD24 TRANSDERMA (16:49)
[2024-05-13] MEDS: OXcarbazepine 300 MG TABLET PO (20:14)
[2024-05-13] MEDS: traZODone HCL 50 MG TABLET PO (20:14)
[2024-05-13] MEDS: Benztropine Mesylate 1 MG TABLET PO (20:14)
--- NOTE | 2024-05-13 22:39 | PC.NURSE ---
patient up to use the bathroom, ambulates with steady gait. Asking for something drink which was provided at this time.
[2024-05-13] MEDS: Ibuprofen 400 MG TABLET PO (22:42)
--- NOTE | 2024-05-13 23:28 | PC.NURSE ---
Patient resting in room at this time, calm and cooperative and watching TV. Will continue to monitor
[2024-05-14] VITALS (7 sets, daily range): BP systolic 121–156; BP diastolic 72–93; PULSE 71–87; RESP 13–18; TEMP 36.4–37.2; O2SAT 94–99
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
[2024-05-14 10:03] LABS: Glucose, Whole Blood 113 mg/dL (60-115)
[2024-05-14] MEDS: OXcarbazepine 150 MG TABLET PO (10:36)
[2024-05-14] MEDS: lamoTRIgine 25 MG TABLET PO (10:36)
--- NOTE | 2024-05-14 10:46 | PC.NURSE ---
late entry This RN accidentally gave her the wrong medications, immediately after patient ingested the meds this RN realized her error. Charge nurse Zoila and Dr Garner were informed of this error. Patient's vitals were taken and stable. orders given to check BP and POC every 2 hours for the shift. She can stay in the POD per attending. Patient is appropriate with her speech and ambulating well.
--- NOTE | 2024-05-14 10:56 | PC.NURSE ---
Per Dr Garner to hold patient's Abilify or Ativan at this time.
[2024-05-14 12:19] LABS: Glucose, Whole Blood 92 mg/dL (60-115)
[2024-05-14] MEDS: Magnesium Hydrox/Alum Hydrox 30 ML ORAL.SUSP PO (12:32)
[2024-05-14] MEDS: Nicotine 21 MG PATCH.TD24 TRANSDERMA (12:32)
[2024-05-14 14:05] LABS: Glucose, Whole Blood 99 mg/dL (60-115)
--- NOTE | 2024-05-14 15:06 | PC.NURSE ---
Assumed care of patient at 1445, patient appears to be in no apparent distress, per previous RN pt needs to have her POCs and blood pressure taken every 2 hours due to a medication error. Patient offers no complaints at this time. Continue plan of care for inpatient bedsearch
[2024-05-14 15:48] LABS: Glucose, Whole Blood 85 mg/dL (60-115)
[2024-05-14] MEDS: LORazepam 1 MG TABLET 2 MG PO (18:26)
--- NOTE | 2024-05-14 18:26 | PC.NURSE ---
Unable to scan bracelet or barcode, pt received 2mg Ativan per MAR
[2024-05-14 18:50] LABS: Glucose, Whole Blood 112 mg/dL (60-115)
[2024-05-14] MEDS: OXcarbazepine 300 MG TABLET PO (20:24)
[2024-05-14] MEDS: traZODone HCL 50 MG TABLET PO (20:24)
[2024-05-14] MEDS: Benztropine Mesylate 1 MG TABLET PO (20:24)
[2024-05-14 21:12] LABS: Glucose, Whole Blood 101 mg/dL (60-115)
[2024-05-15 05:11] VITALS: BP 129/87; PULSE 92; RESP 17; TEMP 36.3; O2SAT 95
--- NOTE | 2024-05-15 07:24 | PC.NURSE ---
Assumed care of patient at 0645, patient appears to be in no apparent distress at this time, ambulating around BH pod with steady gait, offering no complaints to this RN, respirations even and unlabored. Patient verbalizes understanding of plan of care for inpatient bedsearch
[2024-05-15] MEDS: ARIPiprazole 10 MG TABLET PO (08:08)
[2024-05-15] MEDS: OXcarbazepine 150 MG TABLET PO (08:08)
[2024-05-15] MEDS: lamoTRIgine 25 MG TABLET PO (08:08)
--- NOTE | 2024-05-15 08:50 | PC.NURSE ---
Pt showered, bed linens changed, pt offers no complaints at this time
--- NOTE | 2024-05-15 12:06 | MHC.CARE ---
CCA form with [facility] as accepting facility sent to REED and Yulia LAW on M5 at 12:05 05/15/24
[2024-05-15 13:10] VITALS: BP 139/60; PULSE 93; RESP 16; TEMP 36.4; O2SAT 97
[2024-05-15] MEDS: Flu Vacc TS2024-25(6mos up)/PF 0.5 ML SYRINGE IM (13:48)
--- NOTE | 2024-05-15 15:02 | PC.ADMIT ---
Pt arrived on the unit at 1302, via w/c from [facility]. Pt is here on a CV. She states that she is here because she is homeless, as well as medication management. Pt speaks in a low tone, and mumbles-she can be very hard to understand. This is her baseline. Pt reports a relapse of crack/cocaine since becoming homeless. She also reports that her ex-girlfriend has a restraining order against her, however, she was unwilling to go into any more details. Skin check reveled was appears to be fungus under BL breasts. Pt has a vertical scar on sacrum area. Nothing else noted during skin check. Pt is pleasant and cooperative with admission process. She was given a flu vaccine.
[2024-05-15 15:21] VITALS: BMI 42.0
[2024-05-15 20:00] VITALS: BP 99/67; PULSE 101; RESP 18; TEMP 36.8; O2SAT 96
[2024-05-15] MEDS: Benztropine Mesylate 1 MG TABLET PO (20:52)
[2024-05-15] MEDS: hydrOXYzine HCL 25 MG TABLET PO (20:52)
[2024-05-15] MEDS: traZODone HCL 50 MG TABLET PO (20:52)
[2024-05-15] MEDS: OXcarbazepine 300 MG TABLET PO (20:52)
[2024-05-15 23:28] VITALS: PULSE 79; RESP 20; O2SAT 93
[2024-05-16 08:00] VITALS: BP 117/64; PULSE 84; RESP 18; TEMP 36.3; O2SAT 96
[2024-05-16] MEDS: OXcarbazepine 150 MG TABLET PO (08:56)
[2024-05-16] MEDS: ARIPiprazole 10 MG TABLET PO (08:56)
[2024-05-16] MEDS: lamoTRIgine 25 MG TABLET PO (08:56)
[2024-05-16] MEDS: LORazepam 1 MG TABLET 2 MG PO ×2 (09:00→21:10)
[2024-05-16] MEDS: Ibuprofen 400 MG TABLET PO (09:00)
[2024-05-16] MEDS: Magnesium Hydrox/Alum Hydrox 30 ML ORAL.SUSP PO (09:14)
[2024-05-16 09:20] LABS: Estimated Average Glucose 117 mg/dL; Hemoglobin A1C 139.9515 umol/L; Hemoglobin A1c % 5.7 % (<6.0); Total Hemoglobin (HGBA1C) 3569.6283 umol/L
[2024-05-16 09:48] LABS: Cholesterol 184 mg/dL (<200); HDL Cholesterol 55 mg/dL (>40); LDL Cholesterol Calculated 92 mg/dL (<100); Magnesium 2.2 mg/dL (1.6-2.6); Triglycerides 185 mg/dL (<150)
[2024-05-16 10:02] LABS: Thyroid Stimulating Hormone 1.46 uIU/mL (0.32-4.0)
[2024-05-16 10:17] LABS: Folate 10.1 ng/mL (> or = 4.0); Vitamin B12 479 pg/mL (200-900)
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
[2024-05-16 20:00] VITALS: BP 134/77; PULSE 81; TEMP 36.3; O2SAT 94
[2024-05-16] MEDS: Benztropine Mesylate 1 MG TABLET PO (21:06)
[2024-05-16] MEDS: OXcarbazepine 300 MG TABLET PO (21:06)
[2024-05-16] MEDS: traZODone HCL 50 MG TABLET PO (21:06)
[2024-05-16 23:31] VITALS: RESP 18
[2024-05-17] MEDS: guaiFENesin LA 600 MG TAB.ER.12H PO (01:14)
--- NOTE | 2024-05-17 01:23 | PC.NURSE ---
Patient woke up at 0115 c/o persistent cough. Patient give prn Mucinex. Encouraged patient to rest with several pillows propping her up, but she declined.
--- OUTSIDE RECORDS SUMMARY | 2024-05-17 04:31 | XMS_ITS ---
Author Name [facility] Organization Unknown History of Medication Use Medication Directions Dispensed Refills Start Date End Date Stat hydrOXYzine pamoate (VISTARIL) 25 MG capsule Take 1 capsule (25 mg total) by mouth 3 (three) times a day as needed for anxiety. 12/22/2023 active traMADol (ULTRAM) 50 MG tablet TAKE 1 TABLET BY MOUTH 4 TIMES A DAY NEEDED FOR SEVERE PAIN *DO NOT DRIVE, NO ALCOHOL* 12/22/2023 active OMEprazole (PriLOSEC) 20 MG capsule Take 1 capsule (20 mg total) by mouth daily. 12/22/2023 active benztropine (COGENTIN) 1 MG tablet Take 1 tablet (1 mg total) by mouth nightly. 12/22/2023 active benztropine (COGENTIN) 0.5 MG tablet Take 1 tablet (0.5 mg total) by mouth daily. 12/22/2023 active sertraline (ZOLOFT) 25 MG tablet Take 1 tablet (25 mg total) by mouth daily. 12/22/2023 active ARIPiprazole (ABILIFY) 20 MG tablet Take 1 tablet (20 mg total) by mouth daily. 12/22/2023 active OXcarbazepine (TRILEPTAL) 150 MG tablet Take 1 tablet (150 mg total) by mouth every morning. 12/22/2023 active traZODone (DESYREL) 100 MG tablet Take 1 tablet (100 mg total) by mouth nightly as needed. 12/22/2023 active Problems Problem Status Onset Date Problem Type Date of Resoluti on Source GERD (gastroesophageal reflux disease) active 2023-08-21 [facility]Act [facility] Orbital floor (blow-out) open fracture, initial encounter active 2023-08-21 [facility]Act [facility] Closed blow-out fracture of right orbital floor [facility]23-08-[facility]
[2024-05-17 08:00] VITALS: RESP 18
[2024-05-17] MEDS: ARIPiprazole 10 MG TABLET PO (08:06)
[2024-05-17] MEDS: Folic Acid 1 MG TABLET PO (08:07)
[2024-05-17] MEDS: OXcarbazepine 150 MG TABLET PO (08:07)
[2024-05-17] MEDS: Multivitamin TABLET 1 TAB PO (08:07)
[2024-05-17] MEDS: lamoTRIgine 25 MG TABLET PO (08:07)
[2024-05-17] MEDS: Thiamine HCL 100 MG TABLET PO (08:07)
[2024-05-17] MEDS: LORazepam 1 MG TABLET 2 MG PO ×2 (08:15→20:48)
--- NOTE | 2024-05-17 11:08 | P.PNPSI_ITS ---
Subjective Subjective Date of Service: 05/17/24 Reason For Visit: PTSD; Bipolar D/O w/ psychosis: cocaine use disord Subjective Notes: Conditional Voluntary Healthcare Proxy: No Guardianship: No Medical Problems Affecting Mental Status: No Interim History: Speech continues to be garbled, dysarthric. Pt with intermittent confusion, sleeping a good amount today-?withdrawal sx. CAT Brain completed due to decline and speech changes. Results WNL Baclofen prn decreased. Pt making her needs known, however team is observing decline from baseline at this time. Pt reports she is OK and just needs to sleep . Medication Compliance: Yes Side effects from medications: No Attending Groups: No Review of Systems Acute medical concerns: No Medical Review of Systems: unchanged Review of Systems Review of Systems changes in speech, not at baseline. Mental Status Exam Mental Status Exam Patient Appearance: Fatigued and Disheveled Patient Orientation: Person, Place and Situation Level of Consciousness: Sedated Patient Behavior: Talkative, Cooperative, Sedated, Fatigued, Distractible and Good Eye Contact Mood Description: Flat Affect Description: Flat Patient Cognition Impaired: No Ability to Follow Directions: Fair Speech Pattern: Slurred, Impoverished, Garbled, Spontaneous Speech, Soft-Spoken, Delayed and Poor Articulation Memory Description: Remote Impaired Hallucinations: None Delusions: Not Present Thought Process: Distracted and Rumination Thought Content: positive for Circumstantial, positive for Perseveration, positive for Tangential and positive for Disorganized Depressive Symptoms: Hopelessness, Increased Fatigue, Loss of Energy and Difficulty Concentrating Judgement: Poor Diagnostics Vital Signs (24Hr): Vital Signs - 24 hr 05/16/24 20:00 05/16/24 23:31 05/17/24 08:00 Temperature 97.3 F Pulse Rate 81 Respiratory Rate 18 18 Blood Pressure 134/77 Pulse Oximetry 94 Oxygen Delivery Method Room Air BMI result Body Mass Index 42.0 Labs 05/11/24 22:49 05/11/24 22:49 Labs: Laboratory Results - last 48 hr 05/16/24 08:47 Estimat Average Glucose 117 Hemoglobin A1c % 5.7 Magnesium 2.2 Triglycerides 185 H Cholesterol 184 LDL Cholesterol, Calc 92 HDL Cholesterol 55 Vitamin B12 479 Folate 10.1 TSH 1.46 Free T4 1.10 Medications Medications Current Medications Acetaminophen (Acetaminophen 325 Mg Tablet) 650 mg PO Q6H PRN PRN Reason: Headache/Pain Mild Scale (1-3) Al Hydroxide/Mg Hydroxide (Magnesium Hydrox/Alum Hydrox 30 Ml Oral.Susp) 30 ml PO Q6H PRN PRN Reason: Heartburn/Nausea Last Admin: 05/16/24 09:14 Dose: 30 ml Aripiprazole (Aripiprazole 10 Mg Tablet) 10 mg PO DAILY [facility] Last Admin: 05/17/24 08:06 Dose: 10 mg Baclofen (Baclofen 10 Mg Tablet) 10 mg PO TID PRN PRN Reason: withdrawal sx Benzocaine (Throat Lozenge, Medicated Lozenge) 1 lozenge MUCOUS MEM Q2H PRN PRN Reason: Sore Throat Benztropine Mesylate (Benztropine Mesylate 1 Mg Tablet) 1 mg PO BEDTIME [facility] Last Admin: 05/16/24 21:06 Dose: 1 mg Folic Acid (Folic Acid 1 Mg Tablet) 1 mg PO DAILY [facility] Last Admin: 05/17/24 08:07 Dose: 1 mg Guaifenesin (Guaifenesin 100 Mg/5 Ml 5 Ml Liquid) 5 ml PO Q6H PRN PRN Reason: Cough Guaifenesin (Guaifenesin La 600 Mg Tab.Er.12h) 600 mg PO BID PRN PRN Reason: Cough Last Admin: 05/17/24 01:14 Dose: 600 mg Hydroxyzine HCl (Hydroxyzine Hcl 25 Mg Tablet) 25 mg PO Q6H PRN PRN Reason: Anxiety Last Admin: 05/15/24 20:52 Dose: 25 mg Ibuprofen (Ibuprofen 400 Mg Tablet) 400 mg PO Q6H PRN PRN Reason: Pain, Moderate(Pain Scale 4-6) Last Admin: 05/16/24 09:00 Dose: 400 mg Lamotrigine (Lamotrigine 25 Mg Tablet) 25 mg PO DAILY [facility] Last Admin: 05/17/24 08:07 Dose: 25 mg Lorazepam (Lorazepam 1 Mg Tablet) 2 mg PO Q6H PRN PRN Reason: Anxiety, agitation Last Admin: 05/17/24 08:15 Dose: 2 mg Magnesium Hydroxide (Milk Of Magnesia 30 Ml Oral.Susp) 30 ml PO DAILY PRN PRN Reason: Constipation Multivitamins/Vitamin C (Multivitamin Tablet) 1 tab PO DAILY [facility] Last Admin: 05/17/24 08:07 Dose: 1 tab Nicotine (Nicotine 21 Mg Patch.Td24) 21 mg TRANSDERMA DAILY PRN PRN Reason: nicotine cravings Nicotine Polacrilex (Nicotine Polacrilex 2 Mg Gum) 4 mg BUCCAL Q2H PRN PRN Reason: Nicotine Cravings Oxcarbazepine (Oxcarbazepine 150 Mg Tablet) 150 mg PO DAILY [facility] Last Admin: 05/17/24 08:07 Dose: 150 mg Oxcarbazepine (Oxcarbazepine 300 Mg Tablet) 300 mg PO BEDTIME [facility] Last Admin: 05/16/24 21:06 Dose: 300 mg Thiamine HCl (Thiamine Hcl 100 Mg Tablet) 100 mg PO DAILY [facility] Last Admin: 05/17/24 08:07 Dose: 100 mg Trazodone HCl (Trazodone Hcl 50 Mg Tablet) 50 mg PO BEDTIME [facility] Last Admin: 05/16/24 21:06 Dose: 50 mg Allergies Allergies Allergy/AdvReac Type Severity Reaction Status Date / Time No Known Allergies Allergy Verified 05/12/24 11:04 Assessment & Plan Assessment & Plan (1) Bipolar disorder with psychotic features: Status: Acute Code(s): F31.9 - Bipolar disorder, unspecified (2) Cocaine dependence: Qualifiers: Substance use status: with unspecified cocaine-induced disorder Q ualified Code(s): F14.29 - Cocaine dependence with unspecified cocaine-induced disorder Status: Acute Code(s): F14.20 - Cocaine dependence, uncomplicated (3) Chronic post-traumatic stress disorder (PTSD): Status: Acute Code(s): F43.12 - Post-traumatic stress disorder, chronic Plan Bipolar Disorder with Psychotic Features, PTSD, Cocaine Use Disorder. 05/17: CAT Brain negative Decrease Baclofen to 5 mg tid prn withdrawal sx. Plan: Admit, CV, 15 minute checks Collateral contacts Re-establish medication regime Diagnostics as needed Discharge/Aftercare planning Chest xray-congestion Reason for continued inpatient stay Substantial Risk for: rapid decompensation and med/psych decompensation Time Spent With Patient Time: Total time managing care of this patient today ____ minutes.
[2024-05-17] MEDS: guaiFENesin 100 MG/5 ML 5 ML LIQUID PO (14:27)
[2024-05-17] MEDS: Throat Lozenge, Medicated LOZENGE 1 LOZENGE MUCOUS MEM (14:27)
[2024-05-17 20:00] VITALS: BP 125/71; PULSE 86; TEMP 36.6; O2SAT 95
[2024-05-17] MEDS: OXcarbazepine 300 MG TABLET PO (20:47)
[2024-05-17] MEDS: traZODone HCL 50 MG TABLET PO (20:47)
[2024-05-17] MEDS: Benztropine Mesylate 1 MG TABLET PO (20:47)
[2024-05-18 08:00] VITALS: BP 132/79; PULSE 91; RESP 20; TEMP 36.4; O2SAT 98
[2024-05-18] MEDS: lamoTRIgine 25 MG TABLET PO (08:33)
[2024-05-18] MEDS: Acetaminophen 325 MG TABLET 650 MG PO (08:33)
[2024-05-18] MEDS: Ibuprofen 400 MG TABLET PO (08:34)
[2024-05-18] MEDS: Multivitamin TABLET 1 TAB PO (08:35)
[2024-05-18] MEDS: Folic Acid 1 MG TABLET PO (08:35)
[2024-05-18] MEDS: Thiamine HCL 100 MG TABLET PO (08:35)
[2024-05-18] MEDS: ARIPiprazole 10 MG TABLET PO (08:35)
[2024-05-18] MEDS: OXcarbazepine 150 MG TABLET PO (08:35)
[2024-05-18] MEDS: Baclofen 10 MG TABLET 5 MG PO ×2 (08:44→22:36)
--- NOTE | 2024-05-18 16:15 | P.PNPSI_ITS ---
Subjective Subjective Date of Service: 05/18/24 Reason For Visit: PTSD; Bipolar D/O w/ psychosis: cocaine use disord Subjective Notes: Conditional Voluntary and 3 Day Healthcare Proxy: No Guardianship: No Medical Problems Affecting Mental Status: No Interim History: Improving MSE. TDN signed. Pt has lost her phone and believes it to be stolen. Demands DC today or tomorrow. Will plan for 05/15 if improved. Looking at applications for housing-[employer], [employer], [employer], [employer]. At this time pt has no where to live. No med changes are made today. Pt adjusting to regime and sleeping less with lability but improvement. Medication Compliance: Yes Side effects from medications: No Attending Groups: Intermittent Review of Systems Acute medical concerns: No Review of Systems Review of Systems Yes all other systems are reviewed and are negative Mental Status Exam Mental Status Exam Patient Appearance: Fatigued and Disheveled Patient Orientation: Person, Place and Situation Level of Consciousness: Alert Patient Behavior: Talkative, Fatigued, Distractible and Good Eye Contact Mood Description: Labile Affect Description: Labile Patient Cognition Impaired: No Ability to Follow Directions: Fair Speech Pattern: Spontaneous Speech and Soft-Spoken Memory Description: Remote Impaired Hallucinations: None Delusions: Not Present Thought Process: Distracted and Rumination Thought Content: positive for Circumstantial, positive for Perseveration, positive for Tangential and positive for Disorganized Depressive Symptoms: Hopelessness, Increased Fatigue, Loss of Energy and Difficulty Concentrating Judgement: Fair Diagnostics Vital Signs (24Hr): Vital Signs - 24 hr 05/17/24 20:00 05/18/24 08:00 Temperature 97.8 F 97.6 F Pulse Rate 86 91 Respiratory Rate 20 Blood Pressure 125/71 132/79 Pulse Oximetry 95 98 Oxygen Delivery Method Room Air Room Air BMI result Body Mass Index 42.0 Labs 05/11/24 22:49 05/11/24 22:49 Imaging Radiology Impressions: ITS Impressions Chest X-Ray 05/16/24 19:00 IMPRESSION: No active disease. Electronically signed by: Juan Gould MD 05/17/2024 12:25 PM EST RP Head CT 05/17/24 09:52 IMPRESSION: No acute intracranial pathology. Electronically signed by: Juan Gould MD 05/17/2024 03:11 PM EST RP Medications Medications Current Medications Acetaminophen (Acetaminophen 325 Mg Tablet) 650 mg PO Q6H PRN PRN Reason: Headache/Pain Mild Scale (1-3) Last Admin: 05/18/24 08:33 Dose: 650 mg Al Hydroxide/Mg Hydroxide (Magnesium Hydrox/Alum Hydrox 30 Ml Oral.Susp) 30 ml PO Q6H PRN PRN Reason: Heartburn/Nausea Last Admin: 05/16/24 09:14 Dose: 30 ml Aripiprazole (Aripiprazole 10 Mg Tablet) 10 mg PO DAILY [facility] Last Admin: 05/18/24 08:35 Dose: 10 mg Baclofen (Baclofen 10 Mg Tablet) 5 mg PO TID PRN PRN Reason: withdrawal sx Last Admin: 05/18/24 08:44 Dose: 5 mg Benzocaine (Throat Lozenge, Medicated Lozenge) 1 lozenge MUCOUS MEM Q2H PRN PRN Reason: Sore Throat Last Admin: 05/17/24 14:27 Dose: 1 lozenge Benztropine Mesylate (Benztropine Mesylate 1 Mg Tablet) 1 mg PO BEDTIME [facility] Last Admin: 05/17/24 20:47 Dose: 1 mg Folic Acid (Folic Acid 1 Mg Tablet) 1 mg PO DAILY [facility] Last Admin: 05/18/24 08:35 Dose: 1 mg Guaifenesin (Guaifenesin 100 Mg/5 Ml 5 Ml Liquid) 5 ml PO Q6H PRN PRN Reason: Cough Last Admin: 05/17/24 14:27 Dose: 5 ml Guaifenesin (Guaifenesin La 600 Mg Tab.Er.12h) 600 mg PO BID PRN PRN Reason: Cough Last Admin: 05/17/24 01:14 Dose: 600 mg Hydroxyzine HCl (Hydroxyzine Hcl 25 Mg Tablet) 25 mg PO Q6H PRN PRN Reason: Anxiety Last Admin: 05/15/24 20:52 Dose: 25 mg Ibuprofen (Ibuprofen 400 Mg Tablet) 400 mg PO Q6H PRN PRN Reason: Pain, Moderate(Pain Scale 4-6) Last Admin: 05/18/24 08:34 Dose: 400 mg Lamotrigine (Lamotrigine 25 Mg Tablet) 25 mg PO DAILY [facility] Last Admin: 05/18/24 08:33 Dose: 25 mg Lorazepam (Lorazepam 1 Mg Tablet) 2 mg PO Q6H PRN PRN Reason: Anxiety, agitation Last Admin: 05/17/24 20:48 Dose: 2 mg Magnesium Hydroxide (Milk Of Magnesia 30 Ml Oral.Susp) 30 ml PO DAILY PRN PRN Reason: Constipation Multivitamins/Vitamin C (Multivitamin Tablet) 1 tab PO DAILY [facility] Last Admin: 05/18/24 08:35 Dose: 1 tab Nicotine (Nicotine 21 Mg Patch.Td24) 21 mg TRANSDERMA DAILY PRN PRN Reason: nicotine cravings Nicotine Polacrilex (Nicotine Polacrilex 2 Mg Gum) 4 mg BUCCAL Q2H PRN PRN Reason: Nicotine Cravings Oxcarbazepine (Oxcarbazepine 150 Mg Tablet) 150 mg PO DAILY [facility] Last Admin: 05/18/24 08:35 Dose: 150 mg Oxcarbazepine (Oxcarbazepine 300 Mg Tablet) 300 mg PO BEDTIME [facility] Last Admin: 05/17/24 20:47 Dose: 300 mg Thiamine HCl (Thiamine Hcl 100 Mg Tablet) 100 mg PO DAILY [facility] Last Admin: 05/18/24 08:35 Dose: 100 mg Trazodone HCl (Trazodone Hcl 50 Mg Tablet) 50 mg PO BEDTIME [facility] Last Admin: 05/17/24 20:47 Dose: 50 mg Allergies Allergies Allergy/AdvReac Type Severity Reaction Status Date / Time No Known Allergies Allergy Verified 05/12/24 11:04 Assessment & Plan Assessment & Plan (1) Bipolar disorder with psychotic features: Status: Acute Code(s): F31.9 - Bipolar disorder, unspecified (2) Cocaine dependence: Qualifiers: Substance use status: with unspecified cocaine-induced disorder Q ualified Code(s): F14.29 - Cocaine dependence with unspecified cocaine-induced disorder Status: Acute Code(s): F14.20 - Cocaine dependence, uncomplicated (3) Chronic post-traumatic stress disorder (PTSD): Status: Acute Code(s): F43.12 - Post-traumatic stress disorder, chronic Plan Bipolar Disorder with Psychotic Features, PTSD, Cocaine Use Disorder. 05/17: CAT Brain negative Decrease Baclofen to 5 mg tid prn withdrawal sx. 05/18: TDN filed Continue current regime. Plan: Admit, CV, 15 minute checks Collateral contacts Re-establish medication regime Diagnostics as needed Discharge/Aftercare planning Chest xray-congestion Reason for continued inpatient stay Substantial Risk for: rapid decompensation Time Spent With Patient Time: Total time managing care of this patient today ____ minutes.
[2024-05-18] MEDS: guaiFENesin 100 MG/5 ML 5 ML LIQUID PO (16:57)
[2024-05-18] MEDS: guaiFENesin LA 600 MG TAB.ER.12H PO (16:57)
[2024-05-18 20:00] VITALS: BP 143/66; PULSE 72; RESP 16; TEMP 36.6; O2SAT 95
[2024-05-18] MEDS: Benztropine Mesylate 1 MG TABLET PO (22:29)
[2024-05-18] MEDS: OXcarbazepine 300 MG TABLET PO (22:30)
[2024-05-18] MEDS: traZODone HCL 50 MG TABLET PO (22:30)
[2024-05-18] MEDS: LORazepam 1 MG TABLET 2 MG PO (22:37)
[2024-05-19 00:01] VITALS: RESP 20
[2024-05-19] MEDS: hydrOXYzine HCL 25 MG TABLET PO (02:34)
[2024-05-19 08:00] VITALS: BP 126/69; PULSE 86; RESP 18; TEMP 36.4; O2SAT 97
[2024-05-19] MEDS: Thiamine HCL 100 MG TABLET PO (08:12)
[2024-05-19] MEDS: Folic Acid 1 MG TABLET PO (08:12)
[2024-05-19] MEDS: ARIPiprazole 10 MG TABLET PO (08:12)
[2024-05-19] MEDS: lamoTRIgine 25 MG TABLET PO (08:12)
[2024-05-19] MEDS: OXcarbazepine 150 MG TABLET PO (08:12)
[2024-05-19] MEDS: Multivitamin TABLET 1 TAB PO (08:12)
--- NOTE | 2024-05-19 10:17 | P.PNPSI_ITS ---
Subjective Subjective Date of Service: 05/19/24 Reason For Visit: PTSD; Bipolar D/O w/ psychosis: cocaine use disord Subjective Notes: Conditional Voluntary and 3 Day Healthcare Proxy: No Guardianship: No Medical Problems Affecting Mental Status: No Interim History: Anjelica continues to clear and improve. Her mood remains labile and reactive. She has ink drawn on her face this a.m. Just don't ask is her response to questioning. Her OP support team will visit on Wednesday to discuss options for added services with her. Although with improvement that is noticed she remains labile with intermittent confusion, reactive anger and thought content and process that continues to clear, thus the reason we are having her work out her three day notice. She does not present as being prepared for discharge. She expresses anger with tw and her discussion is brief today. Medication Compliance: Yes Side effects from medications: No Attending Groups: Intermittent Review of Systems Acute medical concerns: No Review of Systems Review of Systems denies Mental Status Exam Mental Status Exam Patient Appearance: Fatigued and Disheveled Patient Orientation: Person, Place and Situation Level of Consciousness: Sedated and Alert Patient Behavior: Talkative, Suspicious, Confused (at times) and Impulsive Mood Description: Labile Affect Description: Labile Patient Cognition Impaired: Yes Ability to Follow Directions: Fair Speech Pattern: Garbled (improving) and Spontaneous Speech Memory Description: Episodic Impaired Hallucinations: None Delusions: Not Present and Paranoid Ideation Thought Process: Rumination Thought Content: positive for Perseveration Depressive Symptoms: Increased Irritability and Difficulty Concentrating Judgement: Fair Diagnostics Vital Signs (24Hr): Vital Signs - 24 hr 05/18/24 20:00 05/19/24 00:01 05/19/24 08:00 Temperature 98 F 97.6 F Pulse Rate 72 86 Respiratory Rate 16 20 18 Blood Pressure 143/66 H 126/69 Pulse Oximetry 95 97 Oxygen Delivery Method Room Air Room Air BMI result Body Mass Index 42.0 Labs 05/11/24 22:49 05/11/24 22:49 Imaging Radiology Impressions: ITS Impressions Chest X-Ray 05/16/24 19:00 IMPRESSION: No active disease. Electronically signed by: Juan Gould MD 05/17/2024 12:25 PM [facility] Head CT 05/17/24 09:52 IMPRESSION: No acute intracranial pathology. Electronically signed by: Juan Gould MD 05/17/2024 03:11 PM [facility] Medications Medications Current Medications Acetaminophen (Acetaminophen 325 Mg Tablet) 650 mg PO Q6H PRN PRN Reason: Headache/Pain Mild Scale (1-3) Last Admin: 05/18/24 08:33 Dose: 650 mg Al Hydroxide/Mg Hydroxide (Magnesium Hydrox/Alum Hydrox 30 Ml Oral.Susp) 30 ml PO Q6H PRN PRN Reason: Heartburn/Nausea Last Admin: 05/16/24 09:14 Dose: 30 ml Aripiprazole (Aripiprazole 10 Mg Tablet) 10 mg PO DAILY [facility] Last Admin: 05/19/24 08:12 Dose: 10 mg Baclofen (Baclofen 10 Mg Tablet) 5 mg PO TID PRN PRN Reason: withdrawal sx Last Admin: 05/18/24 22:36 Dose: 5 mg Benzocaine (Throat Lozenge, Medicated Lozenge) 1 lozenge MUCOUS MEM Q2H PRN PRN Reason: Sore Throat Last Admin: 05/17/24 14:27 Dose: 1 lozenge Benztropine Mesylate (Benztropine Mesylate 1 Mg Tablet) 1 mg PO BEDTIME [facility] Last Admin: 05/18/24 22:29 Dose: 1 mg Folic Acid (Folic Acid 1 Mg Tablet) 1 mg PO DAILY [facility] Last Admin: 05/19/24 08:12 Dose: 1 mg Guaifenesin (Guaifenesin 100 Mg/5 Ml 5 Ml Liquid) 5 ml PO Q6H PRN PRN Reason: Cough Last Admin: 05/18/24 16:57 Dose: 5 ml Guaifenesin (Guaifenesin La 600 Mg Tab.Er.12h) 600 mg PO BID PRN PRN Reason: Cough Last Admin: 05/18/24 16:57 Dose: 600 mg Hydroxyzine HCl (Hydroxyzine Hcl 25 Mg Tablet) 25 mg PO Q6H PRN PRN Reason: Anxiety Last Admin: 05/19/24 02:34 Dose: 25 mg Ibuprofen (Ibuprofen 400 Mg Tablet) 400 mg PO Q6H PRN PRN Reason: Pain, Moderate(Pain Scale 4-6) Last Admin: 05/18/24 08:34 Dose: 400 mg Lamotrigine (Lamotrigine 25 Mg Tablet) 25 mg PO DAILY [facility] Last Admin: 05/19/24 08:12 Dose: 25 mg Lorazepam (Lorazepam 1 Mg Tablet) 2 mg PO Q6H PRN PRN Reason: Anxiety, agitation Last Admin: 05/18/24 22:37 Dose: 2 mg Magnesium Hydroxide (Milk Of Magnesia 30 Ml Oral.Susp) 30 ml PO DAILY PRN PRN Reason: Constipation Multivitamins/Vitamin C (Multivitamin Tablet) 1 tab PO DAILY [facility] Last Admin: 05/19/24 08:12 Dose: 1 tab Nicotine (Nicotine 21 Mg Patch.Td24) 21 mg TRANSDERMA DAILY PRN PRN Reason: nicotine cravings Nicotine Polacrilex (Nicotine Polacrilex 2 Mg Gum) 4 mg BUCCAL Q2H PRN PRN Reason: Nicotine Cravings Oxcarbazepine (Oxcarbazepine 150 Mg Tablet) 150 mg PO DAILY [facility] Last Admin: 05/19/24 08:12 Dose: 150 mg Oxcarbazepine (Oxcarbazepine 300 Mg Tablet) 300 mg PO BEDTIME [facility] Last Admin: 05/18/24 22:30 Dose: 300 mg Thiamine HCl (Thiamine Hcl 100 Mg Tablet) 100 mg PO DAILY [facility] Last Admin: 05/19/24 08:12 Dose: 100 mg Trazodone HCl (Trazodone Hcl 50 Mg Tablet) 50 mg PO BEDTIME [facility] Last Admin: 05/18/24 22:30 Dose: 50 mg Allergies Allergies Allergy/AdvReac Type Severity Reaction Status Date / Time No Known Allergies Allergy Verified 05/12/24 11:04 Assessment & Plan Assessment & Plan (1) Bipolar disorder with psychotic features: Status: Acute Code(s): F31.9 - Bipolar disorder, unspecified (2) Cocaine dependence: Qualifiers: Substance use status: with unspecified cocaine-induced disorder Q ualified Code(s): F14.29 - Cocaine dependence with unspecified cocaine-induced disorder Status: Acute Code(s): F14.20 - Cocaine dependence, uncomplicated (3) Chronic post-traumatic stress disorder (PTSD): Status: Acute Code(s): F43.12 - Post-traumatic stress disorder, chronic Plan Bipolar Disorder with Psychotic Features, PTSD, Cocaine Use Disorder. 05/17: CAT Brain negative Decrease Baclofen to 5 mg tid prn withdrawal sx. 05/18: TDN filed Continue current regime. 05/19: Continue current regime. Plan: Admit, CV, 15 minute checks Collateral contacts Re-establish medication regime Diagnostics as needed Discharge/Aftercare planning Chest xray-congestion Reason for continued inpatient stay Substantial Risk for: rapid decompensation Time Spent With Patient Time: Total time managing care of this patient today ____ minutes.
[2024-05-19] MEDS: Ibuprofen 400 MG TABLET PO (17:41)
[2024-05-19] MEDS: guaiFENesin LA 600 MG TAB.ER.12H PO (17:41)
[2024-05-19] MEDS: LORazepam 1 MG TABLET 2 MG PO (18:49)
[2024-05-19 20:00] VITALS: BP 146/63; PULSE 94; TEMP 36.9; O2SAT 96
[2024-05-19] MEDS: Benztropine Mesylate 1 MG TABLET PO (21:25)
[2024-05-19] MEDS: traZODone HCL 50 MG TABLET PO (21:25)
[2024-05-19] MEDS: OXcarbazepine 300 MG TABLET PO (21:25)
[2024-05-19 23:58] VITALS: RESP 18
[2024-05-20 08:00] VITALS: BP 139/77; PULSE 85; RESP 16; TEMP 36.6; O2SAT 99
[2024-05-20] MEDS: Thiamine HCL 100 MG TABLET PO (10:14)
[2024-05-20] MEDS: OXcarbazepine 150 MG TABLET PO (10:14)
[2024-05-20] MEDS: lamoTRIgine 25 MG TABLET PO (10:14)
[2024-05-20] MEDS: Multivitamin TABLET 1 TAB PO (10:14)
[2024-05-20] MEDS: ARIPiprazole 10 MG TABLET PO (10:14)
[2024-05-20] MEDS: Magnesium Hydrox/Alum Hydrox 30 ML ORAL.SUSP PO ×2 (10:15→22:35)
[2024-05-20] MEDS: Folic Acid 1 MG TABLET PO (10:15)
--- NOTE | 2024-05-20 10:24 | P.PNPSI_ITS ---
Subjective Subjective Date of Service: 05/20/24 Reason For Visit: PTSD; Bipolar D/O w/ psychosis: cocaine use disord Interim History: Is slowly improving as per staff i.e. less labile, much more organized in thought form, but still confused at times. Three-day notice in place. Patient reports today is a better day compared to yesterday. Frustrated she lost her wallet. Very eager for discharge planning. Reports wanting to work with [facility] around appointment and educational opportunities in supports. Denies SI. No med concerns. Sleep okay. Review of Systems Review of Systems denies Mental Status Exam Mental Status Exam Narrative: own clothing Fair self-care. Pleasant. Pressured speech. Some flight of ideas. Endorses recent SI, But none since yesterday. No current plans or intent. No HI. No agitation. No overt psychosis. Insight and judgment fair Diagnostics Vital Signs (24Hr): Vital Signs - 24 hr 05/19/24 20:00 05/19/24 23:58 05/20/24 08:00 Temperature 98.5 F 97.9 F Pulse Rate 94 85 Respiratory Rate 18 16 Blood Pressure 146/63 H 139/77 Pulse Oximetry 96 99 Oxygen Delivery Method Room Air Room Air BMI result Body Mass Index 42.0 Labs 05/11/24 22:49 05/11/24 22:49 Imaging Radiology Impressions: ITS Impressions Chest X-Ray 05/16/24 19:00 IMPRESSION: No active disease. Electronically signed by: Juan Gould MD 05/17/2024 12:25 PM EST RP Head CT 05/17/24 09:52 IMPRESSION: No acute intracranial pathology. Electronically signed by: Juan Gould MD 05/17/2024 03:11 PM EST RP Medications Medications Current Medications Acetaminophen (Acetaminophen 325 Mg Tablet) 650 mg PO Q6H PRN PRN Reason: Headache/Pain Mild Scale (1-3) Last Admin: 05/18/24 08:33 Dose: 650 mg Al Hydroxide/Mg Hydroxide (Magnesium Hydrox/Alum Hydrox 30 Ml Oral.Susp) 30 ml PO Q6H PRN PRN Reason: Heartburn/Nausea Last Admin: 05/20/24 10:15 Dose: 30 ml Aripiprazole (Aripiprazole 10 Mg Tablet) 10 mg PO DAILY [facility] Last Admin: 05/20/24 10:14 Dose: 10 mg Baclofen (Baclofen 10 Mg Tablet) 5 mg PO TID PRN PRN Reason: withdrawal sx Last Admin: 05/18/24 22:36 Dose: 5 mg Benzocaine (Throat Lozenge, Medicated Lozenge) 1 lozenge MUCOUS MEM Q2H PRN PRN Reason: Sore Throat Last Admin: 05/17/24 14:27 Dose: 1 lozenge Benztropine Mesylate (Benztropine Mesylate 1 Mg Tablet) 1 mg PO BEDTIME [facility] Last Admin: 05/19/24 21:25 Dose: 1 mg Folic Acid (Folic Acid 1 Mg Tablet) 1 mg PO DAILY [facility] Last Admin: 05/20/24 10:15 Dose: 1 mg Guaifenesin (Guaifenesin 100 Mg/5 Ml 5 Ml Liquid) 5 ml PO Q6H PRN PRN Reason: Cough Last Admin: 05/18/24 16:57 Dose: 5 ml Guaifenesin (Guaifenesin La 600 Mg Tab.Er.12h) 600 mg PO BID PRN PRN Reason: Cough Last Admin: 05/19/24 17:41 Dose: 600 mg Hydroxyzine HCl (Hydroxyzine Hcl 25 Mg Tablet) 25 mg PO Q6H PRN PRN Reason: Anxiety Last Admin: 05/19/24 02:34 Dose: 25 mg Ibuprofen (Ibuprofen 400 Mg Tablet) 400 mg PO Q6H PRN PRN Reason: Pain, Moderate(Pain Scale 4-6) Last Admin: 05/19/24 17:41 Dose: 400 mg Lamotrigine (Lamotrigine 25 Mg Tablet) 25 mg PO DAILY [facility] Last Admin: 05/20/24 10:14 Dose: 25 mg Lorazepam (Lorazepam 1 Mg Tablet) 2 mg PO Q6H PRN PRN Reason: Anxiety, agitation Last Admin: 05/19/24 18:49 Dose: 2 mg Magnesium Hydroxide (Milk Of Magnesia 30 Ml Oral.Susp) 30 ml PO DAILY PRN PRN Reason: Constipation Multivitamins/Vitamin C (Multivitamin Tablet) 1 tab PO DAILY [facility] Last Admin: 05/20/24 10:14 Dose: 1 tab Nicotine (Nicotine 21 Mg Patch.Td24) 21 mg TRANSDERMA DAILY PRN PRN Reason: nicotine cravings Nicotine Polacrilex (Nicotine Polacrilex 2 Mg Gum) 4 mg BUCCAL Q2H PRN PRN Reason: Nicotine Cravings Oxcarbazepine (Oxcarbazepine 150 Mg Tablet) 150 mg PO DAILY [facility] Last Admin: 05/20/24 10:14 Dose: 150 mg Oxcarbazepine (Oxcarbazepine 300 Mg Tablet) 300 mg PO BEDTIME [facility] Last Admin: 05/19/24 21:25 Dose: 300 mg Thiamine HCl (Thiamine Hcl 100 Mg Tablet) 100 mg PO DAILY [facility] Last Admin: 05/20/24 10:14 Dose: 100 mg Trazodone HCl (Trazodone Hcl 50 Mg Tablet) 50 mg PO BEDTIME [facility] Last Admin: 05/19/24 21:25 Dose: 50 mg Allergies Allergies Allergy/AdvReac Type Severity Reaction Status Date / Time No Known Allergies Allergy Verified 05/12/24 11:04 Assessment & Plan Assessment & Plan (1) Bipolar disorder with psychotic features: Status: Acute Code(s): F31.9 - Bipolar disorder, unspecified (2) Cocaine dependence: Qualifiers: Substance use status: with unspecified cocaine-induced disorder Q ualified Code(s): F14.29 - Cocaine dependence with unspecified cocaine-induced disorder Status: Acute Code(s): F14.20 - Cocaine dependence, uncomplicated (3) Chronic post-traumatic stress disorder (PTSD): Status: Acute Code(s): F43.12 - Post-traumatic stress disorder, chronic Plan Bipolar Disorder with Psychotic Features, PTSD, Cocaine Use Disorder. 05/17: CAT Brain negative Decrease Baclofen to 5 mg tid prn withdrawal sx. 05/18: TDN filed Continue current regime. 05/19: Continue current regime. 05/20/2024: No changes Plan: Admit, CV, 15 minute checks Collateral contacts Re-establish medication regime Diagnostics as needed Discharge/Aftercare planning Chest xray-congestion Reason for continued inpatient stay Substantial Risk for: inability to function and rapid decompensation Time Spent With Patient Time: Total time managing care of this patient today ____ minutes.
[2024-05-20 20:00] VITALS: BP 150/93; PULSE 95; RESP 18; TEMP 36.8; O2SAT 96
[2024-05-20] MEDS: Nicotine Polacrilex 2 MG GUM 4 MG BUCCAL (21:50)
[2024-05-20] MEDS: traZODone HCL 50 MG TABLET PO (21:50)
[2024-05-20] MEDS: Throat Lozenge, Medicated LOZENGE 1 LOZENGE MUCOUS MEM (21:51)
[2024-05-20] MEDS: LORazepam 1 MG TABLET 2 MG PO (21:51)
[2024-05-20] MEDS: OXcarbazepine 300 MG TABLET PO (21:51)
[2024-05-20] MEDS: Benztropine Mesylate 1 MG TABLET PO (21:51)
[2024-05-21 08:00] VITALS: BP 127/81; PULSE 82; RESP 18; TEMP 36.6; O2SAT 96
[2024-05-21] MEDS: Multivitamin TABLET 1 TAB PO (08:34)
[2024-05-21] MEDS: Thiamine HCL 100 MG TABLET PO (08:34)
[2024-05-21] MEDS: OXcarbazepine 150 MG TABLET PO (08:34)
[2024-05-21] MEDS: Folic Acid 1 MG TABLET PO (08:34)
[2024-05-21] MEDS: ARIPiprazole 10 MG TABLET PO (08:34)
[2024-05-21] MEDS: lamoTRIgine 25 MG TABLET PO (08:34)
--- NOTE | 2024-05-21 10:30 | HO.PSYCHPN ---
Subjective Subjective Date of Service: 05/21/24 Reason For Visit: PTSD; Bipolar D/O w/ psychosis: cocaine use disord Medical Problems Affecting Mental Status: No Interim History: Overall still improving as per staff - less labile, much more organized in thought form. Feels that she is doing okay and managing frustration and today is a good day and very eager for discharge planning with treatment team. Denies SI. No med concerns. Sleep okay. Medication Compliance: Yes Side effects from medications: No Attending Groups: Intermittent Review of Systems Acute medical concerns: No Review of Systems Review of Systems denies Mental Status Exam Mental Status Exam Narrative: own clothing Fair self-care. Pleasant. Pressured speech. Some flight of ideas. No SI. No HI. No agitation. No overt psychosis. Insight and judgment fair Diagnostics Vital Signs (24Hr): Vital Signs - 24 hr 05/20/24 20:00 05/21/24 08:00 Temperature 98.2 F 98 F Pulse Rate 95 82 Respiratory Rate 18 18 Blood Pressure 150/93 H 127/81 Pulse Oximetry 96 96 Oxygen Delivery Method Room Air Room Air BMI result Body Mass Index 42.0 Labs 05/11/24 22:49 05/11/24 22:49 Imaging Radiology Impressions: ITS Impressions Chest X-Ray 05/16/24 19:00 IMPRESSION: No active disease. Electronically signed by: Juan Gould MD 05/17/2024 12:25 PM EST RP Head CT 05/17/24 09:52 IMPRESSION: No acute intracranial pathology. Electronically signed by: Juan Gould MD 05/17/2024 03:11 PM EST RP Medications Medications Current Medications Acetaminophen (Acetaminophen 325 Mg Tablet) 650 mg PO Q6H PRN PRN Reason: Headache/Pain Mild Scale (1-3) Last Admin: 05/18/24 08:33 Dose: 650 mg Al Hydroxide/Mg Hydroxide (Magnesium Hydrox/Alum Hydrox 30 Ml Oral.Susp) 30 ml PO Q6H PRN PRN Reason: Heartburn/Nausea Last Admin: 05/20/24 22:35 Dose: 30 ml Aripiprazole (Aripiprazole 10 Mg Tablet) 10 mg PO DAILY [facility] Last Admin: 05/21/24 08:34 Dose: 10 mg Baclofen (Baclofen 10 Mg Tablet) 5 mg PO TID PRN PRN Reason: withdrawal sx Last Admin: 05/18/24 22:36 Dose: 5 mg Benzocaine (Throat Lozenge, Medicated Lozenge) 1 lozenge MUCOUS MEM Q2H PRN PRN Reason: Sore Throat Last Admin: 05/20/24 21:51 Dose: 1 lozenge Benztropine Mesylate (Benztropine Mesylate 1 Mg Tablet) 1 mg PO BEDTIME [facility] Last Admin: 05/20/24 21:51 Dose: 1 mg Folic Acid (Folic Acid 1 Mg Tablet) 1 mg PO DAILY [facility] Last Admin: 05/21/24 08:34 Dose: 1 mg Guaifenesin (Guaifenesin 100 Mg/5 Ml 5 Ml Liquid) 5 ml PO Q6H PRN PRN Reason: Cough Last Admin: 05/18/24 16:57 Dose: 5 ml Guaifenesin (Guaifenesin La 600 Mg Tab.Er.12h) 600 mg PO BID PRN PRN Reason: Cough Last Admin: 05/19/24 17:41 Dose: 600 mg Hydroxyzine HCl (Hydroxyzine Hcl 25 Mg Tablet) 25 mg PO Q6H PRN PRN Reason: Anxiety Last Admin: 05/19/24 02:34 Dose: 25 mg Ibuprofen (Ibuprofen 400 Mg Tablet) 400 mg PO Q6H PRN PRN Reason: Pain, Moderate(Pain Scale 4-6) Last Admin: 05/19/24 17:41 Dose: 400 mg Lamotrigine (Lamotrigine 25 Mg Tablet) 25 mg PO DAILY [facility] Last Admin: 05/21/24 08:34 Dose: 25 mg Magnesium Hydroxide (Milk Of Magnesia 30 Ml Oral.Susp) 30 ml PO DAILY PRN PRN Reason: Constipation Multivitamins/Vitamin C (Multivitamin Tablet) 1 tab PO DAILY [facility] Last Admin: 05/21/24 08:34 Dose: 1 tab Nicotine (Nicotine 21 Mg Patch.Td24) 21 mg TRANSDERMA DAILY PRN PRN Reason: nicotine cravings Nicotine Polacrilex (Nicotine Polacrilex 2 Mg Gum) 4 mg BUCCAL Q2H PRN PRN Reason: Nicotine Cravings Last Admin: 05/20/24 21:50 Dose: 4 mg Oxcarbazepine (Oxcarbazepine 150 Mg Tablet) 150 mg PO DAILY [facility] Last Admin: 05/21/24 08:34 Dose: 150 mg Oxcarbazepine (Oxcarbazepine 300 Mg Tablet) 300 mg PO BEDTIME [facility] Last Admin: 05/20/24 21:51 Dose: 300 mg Thiamine HCl (Thiamine Hcl 100 Mg Tablet) 100 mg PO DAILY [facility] Last Admin: 05/21/24 08:34 Dose: 100 mg Trazodone HCl (Trazodone Hcl 50 Mg Tablet) 50 mg PO BEDTIME [facility] Last Admin: 05/20/24 21:50 Dose: 50 mg Allergies Allergies Allergy/AdvReac Type Severity Reaction Status Date / Time No Known Allergies Allergy Verified 05/12/24 11:04 Assessment & Plan Assessment & Plan (1) Bipolar disorder with psychotic features: Status: Acute Code(s): F31.9 - Bipolar disorder, unspecified (2) Cocaine dependence: Qualifiers: Substance use status: with unspecified cocaine-induced disorder Qualified Code(s): F14.29 - Cocaine dependence with unspecified cocaine-induced disorder Status: Acute Code(s): F14.20 - Cocaine dependence, uncomplicated (3) Chronic post-traumatic stress disorder (PTSD): Status: Acute Code(s): F43.12 - Post-traumatic stress disorder, chronic Plan Bipolar Disorder with Psychotic Features, PTSD, Cocaine Use Disorder. 05/17: CAT Brain negative Decrease Baclofen to 5 mg tid prn withdrawal sx. 05/18: TDN filed Continue current regime. 05/19: Continue current regime. 05/21/2024: No changes Plan: Admit, CV, 15 minute checks Collateral contacts Re-establish medication regime Diagnostics as needed Discharge/Aftercare planning Chest xray-congestion Reason for continued inpatient stay Substantial Risk for: rapid decompensation Time Spent With Patient Time: Total time managing care of this patient today ____ minutes.
[2024-05-21 20:00] VITALS: BP 133/82; PULSE 98; TEMP 36.6; O2SAT 97
[2024-05-21] MEDS: Benztropine Mesylate 1 MG TABLET PO (21:23)
[2024-05-21] MEDS: traZODone HCL 50 MG TABLET PO (21:24)
[2024-05-21] MEDS: OXcarbazepine 300 MG TABLET PO (21:24)
[2024-05-21] MEDS: Baclofen 10 MG TABLET 5 MG PO (21:38)
[2024-05-21] MEDS: Ibuprofen 400 MG TABLET PO (21:40)
[2024-05-21] MEDS: Magnesium Hydrox/Alum Hydrox 30 ML ORAL.SUSP PO (21:56)
[2024-05-22 08:00] VITALS: BP 152/83; PULSE 84; TEMP 36.8; O2SAT 95
[2024-05-22] MEDS: Folic Acid 1 MG TABLET PO (08:11)
[2024-05-22] MEDS: lamoTRIgine 25 MG TABLET PO (08:11)
[2024-05-22] MEDS: ARIPiprazole 10 MG TABLET PO (08:11)
[2024-05-22] MEDS: Multivitamin TABLET 1 TAB PO (08:11)
[2024-05-22] MEDS: OXcarbazepine 150 MG TABLET PO (08:11)
[2024-05-22] MEDS: Thiamine HCL 100 MG TABLET PO (08:11)
[2024-05-22] MEDS: hydrOXYzine HCL 25 MG TABLET PO (08:13)
[2024-05-22] MEDS: Magnesium Hydrox/Alum Hydrox 30 ML ORAL.SUSP PO (08:34)
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
[2024-05-22] MEDS: Albuterol Sulfate 90 MCG 8 GM INHALER 2 PUFF INHALE (12:57)
[2024-05-22] MEDS: OLANZapine 5 MG TABLET PO (16:00)
[2024-05-22] MEDS: LORazepam 1 MG TABLET PO (16:00)
[2024-05-22 20:00] VITALS: BP 127/74; PULSE 84; RESP 18; TEMP 36.7; O2SAT 96
[2024-05-22] MEDS: traZODone HCL 50 MG TABLET PO (21:31)
[2024-05-22] MEDS: Benztropine Mesylate 1 MG TABLET PO (21:31)
[2024-05-22] MEDS: OXcarbazepine 300 MG TABLET PO (21:31)
[2024-05-22 23:54] VITALS: RESP 22
[2024-05-23] MEDS: Acetaminophen 325 MG TABLET 650 MG PO ×2 (04:51→18:05)
[2024-05-23 08:00] VITALS: BP 134/76; PULSE 72; RESP 18; TEMP 35.8; O2SAT 97
[2024-05-23] MEDS: lamoTRIgine 25 MG TABLET 50 MG PO (08:14)
[2024-05-23] MEDS: Folic Acid 1 MG TABLET PO (08:15)
[2024-05-23] MEDS: Multivitamin TABLET 1 TAB PO (08:15)
[2024-05-23] MEDS: Thiamine HCL 100 MG TABLET PO (08:15)
[2024-05-23] MEDS: ARIPiprazole 20 MG TABLET PO (08:15)
[2024-05-23] MEDS: OXcarbazepine 300 MG TABLET PO ×2 (08:16→20:48)
[2024-05-23] MEDS: Ibuprofen 400 MG TABLET PO ×2 (08:31→15:46)
[2024-05-23] MEDS: hydrOXYzine HCL 25 MG TABLET PO (08:31)
[2024-05-23] MEDS: Baclofen 10 MG TABLET 5 MG PO ×2 (08:31→15:47)
[2024-05-23] MEDS: Magnesium Hydrox/Alum Hydrox 30 ML ORAL.SUSP PO (09:49)
[2024-05-23 10:47] LABS: Influenza A PCR NEGATIVE (Negative); Influenza B PCR NEGATIVE (Negative); Resp Syncy Virus RNA Qual PCR NEGATIVE (Negative); SARS COV2 PCR INHOUSE NEGATIVE (Negative)
--- NOTE | 2024-05-23 17:08 | HO.PSYCHPN ---
Subjective Subjective Date of Service: 05/24/24 Reason For Visit: PTSD; Bipolar D/O w/ psychosis: cocaine use disord Subjective Notes: Conditional Voluntary and 3 Day Healthcare Proxy: No Guardianship: No Medical Problems Affecting Mental Status: No Interim History: Retracted three day notice and resigned a three day notice. Agrees to [facility] application. Discussed concerns in community and feeling being in hospital is preventing her from addressing these. States she needs to obtain a copy of her certificate for social security, food stamps and get a new phone and email address, which she cannot while being in pt. Medication Compliance: Yes Side effects from medications: No Attending Groups: Intermittent Review of Systems Acute medical concerns: No Medical Review of Systems: unchanged Review of Systems Review of Systems Denied Yes all other systems are reviewed and are negative Mental Status Exam Mental Status Exam Patient Appearance: Fatigued Patient Orientation: Person, Place, Time and Situation Level of Consciousness: Alert Patient Behavior: Talkative, Cooperative, Distractible and Good Eye Contact Mood Description: Labile Affect Description: Labile Patient Cognition Impaired: No Ability to Follow Directions: Fair Speech Pattern: Spontaneous Speech Memory Description: Episodic Impaired Hallucinations: None Delusions: Not Present Thought Process: Rumination Thought Content: positive for Perseveration Depressive Symptoms: Increased Anxiety, Diff. Making Decisions, Increased Irritability and Thoughts of /Suicide (denies today) Abnormal Motor Activity Signs and Symptoms: Restlessness Judgement: Fair Diagnostics Vital Signs (24Hr): Vital Signs - 24 hr 05/22/24 20:00 05/22/24 23:54 05/23/24 08:00 Temperature 98.1 F 96.4 F L Pulse Rate 84 72 Respiratory Rate 18 22 H 18 Blood Pressure 127/74 134/76 Pulse Oximetry 96 97 Oxygen Delivery Method Room Air Room Air BMI result Body Mass Index 42.0 Labs 05/11/24 22:49 05/11/24 22:49 Labs: Laboratory Results - last 48 hr 05/23/24 09:39 Influenza Type A (PCR) NEGATIVE Influenza Type B (PCR) NEGATIVE RSV RNA Qual (PCR) NEGATIVE SARS-CoV-2 RNA (RT-PCR) NEGATIVE Imaging Radiology Impressions: ITS Impressions Chest X-Ray 05/16/24 19:00 IMPRESSION: No active disease. Electronically signed by: Juan Gould MD 05/17/2024 12:25 PM [facility] Head CT 05/17/24 09:52 IMPRESSION: No acute intracranial pathology. Electronically signed by: Juan Gould MD 05/17/2024 03:11 PM [facility] Medications Medications Current Medications Acetaminophen (Acetaminophen 325 Mg Tablet) 650 mg PO Q6H PRN PRN Reason: Headache/Pain Mild Scale (1-3) Last Admin: 05/23/24 04:51 Dose: 650 mg Al Hydroxide/Mg Hydroxide (Magnesium Hydrox/Alum Hydrox 30 Ml Oral.Susp) 30 ml PO Q6H PRN PRN Reason: Heartburn/Nausea Last Admin: 05/23/24 09:49 Dose: 30 ml Albuterol Sulfate (Albuterol Sulfate 90 Mcg 8 Gm Inhaler) 2 puff INHALE RQ4H PRN PRN Reason: Wheezing Last Admin: 05/22/24 12:57 Dose: 2 puff Aripiprazole (Aripiprazole 20 Mg Tablet) 20 mg PO DAILY [facility] Last Admin: 05/23/24 08:15 Dose: 20 mg Baclofen (Baclofen 10 Mg Tablet) 5 mg PO TID PRN PRN Reason: withdrawal sx Last Admin: 05/23/24 15:47 Dose: 5 mg Benzocaine (Throat Lozenge, Medicated Lozenge) 1 lozenge MUCOUS MEM Q2H PRN PRN Reason: Sore Throat Last Admin: 05/20/24 21:51 Dose: 1 lozenge Benztropine Mesylate (Benztropine Mesylate 1 Mg Tablet) 1 mg PO BEDTIME [facility] Last Admin: 05/22/24 21:31 Dose: 1 mg Folic Acid (Folic Acid 1 Mg Tablet) 1 mg PO DAILY [facility] Last Admin: 05/23/24 08:15 Dose: 1 mg Guaifenesin (Guaifenesin 100 Mg/5 Ml 5 Ml Liquid) 5 ml PO Q6H PRN PRN Reason: Cough Last Admin: 05/18/24 16:57 Dose: 5 ml Guaifenesin (Guaifenesin La 600 Mg Tab.Er.12h) 600 mg PO BID PRN PRN Reason: Cough Last Admin: 05/19/24 17:41 Dose: 600 mg Hydroxyzine HCl (Hydroxyzine Hcl 25 Mg Tablet) 25 mg PO Q6H PRN PRN Reason: Anxiety Last Admin: 05/23/24 08:31 Dose: 25 mg Ibuprofen (Ibuprofen 400 Mg Tablet) 400 mg PO Q6H PRN PRN Reason: Pain, Moderate(Pain Scale 4-6) Last Admin: 05/23/24 15:46 Dose: 400 mg Lamotrigine (Lamotrigine 25 Mg Tablet) 50 mg PO DAILY [facility] Last Admin: 05/23/24 08:14 Dose: 50 mg Magnesium Hydroxide (Milk Of Magnesia 30 Ml Oral.Susp) 30 ml PO DAILY PRN PRN Reason: Constipation Multivitamins/Vitamin C (Multivitamin Tablet) 1 tab PO DAILY [facility] Last Admin: 05/23/24 08:15 Dose: 1 tab Nicotine (Nicotine 21 Mg Patch.Td24) 21 mg TRANSDERMA DAILY PRN PRN Reason: nicotine cravings Nicotine Polacrilex (Nicotine Polacrilex 2 Mg Gum) 4 mg BUCCAL Q2H PRN PRN Reason: Nicotine Cravings Last Admin: 05/20/24 21:50 Dose: 4 mg Oxcarbazepine (Oxcarbazepine 300 Mg Tablet) 300 mg PO BID [facility] Last Admin: 05/23/24 08:16 Dose: 300 mg Thiamine HCl (Thiamine Hcl 100 Mg Tablet) 100 mg PO DAILY [facility] Last Admin: 05/23/24 08:15 Dose: 100 mg Trazodone HCl (Trazodone Hcl 50 Mg Tablet) 50 mg PO BEDTIME [facility] Last Admin: 05/22/24 21:31 Dose: 50 mg Allergies Allergies Allergy/AdvReac Type Severity Reaction Status Date / Time No Known Allergies Allergy Verified 05/12/24 11:04 Assessment & Plan Assessment & Plan (1) Bipolar disorder with psychotic features: Status: Acute Code(s): F31.9 - Bipolar disorder, unspecified (2) Cocaine dependence: Qualifiers: Substance use status: with unspecified cocaine-induced disorder Qualified Code(s): F14.29 - Cocaine dependence with unspecified cocaine-induced disorder Status: Acute Code(s): F14.20 - Cocaine dependence, uncomplicated (3) Chronic post-traumatic stress disorder (PTSD): Status: Acute Code(s): F43.12 - Post-traumatic stress disorder, chronic Plan Bipolar Disorder with Psychotic Features, PTSD, Cocaine Use Disorder. 05/17: CAT Brain negative Decrease Baclofen to 5 mg tid prn withdrawal sx. 12//12: TDN filed Continue current regime. 05/19: Continue current regime. 05/21/2024: No changes 05/22- Increase Abilify to 20 mg Increase Lamictal to 50 mg Increase Trileptal to 300 mg bid 05/23- Continue plan and regime New TDN signed to 05/26. Plan: Admit, CV, 15 minute checks Collateral contacts Re-establish medication regime Diagnostics as needed Discharge/Aftercare planning Chest xray-congestion Reason for continued inpatient stay Substantial Risk for: rapid decompensation Time Spent With Patient Time: Total time managing care of this patient today ____ minutes.
[2024-05-23 20:00] VITALS: BP 146/85; PULSE 97; O2SAT 97
[2024-05-23] MEDS: traZODone HCL 50 MG TABLET PO (20:48)
[2024-05-23] MEDS: Benztropine Mesylate 1 MG TABLET PO (20:48)
[2024-05-23 23:32] VITALS: RESP 18
[2024-05-24] MEDS: lamoTRIgine 25 MG TABLET 50 MG PO (09:27)
[2024-05-24] MEDS: ARIPiprazole 20 MG TABLET PO (09:28)
[2024-05-24] MEDS: Multivitamin TABLET 1 TAB PO (09:28)
[2024-05-24] MEDS: Thiamine HCL 100 MG TABLET PO (09:29)
[2024-05-24] MEDS: Folic Acid 1 MG TABLET PO (09:29)
[2024-05-24] MEDS: OXcarbazepine 300 MG TABLET PO ×2 (09:31→21:24)
[2024-05-24 09:53] VITALS: BP 148/90; PULSE 87; TEMP 36; O2SAT 99
[2024-05-24] MEDS: Milk of Magnesia 30 ML ORAL.SUSP PO (13:03)
--- NOTE | 2024-05-24 14:21 | HO.PSYCHPN ---
Subjective Subjective Date of Service: 05/24/24 Reason For Visit: PTSD; Bipolar D/O w/ psychosis: cocaine use disord Subjective Notes: Conditional Voluntary and 3 Day Healthcare Proxy: No Guardianship: No Medical Problems Affecting Mental Status: No Interim History: Clearer and more organized today. May I leave tomorrow.? I believe my identity is compromised. I need to discuss this with social security, DTA for my food stamps (has $330 on her card-we checked via phone), also phone, [employer] and email. I need to be told what to do. Agrees to discharge tomorrow. Several calls today, pt is organizing herself. Later in the day she asked to talk with tw and stated, being homeless is poor judgment . I will probably relapse. When you relapse you risk your life and others lives. Am I still on the [facility] list? I know I could benefit from their help. Checked with team, pt is still on the list and would like to remain on it. We will postpone discharge, pt is clearer in her thought process and judgment. Will continue the plan with [facility]. Medication Compliance: Yes Side effects from medications: No Attending Groups: Intermittent Review of Systems Acute medical concerns: No Medical Review of Systems: unchanged Review of Systems Review of Systems Yes all other systems are reviewed and are negative Mental Status Exam Mental Status Exam Patient Appearance: Appropriate Patient Orientation: Person, Place, Time and Situation Level of Consciousness: Alert Patient Behavior: Talkative, Cooperative and Good Eye Contact Mood Description: Constricted Affect Description: Constricted Patient Cognition Impaired: No Ability to Follow Directions: Good Speech Pattern: Spontaneous Speech Memory Description: Episodic Impaired Hallucinations: None Delusions: Not Present Thought Process: Rumination Thought Content: positive for Perseveration and positive for Suicidal Ideation (denies) Depressive Symptoms: Increased Anxiety, Diff. Making Decisions and Thoughts of /Suicide (denies today) Judgement: Good Diagnostics Vital Signs (24Hr): Vital Signs - 24 hr 05/23/24 20:00 05/23/24 23:32 05/24/24 09:53 Temperature 96.8 F Pulse Rate 97 87 Respiratory Rate 18 Blood Pressure 146/85 H 148/90 H Pulse Oximetry 97 99 Oxygen Delivery Method Room Air Room Air BMI result Body Mass Index 42.0 Labs 05/11/24 22:49 05/11/24 22:49 Labs: Laboratory Results - last 48 hr 05/23/24 09:39 Influenza Type A (PCR) NEGATIVE Influenza Type B (PCR) NEGATIVE RSV RNA Qual (PCR) NEGATIVE SARS-CoV-2 RNA (RT-PCR) NEGATIVE Imaging Radiology Impressions: ITS Impressions Chest X-Ray 05/16/24 19:00 IMPRESSION: No active disease. Electronically signed by: Juan Gould MD 05/17/2024 12:25 PM EST RP Head CT 05/17/24 09:52 IMPRESSION: No acute intracranial pathology. Electronically signed by: Juan Gould MD 05/17/2024 03:11 PM EST RP Medications Medications Current Medications Acetaminophen (Acetaminophen 325 Mg Tablet) 650 mg PO Q6H PRN PRN Reason: Headache/Pain Mild Scale (1-3) Last Admin: 05/23/24 18:05 Dose: 650 mg Al Hydroxide/Mg Hydroxide (Magnesium Hydrox/Alum Hydrox 30 Ml Oral.Susp) 30 ml PO Q6H PRN PRN Reason: Heartburn/Nausea Last Admin: 05/23/24 09:49 Dose: 30 ml Albuterol Sulfate (Albuterol Sulfate 90 Mcg 8 Gm Inhaler) 2 puff INHALE RQ4H PRN PRN Reason: Wheezing Last Admin: 05/22/24 12:57 Dose: 2 puff Aripiprazole (Aripiprazole 20 Mg Tablet) 20 mg PO DAILY LAINEY Last Admin: 05/24/24 09:28 Dose: 20 mg Baclofen (Baclofen 10 Mg Tablet) 5 mg PO TID PRN PRN Reason: withdrawal sx Last Admin: 05/23/24 15:47 Dose: 5 mg Benzocaine (Throat Lozenge, Medicated Lozenge) 1 lozenge MUCOUS MEM Q2H PRN PRN Reason: Sore Throat Last Admin: 05/20/24 21:51 Dose: 1 lozenge Benztropine Mesylate (Benztropine Mesylate 1 Mg Tablet) 1 mg PO BEDTIME LAINEY Last Admin: 05/23/24 20:48 Dose: 1 mg Folic Acid (Folic Acid 1 Mg Tablet) 1 mg PO DAILY LAINEY Last Admin: 05/24/24 09:29 Dose: 1 mg Guaifenesin (Guaifenesin 100 Mg/5 Ml 5 Ml Liquid) 5 ml PO Q6H PRN PRN Reason: Cough Last Admin: 05/18/24 16:57 Dose: 5 ml Guaifenesin (Guaifenesin La 600 Mg Tab.Er.12h) 600 mg PO BID PRN PRN Reason: Cough Last Admin: 05/19/24 17:41 Dose: 600 mg Hydroxyzine HCl (Hydroxyzine Hcl 25 Mg Tablet) 25 mg PO Q6H PRN PRN Reason: Anxiety Last Admin: 05/23/24 08:31 Dose: 25 mg Ibuprofen (Ibuprofen 400 Mg Tablet) 400 mg PO Q6H PRN PRN Reason: Pain, Moderate(Pain Scale 4-6) Last Admin: 05/23/24 15:46 Dose: 400 mg Lamotrigine (Lamotrigine 25 Mg Tablet) 50 mg PO DAILY [facility] Last Admin: 05/24/24 09:27 Dose: 50 mg Magnesium Hydroxide (Milk Of Magnesia 30 Ml Oral.Susp) 30 ml PO DAILY PRN PRN Reason: Constipation Last Admin: 05/24/24 13:03 Dose: 30 ml Multivitamins/Vitamin C (Multivitamin Tablet) 1 tab PO DAILY [facility] Last Admin: 05/24/24 09:28 Dose: 1 tab Nicotine (Nicotine 21 Mg Patch.Td24) 21 mg TRANSDERMA DAILY PRN PRN Reason: nicotine cravings Nicotine Polacrilex (Nicotine Polacrilex 2 Mg Gum) 4 mg BUCCAL Q2H PRN PRN Reason: Nicotine Cravings Last Admin: 05/20/24 21:50 Dose: 4 mg Omeprazole (Omeprazole 20 Mg Capsule.Dr) 20 mg PO BID@0630,1630 [facility] Oxcarbazepine (Oxcarbazepine 300 Mg Tablet) 300 mg PO BID [facility] Last Admin: 05/24/24 09:31 Dose: 300 mg Thiamine HCl (Thiamine Hcl 100 Mg Tablet) 100 mg PO DAILY [facility] Last Admin: 05/24/24 09:29 Dose: 100 mg Trazodone HCl (Trazodone Hcl 50 Mg Tablet) 50 mg PO BEDTIME [facility] Last Admin: 05/23/24 20:48 Dose: 50 mg Allergies Allergies Allergy/AdvReac Type Severity Reaction Status Date / Time No Known Allergies Allergy Verified 05/12/24 11:04 Assessment & Plan Assessment & Plan (1) Bipolar disorder with psychotic features: Status: Acute Code(s): F31.9 - Bipolar disorder, unspecified (2) Cocaine dependence: Qualifiers: Substance use status: with unspecified cocaine-induced disorder Qualified Code(s): F14.29 - Cocaine dependence with unspecified cocaine-induced disorder Status: Acute Code(s): F14.20 - Cocaine dependence, uncomplicated (3) Chronic post-traumatic stress disorder (PTSD): Status: Acute Code(s): F43.12 - Post-traumatic stress disorder, chronic Plan Bipolar Disorder with Psychotic Features, PTSD, Cocaine Use Disorder. 05/17: CAT Brain negative Decrease Baclofen to 5 mg tid prn withdrawal sx. 05/18: TDN filed Continue current regime. 05/19: Continue current regime. 05/21/2024: No changes 05/22- Increase Abilify to 20 mg Increase Lamictal to 50 mg Increase Trileptal to 300 mg bid 05/24- Continue current plan/regime Looking to admit to [facility]. Plan: Admit, CV, 15 minute checks Collateral contacts Re-establish medication regime Diagnostics as needed Discharge/Aftercare planning Chest xray-congestion Reason for continued inpatient stay Substantial Risk for: rapid decompensation Time Spent With Patient Time: Total time managing care of this patient today ____ minutes.
[2024-05-24] MEDS: Omeprazole 20 MG CAPSULE.DR PO (16:45)
[2024-05-24 20:00] VITALS: BP 139/89; PULSE 96; RESP 18; TEMP 36.9; O2SAT 99
[2024-05-24] MEDS: traZODone HCL 50 MG TABLET PO (21:24)
[2024-05-24] MEDS: Benztropine Mesylate 1 MG TABLET PO (21:24)
[2024-05-25] MEDS: Albuterol Sulfate 90 MCG 8 GM INHALER 2 PUFF INHALE (05:06)
[2024-05-25] MEDS: Ibuprofen 400 MG TABLET PO ×3 (05:06→21:53)
[2024-05-25 07:00] VITALS: BMI 44.1
[2024-05-25] MEDS: Thiamine HCL 100 MG TABLET PO (08:00)
[2024-05-25] MEDS: Folic Acid 1 MG TABLET PO (08:00)
[2024-05-25] MEDS: Omeprazole 20 MG CAPSULE.DR PO ×2 (08:00→18:33)
[2024-05-25] MEDS: Multivitamin TABLET 1 TAB PO (08:01)
[2024-05-25] MEDS: lamoTRIgine 25 MG TABLET 50 MG PO (08:01)
[2024-05-25] MEDS: OXcarbazepine 300 MG TABLET PO ×2 (08:01→21:54)
[2024-05-25] MEDS: ARIPiprazole 20 MG TABLET PO (08:01)
[2024-05-25 08:54] VITALS: BP 142/83; PULSE 80; RESP 18; TEMP 36.9; O2SAT 97
--- NOTE | 2024-05-25 09:57 | HO.PSYCHPN ---
Subjective Subjective Date of Service: 05/25/24 Reason For Visit: PTSD; Bipolar D/O w/ psychosis: cocaine use disord Subjective Notes: Conditional Voluntary and 3 Day Healthcare Proxy: No Guardianship: No Medical Problems Affecting Mental Status: No Interim History: Pt has decided to DC on 05/26 as there are no [facility] beds at this time. She spent the day gathering resources. She plans to get a copy of her certificate, go to the social security office, sign up for identity protection with [employer], go to the food stamp office and connect with a friend from and [employer] for possible housing resources. She spent this afternoon calling shelters. To team this a.m. she reported vertigo and tasting metallic type of taste in her mouth. This afternoon, she denies these sx. TDN to 05/26. She will not consider retraction at this time. Medication Compliance: Yes Side effects from medications: No Attending Groups: Intermittent Review of Systems Acute medical concerns: No Review of Systems Review of Systems Yes all other systems are reviewed and are negative Mental Status Exam Mental Status Exam Patient Appearance: Appropriate Patient Orientation: Person, Place, Time and Situation Level of Consciousness: Alert Patient Behavior: Talkative, Cooperative and Good Eye Contact Mood Description: Constricted Affect Description: Constricted Patient Cognition Impaired: No Ability to Follow Directions: Good Speech Pattern: Spontaneous Speech Memory Description: Episodic Impaired Hallucinations: None Delusions: Not Present Thought Process: Rumination Thought Content: positive for Perseveration and positive for Suicidal Ideation (denies) Depressive Symptoms: Increased Anxiety, Diff. Making Decisions and Thoughts of /Suicide (denies today) Judgement: Good Diagnostics Vital Signs (24Hr): Vital Signs - 24 hr 05/24/24 20:00 05/25/24 08:54 Temperature 98.5 F 98.4 F Pulse Rate 96 80 Respiratory Rate 18 18 Blood Pressure 139/89 142/83 H Pulse Oximetry 99 97 Oxygen Delivery Method Room Air Room Air BMI result Body Mass Index 42.0 Labs 05/11/24 22:49 05/25/24 16:27 Labs: Laboratory Results - last 48 hr 05/23/24 09:39 Influenza Type A (PCR) NEGATIVE Influenza Type B (PCR) NEGATIVE RSV RNA Qual (PCR) NEGATIVE SARS-CoV-2 RNA (RT-PCR) NEGATIVE Imaging Radiology Impressions: ITS Impressions Chest X-Ray 05/16/24 19:00 IMPRESSION: No active disease. Electronically signed by: Juan Gould MD 05/17/2024 12:25 PM EST RP Head CT 05/17/24 09:52 IMPRESSION: No acute intracranial pathology. Electronically signed by: Juan Gould MD 05/17/2024 03:11 PM EST RP Medications Medications Current Medications Acetaminophen (Acetaminophen 325 Mg Tablet) 650 mg PO Q6H PRN PRN Reason: Headache/Pain Mild Scale (1-3) Last Admin: 05/23/24 18:05 Dose: 650 mg Al Hydroxide/Mg Hydroxide (Magnesium Hydrox/Alum Hydrox 30 Ml Oral.Susp) 30 ml PO Q6H PRN PRN Reason: Heartburn/Nausea Last Admin: 05/23/24 09:49 Dose: 30 ml Albuterol Sulfate (Albuterol Sulfate 90 Mcg 8 Gm Inhaler) 2 puff INHALE RQ4H PRN PRN Reason: Wheezing Last Admin: 05/25/24 05:06 Dose: 2 puff Aripiprazole (Aripiprazole 20 Mg Tablet) 20 mg PO DAILY LAINEY Last Admin: 05/25/24 08:01 Dose: 20 mg Baclofen (Baclofen 10 Mg Tablet) 5 mg PO TID PRN PRN Reason: withdrawal sx Last Admin: 05/23/24 15:47 Dose: 5 mg Benzocaine (Throat Lozenge, Medicated Lozenge) 1 lozenge MUCOUS MEM Q2H PRN PRN Reason: Sore Throat Last Admin: 05/20/24 21:51 Dose: 1 lozenge Benztropine Mesylate (Benztropine Mesylate 1 Mg Tablet) 1 mg PO BEDTIME LAINEY Last Admin: 05/24/24 21:24 Dose: 1 mg Folic Acid (Folic Acid 1 Mg Tablet) 1 mg PO DAILY LAINEY Last Admin: 05/25/24 08:00 Dose: 1 mg Guaifenesin (Guaifenesin 100 Mg/5 Ml 5 Ml Liquid) 5 ml PO Q6H PRN PRN Reason: Cough Last Admin: 05/18/24 16:57 Dose: 5 ml Guaifenesin (Guaifenesin La 600 Mg Tab.Er.12h) 600 mg PO BID PRN PRN Reason: Cough Last Admin: 05/19/24 17:41 Dose: 600 mg Hydroxyzine HCl (Hydroxyzine Hcl 25 Mg Tablet) 25 mg PO Q6H PRN PRN Reason: Anxiety Last Admin: 05/23/24 08:31 Dose: 25 mg Ibuprofen (Ibuprofen 400 Mg Tablet) 400 mg PO Q6H PRN PRN Reason: Pain, Moderate(Pain Scale 4-6) Last Admin: 05/25/24 05:06 Dose: 400 mg Lamotrigine (Lamotrigine 25 Mg Tablet) 50 mg PO DAILY [facility] Last Admin: 05/25/24 08:01 Dose: 50 mg Magnesium Hydroxide (Milk Of Magnesia 30 Ml Oral.Susp) 30 ml PO DAILY PRN PRN Reason: Constipation Last Admin: 05/24/24 13:03 Dose: 30 ml Multivitamins/Vitamin C (Multivitamin Tablet) 1 tab PO DAILY [facility] Last Admin: 05/25/24 08:01 Dose: 1 tab Nicotine (Nicotine 21 Mg Patch.Td24) 21 mg TRANSDERMA DAILY PRN PRN Reason: nicotine cravings Nicotine Polacrilex (Nicotine Polacrilex 2 Mg Gum) 4 mg BUCCAL Q2H PRN PRN Reason: Nicotine Cravings Last Admin: 05/20/24 21:50 Dose: 4 mg Omeprazole (Omeprazole 20 Mg Capsule.Dr) 20 mg PO BID@0630,1630 [facility] Last Admin: 05/25/24 08:00 Dose: 20 mg Oxcarbazepine (Oxcarbazepine 300 Mg Tablet) 300 mg PO BID [facility] Last Admin: 05/25/24 08:01 Dose: 300 mg Thiamine HCl (Thiamine Hcl 100 Mg Tablet) 100 mg PO DAILY [facility] Last Admin: 05/25/24 08:00 Dose: 100 mg Trazodone HCl (Trazodone Hcl 50 Mg Tablet) 50 mg PO BEDTIME [facility] Last Admin: 05/24/24 21:24 Dose: 50 mg Allergies Allergies Allergy/AdvReac Type Severity Reaction Status Date / Time No Known Allergies Allergy Verified 05/12/24 11:04 Assessment & Plan Assessment & Plan (1) Bipolar disorder with psychotic features: Status: Acute Code(s): F31.9 - Bipolar disorder, unspecified (2) Cocaine dependence: Qualifiers: Substance use status: with unspecified cocaine-induced disorder Qualified Code(s): F14.29 - Cocaine dependence with unspecified cocaine-induced disorder Status: Acute Code(s): F14.20 - Cocaine dependence, uncomplicated (3) Chronic post-traumatic stress disorder (PTSD): Status: Acute Code(s): F43.12 - Post-traumatic stress disorder, chronic Plan Bipolar Disorder with Psychotic Features, PTSD, Cocaine Use Disorder. 05/17: CAT Brain negative Decrease Baclofen to 5 mg tid prn withdrawal sx. 05/18: TDN filed Continue current regime. 05/19: Continue current regime. 05/21/2024: No changes 05/22- Increase Abilify to 20 mg Increase Lamictal to 50 mg Increase Trileptal to 300 mg bid 05/24- Continue current plan/regime Looking to admit to [facility]. 05/25- TDN to 05/26. Pt planning discharge. Plan: Admit, CV, 15 minute checks Collateral contacts Re-establish medication regime Diagnostics as needed Discharge/Aftercare planning Chest xray-congestion Reason for continued inpatient stay Substantial Risk for: stable for discharge Time Spent With Patient Time: Total time managing care of this patient today ____ minutes.
[2024-05-25] MEDS: Nicotine Polacrilex 2 MG GUM 4 MG BUCCAL (14:03)
[2024-05-25 16:48] LABS: Alanine Aminotransferase 43 U/L (0-31); Albumin Level 3.9 g/dL (3.5-5.0); Alkaline Phosphatase 61 U/L (39-117); Anion Gap 12 (12-20); Aspartate Amino Transferase 30 U/L (5-31); Bilirubin Total 0.2 mg/dL (0.0-1.0); Blood Urea Nitrogen 21 mg/dL (9-16); Calcium 8.8 mg/dL (8.4-10.2); Carbon Dioxide 24 mmol/L (22-29); Chloride 107 mmol/L (96-108); Estimated Glomerular Filt Rate > 60; Glucose Random 127 mg/dL (60-115); Potassium 3.9 mmol/L (3.3-5.1); Sodium 139 mmol/L (135-145); Total Protein 7.6 g/dL (6.5-8.0)
[2024-05-25] MEDS: traZODone HCL 50 MG TABLET PO (21:54)
[2024-05-25] MEDS: Benztropine Mesylate 1 MG TABLET PO (21:54)
[2024-05-25 23:24] VITALS: PULSE 80; RESP 24; O2SAT 97
[2024-05-26 08:00] VITALS: BP 149/89; PULSE 97; RESP 16; TEMP 36.3; O2SAT 94
[2024-05-26] MEDS: ARIPiprazole 20 MG TABLET PO (08:46)
[2024-05-26] MEDS: Omeprazole 20 MG CAPSULE.DR PO (08:46)
[2024-05-26] MEDS: lamoTRIgine 25 MG TABLET 50 MG PO (08:46)
[2024-05-26] MEDS: OXcarbazepine 300 MG TABLET PO (08:46)
[2024-05-26] MEDS: Multivitamin TABLET 1 TAB PO (08:46)
[2024-05-26] MEDS: Folic Acid 1 MG TABLET PO (08:46)
[2024-05-26] MEDS: Thiamine HCL 100 MG TABLET PO (08:47)
[2024-05-26] MEDS: Ibuprofen 400 MG TABLET PO (08:47)
--- NOTE | 2024-05-26 10:28 | PM.PSYDC ---
DS: Providers Provider Date of admission: 05/15/24 12:00 Primary care physician: Unknown Physician DS: Diagnosis Discharge Diagnosis (1) Bipolar disorder with psychotic features: Status: Acute (2) Cocaine dependence: Status: Acute (3) Chronic post-traumatic stress disorder (PTSD): Status: Acute DS: Medications Discharge Medications Home Medications: Previous Rx's ?Medication ?Instructions ?Recorded albuterol sulfate 90 mcg/actuation 2 puff inhalation RQ4H PRN 05/26/24 aerosol inhaler (Ventolin HFA) Wheezing #1 inhaler aripiprazole 20 mg tablet (Abilify) 20 mg PO DAILY #7 tabs 05/26/24 benztropine 1 mg tablet 1 mg PO BEDTIME #7 tabs 05/26/24 folic acid 1 mg tablet 1 mg PO DAILY #7 tabs 05/26/24 lamotrigine 25 mg tablet 50 mg (2 x 25 mg) PO DAILY #14 tabs 05/26/24 multivitamin (Daily-Pasquale tablet) 1 tab PO DAILY #7 tabs 05/26/24 naloxone 4 mg/actuation nasal 4 mg intranasal Q2M PRN opioid 05/26/24 spray (Narcan) overdose #2 ea nicotine (polacrilex) 2 mg gum 4 mg buccal Q2H PRN Nicotine 05/26/24 Cravings #60 ea omeprazole 20 mg capsule,delayed 20 mg PO BID@0630,1630 #14 caps 05/26/24 release oxcarbazepine 300 mg tablet 300 mg PO BID #14 tabs 05/26/24 thiamine mononitrate (vit B1) 100 100 mg PO DAILY #7 tabs 05/26/24 mg tablet trazodone 50 mg tablet 50 mg PO BEDTIME #7 tabs 05/26/24 Data Data Completed and Pending Completed studies during hospitalization [Text1]: 05/23/24 05/25/24 09:39 16:27 Sodium 139 Potassium 3.9 Chloride 107 Carbon Dioxide 24 Anion Gap 12 BUN 21 H Creatinine 0.91 Estim Creat Clear Calc 68.0 Estimated GFR > 60 Random Glucose 127 H Calcium 8.8 Total Bilirubin 0.2 AST 30 ALT 43 H Alkaline Phosphatase 61 Total Protein 7.6 Albumin 3.9 Influenza Type A (PCR) NEGATIVE Influenza Type B (PCR) NEGATIVE RSV RNA Qual (PCR) NEGATIVE SARS-CoV-2 RNA (RT-PCR) NEGATIVE 05/18/24 Unknown Urine clean catch - Clean Catch Midstream Urine Culture - Final Imaging Diagnostic Imaging Impressions Chest X-Ray 05/16/24 19:00 IMPRESSION: No active disease. Electronically signed by: Juan Gould MD 05/17/2024 12:25 PM EST RP Head CT 05/17/24 09:52 IMPRESSION: No acute intracranial pathology. Electronically signed by: Juan Gould MD 05/17/2024 03:11 PM EST RP DS: Summary Time Spent with Patient Time attestation: Total time managing care of this patient today ____ minutes. 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 You may continue to call to follow up, if you maintain sobriety and continue calling, they may still consider taking you when a bed is available. ) [facility] [Other] - 1 Week ([facility] Patient may self present and complete intake for assistance in accessing nursing home.) [facility] ([facility]): [facility] [Other] - 1 Week (You were discharged from your therapist due to multiple missed appointments; you will have to walk-in to the [facility] Wednesday through Wednesday 8am-8pm or Sat & Sun 9am-5pm to request to complete an intake for therapy services. ) Physician,Unknown J [Primary Care Provider] - 1 Week Discharge Medications: New trazodone 50 mg Tablet 50 mg PO BEDTIME Qty: 7 0RF nicotine (polacrilex) 2 mg Gum 4 mg buccal Q2H PRN (Reason: Nicotine Cravings) Qty: 60 0RF oxcarbazepine 300 mg Tablet 300 mg PO BID Qty: 14 4RF lamotrigine 25 mg Tablet 50 mg PO DAILY Qty: 14 4RF benztropine 1 mg Tablet 1 mg PO BEDTIME Qty: 7 4RF albuterol sulfate [Ventolin HFA] 90 mcg/actuation Hfa Aerosol Inhaler 2 puff inhalation RQ4H PRN (Reason: Wheezing) Qty: 1 0RF aripiprazole [Abilify] 20 mg Tablet 20 mg PO DAILY Qty: 7 4RF multivitamin [Daily-Pasquale] Tablet 1 tab PO DAILY Qty: 7 0RF omeprazole 20 mg Capsule,Delayed Release(Dr/Ec) 20 mg PO BID@0630,1630 Qty: 14 0RF folic acid 1 mg Tablet 1 mg PO DAILY Qty: 7 4RF thiamine mononitrate (vit B1) 100 mg Tablet 100 mg PO DAILY Qty: 7 0RF naloxone [Narcan] 4 mg/actuation spray,non-aerosol 4 mg intranasal Q2M PRN (Reason: opioid overdose) Qty: 2 0RF Rx Instructions: spray 1 dose into ONE nostril; alternate nostrils w each dose until help arrives Discharge Orders: Discharge Order (Routine); Ordered 05/26/24 Ordered By: Anette Salazar Diet: Advance to usual diet Activity on Discharge: As tolerated Stand Alone Forms: Patient Portal Discharge page Print Language: Polish Care Plan Goals: Mood and Behavioral Stabilization Abstinence from substances Health Concerns: Mood and Behavioral Stabilization Abstinence from substances Plan of Treatment: Attend scheduled appointments Take medications as directed Call/Return if needed Assessment: Pt leaves today on a three day notice of intent Denies SI/HI/AH/VH No sx of acute raudel or psychosis
== END 2024-05-26 11:53 | disposition home or self-care (01) | DRG 885 ==
LOC: HO.ED 05-12 06:54 → HO.PM5 05-15 12:01
PROVIDERS: Nurse Practitioner Family; Admitting Provider Clinical Nurse Specialist Psychiatric/Mental Health, Adult; Emergency Provider Emergency Medicine Emergency Medical Services; Visit Provider Clinical Nurse Specialist Psychiatric/Mental Health, Adult
DX: F31.9 Bipolar disorder, unspecified (principal); R45.851 Suicidal ideations; Z59.02 Unsheltered homelessness; F14.20 Cocaine dependence, uncomplicated; F43.12 Post-traumatic stress disorder, chronic; F17.210 Nicotine dependence, cigarettes, uncomplicated; Z71.6 Tobacco abuse counseling; Z20.822 Contact with and (suspected) exposure to COVID-19; Z79.899 Other long term (current) drug therapy
CPT/HCPCS: 0241U; 36415; 70450; 71046; 80053; 80061; 80143; 80179; 80307; 81001; 82607; 82746; 82947; 83036; 83735; 84439; 84443; 85025; 87086; 90656; 93005; 94660; 99285; S9485

== ENCOUNTER → 2024-05-11 22:07 | Outpatient (BNV) | payer OTHER, SELFPAY | PROVIDERS: Emergency Provider Emergency Medicine Emergency Medical Services; Visit Provider Psychiatry & Neurology Psychiatry | DX: F31.5 Bipolar disorder, current episode depressed, severe, with psychotic features (principal); F14.29 Cocaine dependence with unspecified cocaine-induced disorder; F43.12 Post-traumatic stress disorder, chronic | CPT/HCPCS: 90792; 99232 ==

== ENCOUNTER → 2024-05-12 11:06 | Outpatient (BNV) | payer OTHER, SELFPAY | PROVIDERS: Emergency Provider Emergency Medicine Emergency Medical Services; Visit Provider Internal Medicine Cardiovascular Disease | DX: I45.81 Long QT syndrome (principal) | CPT/HCPCS: 93010 ==

== ENCOUNTER 2024-05-27 01:49 | Inpatient (IN) | payer OTHER, SELFPAY ==
--- NOTE | 2024-05-27 | ECG_ITS ---
Test Reason : MED CLERANCE Blood Pressure : / mmHG Vent. Rate : 074 BPM Atrial Rate : 074 BPM P-R Int : 154 ms QRS Dur : 076 ms QT Int : 398 ms P-R-T Axes : 050 045 043 degrees QTc Int : 441 ms Normal sinus rhythm Nonspecific T wave abnormality Borderline ECG When compared with ECG of 12-MAY-2024 11:06, No significant change was found Referred By: Ally Hoffman Electronically Signed By:DAYANA GONZALEZ
--- NOTE | ~2024-05-27 | XR_ITS ---
CLINICAL HISTORY: sob 1 view chest x-ray Comparison: CR/SR - XR CHEST 2V - 05/16/24 19:14 EST Findings: No consolidation or effusion. Normal size heart. No acute fracture. IMPRESSION: 1. No acute findings. This document has been electronically signed by: Gayla Amado MD on 06/07/2024 14:46:53
--- NOTE | ~2024-05-27 | XR_ITS ---
EXAMINATION: XR CLAVICLE, LEFT CLINICAL INFORMATION: pain, reports carrying heavy luggage, homeless COMPARISON: None available. TECHNIQUE: Two views of the left clavicle. FINDINGS: No acute fracture or dislocation. Moderate acromioclavicular osteoarthritis. No concerning lytic or blastic osseous lesion. Partially visualized distal infraspinatus calcific tendinitis. XR/XR clavicle LT IMPRESSION: 1. Moderate acromioclavicular osteoarthritis. 2. Partially visualized distal infraspinatus calcific tendinitis. Electronically signed by: Killian Lion MD 05/29/2024 05:00 PM YORDY ALANIS
--- NOTE | ~2024-05-27 | XR_ITS ---
EXAMINATION: XR SHOULDER, LEFT CLINICAL INFORMATION: pain, carrying luggage, homeless COMPARISON: None available. TECHNIQUE: AP external rotation, Grashey, scapular Y, and axillary views of the left shoulder. FINDINGS: No acute fracture or dislocation. Moderate acromioclavicular and mild glenohumeral osteoarthritis. No concerning lytic or blastic osseous lesion. Dilated calcifications adjacent to the greater tuberosity and in the region of the distal infraspinatus tendon measuring up to 0.7 and 0.4 cm, consistent calcific tendinitis. XR/XR shoulder LT min 2V IMPRESSION: 1. No acute fracture or dislocation. 2. Moderate acromioclavicular and mild glenohumeral osteoarthritis. 3. Distal infraspinatus calcific tendinitis. Electronically signed by: Killian Lion MD 05/29/2024 04:59 PM EST
[2024-05-27 02:12] VITALS: BP 155/97; BP 158/122; PULSE 86; PULSE 88; RESP 17; TEMP 36.4; O2SAT 97; O2SAT 98; BMI 37.8
[2024-05-27 02:17] VITALS: BP 155/97; PULSE 86; RESP 17; TEMP 36.4; O2SAT 97
[2024-05-27 03:15] LABS: MANUAL DIFF FLAG NO
[2024-05-27 03:19] LABS: Basophils Absolute Auto 0.1 X10*3/uL (0.0-0.2); Basophils Percent Auto 0.5 % (0-2); Eosinophils Absolute Auto 0.2 X10*3/uL (0.0-0.4); Eosinophils Percent Auto 1.8 % (0-4); Hematocrit 40.2 % (37.0-47.0); Hemoglobin 13.2 g/dl (12.0-16.0); Imm Gran Abs Auto 0.02 X10*3/uL (0.00-0.03); Imm Gran Pct Auto 0.2 % (0.0-0.4); Lymphocytes Percent Auto 26.7 % (20-40); Mean Corpuscular HGB Conc 32.8 g/dl (31.0-35.0); Mean Corpuscular Hemoglobin 27.5 pg (27.0-33.0); Mean Corpuscular Volume 83.8 fL (80.0-98.0); Mean Platelet Volume 9.3 fL (9.4-12.3); Monocytes Absolute Auto 0.6 X10*3/uL (0.1-1.2); Monocytes Percent Auto 5.6 % (2-11); Neutrophils Absolute Auto 7.4 x10*3/uL (2.0-8.3); Neutrophils Percent Auto 65.2 % (45-73); Platelet Count 301 X10*3/uL (160-400); Red Cell Distribution Width 13.9 % (11.0-16.0); White Blood Count 11.4 X10*3/uL (4.8-10.8)
[2024-05-27 03:20] LABS: Appearance Urine Clear; Color Urine Yellow; Glucose Urine UA Negative (Negative); Leukocyte Esterase Urine Trace (Negative); Nitrite Urine Negative (Negative); PH 5.5 (5.0-9.0); Specific Gravity - Urine >= 1.030 (1.005-1.025); UMIC TRIGGER UACC YES; Urine Blood Negative (Negative); Urine Ketones Negative (Negative); Urine Protein Negative (Neg-Trace)
[2024-05-27 03:22] LABS: Bacteria Urine Trace (None Seen); Hyaline Casts Urine 0-2 /LPF (0-2); RBC Urine 0-2 /HPF (0-2); UACC Culture Trigger YES
[2024-05-27 03:29] LABS: Amphetamine Screen Urine Not Detected (Not Detect); Barbiturates, Urine Not Detected (Not Detect); Benzodiazepines Screen Urine Not Detected (Not Detect); Buprenorphine Scr Not Detected (Not Detect); Cannabinoid Screen Urine Not Detected (Not Detect); Cocaine Screen Urine POSITIVE (Not Detect); Fentanyl, urine Not Detected (Not Detect); Methadone Screen, Urine Not Detected (Not Detect); Opiate Screen Urine Not Detected (Not Detect); Oxycodone Screen Urine Not Detected (Not Detect); Phencyclidine Screen Urine Not Detected (Not Detect)
[2024-05-27 03:38] LABS: Albumin Level 3.9 g/dL (3.5-5.0); Anion Gap 16 (12-20); Aspartate Amino Transferase 32 U/L (5-31); Bilirubin Total 0.3 mg/dL (0.0-1.0); Blood Urea Nitrogen 20 mg/dL (9-16); Calcium 9.1 mg/dL (8.4-10.2); Carbon Dioxide 25 mmol/L (22-29); Chloride 107 mmol/L (96-108); Creatinine Clr Calc Pharmacy 72.2; Estimated Glomerular Filt Rate > 60; Ethanol < 10 mg/dL; Glucose Random 92 mg/dL (60-115); Potassium 3.8 mmol/L (3.3-5.1); Sodium 144 mmol/L (135-145); Total Protein 7.4 g/dL (6.5-8.0)
[2024-05-27 03:50] LABS: Acetaminophen LAB < 3 mcg/mL (<30); Salicylate < 5.0 mg/dL (15-30)
[2024-05-27 04:37] LABS: Alanine Aminotransferase 37 U/L (0-31); Alkaline Phosphatase 62 U/L (39-117)
--- NOTE | 2024-05-27 05:27 | ED_ITS ---
HPI - Psych General Chief Complaint: Psychiatric Symptoms Stated Complaint: SI Time Seen by Provider: 05/27/24 04:55 Source: patient, EMS and old records reviewed Mode of arrival: EMS Limitations: no limitations History of Present Illness ED Provider: PEDRO BROWNLEE Narrative: 58 yo female with PMH of chronic PTSD, alcohol syndrome, cocaine abuse, NELSON On CPAP, personality disorder here with c/o using crack cocaine again today - she states she is sick of the high risk lifestyle and has SI. Her only other complaint is a sore L shoulder which she thinks is due to COVID shot - no rash, trauma, no numbness, tingling, weakness. MD complaint: suicidal ideation, feels depressed, anxiety and substance abuse Onset (ago): year(s) Duration: intermittent and getting worse History of same: Yes Relieving factors: none Exacerbating factors: none Context: recent drug abuse and significant life stressor Associated psychiatric symptoms: depression and suicidal ideation Associated symptoms: denies other symptoms Treatments prior to arrival: none If self harm: admits thoughts of self harm Related Data Previous Rx's ?Medication ?Instructions ?Recorded albuterol sulfate 90 mcg/actuation 2 puff inhalation RQ4H PRN 05/26/24 aerosol inhaler (Ventolin HFA) Wheezing #1 inhaler aripiprazole 20 mg tablet (Abilify) 20 mg PO DAILY #7 tabs 05/26/24 benztropine 1 mg tablet 1 mg PO BEDTIME #7 tabs 05/26/24 folic acid 1 mg tablet 1 mg PO DAILY #7 tabs 05/26/24 lamotrigine 25 mg tablet 50 mg (2 x 25 mg) PO DAILY #14 tabs 05/26/24 multivitamin (Daily-Pasquale tablet) 1 tab PO DAILY #7 tabs 05/26/24 naloxone 4 mg/actuation nasal 4 mg intranasal Q2M PRN opioid 05/26/24 spray (Narcan) overdose #2 ea nicotine (polacrilex) 2 mg gum 4 mg buccal Q2H PRN Nicotine 05/26/24 Cravings #60 ea omeprazole 20 mg capsule,delayed 20 mg PO BID@0630,1630 #14 caps 05/26/24 release oxcarbazepine 300 mg tablet 300 mg PO BID #14 tabs 05/26/24 thiamine mononitrate (vit B1) 100 100 mg PO DAILY #7 tabs 05/26/24 mg tablet trazodone 50 mg tablet 50 mg PO BEDTIME #7 tabs 05/26/24 Allergies Allergy/AdvReac Type Severity Reaction Status Date / Time No Known Allergies Allergy Verified 05/27/24 02:20 Review of Systems 2 Review of Systems: Constitutional : No Fever, No Chills ENT/Mouth : No Ear Pain, No Nasal Congestion, No sore throat Eyes: No Eye Pain, No Swelling, No Redness Cardiovascular : No Chest Pain, No SOB Respiratory : No Cough, No Sputum, No Dyspnea Gastrointestinal : No Nausea, No Vomiting, No Diarrhea, No Hematochezia, No Melena Genitourinary : No Dysuria, No Urinary Frequency, No Hematuria Musculoskeletal : No Myalgias Skin : No Skin Lesions, No rash Neuro : No Weakness, No Numbness, No Paresthesias, No Dizziness, No Headache Psych : positive Anxiety, positive Depression, positive SI no HI All other systems reviewed and are negative PMFSH Past Medical History Attestation statement: The following information was validated with the patient. Source: old records reviewed Medical History Absence seizure History of seizure History of concussion Cataract Glaucoma Nicotine dependence, cigarettes, uncomplicated Cannabis use disorder Cocaine use disorder Bipolar disorder, rapid cycling Osteoarthritis of lumbar spine Osteoarthritis, hand, primary localized Morbid obesity Asthma NELSON on CPAP Fibromyalgia History of post traumatic stress disorder History of ETOH abuse Memory changes Impaired fasting blood sugar Hiatal hernia Obesity Surgical History History of pubovaginal sling History of right knee surgery History of colonoscopy History of back surgery History of esophagogastroduodenoscopy (EGD) Family History Family History Father Medical history non-contributory Mother Medical history non-contributory Other Adopted Social History Social History Household Members: None Household Members Other:: 3 roommates Housing: Homeless Do you presently have visiting nurse or other home services: No Alcohol intake: never Patient Tobacco Use Status: Current everyday Tobacco user Tobacco use type: Cigarette Cigarette Packs Per Day: 1 Cigarettes Per Day: 20.0 Years Smoked: 23 e-Cigarette/Vaping Use: Never Used Second Hand Smoke Exposure: No Substance Use Type: Crack/Cocaine and Marijuana Advance Directives: No Advance Directives Information Provided: Yes Do you have a plan to hurt others: Vague service: No Current occupational status: employed 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 Oriented X3. No acute distress. Eyes: Pupils equal, round and reactive to light. ENT: Pharynx normal. Neck: Normal inspection. Neck supple. CVS: Normal heart rate and rhythm. Pulses normal. Respiratory: No respiratory distress. Breath sounds normal. Abdomen: Soft and nontender. Skin: Skin warm and dry. Normal skin color. Normal skin turgor. Extremities: No lower extremity edema. No calf ttp L shoulder is normal distal NV intact no rash normal ROM Neuro: Oriented X 3. No motor deficit. No sensory deficit. CN2-12 intact Medical Decision Making Medical Decision Making [facility] Narrative: 58 yo female with PMH of chronic PTSD, alcohol syndrome, cocaine abuse, NELSON On CPAP, personality disorder here with c/o SI and depression with drug abuse at this time basic labs, CARE team consult, EKG - her shoulder pain normal ROM doubt fracture no falls distal NV intact and no rash. Differential Diagnosis Differential Diagnoses: The differential diagnosis associated with the presentation includes depression, drug abuse, SI Admission/Observation Consideration of admission/observation: Escalation of care including admission/observation considered physician observation started at 537am pending CARE team Consult Healthcare Provider Management of the patient was discussed with: Behavioral Health Provider Lab Data [facility] Lab Attestation statement: I reviewed the patient's lab results. 05/27/24 03:10 05/27/24 03:10 Labs: Lab Results 05/27/24 Range/Units 03:10 WBC 11.4 H (4.8-10.8) X10*3/uL RBC 4.80 (4.20-5.50) X10*6/uL Hgb 13.2 (12.0-16.0) g/dl Hct 40.2 (37.0-47.0) % MCV 83.8 (80.0-98.0) fL MCH 27.5 (27.0-33.0) pg MCHC 32.8 (31.0-35.0) g/dl RDW 13.9 (11.0-16.0) % Plt Count 301 (160-400) X10*3/uL MPV 9.3 L (9.4-12.3) fL Immature Gran % (Auto) 0.2 (0.0-0.4) % Neut % (Auto) 65.2 (45-73) % Lymph % (Auto) 26.7 (20-40) % Leon % (Auto) 5.6 (2-11) % Eos % (Auto) 1.8 (0-4) % Baso % (Auto) 0.5 (0-2) % Lymph # (Auto) 3.0 (1.2-4.9) X10*3/uL Leon # (Auto) 0.6 (0.1-1.2) X10*3/uL Eos # (Auto) 0.2 (0.0-0.4) X10*3/uL Baso # (Auto) 0.1 (0.0-0.2) X10*3/uL Abs Immat Gran (auto) 0.02 (0.00-0.03) X10*3/uL Absolute Neuts (auto) 7.4 (2.0-8.3) x10*3/uL Absolute Nucleated RBC 0.000 (0.0-0.012) X10*3/uL Nucleated RBC % (auto) 0.0 (0.0-0.2) /100WBC Sodium 144 (135-145) mmol/L Potassium 3.8 (3.3-5.1) mmol/L Chloride 107 (96-108) mmol/L Carbon Dioxide 25 (22-29) mmol/L Anion Gap 16 (12-20) BUN 20 H (9-16) mg/dL Creatinine 0.85 (0.5-1.4) mg/dL Estim Creat Clear Calc 72.2 Estimated GFR > 60 Random Glucose 92 (60-115) mg/dL Calcium 9.1 (8.4-10.2) mg/dL Total Bilirubin 0.3 (0.0-1.0) mg/dL AST 32 H (5-31) U/L ALT 37 H (0-31) U/L Alkaline Phosphatase 62 (39-117) U/L Total Protein 7.4 (6.5-8.0) g/dL Albumin 3.9 (3.5-5.0) g/dL Urine Color Yellow Urine Appearance Clear Urine pH 5.5 (5.0-9.0) Ur Specific [place] >= 1.030 H (1.005-1.025) Urine Protein Negative (Neg-Trace) mg/dL Urine Glucose (UA) Negative (Negative) mg/dL Urine Ketones Negative (Negative) mg/dL Urine Blood Negative (Negative) Urine Nitrite Negative (Negative) Ur Leukocyte Esterase Trace H (Negative) Urine RBC 0-2 (0-2) /HPF Urine WBC 6-10 H (0-5) /HPF Ur Squamous Epith Cells 6-10 (0-2) /HPF Urine Bacteria Trace (None Seen) Hyaline Casts 0-2 (0-2) /LPF Salicylates < 5.0 L (15-30) mg/dL Urine Opiates Screen Not Detected (Not Detect) Ur Buprenorphine Scrn Not Detected (Not Detect) ng/mL Ur Oxycodone Screen Not Detected (Not Detect) ng/mL Urine Methadone Screen Not Detected (Not Detect) ng/mL Urine Fentanyl Screen Not Detected (Not Detect) Acetaminophen < 3 (<30) mcg/mL Ur Barbiturates Screen Not Detected (Not Detect) Ur Phencyclidine Scrn Not Detected (Not Detect) Ur Amphetamines Screen Not Detected (Not Detect) U Benzodiazepines Scrn Not Detected (Not Detect) Urine Cocaine Screen POSITIVE H (Not Detect) U Marijuana (THC) Screen Not Detected (Not Detect) Ethyl Alcohol < 10 mg/dL Independent Interpretation I performed an independent interpretation of an: EKG Interpretation: Rate: 74 Rhythm: NSR [place]: normal Normal P waves. Normal ANALY. Normal QRS complex. ST T wave : no KAJAL, nonspecific ST T wave changes inf leads qTC:441 prior studies: no acute ischemia The study has been interpreted contemporaneously by me. . Independent Historian Clinical information obtained from an independent historian. History obtained from or confirmed by: EMS External Record Review External record reviewed: Outpatient record Social Determinants Patient?s care significantly limited by Social Determinants of Health including: Low income and Problems related to primary support group Discharge Plan Discharge Clinical Impression: Acute anxiety, Depression, Cocaine abuse Patient Disposition: Still a Patient Prescriptions: No Action trazodone 50 mg Tablet 50 mg PO BEDTIME Qty: 7 0RF nicotine (polacrilex) 2 mg Gum 4 mg buccal Q2H PRN (Reason: Nicotine Cravings) Qty: 60 0RF oxcarbazepine 300 mg Tablet 300 mg PO BID Qty: 14 4RF lamotrigine 25 mg Tablet 50 mg PO DAILY Qty: 14 4RF benztropine 1 mg Tablet 1 mg PO BEDTIME Qty: 7 4RF albuterol sulfate [Ventolin HFA] 90 mcg/actuation Hfa Aerosol Inhaler 2 puff inhalation RQ4H PRN (Reason: Wheezing) Qty: 1 0RF aripiprazole [Abilify] 20 mg Tablet 20 mg PO DAILY Qty: 7 4RF multivitamin [Daily-Pasquale] Tablet 1 tab PO DAILY Qty: 7 0RF omeprazole 20 mg Capsule,Delayed Release(Dr/Ec) 20 mg PO BID@0630,1630 Qty: 14 0RF folic acid 1 mg Tablet 1 mg PO DAILY Qty: 7 4RF thiamine mononitrate (vit B1) 100 mg Tablet 100 mg PO DAILY Qty: 7 0RF naloxone [Narcan] 4 mg/actuation spray,non-aerosol 4 mg intranasal Q2M PRN (Reason: opioid overdose) Qty: 2 0RF Rx Instructions: spray 1 dose into ONE nostril; alternate nostrils w each dose until help arrives Interventions: Luce-Suicide Risk Severity Scale Last Done: 05/27/24 04:28 Print Language: Khmer
[2024-05-27] MEDS: Ibuprofen 600 MG TABLET PO (08:17)
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
[2024-05-27 08:29] VITALS: BP 128/85; PULSE 77; RESP 16; TEMP 36.7; O2SAT 95
[2024-05-27 08:55] LABS: Influenza A PCR NEGATIVE (Negative); Influenza B PCR NEGATIVE (Negative); Resp Syncy Virus RNA Qual PCR NEGATIVE (Negative); SARS COV2 PCR INHOUSE NEGATIVE (Negative)
--- NOTE | 2024-05-27 09:10 | PHA.MEDREC ---
Pharmacy Consult ? Medication Reconciliation Pharmacy has reviewed the medication reconciliation done by nursing. Patient was discharged from 05/26/24 and now in [facility].
[2024-05-27] MEDS: OXcarbazepine 300 MG TABLET PO ×2 (10:00→20:21)
[2024-05-27] MEDS: Omeprazole 20 MG CAPSULE.DR PO ×2 (10:00→15:43)
[2024-05-27] MEDS: lamoTRIgine 25 MG TABLET 50 MG PO (10:00)
[2024-05-27] MEDS: Thiamine HCL 100 MG TABLET PO (10:01)
[2024-05-27] MEDS: Folic Acid 1 MG TABLET PO (10:01)
[2024-05-27] MEDS: ARIPiprazole 20 MG TABLET PO (10:01)
[2024-05-27] MEDS: Multivitamin TABLET 1 TAB PO (10:15)
--- NOTE | 2024-05-27 15:10 | MHC.CARE ---
Patient assessed by CARE team, she is IPLOC at this time. Meme is aware.
[2024-05-27] MEDS: Ibuprofen 400 MG TABLET PO (15:43)
[2024-05-27 15:45] VITALS: BP 128/72; PULSE 74; RESP 14; TEMP 36.4; O2SAT 97
--- NOTE | 2024-05-27 17:18 | PC.NURSE ---
Pt has been less anxious as the day progressed and is sleeping.
--- NOTE | 2024-05-27 18:58 | PC.NURSE ---
patient appears to remain at rest presently respirations are even and unlabored patient appears in no distress
[2024-05-27] MEDS: Benztropine Mesylate 1 MG TABLET PO (20:20)
[2024-05-27] MEDS: traZODone HCL 50 MG TABLET PO (20:21)
[2024-05-28] MEDS: Ibuprofen 400 MG TABLET PO (03:16)
[2024-05-28] MEDS: Albuterol Sulfate 90 MCG 8 GM INHALER 2 PUFF INHALE (03:20)
[2024-05-28] MEDS: Omeprazole 20 MG CAPSULE.DR PO ×2 (06:06→18:01)
[2024-05-28 06:07] VITALS: BP 134/84; PULSE 77; RESP 18; TEMP 37.1; O2SAT 97
--- NOTE | 2024-05-28 06:16 | PC.NURSE ---
Patient slept most part of the night, no distress observed/reported except back pain responded well to ibuprofen, meds and meals compliant, 15 minutes safety check, no behavior and safety concerns, disposition per care team is section 12 inpatient bed search, VSS, will continue to monitor
[2024-05-28] MEDS: OXcarbazepine 300 MG TABLET PO ×2 (09:06→21:26)
[2024-05-28] MEDS: lamoTRIgine 25 MG TABLET 50 MG PO (09:06)
[2024-05-28] MEDS: ARIPiprazole 20 MG TABLET PO (09:07)
[2024-05-28] MEDS: Folic Acid 1 MG TABLET PO (09:07)
[2024-05-28] MEDS: Multivitamin TABLET 1 TAB PO (09:07)
[2024-05-28] MEDS: Thiamine HCL 100 MG TABLET PO (09:09)
--- NOTE | 2024-05-28 12:32 | PC.NURSE ---
patient has been calm and cooperative through out the morning. patient able to make needs known appropriately. ambulates with steady gait. patient made her own bed and made phone calls this morning.
[2024-05-28] MEDS: Ibuprofen 600 MG TABLET PO (13:45)
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
[2024-05-28 17:59] VITALS: BP 150/81; PULSE 72; RESP 16; TEMP 37.1; O2SAT 98
[2024-05-28] MEDS: traZODone HCL 50 MG TABLET PO (21:26)
[2024-05-28] MEDS: Benztropine Mesylate 1 MG TABLET PO (21:26)
[2024-05-29] MEDS: Ibuprofen 400 MG TABLET PO (02:52)
[2024-05-29] MEDS: Omeprazole 20 MG CAPSULE.DR PO ×2 (05:40→17:18)
[2024-05-29 05:43] VITALS: BP 143/103; PULSE 84; RESP 18; TEMP 37.1; O2SAT 97
--- NOTE | 2024-05-29 06:33 | PC.NURSE ---
Patient slept most part of the night, no distress observed/reported, meds and meals compliant, 15 minutes safety check, no behavior and safety concerns, disposition per care team is section 12 inpatient bed search, VSS, will continue to monitor
--- NOTE | 2024-05-29 07:09 | PC.NURSE ---
Assumed care of patient at 0645, patient appears to be in no apparent distress this am, occasionally ambulating around BH pod, now back resting in bed, respirations even and unlabored. Continue plan of care for IPLOC
[2024-05-29] MEDS: lamoTRIgine 25 MG TABLET 50 MG PO (08:04)
[2024-05-29] MEDS: Multivitamin TABLET 1 TAB PO (08:04)
[2024-05-29] MEDS: Folic Acid 1 MG TABLET PO (08:04)
[2024-05-29] MEDS: ARIPiprazole 20 MG TABLET PO (08:04)
[2024-05-29] MEDS: OXcarbazepine 300 MG TABLET PO ×2 (08:04→22:29)
[2024-05-29] MEDS: Thiamine HCL 100 MG TABLET PO (08:04)
[2024-05-29 15:42] VITALS: BP 162/73; PULSE 88; RESP 18; TEMP 36.3; O2SAT 99
[2024-05-29] MEDS: Baclofen 10 MG TABLET PO ×2 (16:09→22:26)
[2024-05-29] MEDS: hydrOXYzine HCL 25 MG TABLET PO ×2 (16:09→22:29)
--- NOTE | 2024-05-29 17:16 | PC.NURSE ---
Pt refused the flu vaccine as per pt she has already been vaccinated this season.
[2024-05-29] MEDS: Nicotine 21 MG PATCH.TD24 TRANSDERMA (17:19)
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
[2024-05-29 17:57] VITALS: BP 162/83
[2024-05-29] MEDS: cloNIDine HCL 0.1 MG TABLET PO (17:57)
--- NOTE | 2024-05-29 17:58 | PC.NURSE ---
Anjelica's BP was 162/73. Her provider Dirk was made aware and told this nurse she had ordered Clonidine for pt to have. Pt received clonidine.
[2024-05-29 19:13] VITALS: BMI 41.4
[2024-05-29 20:00] VITALS: BP 145/98; PULSE 83; RESP 96; TEMP 36.3; O2SAT 96
[2024-05-29] MEDS: Ibuprofen 600 MG TABLET PO (22:26)
[2024-05-29] MEDS: Benztropine Mesylate 1 MG TABLET PO (22:28)
[2024-05-29] MEDS: traZODone HCL 50 MG TABLET PO (22:28)
[2024-05-30] MEDS: Omeprazole 20 MG CAPSULE.DR PO ×2 (07:17→17:05)
[2024-05-30 08:22] LABS: Estimated Average Glucose 117 mg/dL; Hemoglobin A1C 133.7033 umol/L; Hemoglobin A1c % 5.7 % (<6.0); Total Hemoglobin (HGBA1C) 3419.0802 umol/L
[2024-05-30 08:30] VITALS: BP 131/78; PULSE 82; RESP 18; TEMP 36.9; O2SAT 99
[2024-05-30] MEDS: Multivitamin TABLET 1 TAB PO (08:35)
[2024-05-30] MEDS: OXcarbazepine 300 MG TABLET PO ×2 (08:35→21:07)
[2024-05-30] MEDS: lamoTRIgine 25 MG TABLET 50 MG PO (08:35)
[2024-05-30] MEDS: Folic Acid 1 MG TABLET PO (08:35)
[2024-05-30] MEDS: ARIPiprazole 20 MG TABLET PO (08:35)
[2024-05-30] MEDS: cloNIDine HCL 0.1 MG TABLET PO ×2 (08:35→21:08)
[2024-05-30] MEDS: Thiamine HCL 100 MG TABLET PO (08:35)
[2024-05-30 08:36] LABS: Cholesterol 264 mg/dL (<200); HDL Cholesterol 71 mg/dL (>40); LDL Cholesterol Calculated 166 mg/dL (<100); Triglycerides 135 mg/dL (<150)
[2024-05-30 09:00] VITALS: BP 142/84; PULSE 90; RESP 16; TEMP 36.7; O2SAT 99
[2024-05-30 09:01] LABS: Free T4 (Free Thyroxine) 0.81 ng/dL (0.71-1.85); Thyroid Stimulating Hormone 2.51 uIU/mL (0.32-4.0)
[2024-05-30 09:14] LABS: Folate 13.2 ng/mL (> or = 4.0); Vitamin B12 590 pg/mL (200-900)
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
[2024-05-30] MEDS: Baclofen 10 MG TABLET PO (14:39)
[2024-05-30] MEDS: Ibuprofen 600 MG TABLET PO (17:05)
[2024-05-30] MEDS: Benztropine Mesylate 1 MG TABLET PO (21:07)
[2024-05-30] MEDS: Prazosin HCL 1 MG CAPSULE PO (21:07)
[2024-05-30] MEDS: traZODone HCL 50 MG TABLET PO (21:08)
[2024-05-31] MEDS: Omeprazole 20 MG CAPSULE.DR PO ×2 (07:31→16:13)
[2024-05-31 08:00] VITALS: BP 130/80; PULSE 92; RESP 15; TEMP 36.9; O2SAT 97
--- NOTE | 2024-05-31 08:53 | P.PNPSI_ITS ---
Subjective Subjective Date of Service: 05/31/24 Reason For Visit: bipolar disorder with psychosis; cocaine use disor Subjective Notes: Conditional Voluntary Healthcare Proxy: No Guardianship: No Medical Problems Affecting Mental Status: No Interim History: Anjelica reports feeling tired today. Discussed shoulder/clavicle xray results-OA, tendinitis and potential treatments to address these. Pt does not have an OP ortho at this time. Working on organizing herself for discharge. Interested in [facility], a [place] [facility] [place] facility should one be available and supported living post discharge so I can get my life back together. Tolerating regime thus far, though tiredness may be a SE, will continue to monitor. Medication Compliance: Yes Side effects from medications: Yes (feeling tired) Attending Groups: Intermittent Review of Systems Acute medical concerns: No Review of Systems Review of Systems shoulder,clavicle pain Mental Status Exam Mental Status Exam Patient Appearance: Appropriate Patient Orientation: Person, Place, Time and Situation Level of Consciousness: Sedated and Alert Patient Behavior: Talkative and Good Eye Contact Mood Description: Depressed Affect Description: Flat Patient Cognition Impaired: No Ability to Follow Directions: Fair Speech Pattern: Spontaneous Speech Memory Description: Episodic Impaired Hallucinations: Auditory Delusions: Present Thought Process: Rumination Thought Content: positive for Circumstantial, positive for Perseveration and positive for Homicidal Ideation Depressive Symptoms: Increased Irritability and Low Self Esteem Judgement: Fair Diagnostics Vital Signs (24Hr): Vital Signs - 24 hr 05/30/24 09:00 Temperature 98.1 F Pulse Rate 90 Respiratory Rate 16 Blood Pressure 142/84 H Pulse Oximetry 99 Oxygen Delivery Method Room Air BMI result Body Mass Index 41.4 Labs 05/27/24 03:10 05/27/24 03:10 Labs: Laboratory Results - last 48 hr 05/30/24 08:06 Estimat Average Glucose 117 Hemoglobin A1c % 5.7 Magnesium 2.0 Triglycerides 135 Cholesterol 264 H LDL Cholesterol, Calc 166 H HDL Cholesterol 71 Vitamin B12 590 Folate 13.2 TSH 2.51 Free T4 0.81 Imaging Radiology Impressions: ITS Impressions Clavicle X-Ray 05/29/24 16:41 IMPRESSION: 1. Moderate acromioclavicular osteoarthritis. 2. Partially visualized distal infraspinatus calcific tendinitis. Electronically signed by: Killian Lion MD 05/29/2024 05:00 PM [facility] [place] 05/29/24 16:41 IMPRESSION: 1. No acute fracture or dislocation. 2. Moderate acromioclavicular and mild glenohumeral osteoarthritis. 3. Distal infraspinatus calcific tendinitis. Electronically signed by: Killian Lion MD 05/29/2024 04:59 PM [facility] Medications Medications Current Medications Acetaminophen (Acetaminophen 325 Mg Tablet) 650 mg PO Q6H PRN PRN Reason: Headache/Pain Mild Scale (1-3) Al Hydroxide/Mg Hydroxide (Magnesium Hydrox/Alum Hydrox 30 Ml Oral.Susp) 30 ml PO Q6H PRN PRN Reason: Heartburn/Nausea Albuterol Sulfate (Albuterol Sulfate 90 Mcg 8 Gm Inhaler) 2 puff INHALE RQ4H PRN PRN Reason: Wheezing Last Admin: 05/28/24 03:20 Dose: 2 puff Aripiprazole (Aripiprazole 20 Mg Tablet) 20 mg PO DAILY [facility] Last Admin: 05/30/24 08:35 Dose: 20 mg Baclofen (Baclofen 10 Mg Tablet) 10 mg PO TID PRN PRN Reason: withdrawal Last Admin: 05/30/24 14:39 Dose: 10 mg Benztropine Mesylate (Benztropine Mesylate 1 Mg Tablet) 1 mg PO BEDTIME [facility] Last Admin: 05/30/24 21:07 Dose: 1 mg Clonidine HCl (Clonidine Hcl 0.1 Mg Tablet) 0.1 mg PO BID [facility]; Protocol Last Admin: 05/30/24 21:08 Dose: 0.1 mg Folic Acid (Folic Acid 1 Mg Tablet) 1 mg PO DAILY [facility] Last Admin: 05/30/24 08:35 Dose: 1 mg Hydroxyzine HCl (Hydroxyzine Hcl 25 Mg Tablet) 25 mg PO Q6H PRN PRN Reason: Anxiety Last Admin: 05/29/24 22:29 Dose: 25 mg Ibuprofen (Ibuprofen 600 Mg Tablet) 600 mg PO Q8H PRN PRN Reason: Pain, Mild (Pain Scale 1-3) Last Admin: 05/30/24 17:05 Dose: 600 mg Lamotrigine (Lamotrigine 25 Mg Tablet) 50 mg PO DAILY [facility] Last Admin: 05/30/24 08:35 Dose: 50 mg Magnesium Hydroxide (Milk Of Magnesia 30 Ml Oral.Susp) 30 ml PO DAILY PRN PRN Reason: Constipation Multivitamins/Vitamin C (Multivitamin Tablet) 1 tab PO DAILY [facility] Last Admin: 05/30/24 08:35 Dose: 1 tab Nicotine (Nicotine 21 Mg Patch.Td24) 21 mg TRANSDERMA DAILY PRN PRN Reason: nicotine cravings Last Admin: 05/29/24 17:19 Dose: 21 mg Nicotine Polacrilex (Nicotine Polacrilex 2 Mg Gum) 4 mg BUCCAL Q2H PRN PRN Reason: Nicotine Cravings Nicotine Polacrilex (Nicotine Polacrilex 2 Mg Gum) 4 mg BUCCAL Q2H PRN PRN Reason: Nicotine Cravings Olanzapine (Olanzapine 5 Mg Tablet) 5 mg PO Q4H PRN PRN Reason: agitation,psychosis Omeprazole (Omeprazole 20 Mg Capsule.Dr) 20 mg PO BID@0630,1630 [facility] Last Admin: 05/31/24 07:31 Dose: 20 mg Oxcarbazepine (Oxcarbazepine 300 Mg Tablet) 300 mg PO BID [facility] Last Admin: 05/30/24 21:07 Dose: 300 mg Prazosin HCl (Prazosin Hcl 1 Mg Capsule) 1 mg PO BEDTIME [facility]; Protocol Last Admin: 05/30/24 21:07 Dose: 1 mg Thiamine HCl (Thiamine Hcl 100 Mg Tablet) 100 mg PO DAILY [facility] Last Admin: 05/30/24 08:35 Dose: 100 mg Trazodone HCl (Trazodone Hcl 50 Mg Tablet) 50 mg PO BEDTIME [facility] Last Admin: 05/30/24 21:08 Dose: 50 mg Allergies Allergies Allergy/AdvReac Type Severity Reaction Status Date / Time No Known Allergies Allergy Verified 05/27/24 02:20 Assessment & Plan Assessment & Plan (1) Cocaine abuse: Status: Acute Code(s): F14.10 - Cocaine abuse, uncomplicated (2) Bipolar disorder with psychotic features: Status: Acute Code(s): F31.9 - Bipolar disorder, unspecified (3) Chronic post-traumatic stress disorder (PTSD): Status: Acute Code(s): F43.12 - Post-traumatic stress disorder, chronic Plan PTSD, Bipolar Disorder with Psychosis, Cocaine Use Disorder. Plan: Admit, CV, 15 minute checks Re-establish med regme Discharge planning for ongoing residential treatment. 05/31-Continue current regime and plan. Reason for continued inpatient stay Substantial Risk for: rapid decompensation Time Spent With Patient Time: Total time managing care of this patient today ____ minutes.
[2024-05-31] MEDS: lamoTRIgine 25 MG TABLET 50 MG PO (08:57)
[2024-05-31] MEDS: cloNIDine HCL 0.1 MG TABLET PO ×2 (08:57→20:28)
[2024-05-31] MEDS: Multivitamin TABLET 1 TAB PO (08:57)
[2024-05-31] MEDS: Thiamine HCL 100 MG TABLET PO (08:57)
[2024-05-31] MEDS: ARIPiprazole 20 MG TABLET PO (08:57)
[2024-05-31] MEDS: Folic Acid 1 MG TABLET PO (08:57)
[2024-05-31] MEDS: OXcarbazepine 300 MG TABLET PO ×2 (08:57→20:29)
[2024-05-31] MEDS: Acetaminophen 325 MG TABLET 650 MG PO (09:09)
[2024-05-31] MEDS: Nicotine Polacrilex 2 MG GUM 4 MG BUCCAL (16:12)
[2024-05-31] MEDS: Baclofen 10 MG TABLET PO (16:25)
[2024-05-31 20:00] VITALS: BP 135/88; PULSE 89; TEMP 36.7; O2SAT 98
[2024-05-31 20:27] VITALS: BP 135/88
[2024-05-31] MEDS: Prazosin HCL 1 MG CAPSULE PO (20:27)
[2024-05-31] MEDS: Ibuprofen 600 MG TABLET PO (20:27)
[2024-05-31 20:28] VITALS: BP 135/88
[2024-05-31] MEDS: traZODone HCL 50 MG TABLET PO (20:29)
[2024-05-31] MEDS: Benztropine Mesylate 1 MG TABLET PO (20:29)
[2024-06-01] MEDS: Omeprazole 20 MG CAPSULE.DR PO ×2 (07:02→16:34)
[2024-06-01] MEDS: Baclofen 10 MG TABLET PO (07:07)
[2024-06-01] MEDS: Ibuprofen 600 MG TABLET PO (07:08)
[2024-06-01 08:00] VITALS: BP 125/68; PULSE 58; RESP 16; TEMP 36.4; O2SAT 97
[2024-06-01] MEDS: Thiamine HCL 100 MG TABLET PO (08:32)
[2024-06-01] MEDS: cloNIDine HCL 0.1 MG TABLET PO ×2 (08:32→20:32)
[2024-06-01] MEDS: OXcarbazepine 300 MG TABLET PO ×2 (08:33→20:31)
[2024-06-01] MEDS: ARIPiprazole 20 MG TABLET PO (08:33)
[2024-06-01] MEDS: Multivitamin TABLET 1 TAB PO (08:33)
[2024-06-01] MEDS: lamoTRIgine 25 MG TABLET 50 MG PO (08:33)
[2024-06-01] MEDS: Folic Acid 1 MG TABLET PO (08:33)
--- NOTE | 2024-06-01 10:58 | P.PNPSI_ITS ---
Subjective Subjective Date of Service: 06/01/24 Reason For Visit: bipolar disorder with psychosis; cocaine use disor Subjective Notes: Conditional Voluntary Healthcare Proxy: No Guardianship: No Medical Problems Affecting Mental Status: No Interim History: Irritable, reports not feeling clear headed. ?Baclofen SE for withdrawal. Will decrease. Celebrex to begin for OA sx this evening. SI/HI present. Pt reports she has written a letter to her brother. She is still wanting to transition to [facility]. Medication Compliance: Yes Side effects from medications: Yes (not feeling clear headed) Attending Groups: Intermittent Review of Systems Acute medical concerns: No Review of Systems Review of Systems not feeling clear headed she reports Mental Status Exam Mental Status Exam Patient Appearance: Appropriate Patient Orientation: Person, Place, Time and Situation Level of Consciousness: Sedated and Alert Patient Behavior: Talkative and Good Eye Contact Mood Description: Depressed Affect Description: Flat Patient Cognition Impaired: No Ability to Follow Directions: Fair Speech Pattern: Spontaneous Speech Memory Description: Episodic Impaired Hallucinations: Auditory Delusions: Present Thought Process: Rumination Thought Content: positive for Circumstantial, positive for Perseveration and positive for Homicidal Ideation Depressive Symptoms: Increased Irritability and Low Self Esteem Judgement: Fair Diagnostics Vital Signs (24Hr): Vital Signs - 24 hr 05/31/24 20:00 05/31/24 20:27 05/31/24 20:28 Temperature 98.1 F Pulse Rate 89 Respiratory Rate Blood Pressure 135/88 135/88 135/88 Pulse Oximetry 98 Oxygen Delivery Method Room Air 06/01/24 08:00 Temperature 97.5 F Pulse Rate 58 Respiratory Rate 16 Blood Pressure 125/68 Pulse Oximetry 97 Oxygen Delivery Method Room Air BMI result Body Mass Index 41.4 Labs 05/27/24 03:10 05/27/24 03:10 Imaging Radiology Impressions: ITS Impressions Clavicle X-Ray 05/29/24 16:41 IMPRESSION: 1. Moderate acromioclavicular osteoarthritis. 2. Partially visualized distal infraspinatus calcific tendinitis. Electronically signed by: Killian Lion MD 05/29/2024 05:00 PM [facility] [place] X-Ray 05/29/24 16:41 IMPRESSION: 1. No acute fracture or dislocation. 2. Moderate acromioclavicular and mild glenohumeral osteoarthritis. 3. Distal infraspinatus calcific tendinitis. Electronically signed by: Killian Lion MD 05/29/2024 04:59 PM [facility] Medications Medications Current Medications Acetaminophen (Acetaminophen 325 Mg Tablet) 650 mg PO Q6H PRN PRN Reason: Headache/Pain Mild Scale (1-3) Last Admin: 05/31/24 09:09 Dose: 650 mg Al Hydroxide/Mg Hydroxide (Magnesium Hydrox/Alum Hydrox 30 Ml Oral.Susp) 30 ml PO Q6H PRN PRN Reason: Heartburn/Nausea Albuterol Sulfate (Albuterol Sulfate 90 Mcg 8 Gm Inhaler) 2 puff INHALE RQ4H PRN PRN Reason: Wheezing Last Admin: 05/28/24 03:20 Dose: 2 puff Aripiprazole (Aripiprazole 20 Mg Tablet) 20 mg PO DAILY [facility] Last Admin: 06/01/24 08:33 Dose: 20 mg Baclofen (Baclofen 10 Mg Tablet) 10 mg PO TID PRN PRN Reason: withdrawal Last Admin: 06/01/24 07:07 Dose: 10 mg Benztropine Mesylate (Benztropine Mesylate 1 Mg Tablet) 1 mg PO BEDTIME [facility] Last Admin: 05/31/24 20:29 Dose: 1 mg Celecoxib (Celecoxib 100 Mg Capsule) 100 mg PO BID [facility] Clonidine HCl (Clonidine Hcl 0.1 Mg Tablet) 0.1 mg PO BID [facility]; Protocol Last Admin: 06/01/24 08:32 Dose: 0.1 mg Folic Acid (Folic Acid 1 Mg Tablet) 1 mg PO DAILY [facility] Last Admin: 06/01/24 08:33 Dose: 1 mg Hydroxyzine HCl (Hydroxyzine Hcl 25 Mg Tablet) 25 mg PO Q6H PRN PRN Reason: Anxiety Last Admin: 05/29/24 22:29 Dose: 25 mg Ibuprofen (Ibuprofen 600 Mg Tablet) 600 mg PO Q8H PRN PRN Reason: Pain, Mild (Pain Scale 1-3) Last Admin: 06/01/24 07:08 Dose: 600 mg Lamotrigine (Lamotrigine 25 Mg Tablet) 50 mg PO DAILY [facility] Last Admin: 06/01/24 08:33 Dose: 50 mg Magnesium Hydroxide (Milk Of Magnesia 30 Ml Oral.Susp) 30 ml PO DAILY PRN PRN Reason: Constipation Multivitamins/Vitamin C (Multivitamin Tablet) 1 tab PO DAILY [facility] Last Admin: 06/01/24 08:33 Dose: 1 tab Nicotine (Nicotine 21 Mg Patch.Td24) 21 mg TRANSDERMA DAILY PRN PRN Reason: nicotine cravings Last Admin: 05/29/24 17:19 Dose: 21 mg Nicotine Polacrilex (Nicotine Polacrilex 2 Mg Gum) 4 mg BUCCAL Q2H PRN PRN Reason: Nicotine Cravings Last Admin: 05/31/24 16:12 Dose: 4 mg Nicotine Polacrilex (Nicotine Polacrilex 2 Mg Gum) 4 mg BUCCAL Q2H PRN PRN Reason: Nicotine Cravings Olanzapine (Olanzapine 5 Mg Tablet) 5 mg PO Q4H PRN PRN Reason: agitation,psychosis Omeprazole (Omeprazole 20 Mg Capsule.Dr) 20 mg PO BID@0630,1630 [facility] Last Admin: 06/01/24 07:02 Dose: 20 mg Oxcarbazepine (Oxcarbazepine 300 Mg Tablet) 300 mg PO BID [facility] Last Admin: 06/01/24 08:33 Dose: 300 mg Prazosin HCl (Prazosin Hcl 1 Mg Capsule) 1 mg PO BEDTIME [facility]; Protocol Last Admin: 05/31/24 20:27 Dose: 1 mg Thiamine HCl (Thiamine Hcl 100 Mg Tablet) 100 mg PO DAILY [facility] Last Admin: 06/01/24 08:32 Dose: 100 mg Trazodone HCl (Trazodone Hcl 50 Mg Tablet) 50 mg PO BEDTIME [facility] Last Admin: 05/31/24 20:29 Dose: 50 mg Allergies Allergies Allergy/AdvReac Type Severity Reaction Status Date / Time No Known Allergies Allergy Verified 05/27/24 02:20 Assessment & Plan Assessment & Plan (1) Cocaine abuse: Status: Acute Code(s): F14.10 - Cocaine abuse, uncomplicated (2) Bipolar disorder with psychotic features: Status: Acute Code(s): F31.9 - Bipolar disorder, unspecified (3) Chronic post-traumatic stress disorder (PTSD): Status: Acute Code(s): F43.12 - Post-traumatic stress disorder, chronic Plan PTSD, Bipolar Disorder with Psychosis, Cocaine Use Disorder. Plan: Admit, CV, 15 minute checks Re-establish med regme Discharge planning for ongoing residential treatment. 06/01- Decrease Baclofen prn. Reason for continued inpatient stay Substantial Risk for: rapid decompensation Time Spent With Patient Time: Total time managing care of this patient today ____ minutes.
[2024-06-01] MEDS: Acetaminophen 325 MG TABLET 650 MG PO (14:55)
[2024-06-01 20:00] VITALS: BP 142/79; PULSE 75; TEMP 36.4; O2SAT 98
[2024-06-01] MEDS: Celecoxib 100 MG CAPSULE PO (20:31)
[2024-06-01] MEDS: Benztropine Mesylate 1 MG TABLET PO (20:31)
[2024-06-01] MEDS: traZODone HCL 50 MG TABLET PO (20:31)
[2024-06-01 20:32] VITALS: BP 142/79; BP 150/72
[2024-06-01] MEDS: Prazosin HCL 1 MG CAPSULE PO (20:32)
[2024-06-02] MEDS: Acetaminophen 325 MG TABLET 650 MG PO (00:18)
[2024-06-02] MEDS: OLANZapine 5 MG TABLET PO (00:19)
[2024-06-02] MEDS: Albuterol Sulfate 90 MCG 8 GM INHALER 2 PUFF INHALE (01:41)
[2024-06-02] MEDS: Omeprazole 20 MG CAPSULE.DR PO ×2 (06:57→17:48)
[2024-06-02 08:00] VITALS: BP 124/73; PULSE 70; RESP 18; TEMP 36.1; O2SAT 97
[2024-06-02 09:32] VITALS: BP 124/73
[2024-06-02] MEDS: cloNIDine HCL 0.1 MG TABLET PO ×2 (09:32→20:38)
[2024-06-02] MEDS: OXcarbazepine 300 MG TABLET PO ×2 (09:32→20:38)
[2024-06-02] MEDS: Ibuprofen 600 MG TABLET PO ×2 (09:33→17:48)
[2024-06-02] MEDS: Folic Acid 1 MG TABLET PO (09:34)
[2024-06-02] MEDS: Multivitamin TABLET 1 TAB PO (09:34)
[2024-06-02] MEDS: ARIPiprazole 20 MG TABLET PO (09:34)
[2024-06-02] MEDS: lamoTRIgine 25 MG TABLET 50 MG PO (09:34)
[2024-06-02] MEDS: Celecoxib 100 MG CAPSULE PO ×2 (09:34→20:38)
[2024-06-02] MEDS: Thiamine HCL 100 MG TABLET PO (09:35)
[2024-06-02] MEDS: Baclofen 10 MG TABLET 5 MG PO (09:35)
[2024-06-02] MEDS: Nicotine 21 MG PATCH.TD24 TRANSDERMA (09:38)
[2024-06-02] MEDS: Nicotine Polacrilex 2 MG GUM 4 MG BUCCAL ×2 (09:40→20:38)
--- NOTE | 2024-06-02 10:57 | HO.PSYCHPN ---
Subjective Subjective Date of Service: 06/02/24 Reason For Visit: bipolar disorder with psychosis; cocaine use disor Subjective Notes: Conditional Voluntary Healthcare Proxy: No Guardianship: No Medical Problems Affecting Mental Status: No Interim History: I feel better today, the celebrex works well. Reports no lack of clarity today. She is organized, working on her discharge planning and organizing her tasks, making appropriate calls to learn information about getting a PO box, phone services, DTA assist. Medication Compliance: Yes Side effects from medications: No Attending Groups: Yes Review of Systems Acute medical concerns: No Review of Systems Review of Systems Yes all other systems are reviewed and are negative Mental Status Exam Mental Status Exam Patient Appearance: Appropriate Patient Orientation: Person, Place, Time and Situation Level of Consciousness: Alert Patient Behavior: Talkative and Good Eye Contact Mood Description: Appropriate Affect Description: Appropriate Patient Cognition Impaired: No Ability to Follow Directions: Good Speech Pattern: Spontaneous Speech Memory Description: Episodic Impaired Hallucinations: None Delusions: Not Present Thought Process: Rumination Thought Content: positive for Perseveration, positive for Suicidal Ideation (denies) and positive for Homicidal Ideation (denies) Depressive Symptoms: Thoughts of /Suicide (denies) Judgement: Good Diagnostics Vital Signs (24Hr): Vital Signs - 24 hr 06/01/24 20:00 06/01/24 20:32 06/01/24 20:32 Temperature 97.5 F Pulse Rate 75 Blood Pressure 142/79 H 150/72 H 142/79 H Pulse Oximetry 98 Oxygen Delivery Method Room Air 06/02/24 09:32 Temperature Pulse Rate Blood Pressure 124/73 Pulse Oximetry Oxygen Delivery Method BMI result Body Mass Index 41.4 Labs 05/27/24 03:10 05/27/24 03:10 Imaging Radiology Impressions: ITS Impressions Clavicle X-Ray 05/29/24 16:41 IMPRESSION: 1. Moderate acromioclavicular osteoarthritis. 2. Partially visualized distal infraspinatus calcific tendinitis. Electronically signed by: Killian Lion MD 05/29/2024 05:00 PM [facility] [place] X-Ray 05/29/24 16:41 IMPRESSION: 1. No acute fracture or dislocation. 2. Moderate acromioclavicular and mild glenohumeral osteoarthritis. 3. Distal infraspinatus calcific tendinitis. Electronically signed by: Killian Lion MD 05/29/2024 04:59 PM EST Medications Medications Current Medications Acetaminophen (Acetaminophen 325 Mg Tablet) 650 mg PO Q6H PRN PRN Reason: Headache/Pain Mild Scale (1-3) Last Admin: 06/02/24 00:18 Dose: 650 mg Al Hydroxide/Mg Hydroxide (Magnesium Hydrox/Alum Hydrox 30 Ml Oral.Susp) 30 ml PO Q6H PRN PRN Reason: Heartburn/Nausea Albuterol Sulfate (Albuterol Sulfate 90 Mcg 8 Gm Inhaler) 2 puff INHALE RQ4H PRN PRN Reason: Wheezing Last Admin: 06/02/24 01:41 Dose: 2 puff Aripiprazole (Aripiprazole 20 Mg Tablet) 20 mg PO DAILY [facility] Last Admin: 06/02/24 09:34 Dose: 20 mg Baclofen (Baclofen 10 Mg Tablet) 5 mg PO BID PRN PRN Reason: withdrawal Last Admin: 06/02/24 09:35 Dose: 5 mg Benztropine Mesylate (Benztropine Mesylate 1 Mg Tablet) 1 mg PO BEDTIME [facility] Last Admin: 06/01/24 20:31 Dose: 1 mg Celecoxib (Celecoxib 100 Mg Capsule) 100 mg PO BID [facility] Last Admin: 06/02/24 09:34 Dose: 100 mg Clonidine HCl (Clonidine Hcl 0.1 Mg Tablet) 0.1 mg PO BID [facility]; Protocol Last Admin: 06/02/24 09:32 Dose: 0.1 mg Folic Acid (Folic Acid 1 Mg Tablet) 1 mg PO DAILY [facility] Last Admin: 06/02/24 09:34 Dose: 1 mg Hydroxyzine HCl (Hydroxyzine Hcl 25 Mg Tablet) 25 mg PO Q6H PRN PRN Reason: Anxiety Last Admin: 05/29/24 22:29 Dose: 25 mg Ibuprofen (Ibuprofen 600 Mg Tablet) 600 mg PO Q8H PRN PRN Reason: Pain, Mild (Pain Scale 1-3) Last Admin: 06/02/24 09:33 Dose: 600 mg Lamotrigine (Lamotrigine 25 Mg Tablet) 50 mg PO DAILY [facility] Last Admin: 06/02/24 09:34 Dose: 50 mg Magnesium Hydroxide (Milk Of Magnesia 30 Ml Oral.Susp) 30 ml PO DAILY PRN PRN Reason: Constipation Multivitamins/Vitamin C (Multivitamin Tablet) 1 tab PO DAILY [facility] Last Admin: 06/02/24 09:34 Dose: 1 tab Nicotine (Nicotine 21 Mg Patch.Td24) 21 mg TRANSDERMA DAILY PRN PRN Reason: nicotine cravings Last Admin: 06/02/24 09:38 Dose: 21 mg Nicotine Polacrilex (Nicotine Polacrilex 2 Mg Gum) 4 mg BUCCAL Q2H PRN PRN Reason: Nicotine Cravings Last Admin: 06/02/24 09:40 Dose: 4 mg Nicotine Polacrilex (Nicotine Polacrilex 2 Mg Gum) 4 mg BUCCAL Q2H PRN PRN Reason: Nicotine Cravings Olanzapine (Olanzapine 5 Mg Tablet) 5 mg PO Q4H PRN PRN Reason: agitation,psychosis Last Admin: 06/02/24 00:19 Dose: 5 mg Omeprazole (Omeprazole 20 Mg Capsule.Dr) 20 mg PO BID@0630,1630 [facility] Last Admin: 06/02/24 06:57 Dose: 20 mg Oxcarbazepine (Oxcarbazepine 300 Mg Tablet) 300 mg PO BID [facility] Last Admin: 06/02/24 09:32 Dose: 300 mg Prazosin HCl (Prazosin Hcl 1 Mg Capsule) 1 mg PO BEDTIME [facility]; Protocol Last Admin: 06/01/24 20:32 Dose: 1 mg Thiamine HCl (Thiamine Hcl 100 Mg Tablet) 100 mg PO DAILY [facility] Last Admin: 06/02/24 09:35 Dose: 100 mg Trazodone HCl (Trazodone Hcl 50 Mg Tablet) 50 mg PO BEDTIME [facility] Last Admin: 06/01/24 20:31 Dose: 50 mg Allergies Allergies Allergy/AdvReac Type Severity Reaction Status Date / Time No Known Allergies Allergy Verified 05/27/24 02:20 Assessment & Plan Assessment & Plan (1) Cocaine abuse: Status: Acute Code(s): F14.10 - Cocaine abuse, uncomplicated (2) Bipolar disorder with psychotic features: Status: Acute Code(s): F31.9 - Bipolar disorder, unspecified (3) Chronic post-traumatic stress disorder (PTSD): Status: Acute Code(s): F43.12 - Post-traumatic stress disorder, chronic Plan PTSD, Bipolar Disorder with Psychosis, Cocaine Use Disorder. Plan: Admit, CV, 15 minute checks Re-establish med regme Discharge planning for ongoing residential treatment. 06/02/24: Continue current regime/plan. Reason for continued inpatient stay Substantial Risk for: rapid decompensation Time Spent With Patient Time: Total time managing care of this patient today ____ minutes.
[2024-06-02 20:00] VITALS: BP 148/72; PULSE 90; RESP 16; TEMP 36.8; O2SAT 96
[2024-06-02] MEDS: traZODone HCL 50 MG TABLET PO (20:38)
[2024-06-02] MEDS: Benztropine Mesylate 1 MG TABLET PO (20:38)
[2024-06-02] MEDS: Prazosin HCL 1 MG CAPSULE PO (20:39)
[2024-06-02 23:15] VITALS: PULSE 79; RESP 16; O2SAT 94
[2024-06-03] MEDS: Ibuprofen 600 MG TABLET PO (06:04)
[2024-06-03] MEDS: Omeprazole 20 MG CAPSULE.DR PO ×2 (06:04→17:38)
[2024-06-03 08:20] VITALS: BP 104/71; PULSE 78; RESP 18; TEMP 36.8; O2SAT 98
[2024-06-03] MEDS: ARIPiprazole 20 MG TABLET PO (08:39)
[2024-06-03] MEDS: Thiamine HCL 100 MG TABLET PO (08:39)
[2024-06-03] MEDS: OXcarbazepine 300 MG TABLET PO ×2 (08:39→21:26)
[2024-06-03] MEDS: lamoTRIgine 25 MG TABLET 50 MG PO (08:40)
[2024-06-03] MEDS: Multivitamin TABLET 1 TAB PO (08:40)
[2024-06-03] MEDS: Folic Acid 1 MG TABLET PO (08:40)
[2024-06-03] MEDS: Celecoxib 100 MG CAPSULE PO ×2 (08:41→21:25)
[2024-06-03] MEDS: cloNIDine HCL 0.1 MG TABLET PO ×2 (08:41→21:25)
[2024-06-03] MEDS: Nicotine 21 MG PATCH.TD24 TRANSDERMA (08:43)
[2024-06-03] MEDS: Nicotine Polacrilex 2 MG GUM 4 MG BUCCAL ×2 (08:45→21:27)
[2024-06-03] MEDS: Acetaminophen 325 MG TABLET 650 MG PO (09:32)
--- NOTE | 2024-06-03 15:16 | HO.PSYCHPN ---
Subjective Subjective Date of Service: 06/03/24 Reason For Visit: bipolar disorder with psychosis; cocaine use disor Subjective Notes: Conditional Voluntary Healthcare Proxy: No Guardianship: No Medical Problems Affecting Mental Status: No Interim History: Pt seen, discussed with team Plan of care reviewed Pt appears improved, however, is persistant on asking for DONTRELL to attend to personal business for SSDI, obtaining a post box-encouraged to ask occupational health nursing director for director input. Pt continues with interest in CSS program post discharge. Medication Compliance: Yes Side effects from medications: No Attending Groups: Yes Review of Systems Acute medical concerns: No Medical Review of Systems: unchanged Review of Systems Review of Systems Yes all other systems are reviewed and are negative Mental Status Exam Mental Status Exam Patient Appearance: Appropriate Patient Orientation: Person, Place, Time and Situation Level of Consciousness: Alert Patient Behavior: Talkative and Good Eye Contact Mood Description: Appropriate Affect Description: Appropriate Patient Cognition Impaired: No Ability to Follow Directions: Good Speech Pattern: Spontaneous Speech Memory Description: Episodic Impaired Hallucinations: None Delusions: Not Present Thought Process: Rumination Thought Content: positive for Perseveration, positive for Suicidal Ideation (denies) and positive for Homicidal Ideation (denies) Depressive Symptoms: Thoughts of /Suicide (denies) Judgement: Good Diagnostics Vital Signs (24Hr): Vital Signs - 24 hr 06/02/24 20:00 06/02/24 23:15 06/03/24 08:20 Temperature 98.2 F 98.2 F Pulse Rate 90 78 Respiratory Rate 16 16 18 Blood Pressure 148/72 H 104/71 Pulse Oximetry 96 98 Oxygen Delivery Method Room Air Room Air BMI result Body Mass Index 41.4 Labs 05/27/24 03:10 05/27/24 03:10 Imaging Radiology Impressions: ITS Impressions Clavicle X-Ray 05/29/24 16:41 IMPRESSION: 1. Moderate acromioclavicular osteoarthritis. 2. Partially visualized distal infraspinatus calcific tendinitis. Electronically signed by: Killian Lion MD 05/29/2024 05:00 PM [facility] Shoulder X-Ray 05/29/24 16:41 IMPRESSION: 1. No acute fracture or dislocation. 2. Moderate acromioclavicular and mild glenohumeral osteoarthritis. 3. Distal infraspinatus calcific tendinitis. Electronically signed by: Killian Lion MD 05/29/2024 04:59 PM [facility] Medications Medications Current Medications Acetaminophen (Acetaminophen 325 Mg Tablet) 650 mg PO Q6H PRN PRN Reason: Headache/Pain Mild Scale (1-3) Last Admin: 06/03/24 09:32 Dose: 650 mg Al Hydroxide/Mg Hydroxide (Magnesium Hydrox/Alum Hydrox 30 Ml Oral.Susp) 30 ml PO Q6H PRN PRN Reason: Heartburn/Nausea Albuterol Sulfate (Albuterol Sulfate 90 Mcg 8 Gm Inhaler) 2 puff INHALE RQ4H PRN PRN Reason: Wheezing Last Admin: 06/02/24 01:41 Dose: 2 puff Aripiprazole (Aripiprazole 20 Mg Tablet) 20 mg PO DAILY [facility] Last Admin: 06/03/24 08:39 Dose: 20 mg Baclofen (Baclofen 10 Mg Tablet) 5 mg PO BID PRN PRN Reason: withdrawal Last Admin: 06/02/24 09:35 Dose: 5 mg Benztropine Mesylate (Benztropine Mesylate 1 Mg Tablet) 1 mg PO BEDTIME [facility] Last Admin: 06/02/24 20:38 Dose: 1 mg Celecoxib (Celecoxib 100 Mg Capsule) 100 mg PO BID [facility] Last Admin: 06/03/24 08:41 Dose: 100 mg Clonidine HCl (Clonidine Hcl 0.1 Mg Tablet) 0.1 mg PO BID [facility]; Protocol Last Admin: 06/03/24 08:41 Dose: 0.1 mg Folic Acid (Folic Acid 1 Mg Tablet) 1 mg PO DAILY [facility] Last Admin: 06/03/24 08:40 Dose: 1 mg Hydroxyzine HCl (Hydroxyzine Hcl 25 Mg Tablet) 25 mg PO Q6H PRN PRN Reason: Anxiety Last Admin: 05/29/24 22:29 Dose: 25 mg Ibuprofen (Ibuprofen 600 Mg Tablet) 600 mg PO Q8H PRN PRN Reason: Pain, Mild (Pain Scale 1-3) Last Admin: 06/03/24 06:04 Dose: 600 mg Lamotrigine (Lamotrigine 25 Mg Tablet) 50 mg PO DAILY [facility] Last Admin: 06/03/24 08:40 Dose: 50 mg Magnesium Hydroxide (Milk Of Magnesia 30 Ml Oral.Susp) 30 ml PO DAILY PRN PRN Reason: Constipation Multivitamins/Vitamin C (Multivitamin Tablet) 1 tab PO DAILY [facility] Last Admin: 06/03/24 08:40 Dose: 1 tab Nicotine (Nicotine 21 Mg Patch.Td24) 21 mg TRANSDERMA DAILY PRN PRN Reason: nicotine cravings Last Admin: 06/03/24 08:43 Dose: 21 mg Nicotine Polacrilex (Nicotine Polacrilex 2 Mg Gum) 4 mg BUCCAL Q2H PRN PRN Reason: Nicotine Cravings Last Admin: 06/03/24 08:45 Dose: 4 mg Nicotine Polacrilex (Nicotine Polacrilex 2 Mg Gum) 4 mg BUCCAL Q2H PRN PRN Reason: Nicotine Cravings Olanzapine (Olanzapine 5 Mg Tablet) 5 mg PO Q4H PRN PRN Reason: agitation,psychosis Last Admin: 06/02/24 00:19 Dose: 5 mg Omeprazole (Omeprazole 20 Mg Capsule.Dr) 20 mg PO BID@0630,1630 [facility] Last Admin: 06/03/24 06:04 Dose: 20 mg Oxcarbazepine (Oxcarbazepine 300 Mg Tablet) 300 mg PO BID [facility] Last Admin: 06/03/24 08:39 Dose: 300 mg Prazosin HCl (Prazosin Hcl 1 Mg Capsule) 1 mg PO BEDTIME [facility]; Protocol Last Admin: 06/02/24 20:39 Dose: 1 mg Saliva Substitute (Dry Mouth [place] 60 Ml [place]) 1 spray MUCOUS MEM Q2H PRN PRN Reason: Dry Mouth Thiamine HCl (Thiamine Hcl 100 Mg Tablet) 100 mg PO DAILY [facility] Last Admin: 06/03/24 08:39 Dose: 100 mg Trazodone HCl (Trazodone Hcl 50 Mg Tablet) 50 mg PO BEDTIME [facility] Last Admin: 06/02/24 20:38 Dose: 50 mg Allergies Allergies Allergy/AdvReac Type Severity Reaction Status Date / Time No Known Allergies Allergy Verified 05/27/24 02:20 Assessment & Plan Assessment & Plan (1) Cocaine abuse: Status: Acute Code(s): F14.10 - Cocaine abuse, uncomplicated (2) Bipolar disorder with psychotic features: Status: Acute Code(s): F31.9 - Bipolar disorder, unspecified (3) Chronic post-traumatic stress disorder (PTSD): Status: Acute Code(s): F43.12 - Post-traumatic stress disorder, chronic Plan PTSD, Bipolar Disorder with Psychosis, Cocaine Use Disorder. Plan: Admit, CV, 15 minute checks Re-establish med regme Discharge planning for ongoing residential treatment. 06/02/24: Continue current regime/plan. 06/03/24: Continue current regime/plan. Reason for continued inpatient stay Substantial Risk for: rapid decompensation Time Spent With Patient Time: Total time managing care of this patient today ____ minutes.
[2024-06-03 19:38] VITALS: BP 155/103; PULSE 86; RESP 18; TEMP 36.6; O2SAT 97
[2024-06-03] MEDS: traZODone HCL 50 MG TABLET PO (21:25)
[2024-06-03] MEDS: Prazosin HCL 1 MG CAPSULE PO (21:26)
[2024-06-03] MEDS: OLANZapine 5 MG TABLET PO (21:26)
[2024-06-03] MEDS: Benztropine Mesylate 1 MG TABLET PO (21:26)
[2024-06-03] MEDS: hydrOXYzine HCL 25 MG TABLET PO (21:26)
[2024-06-04] MEDS: Omeprazole 20 MG CAPSULE.DR PO ×2 (06:19→16:50)
[2024-06-04] MEDS: Baclofen 10 MG TABLET 5 MG PO ×2 (06:20→17:52)
[2024-06-04] MEDS: Ibuprofen 600 MG TABLET PO ×2 (06:21→17:51)
[2024-06-04 08:00] VITALS: BP 138/68; PULSE 72; TEMP 36.3; O2SAT 98
[2024-06-04] MEDS: Thiamine HCL 100 MG TABLET PO (08:52)
[2024-06-04] MEDS: Multivitamin TABLET 1 TAB PO (08:52)
[2024-06-04] MEDS: OXcarbazepine 300 MG TABLET PO ×2 (08:52→20:52)
[2024-06-04] MEDS: cloNIDine HCL 0.1 MG TABLET PO ×2 (08:52→20:54)
[2024-06-04] MEDS: Celecoxib 100 MG CAPSULE PO ×2 (08:52→20:56)
[2024-06-04] MEDS: ARIPiprazole 20 MG TABLET PO (08:52)
[2024-06-04] MEDS: lamoTRIgine 25 MG TABLET 50 MG PO (08:52)
[2024-06-04] MEDS: Folic Acid 1 MG TABLET PO (08:52)
[2024-06-04] MEDS: Nicotine 21 MG PATCH.TD24 TRANSDERMA (10:01)
--- NOTE | 2024-06-04 14:00 | HO.PSYCHPN ---
Subjective Subjective Date of Service: 06/04/24 Reason For Visit: bipolar disorder with psychosis; cocaine use disor Subjective Notes: Conditional Voluntary Interim History: Reports CPAP to be helpful but difficult to get used to. Med review with Anjelica. Discussed mood stabilizer additions to help her with organization. She declines at this time. Discussed conflict with her room-mate over CPAP one to one Focus on needing DONTRELL to organize her financial/living activities-SSDI, phone, [employer]. Process is poorly organized at this time. Medication Compliance: Yes Side effects from medications: No Attending Groups: Intermittent Review of Systems Acute medical concerns: No Review of Systems Review of Systems Yes all other systems are reviewed and are negative Mental Status Exam Mental Status Exam Patient Appearance: Appropriate Patient Orientation: Person, Place, Time and Situation Level of Consciousness: Alert Patient Behavior: Talkative and Good Eye Contact Mood Description: Appropriate Affect Description: Appropriate Patient Cognition Impaired: No Ability to Follow Directions: Good Speech Pattern: Spontaneous Speech Memory Description: Episodic Impaired Hallucinations: None Delusions: Not Present Thought Process: Rumination Thought Content: positive for Perseveration, positive for Suicidal Ideation (denies) and positive for Homicidal Ideation (denies) Depressive Symptoms: Thoughts of /Suicide (denies) Judgement: Good Diagnostics Vital Signs (24Hr): Vital Signs - 24 hr 06/03/24 19:38 06/04/24 08:00 Temperature 97.9 F 97.3 F Pulse Rate 86 72 Respiratory Rate 18 Blood Pressure 155/103 H 138/68 Pulse Oximetry 97 98 Oxygen Delivery Method Room Air Room Air BMI result Body Mass Index 41.4 Labs 06/07/24 15:08 06/07/24 15:08 Imaging Radiology Impressions: ITS Impressions Clavicle X-Ray 05/29/24 16:41 IMPRESSION: 1. Moderate acromioclavicular osteoarthritis. 2. Partially visualized distal infraspinatus calcific tendinitis. Electronically signed by: Killian Lion MD 05/29/2024 05:00 PM EST Shoulder X-Ray 05/29/24 16:41 IMPRESSION: 1. No acute fracture or dislocation. 2. Moderate acromioclavicular and mild glenohumeral osteoarthritis. 3. Distal infraspinatus calcific tendinitis. Electronically signed by: Killian Lion MD 05/29/2024 04:59 PM EST Medications Medications Current Medications Acetaminophen (Acetaminophen 325 Mg Tablet) 650 mg PO Q6H PRN PRN Reason: Headache/Pain Mild Scale (1-3) Last Admin: 06/03/24 09:32 Dose: 650 mg Al Hydroxide/Mg Hydroxide (Magnesium Hydrox/Alum Hydrox 30 Ml Oral.Susp) 30 ml PO Q6H PRN PRN Reason: Heartburn/Nausea Albuterol Sulfate (Albuterol Sulfate 90 Mcg 8 Gm Inhaler) 2 puff INHALE RQ4H PRN PRN Reason: Wheezing Last Admin: 06/02/24 01:41 Dose: 2 puff Aripiprazole (Aripiprazole 20 Mg Tablet) 20 mg PO DAILY [facility] Last Admin: 06/04/24 08:52 Dose: 20 mg Baclofen (Baclofen 10 Mg Tablet) 5 mg PO BID PRN PRN Reason: withdrawal Last Admin: 06/04/24 06:20 Dose: 5 mg Benztropine Mesylate (Benztropine Mesylate 1 Mg Tablet) 1 mg PO BEDTIME [facility] Last Admin: 06/03/24 21:26 Dose: 1 mg Celecoxib (Celecoxib 100 Mg Capsule) 100 mg PO BID [facility] Last Admin: 06/04/24 08:52 Dose: 100 mg Clonidine HCl (Clonidine Hcl 0.1 Mg Tablet) 0.1 mg PO BID [facility]; Protocol Last Admin: 06/04/24 08:52 Dose: 0.1 mg Folic Acid (Folic Acid 1 Mg Tablet) 1 mg PO DAILY [facility] Last Admin: 06/04/24 08:52 Dose: 1 mg Hydroxyzine HCl (Hydroxyzine Hcl 25 Mg Tablet) 25 mg PO Q6H PRN PRN Reason: Anxiety Last Admin: 06/03/24 21:26 Dose: 25 mg Ibuprofen (Ibuprofen 600 Mg Tablet) 600 mg PO Q8H PRN PRN Reason: Pain, Mild (Pain Scale 1-3) Last Admin: 06/04/24 06:21 Dose: 600 mg Lamotrigine (Lamotrigine 25 Mg Tablet) 50 mg PO DAILY [facility] Last Admin: 06/04/24 08:52 Dose: 50 mg Magnesium Hydroxide (Milk Of Magnesia 30 Ml Oral.Susp) 30 ml PO DAILY PRN PRN Reason: Constipation Multivitamins/Vitamin C (Multivitamin Tablet) 1 tab PO DAILY [facility] Last Admin: 06/04/24 08:52 Dose: 1 tab Nicotine (Nicotine 21 Mg Patch.Td24) 21 mg TRANSDERMA DAILY PRN PRN Reason: nicotine cravings Last Admin: 06/04/24 10:01 Dose: 21 mg Nicotine Polacrilex (Nicotine Polacrilex 2 Mg Gum) 4 mg BUCCAL Q2H PRN PRN Reason: Nicotine Cravings Last Admin: 06/03/24 21:27 Dose: 4 mg Nicotine Polacrilex (Nicotine Polacrilex 2 Mg Gum) 4 mg BUCCAL Q2H PRN PRN Reason: Nicotine Cravings Olanzapine (Olanzapine 5 Mg Tablet) 5 mg PO Q4H PRN PRN Reason: agitation,psychosis Last Admin: 06/03/24 21:26 Dose: 5 mg Omeprazole (Omeprazole 20 Mg Capsule.Dr) 20 mg PO BID@0630,1630 [facility] Last Admin: 06/04/24 06:19 Dose: 20 mg Oxcarbazepine (Oxcarbazepine 300 Mg Tablet) 300 mg PO BID [facility] Last Admin: 06/04/24 08:52 Dose: 300 mg Prazosin HCl (Prazosin Hcl 1 Mg Capsule) 1 mg PO BEDTIME [facility]; Protocol Last Admin: 06/03/24 21:26 Dose: 1 mg Saliva Substitute (Dry Mouth [place] 60 Ml [place]) 1 spray MUCOUS MEM Q2H PRN PRN Reason: Dry Mouth Thiamine HCl (Thiamine Hcl 100 Mg Tablet) 100 mg PO DAILY [facility] Last Admin: 06/04/24 08:52 Dose: 100 mg Trazodone HCl (Trazodone Hcl 50 Mg Tablet) 50 mg PO BEDTIME [facility] Last Admin: 06/03/24 21:25 Dose: 50 mg Allergies Allergies Allergy/AdvReac Type Severity Reaction Status Date / Time No Known Allergies Allergy Verified 05/27/24 02:20 Assessment & Plan Assessment & Plan (1) Cocaine abuse: Status: Acute Code(s): F14.10 - Cocaine abuse, uncomplicated (2) Bipolar disorder with psychotic features: Status: Acute Code(s): F31.9 - Bipolar disorder, unspecified (3) Chronic post-traumatic stress disorder (PTSD): Status: Acute Code(s): F43.12 - Post-traumatic stress disorder, chronic Plan PTSD, Bipolar Disorder with Psychosis, Cocaine Use Disorder. Plan: Admit, CV, 15 minute checks Re-establish med regme Discharge planning for ongoing residential treatment. 06/02/24: Continue current regime/plan. 06/03/24: Continue current regime/plan. 06/04/24: Declines medication changes at this time to assist with improved mood stabilization. Reason for continued inpatient stay Substantial Risk for: rapid decompensation Time Spent With Patient Time: Total time managing care of this patient today ____ minutes.
[2024-06-04 20:00] VITALS: BP 147/82; PULSE 85; TEMP 36.6; O2SAT 98
[2024-06-04] MEDS: Benztropine Mesylate 1 MG TABLET PO (20:53)
[2024-06-04 20:54] VITALS: BP 147/82
[2024-06-04] MEDS: traZODone HCL 50 MG TABLET PO (20:54)
[2024-06-04 20:55] VITALS: BP 147/82
[2024-06-04] MEDS: Prazosin HCL 1 MG CAPSULE PO (20:55)
[2024-06-04 22:25] LABS: Influenza A PCR NEGATIVE (Negative); Influenza B PCR NEGATIVE (Negative); Resp Syncy Virus RNA Qual PCR NEGATIVE (Negative); SARS COV2 PCR INHOUSE NEGATIVE (Negative)
[2024-06-05] MEDS: Omeprazole 20 MG CAPSULE.DR PO ×2 (07:36→16:07)
[2024-06-05 08:00] VITALS: BP 157/83; PULSE 80; RESP 18; TEMP 36.4; O2SAT 96
[2024-06-05 08:09] VITALS: BP 157/83
[2024-06-05] MEDS: OXcarbazepine 300 MG TABLET PO ×2 (08:09→20:53)
[2024-06-05] MEDS: ARIPiprazole 20 MG TABLET PO (08:09)
[2024-06-05] MEDS: lamoTRIgine 25 MG TABLET 50 MG PO (08:09)
[2024-06-05] MEDS: cloNIDine HCL 0.1 MG TABLET PO ×2 (08:09→20:52)
[2024-06-05] MEDS: Celecoxib 100 MG CAPSULE PO ×2 (08:09→20:53)
[2024-06-05] MEDS: Thiamine HCL 100 MG TABLET PO (08:09)
[2024-06-05] MEDS: Multivitamin TABLET 1 TAB PO (08:09)
[2024-06-05] MEDS: Folic Acid 1 MG TABLET PO (08:09)
[2024-06-05] MEDS: Nicotine 21 MG PATCH.TD24 TRANSDERMA (08:11)
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
[2024-06-05] MEDS: Ibuprofen 600 MG TABLET PO (16:07)
[2024-06-05] MEDS: Baclofen 10 MG TABLET 5 MG PO (16:08)
[2024-06-05 19:44] VITALS: BP 152/79; PULSE 80; RESP 16; TEMP 36.3; O2SAT 98
[2024-06-05] MEDS: Benztropine Mesylate 1 MG TABLET PO (20:53)
[2024-06-05] MEDS: Prazosin HCL 1 MG CAPSULE PO (20:53)
[2024-06-05] MEDS: OLANZapine 5 MG TABLET PO (20:53)
[2024-06-05] MEDS: Nicotine Polacrilex 2 MG GUM 4 MG BUCCAL (20:53)
[2024-06-05] MEDS: traZODone HCL 50 MG TABLET PO (20:53)
[2024-06-05 23:24] VITALS: PULSE 82; RESP 14; O2SAT 98
[2024-06-06] MEDS: Ibuprofen 600 MG TABLET PO ×2 (04:52→17:26)
[2024-06-06] MEDS: Acetaminophen 325 MG TABLET 650 MG PO (04:52)
[2024-06-06] MEDS: Omeprazole 20 MG CAPSULE.DR PO ×2 (04:52→17:28)
[2024-06-06 08:00] VITALS: BP 137/77; PULSE 79; RESP 16; TEMP 36.5; O2SAT 98
[2024-06-06 08:50] VITALS: BP 137/77
[2024-06-06] MEDS: cloNIDine HCL 0.1 MG TABLET PO ×2 (08:50→22:38)
[2024-06-06] MEDS: Thiamine HCL 100 MG TABLET PO (08:50)
[2024-06-06] MEDS: ARIPiprazole 20 MG TABLET PO (08:50)
[2024-06-06] MEDS: hydrOXYzine HCL 25 MG TABLET PO ×2 (08:50→22:42)
[2024-06-06] MEDS: Multivitamin TABLET 1 TAB PO (08:50)
[2024-06-06] MEDS: Celecoxib 100 MG CAPSULE PO ×2 (08:50→22:38)
[2024-06-06] MEDS: Folic Acid 1 MG TABLET PO (08:50)
[2024-06-06] MEDS: OXcarbazepine 300 MG TABLET PO ×2 (08:50→22:38)
[2024-06-06] MEDS: lamoTRIgine 25 MG TABLET 50 MG PO (08:50)
[2024-06-06] MEDS: Nicotine 21 MG PATCH.TD24 TRANSDERMA (08:51)
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
[2024-06-06] MEDS: Baclofen 10 MG TABLET 5 MG PO ×2 (17:27→22:40)
[2024-06-06 20:00] VITALS: BP 144/81; PULSE 86; RESP 18; TEMP 36.4; O2SAT 97
[2024-06-06] MEDS: Benztropine Mesylate 1 MG TABLET PO (22:38)
[2024-06-06] MEDS: Prazosin HCL 1 MG CAPSULE PO (22:39)
[2024-06-06] MEDS: traZODone HCL 50 MG TABLET PO (22:39)
[2024-06-06] MEDS: OLANZapine 5 MG TABLET PO (22:42)
[2024-06-07] VITALS (7 sets, daily range): BP systolic 121–145; BP diastolic 67–87; PULSE 79–86; RESP 16–20; TEMP 36.6; O2SAT 94–99
[2024-06-07] MEDS: Omeprazole 20 MG CAPSULE.DR PO ×2 (07:00→17:23)
[2024-06-07] MEDS: lamoTRIgine 25 MG TABLET 50 MG PO (08:06)
[2024-06-07] MEDS: Multivitamin TABLET 1 TAB PO (08:07)
[2024-06-07] MEDS: cloNIDine HCL 0.1 MG TABLET PO ×2 (08:07→21:16)
[2024-06-07] MEDS: OXcarbazepine 300 MG TABLET PO ×2 (08:07→21:16)
[2024-06-07] MEDS: ARIPiprazole 20 MG TABLET PO (08:07)
[2024-06-07] MEDS: Celecoxib 100 MG CAPSULE PO ×2 (08:08→21:16)
[2024-06-07] MEDS: Folic Acid 1 MG TABLET PO (08:08)
[2024-06-07] MEDS: Ibuprofen 600 MG TABLET PO ×2 (08:08→21:15)
[2024-06-07] MEDS: Thiamine HCL 100 MG TABLET PO (08:08)
[2024-06-07] MEDS: Nicotine 21 MG PATCH.TD24 TRANSDERMA (08:09)
[2024-06-07] MEDS: Albuterol Sulfate 90 MCG 8 GM INHALER 2 PUFF INHALE (08:15)
[2024-06-07] MEDS: hydrOXYzine HCL 25 MG TABLET PO ×2 (08:18→21:15)
--- NOTE | 2024-06-07 09:57 | P.PNPSI_ITS ---
Subjective Subjective Date of Service: 06/07/24 Reason For Visit: bipolar disorder with psychosis; cocaine use disor Subjective Notes: Conditional Voluntary Healthcare Proxy: No Guardianship: No Medical Problems Affecting Mental Status: Yes (trouble breathing, edema, trouble swallowing pills sleepy) Interim History: 58 yo with hx significant cocaine use - seen by provider confirmed mild dyspnea and edema (not pitting) bilateral- reports sleepy,dizzy and trouble swallowing her pills- this am- Pt here for ongoing depression/anxiety, pending dc Medication Compliance: Yes Side effects from medications: No (?) Attending Groups: Intermittent (not today as feeling sob) Review of Systems Acute medical concerns: Yes seen by hospitalist ? of chf- morbid obesity (but this not new) Review of Systems: see above Mental Status Exam Mental Status Exam Patient Appearance: Fatigued and Unkempt Patient Orientation: Person, Place, Time and Situation Level of Consciousness: Awake and Drowsy Patient Behavior: Appropriate and Passive Mood Description: Nervous Affect Description: Blunted Patient Cognition Impaired: No Ability to Follow Directions: Fair Speech Pattern: Slurred (?slight - or if this is patient's baseline) Hallucinations: None Delusions: Not Present Thought Content: positive for Intact Depressive Symptoms: Sleeping More Than Usual, Feelings of Worthlessness and Loss of Energy Judgement: Fair Diagnostics Vital Signs (24Hr): Vital Signs - 24 hr 06/06/24 20:00 06/07/24 07:40 06/07/24 09:05 Temperature 97.6 F 97.8 F Pulse Rate 86 84 80 Respiratory Rate 18 18 20 Blood Pressure 144/81 H 121/72 130/80 Pulse Oximetry 97 95 94 Oxygen Delivery Method Room Air Room Air Room Air BMI result Body Mass Index 41.4 Labs 06/07/24 15:08 06/07/24 15:08 Imaging Radiology Impressions: ITS Impressions Clavicle X-Ray 05/29/24 16:41 IMPRESSION: 1. Moderate acromioclavicular osteoarthritis. 2. Partially visualized distal infraspinatus calcific tendinitis. Electronically signed by: Killian Lion MD 05/29/2024 05:00 PM [facility] Shoulder X-Ray 05/29/24 16:41 IMPRESSION: 1. No acute fracture or dislocation. 2. Moderate acromioclavicular and mild glenohumeral osteoarthritis. 3. Distal infraspinatus calcific tendinitis. Electronically signed by: Killian Lion MD 05/29/2024 04:59 PM [facility] Medications Medications Current Medications Acetaminophen (Acetaminophen 325 Mg Tablet) 650 mg PO Q6H PRN PRN Reason: Headache/Pain Mild Scale (1-3) Last Admin: 06/06/24 04:52 Dose: 650 mg Al Hydroxide/Mg Hydroxide (Magnesium Hydrox/Alum Hydrox 30 Ml Oral.Susp) 30 ml PO Q6H PRN PRN Reason: Heartburn/Nausea Albuterol Sulfate (Albuterol Sulfate 90 Mcg 8 Gm Inhaler) 2 puff INHALE RQ4H PRN PRN Reason: Wheezing Last Admin: 06/07/24 08:15 Dose: 2 puff Aripiprazole (Aripiprazole 20 Mg Tablet) 20 mg PO DAILY [facility] Last Admin: 06/07/24 08:07 Dose: 20 mg Baclofen (Baclofen 10 Mg Tablet) 5 mg PO BID PRN PRN Reason: withdrawal Last Admin: 06/06/24 22:40 Dose: 5 mg Benztropine Mesylate (Benztropine Mesylate 1 Mg Tablet) 1 mg PO BEDTIME [facility] Last Admin: 06/06/24 22:38 Dose: 1 mg Celecoxib (Celecoxib 100 Mg Capsule) 100 mg PO BID [facility] Last Admin: 06/07/24 08:08 Dose: 100 mg Clonidine HCl (Clonidine Hcl 0.1 Mg Tablet) 0.1 mg PO BID [facility]; Protocol Last Admin: 06/07/24 08:07 Dose: 0.1 mg Folic Acid (Folic Acid 1 Mg Tablet) 1 mg PO DAILY [facility] Last Admin: 06/07/24 08:08 Dose: 1 mg Hydroxyzine HCl (Hydroxyzine Hcl 25 Mg Tablet) 25 mg PO Q6H PRN PRN Reason: Anxiety Last Admin: 06/07/24 08:18 Dose: 25 mg Ibuprofen (Ibuprofen 600 Mg Tablet) 600 mg PO Q8H PRN PRN Reason: Pain, Mild (Pain Scale 1-3) Last Admin: 06/07/24 08:08 Dose: 600 mg Lamotrigine (Lamotrigine 25 Mg Tablet) 50 mg PO DAILY [facility] Last Admin: 06/07/24 08:06 Dose: 50 mg Magnesium Hydroxide (Milk Of Magnesia 30 Ml Oral.Susp) 30 ml PO DAILY PRN PRN Reason: Constipation Multivitamins/Vitamin C (Multivitamin Tablet) 1 tab PO DAILY [facility] Last Admin: 06/07/24 08:07 Dose: 1 tab Nicotine (Nicotine 21 Mg Patch.Td24) 21 mg TRANSDERMA DAILY PRN PRN Reason: nicotine cravings Last Admin: 06/07/24 08:09 Dose: 21 mg Nicotine Polacrilex (Nicotine Polacrilex 2 Mg Gum) 4 mg BUCCAL Q2H PRN PRN Reason: Nicotine Cravings Last Admin: 06/05/24 20:53 Dose: 4 mg Nicotine Polacrilex (Nicotine Polacrilex 2 Mg Gum) 4 mg BUCCAL Q2H PRN PRN Reason: Nicotine Cravings Olanzapine (Olanzapine 5 Mg Tablet) 5 mg PO Q4H PRN PRN Reason: agitation,psychosis Last Admin: 06/06/24 22:42 Dose: 5 mg Omeprazole (Omeprazole 20 Mg Capsule.Dr) 20 mg PO BID@0630,1630 [facility] Last Admin: 06/07/24 07:00 Dose: 20 mg Oxcarbazepine (Oxcarbazepine 300 Mg Tablet) 300 mg PO BID [facility] Last Admin: 06/07/24 08:07 Dose: 300 mg Prazosin HCl (Prazosin Hcl 1 Mg Capsule) 1 mg PO BEDTIME [facility]; Protocol Last Admin: 06/06/24 22:39 Dose: 1 mg Saliva Substitute (Dry Mouth [place] 60 Ml [place]) 1 spray MUCOUS MEM Q2H PRN PRN Reason: Dry Mouth Thiamine HCl (Thiamine Hcl 100 Mg Tablet) 100 mg PO DAILY [facility] Last Admin: 06/07/24 08:08 Dose: 100 mg Trazodone HCl (Trazodone Hcl 50 Mg Tablet) 50 mg PO BEDTIME [facility] Last Admin: 06/06/24 22:39 Dose: 50 mg Allergies Allergies Allergy/AdvReac Type Severity Reaction Status Date / Time No Known Allergies Allergy Verified 05/27/24 02:20 Assessment & Plan Assessment & Plan (1) Cocaine abuse: Status: Acute Code(s): F14.10 - Cocaine abuse, uncomplicated (2) Bipolar disorder with psychotic features: Status: Acute Code(s): F31.9 - Bipolar disorder, unspecified (3) Chronic post-traumatic stress disorder (PTSD): Status: Acute Code(s): F43.12 - Post-traumatic stress disorder, chronic Plan PTSD, Bipolar Disorder with Psychosis, Cocaine Use Disorder. Plan: Admit, CV, 15 minute checks Re-establish med regme Discharge planning for ongoing residential treatment. 06/02/24: Continue current regime/plan. 06/03/24: Continue current regime/plan. 06/06 continue current tx plan 06/07/24- pt with somatic presentation today - ? chf vs other- and seems at neuro risk as well- continued observation and pending BNP and cxr from hospitalist- also informed hospitalist of ? of slurred speech/trouble swallowing medications Patient educated on: medical condition Informed Consent: understands Reason for continued inpatient stay Substantial Risk for: med/psych decompensation Time Spent With Patient Time: Total time managing care of this patient today ____ minutes.
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
[2024-06-07] MEDS: Furosemide 40 MG TABLET PO (14:30)
[2024-06-07 15:15] LABS: Hematocrit 35.4 % (37.0-47.0); Hemoglobin 11.8 g/dl (12.0-16.0); Mean Corpuscular HGB Conc 33.3 g/dl (31.0-35.0); Mean Corpuscular Hemoglobin 27.9 pg (27.0-33.0); Mean Corpuscular Volume 83.7 fL (80.0-98.0); Mean Platelet Volume 9.6 fL (9.4-12.3); Platelet Count 273 X10*3/uL (160-400); Red Blood Count 4.23 X10*6/uL (4.20-5.50); Red Cell Distribution Width 14.1 % (11.0-16.0); White Blood Count 7.2 X10*3/uL (4.8-10.8)
[2024-06-07 15:42] LABS: Anion Gap 13 (12-20); Blood Urea Nitrogen 23 mg/dL (9-16); Calcium 8.9 mg/dL (8.4-10.2); Carbon Dioxide 24 mmol/L (22-29); Chloride 107 mmol/L (96-108); Creatinine Clr Calc Pharmacy 71.7; Estimated Glomerular Filt Rate > 60; Glucose Random 135 mg/dL (60-115); Potassium 4.2 mmol/L (3.3-5.1); Sodium 140 mmol/L (135-145)
[2024-06-07 15:48] LABS: B Type Natriuretic Peptide 17 pg/mL (<100)
[2024-06-07] MEDS: Prazosin HCL 1 MG CAPSULE PO (21:15)
[2024-06-07] MEDS: traZODone HCL 50 MG TABLET PO (21:15)
[2024-06-07] MEDS: OLANZapine 5 MG TABLET PO (21:16)
[2024-06-07] MEDS: Benztropine Mesylate 1 MG TABLET PO (21:16)
[2024-06-07] MEDS: Baclofen 10 MG TABLET 5 MG PO (21:17)
[2024-06-08] MEDS: Omeprazole 20 MG CAPSULE.DR PO ×2 (06:12→15:46)
[2024-06-08] MEDS: Ibuprofen 600 MG TABLET PO ×2 (06:13→15:47)
[2024-06-08 07:00] VITALS: BMI 43.7
[2024-06-08 08:30] VITALS: BP 169/80; PULSE 85; RESP 16; TEMP 36.3; O2SAT 97
[2024-06-08] MEDS: Multivitamin TABLET 1 TAB PO (08:36)
[2024-06-08] MEDS: lamoTRIgine 25 MG TABLET 50 MG PO (08:36)
[2024-06-08] MEDS: Folic Acid 1 MG TABLET PO (08:36)
[2024-06-08] MEDS: cloNIDine HCL 0.1 MG TABLET PO ×2 (08:36→23:07)
[2024-06-08] MEDS: Thiamine HCL 100 MG TABLET PO (08:36)
[2024-06-08] MEDS: ARIPiprazole 20 MG TABLET PO (08:36)
[2024-06-08] MEDS: Furosemide 40 MG TABLET PO (08:36)
[2024-06-08] MEDS: OXcarbazepine 300 MG TABLET PO ×2 (08:36→23:07)
[2024-06-08] MEDS: Celecoxib 100 MG CAPSULE PO ×2 (08:36→23:08)
--- NOTE | 2024-06-08 10:24 | HO.PSYCHPN ---
Subjective Subjective Date of Service: 06/08/24 Reason For Visit: bipolar disorder with psychosis; cocaine use disor Subjective Notes: Conditional Voluntary Interim History: Pt slept through the night. She reports no SI/HI. She also reports feeling better. She reports she has multiple things she has to do and take care of prior to transition to [facility] program. She reports she has to fix something about her phone and needs to go to [employer], as well as needs a hair cut and fix something about social security. She asks to be discharged tomorrow and maybe come back to the hospital in a few days to get assistance with housing or residential tx. Review of Systems Review of Systems Pt denies Yes all other systems are reviewed and are negative Constitutional: Reports as per HPI Eyes: Reports as per HPI Reports as per HPI Cardiovascular: Reports as per HPI Respiratory: Reports as per HPI Gastrointestinal: Reports as per HPI Musculoskeletal: Reports as per HPI Skin/Breast: Reports as per HPI Reports as per HPI Psychiatric: Reports as per HPI Endocrine: Reports as per HPI Hematologic/Lymphatic: Reports as per HPI Allergic/Immunologic: Reports as per HPI Mental Status Exam Mental Status Exam Patient Appearance: Appropriate Patient Orientation: Person, Place, Time and Situation Level of Consciousness: Alert Patient Behavior: Talkative and Good Eye Contact Mood Description: Angry Affect Description: Angry Patient Cognition Impaired: No Ability to Follow Directions: Good Speech Pattern: Spontaneous Speech Memory Description: Episodic Impaired Diagnostics Vital Signs (24Hr): Vital Signs - 24 hr 06/07/24 14:30 06/07/24 19:51 06/07/24 21:15 Temperature 97.8 F Pulse Rate 80 86 Respiratory Rate 16 Blood Pressure 142/67 H 144/86 H 145/87 H Pulse Oximetry 95 99 Oxygen Delivery Method Room Air Room Air 06/07/24 21:16 06/08/24 08:30 Temperature 97.3 F Pulse Rate 85 Respiratory Rate 16 Blood Pressure 145/87 H 169/80 H Pulse Oximetry 97 Oxygen Delivery Method Room Air BMI result Body Mass Index 41.4 Labs 06/07/24 15:08 06/07/24 15:08 Labs: Laboratory Results - last 48 hr 06/07/24 15:08 WBC 7.2 RBC 4.23 Hgb 11.8 L Hct 35.4 L MCV 83.7 MCH 27.9 MCHC 33.3 RDW 14.1 Plt Count 273 MPV 9.6 Absolute Nucleated RBC 0.000 Nucleated RBC % (auto) 0.0 Sodium 140 Potassium 4.2 Chloride 107 Carbon Dioxide 24 Anion Gap 13 BUN 23 H Creatinine 0.90 Estim Creat Clear Calc 71.7 Estimated GFR > 60 Random Glucose 135 H Calcium 8.9 B-Natriuretic Peptide 17 Imaging Radiology Impressions: ITS Impressions Clavicle X-Ray 05/29/24 16:41 IMPRESSION: 1. Moderate acromioclavicular osteoarthritis. 2. Partially visualized distal infraspinatus calcific tendinitis. Electronically signed by: Killian Lion MD 05/29/2024 05:00 PM EST RP Shoulder X-Ray 05/29/24 16:41 IMPRESSION: 1. No acute fracture or dislocation. 2. Moderate acromioclavicular and mild glenohumeral osteoarthritis. 3. Distal infraspinatus calcific tendinitis. Electronically signed by: Killian Lion MD 05/29/2024 04:59 PM EST RP Medications Medications Current Medications Acetaminophen (Acetaminophen 325 Mg Tablet) 650 mg PO Q6H PRN PRN Reason: Headache/Pain Mild Scale (1-3) Last Admin: 06/06/24 04:52 Dose: 650 mg Al Hydroxide/Mg Hydroxide (Magnesium Hydrox/Alum Hydrox 30 Ml Oral.Susp) 30 ml PO Q6H PRN PRN Reason: Heartburn/Nausea Albuterol Sulfate (Albuterol Sulfate 90 Mcg 8 Gm Inhaler) 2 puff INHALE RQ4H PRN PRN Reason: Wheezing Last Admin: 06/07/24 08:15 Dose: 2 puff Aripiprazole (Aripiprazole 20 Mg Tablet) 20 mg PO DAILY [facility] Last Admin: 06/08/24 08:36 Dose: 20 mg Baclofen (Baclofen 10 Mg Tablet) 5 mg PO BID PRN PRN Reason: withdrawal Last Admin: 06/07/24 21:17 Dose: 5 mg Benztropine Mesylate (Benztropine Mesylate 1 Mg Tablet) 1 mg PO BEDTIME [facility] Last Admin: 06/07/24 21:16 Dose: 1 mg Celecoxib (Celecoxib 100 Mg Capsule) 100 mg PO BID [facility] Last Admin: 06/08/24 08:36 Dose: 100 mg Clonidine HCl (Clonidine Hcl 0.1 Mg Tablet) 0.1 mg PO BID [facility]; Protocol Last Admin: 06/08/24 08:36 Dose: 0.1 mg Folic Acid (Folic Acid 1 Mg Tablet) 1 mg PO DAILY [facility] Last Admin: 06/08/24 08:36 Dose: 1 mg Furosemide (Furosemide 40 Mg Tablet) 40 mg PO DAILY [facility]; Protocol Last Admin: 06/08/24 08:36 Dose: 40 mg Hydroxyzine HCl (Hydroxyzine Hcl 25 Mg Tablet) 25 mg PO Q6H PRN PRN Reason: Anxiety Last Admin: 06/07/24 21:15 Dose: 25 mg Ibuprofen (Ibuprofen 600 Mg Tablet) 600 mg PO Q8H PRN PRN Reason: Pain, Mild (Pain Scale 1-3) Last Admin: 06/08/24 06:13 Dose: 600 mg Lamotrigine (Lamotrigine 25 Mg Tablet) 50 mg PO DAILY [facility] Last Admin: 06/08/24 08:36 Dose: 50 mg Magnesium Hydroxide (Milk Of Magnesia 30 Ml Oral.Susp) 30 ml PO DAILY PRN PRN Reason: Constipation Multivitamins/Vitamin C (Multivitamin Tablet) 1 tab PO DAILY [facility] Last Admin: 06/08/24 08:36 Dose: 1 tab Nicotine (Nicotine 21 Mg Patch.Td24) 21 mg TRANSDERMA DAILY PRN PRN Reason: nicotine cravings Last Admin: 06/07/24 08:09 Dose: 21 mg Nicotine Polacrilex (Nicotine Polacrilex 2 Mg Gum) 4 mg BUCCAL Q2H PRN PRN Reason: Nicotine Cravings Last Admin: 06/05/24 20:53 Dose: 4 mg Nicotine Polacrilex (Nicotine Polacrilex 2 Mg Gum) 4 mg BUCCAL Q2H PRN PRN Reason: Nicotine Cravings Olanzapine (Olanzapine 5 Mg Tablet) 5 mg PO Q4H PRN PRN Reason: agitation,psychosis Last Admin: 06/07/24 21:16 Dose: 5 mg Omeprazole (Omeprazole 20 Mg Capsule.Dr) 20 mg PO BID@0630,1630 [facility] Last Admin: 06/08/24 06:12 Dose: 20 mg Oxcarbazepine (Oxcarbazepine 300 Mg Tablet) 300 mg PO BID [facility] Last Admin: 06/08/24 08:36 Dose: 300 mg Prazosin HCl (Prazosin Hcl 1 Mg Capsule) 1 mg PO BEDTIME [facility]; Protocol Last Admin: 06/07/24 21:15 Dose: 1 mg Saliva Substitute (Dry Mouth [place] 60 Ml [place]) 1 spray MUCOUS MEM Q2H PRN PRN Reason: Dry Mouth Thiamine HCl (Thiamine Hcl 100 Mg Tablet) 100 mg PO DAILY [facility] Last Admin: 06/08/24 08:36 Dose: 100 mg Trazodone HCl (Trazodone Hcl 50 Mg Tablet) 50 mg PO BEDTIME [facility] Last Admin: 06/07/24 21:15 Dose: 50 mg Allergies Allergies Allergy/AdvReac Type Severity Reaction Status Date / Time No Known Allergies Allergy Verified 05/27/24 02:20 Assessment & Plan Assessment & Plan (1) Bipolar disorder with psychotic features: Status: Acute Code(s): F31.9 - Bipolar disorder, unspecified (2) Cocaine abuse: Status: Acute Code(s): F14.10 - Cocaine abuse, uncomplicated (3) Chronic post-traumatic stress disorder (PTSD): Status: Acute Code(s): F43.12 - Post-traumatic stress disorder, chronic Plan PTSD, Bipolar Disorder with Psychosis, Cocaine Use Disorder. Plan: Admit, CV, 15 minute checks Re-establish med regme Discharge planning for ongoing residential treatment. 06/02/24: Continue current regime/plan. 06/03/24: Continue current regime/plan. 06/05/24: Pt could benefit from a med change, but is refusing today. 06/08/2023- wants dc tomorrow. no imminent safety concerns. Reason for continued inpatient stay Substantial Risk for: stable for discharge Time Spent With Patient Time: Total time managing care of this patient today ____ minutes.
[2024-06-08] MEDS: hydrOXYzine HCL 25 MG TABLET PO (20:17)
[2024-06-08] MEDS: OLANZapine 5 MG TABLET PO (20:17)
[2024-06-08 23:00] VITALS: BP 120/83; PULSE 90; RESP 16; TEMP 36.9; O2SAT 96
[2024-06-08] MEDS: Acetaminophen 325 MG TABLET 650 MG PO (23:06)
[2024-06-08 23:07] VITALS: BP 120/83
[2024-06-08] MEDS: Prazosin HCL 1 MG CAPSULE PO (23:07)
[2024-06-08] MEDS: Benztropine Mesylate 1 MG TABLET PO (23:08)
[2024-06-08] MEDS: traZODone HCL 50 MG TABLET PO (23:08)
[2024-06-09] MEDS: Omeprazole 20 MG CAPSULE.DR PO (06:55)
[2024-06-09 08:00] VITALS: BP 129/85; PULSE 91; TEMP 36.9; O2SAT 95
[2024-06-09 08:54] VITALS: BP 129/85
[2024-06-09] MEDS: ARIPiprazole 20 MG TABLET PO (08:54)
[2024-06-09] MEDS: lamoTRIgine 25 MG TABLET 50 MG PO (08:54)
[2024-06-09] MEDS: Furosemide 40 MG TABLET PO (08:54)
[2024-06-09] MEDS: Folic Acid 1 MG TABLET PO (08:54)
[2024-06-09 08:55] VITALS: BP 129/85
[2024-06-09] MEDS: OXcarbazepine 300 MG TABLET PO (08:55)
[2024-06-09] MEDS: Celecoxib 100 MG CAPSULE PO (08:55)
[2024-06-09] MEDS: cloNIDine HCL 0.1 MG TABLET PO (08:55)
[2024-06-09] MEDS: Thiamine HCL 100 MG TABLET PO (08:55)
[2024-06-09] MEDS: Multivitamin TABLET 1 TAB PO (08:55)
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
[2024-06-09] MEDS: Ibuprofen 600 MG TABLET PO (11:14)
== END 2024-06-09 11:17 | disposition home or self-care (01) | DRG 885 ==
LOC: HO.ED 05-29 13:55 → HO.PM5 05-29 14:03
PROVIDERS: Emergency Medicine; Internal Medicine; Admitting Provider Clinical Nurse Specialist Psychiatric/Mental Health, Adult; Emergency Provider Emergency Medicine Emergency Medical Services; Visit Provider Clinical Nurse Specialist Psychiatric/Mental Health, Adult
DX: F31.9 Bipolar disorder, unspecified (principal); R45.851 Suicidal ideations; Z68.41 Body mass index [BMI] 40.0-44.9, adult; F14.20 Cocaine dependence, uncomplicated; E66.01 Morbid (severe) obesity due to excess calories; G47.33 Obstructive sleep apnea (adult) (pediatric); F43.12 Post-traumatic stress disorder, chronic; F17.210 Nicotine dependence, cigarettes, uncomplicated; Z71.6 Tobacco abuse counseling; Z20.822 Contact with and (suspected) exposure to COVID-19; Z79.899 Other long term (current) drug therapy
CPT/HCPCS: 0241U; 36415; 71045; 73000; 73030; 80048; 80053; 80061; 80143; 80179; 80307; 81001; 82607; 82746; 83036; 83735; 83880; 84439; 84443; 85025; 85027; 87086; 93005; 94660; 99285; S9485

== ENCOUNTER → 2024-05-27 05:14 | Outpatient (BNV) | payer OTHER, SELFPAY | PROVIDERS: Emergency Provider Emergency Medicine Emergency Medical Services; Visit Provider Internal Medicine | DX: R94.31 Abnormal electrocardiogram [ECG] [EKG] (principal) | CPT/HCPCS: 93010 ==

== ENCOUNTER 2024-05-29 13:10 | Outpatient (BNV) | payer OTHER, SELFPAY | END 2024-06-07 14:10 | PROVIDERS: Admitting Provider Clinical Nurse Specialist Psychiatric/Mental Health, Adult; Emergency Provider Emergency Medicine Emergency Medical Services; Visit Provider Nuclear Medicine | DX: R06.02 Shortness of breath (principal) | CPT/HCPCS: 71045 ==

== ENCOUNTER → 2024-05-29 13:10 | Outpatient (BNV) | payer OTHER, SELFPAY | PROVIDERS: Admitting Provider Clinical Nurse Specialist Psychiatric/Mental Health, Adult; Emergency Provider Emergency Medicine Emergency Medical Services; Visit Provider Internal Medicine | DX: R06.00 Dyspnea, unspecified (principal); R60.0 Localized edema | CPT/HCPCS: 99222 ==

== ENCOUNTER → 2024-05-29 13:10 | Outpatient (BNV) | payer OTHER, SELFPAY | PROVIDERS: Admitting Provider Clinical Nurse Specialist Psychiatric/Mental Health, Adult; Emergency Provider Emergency Medicine Emergency Medical Services; Visit Provider Clinical Nurse Specialist Psychiatric/Mental Health, Adult | DX: F31.4 Bipolar disorder, current episode depressed, severe, without psychotic features (principal); F14.10 Cocaine abuse, uncomplicated; F43.12 Post-traumatic stress disorder, chronic | CPT/HCPCS: 90792; 99231; 99232 ==

== ENCOUNTER 2024-06-14 11:40 | Emergency (ER) | payer OTHER, SELFPAY ==
[2024-06-14 11:43] VITALS: BP 149/96; PULSE 82; RESP 18; TEMP 37.2; O2SAT 96; BMI 41.2
--- NOTE | 2024-06-14 11:43 | ED.PSYCH ---
HPI - Psych General Chief Complaint: Psychiatric Symptoms Stated Complaint: Crisis Time Seen by Provider: 06/14/24 12:01 Source: patient Mode of arrival: ambulatory Limitations: no limitations History of Present Illness ED Provider: JASMEET CASEY PA-C HPI Narrative: 58-year-old with past medical history significant for bipolar disorder, PTSD, anxiety, depression, polysubstance abuse, asthma, NELSON on CPAP presents to the ED today for evaluation of hopelessness/depression due to recent life stressors. She endorses suicidal ideation with plan to overdose on heroin. She admits to using crack cocaine for 5 days straight. She last used around midnight this morning. Denies IV drug use. She does not have direct access to firearms however states I can by one off the [address] for 100 dollars . She is currently homeless and residing in a hotel. She states she is seeking detox. Denies EtOH consumption. Admits to visual and auditory hallucinations. Denies TH. Denies HI. Denies any physical complaints at present. Related Data Previous Rx's ?Medication ?Instructions ?Recorded albuterol sulfate 90 mcg/actuation 2 puff inhalation RQ4H PRN 06/09/24 aerosol inhaler (Ventolin HFA) Wheezing #6.7 grams aripiprazole 20 mg tablet (Abilify) 20 mg PO DAILY #30 tabs 06/09/24 baclofen 10 mg tablet 10 mg PO BID #60 tabs 06/09/24 benztropine 1 mg tablet 1 mg PO BEDTIME #30 tabs 06/09/24 celecoxib 100 mg capsule 100 mg PO BID #60 caps 06/09/24 clonidine HCl 0.1 mg tablet 0.1 mg PO BID #60 tabs 06/09/24 folic acid 1 mg tablet 1 mg PO DAILY #30 tabs 06/09/24 furosemide 40 mg tablet 40 mg PO DAILY #30 tabs 06/09/24 lamotrigine 25 mg tablet 50 mg (2 x 25 mg) PO DAILY #60 tabs 06/09/24 multivitamin (Daily-Pasquale tablet) 1 tab PO DAILY #30 tabs 06/09/24 nicotine 21 mg/24 hr daily 21 mg transdermal DAILY PRN 06/09/24 transdermal patch nicotine cravings #30 ea omeprazole 20 mg capsule,delayed 20 mg PO BID@0630,1630 #60 caps 06/09/24 release oxcarbazepine 300 mg tablet 300 mg PO BID #60 tabs 06/09/24 prazosin 1 mg capsule 1 mg PO BEDTIME #30 caps 06/09/24 thiamine mononitrate (vit B1) 100 100 mg PO DAILY #30 tabs 06/09/24 mg tablet trazodone 50 mg tablet 50 mg PO BEDTIME #30 tabs 06/09/24 cefuroxime axetil 500 mg tablet 500 mg PO BID 7 days #14 tabs 06/14/24 Allergies Allergy/AdvReac Type Severity Reaction Status Date / Time No Known Allergies Allergy Verified 06/14/24 11:45 Review of Systems Review of Systems: Constitutional: No fever, chills, fatigue, night sweats, weight changes ENT/Mouth: No ear pain, hearing loss, nasal congestion, sinus pain, rhinorrhea, sore throat Eyes: No eye pain, swelling, redness, vision changes, discharge Cardio: No chest pain, palpitations, CURTIS, orthopnea, peripheral edema Pulm: No SOB, cough, sputum, wheezing, dyspnea, hemoptysis GI: No nausea, vomiting, hematemesis, abdominal pain, diarrhea, constipation, hematochezia, melena : No irregular bleeding, dysuria, frequency, urgency, hesitancy, hematuria, flank pain, urinary flow changes, urinary incontinence or retention MSK: No back pain, neck pain, joint pain, myalgias Skin: No lesions, rashes Neuro: No weakness, numbness, paresthesias, LOC, dizziness, headache Psych: No anxiety/panic, HI, +SI, +AH/VH, +depression All other systems reviewed and are negative. [facility] Past Medical History Attestation statement: The following information was validated with the patient. Source: old records reviewed and nursing notes reviewed Medical History Absence seizure History of seizure History of concussion Cataract Glaucoma Nicotine dependence, cigarettes, uncomplicated Cannabis use disorder Cocaine use disorder Osteoarthritis of lumbar spine Osteoarthritis, hand, primary localized Morbid obesity Asthma NELSON on CPAP Fibromyalgia History of post traumatic stress disorder History of ETOH abuse Memory changes Impaired fasting blood sugar Hiatal hernia Obesity Surgical History History of pubovaginal sling History of right knee surgery History of colonoscopy History of back surgery History of esophagogastroduodenoscopy (EGD) Family History Family History Father Medical history non-contributory Mother Medical history non-contributory Other Adopted Social History Social History Household Members: Other Household Members Other:: pt is homeless Housing: Apartment Do you presently have visiting nurse or other home services: No Alcohol intake: never Patient Tobacco Use Status: Current everyday Tobacco user Tobacco use type: Cigarette Cigarette Packs Per Day: 1 Cigarettes Per Day: 20.0 Years Smoked: 28 Smoked in Last 30 Days: Yes e-Cigarette/Vaping Use: Never Used Second Hand Smoke Exposure: No Substance Use Type: Crack/Cocaine Substance Use Frequency: Daily Last Used Substance: Hours (ago) Advance Directives: No Advance Directives Information Provided: Yes Do you have a plan to hurt others: No Plan Patient : No service: No Current occupational status: employed 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 EENT: Hearing is intact b/l. Conjunctiva clear. PERRLA. EOM intact. Moist mucous membranes.? Neck: Supple without LAD Cardiac: Chest wall symmetric. RRR Lungs: Normal respiratory effort without accessory muscle use. CTA bilaterally Abdomen: obese, non-tender, non-distended. No rebound tenderness or guarding Back: No midline spinous or paraspinal tenderness. No step off deformity. Ext: Upper and lower extremities atraumatic, without tenderness, deformity, swelling or erythema Neuro: AOx3. pressured speech. CN 2-12 grossly intact. Ambulating with steady gait. Psych: Appropriate mood and affect. Responds appropriately to questions. Course Course Course Narrative: This is a Rapid Medical Exam performed in triage by Latoya Orourke PA-C. Full HPI, ROS and PE to be performed by primary ED provider. 58yo F w/PMHx bipolar, PTSD, anxiety, depression, substance use, asthma, NELSON on CPAP, presenting to the ED c/o substance use, recent homelessness, hopelessness/depression, w/SI to overdose on heroine. denies HI. Also reports hallucinations, Last used substances 10hrs ago. denies IVDA PE: pressured speech, +SI, Plan: labs, tox, CARE consult Reevaluation(s) Reevaluation #1: 1331 -- CBC without leukocytosis. No left shift. No anemia. H&H stable. Chemistry without acute electrolyte abnormality requiring intervention. No SAGRARIO. Liver function slightly elevated. Urine with 4+ bacteria, 11-20 WBCs, trace leukocyte esterase. negative nitrites. Will treat for urinary tract infection with Ceftin, culture pending. Urine toxicology positive for cocaine, otherwise negative. Salicylates, acetaminophen, ethanol undetectable. > patient placed in physician observation pending care team evaluation Patient was evaluated by Rosana from the CARE Team. She is well known to the ED and has been evaluated for the same numerous times in the past, at least twice this month. she was recently discharged from our facility. she has continuously been noncompliant with her medications that have been sent to her pharmacy by our facility. she has made similar statements of SI/HI with no history of attempts. she is currently experiencing homelessness and Rosana has provided her with a list of shelters and outpatient resources. i have provided her with take-home narcan. i educated her on narcan use. ceftin has been sent to pharmacy for treatment of UTI. Patient has remained stable throughout ED visit today. Discussed worrisome signs and symptoms and when to return to the ED. All questions answered at this time. Patient is stable for discharge. Medications Administered Discontinued Medications Generic Name Dose Route Start Last Admin Trade Name Freq PRN Reason Stop Dose Admin Cefuroxime Axetil 500 mg 06/14/24 13:39 06/14/24 15:25 Cefuroxime Axetil 500 Mg Tablet PO 06/14/24 13:40 500 mg ONCE ONE Administration Naloxone HCl 8 mg 06/14/24 16:06 06/14/24 16:26 Naloxone Hcl Nasal Take Home 4 Mg [place] NOSTRILALT 06/14/24 16:07 Not Given ONCE ONE Medical Decision Making Medical Decision Making [facility] Narrative: 58-year-old with past medical history significant for bipolar disorder, PTSD, anxiety, depression, polysubstance abuse, asthma, NELSON on CPAP presents to the ED today for evaluation of hopelessness/depression due to recent life stressors. Hypertensive to 149/96, vitals are otherwise WNL. She is nontoxic-appearing and in no acute distress. Sitting comfortably in the behavioral pod. AOX3, pressured speech. her physical exam is really only significant for skin lesions consistent with skin picking to upper and lower extremities. Otherwise benign. Differential diagnosis includes polysubstance abuse, depression, suicidal ideation, anemia, electrolyte abnormality, urinary tract infection Plan for medical clearance (labs, utox, UA) and care team evaluation. Differential Diagnosis Differential Diagnoses: The differential diagnosis associated with the presentation includes As above Admission/Observation Consideration of admission/observation: Escalation of care including admission/observation considered Lab Data [facility] Lab Attestation statement: I reviewed the patient's lab results. As above 06/14/24 12:37 06/14/24 12:37 Labs: Lab Results 06/14/24 06/14/24 Range/Units 12:06 12:37 WBC 7.3 (4.8-10.8) X10*3/uL RBC 4.88 (4.20-5.50) X10*6/uL Hgb 13.4 (12.0-16.0) g/dl Hct 41.3 (37.0-47.0) % MCV 84.6 (80.0-98.0) fL MCH 27.5 (27.0-33.0) pg MCHC 32.4 (31.0-35.0) g/dl RDW 13.8 (11.0-16.0) % Plt Count 301 (160-400) X10*3/uL MPV 9.1 L (9.4-12.3) fL Immature Gran % (Auto) 0.3 (0.0-0.4) % Neut % (Auto) 57.3 (45-73) % Lymph % (Auto) 32.1 (20-40) % [place] % (Auto) 7.0 (2-11) % Eos % (Auto) 2.5 (0-4) % Baso % (Auto) 0.8 (0-2) % Lymph # (Auto) 2.4 (1.2-4.9) X10*3/uL [place] # (Auto) 0.5 (0.1-1.2) X10*3/uL Eos # (Auto) 0.2 (0.0-0.4) X10*3/uL Baso # (Auto) 0.1 (0.0-0.2) X10*3/uL Abs Immat Gran (auto) 0.02 (0.00-0.03) X10*3/uL Absolute Neuts (auto) 4.2 (2.0-8.3) x10*3/uL Absolute Nucleated RBC 0.000 (0.0-0.012) X10*3/uL Nucleated RBC % (auto) 0.0 (0.0-0.2) /100WBC Sodium 143 (135-145) mmol/L Potassium 3.9 (3.3-5.1) mmol/L Chloride 106 (96-108) mmol/L Carbon Dioxide 27 (22-29) mmol/L Anion Gap 14 (12-20) BUN 16 (9-16) mg/dL Creatinine 0.88 (0.5-1.4) mg/dL Estim Creat Clear Calc 73.3 Estimated GFR > 60 Random Glucose 99 (60-115) mg/dL Calcium 9.1 (8.4-10.2) mg/dL Magnesium 2.0 (1.6-2.6) mg/dL Total Bilirubin 0.6 (0.0-1.0) mg/dL Direct Bilirubin 0.2 (0.0-0.5) mg/dL AST 38 H (5-31) U/L ALT 61 H (0-31) U/L Alkaline Phosphatase 74 (39-117) U/L Total Protein 7.9 (6.5-8.0) g/dL Albumin 4.2 (3.5-5.0) g/dL Urine Color Dark Yellow Urine Appearance Cloudy Urine pH 5.5 (5.0-9.0) Ur Specific [place] >= 1.030 H (1.005-1.025) Urine Protein 30 (1+) H (Neg-Trace) mg/dL Urine Glucose (UA) Negative (Negative) mg/dL Urine Ketones Negative (Negative) mg/dL Urine Blood Negative (Negative) Urine Nitrite Negative (Negative) Ur Leukocyte Esterase Trace H (Negative) Urine RBC 0-2 (0-2) /HPF Urine WBC 11-20 H (0-5) /HPF Ur Squamous Epith Cells >20 (0-2) /HPF Urine Bacteria 4+ (None Seen) Hyaline Casts 3-5 (0-2) /LPF Salicylates < 5.0 L (15-30) mg/dL Urine Opiates Screen Not Detected (Not Detect) Ur Buprenorphine Scrn Not Detected (Not Detect) ng/mL Ur Oxycodone Screen Not Detected (Not Detect) ng/mL Urine Methadone Screen Not Detected (Not Detect) ng/mL Urine Fentanyl Screen Not Detected (Not Detect) Acetaminophen < 3 (<30) mcg/mL Ur Barbiturates Screen Not Detected (Not Detect) Ur Phencyclidine Scrn Not Detected (Not Detect) Ur Amphetamines Screen Not Detected (Not Detect) U Benzodiazepines Scrn Not Detected (Not Detect) Urine Cocaine Screen POSITIVE H (Not Detect) U Marijuana (THC) Screen Not Detected (Not Detect) Ethyl Alcohol < 10 mg/dL External Record Review External record reviewed: Inpatient record Chronic Conditions Patient?s care impacted by: Other (Bipolar disorder, anxiety/depression, polysubstance abuse) Social Determinants Patient?s care significantly limited by Social Determinants of Health including: Inadequate housing, Low income, Alcoholism and drug addiction in family, Problems related to primary support group, Problems related to employment and Other Social Determinant of Health Critical Care Time Critical Care Time Critical Care Time: No Discharge Plan Discharge Clinical Impression: Suicidal ideation, Depression, Cocaine abuse, Auditory hallucination, Visual hallucination, Urinary tract infection Patient Disposition: Home, Self-Care Instructions: Urinary Tract Infection in Women (DC), Depression (ED) Additional Instructions: Your blood work today is reassuring. Your urine is positive for infection. Ceftin as an antibiotic that has been sent to your pharmacy for treatment. You already received your 1st dose in the ED today. Take this as prescribed and to completion. You were evaluated by care team today and cleared for discharge. You were provided with take-home Narcan. You were provided with a list of homeless shelters and out patient resources to follow up with. Please return with any new or worsening symptoms. In the case of an emergency call 911. You may also follow up with the [facility] outpatient: [phone] [facility] [address] [place] [id number] Prescriptions: New cefuroxime axetil 500 mg tablet 500 mg PO BID 7 Days Qty: 14 0RF No Action albuterol sulfate [Ventolin HFA] 90 mcg/actuation Hfa Aerosol Inhaler 2 puff inhalation RQ4H PRN (Reason: Wheezing) Qty: 6.7 0RF baclofen 10 mg tablet 10 mg PO BID Qty: 60 0RF multivitamin [Daily-Pasquale] Tablet 1 tab PO DAILY Qty: 30 0RF furosemide 40 mg Tablet 40 mg PO DAILY Qty: 30 0RF Protocol: Hold for SBP< HOLD for SBP < : 90 clonidine HCl 0.1 mg Tablet 0.1 mg PO BID Qty: 60 0RF Protocol: Hold for SBP< HOLD for SBP < : 90 trazodone 50 mg Tablet 50 mg PO BEDTIME Qty: 30 0RF prazosin 1 mg Capsule 1 mg PO BEDTIME Qty: 30 0RF Protocol: Hold for SBP< HOLD for SBP < : 90 oxcarbazepine 300 mg Tablet 300 mg PO BID Qty: 60 0RF lamotrigine 25 mg Tablet 50 mg PO DAILY Qty: 60 0RF benztropine 1 mg Tablet 1 mg PO BEDTIME Qty: 30 0RF nicotine 21 mg/24 hr Patch 24 Hour 21 mg transdermal DAILY PRN (Reason: nicotine cravings) Qty: 30 0RF omeprazole 20 mg Capsule,Delayed Release(Dr/Ec) 20 mg PO BID@0630,1630 Qty: 60 0RF folic acid 1 mg Tablet 1 mg PO DAILY Qty: 30 0RF celecoxib 100 mg Capsule 100 mg PO BID Qty: 60 0RF aripiprazole [Abilify] 20 mg Tablet 20 mg PO DAILY Qty: 30 0RF thiamine mononitrate (vit B1) 100 mg Tablet 100 mg PO DAILY Qty: 30 0RF Referrals: Adilson Park MD [Primary Care Provider] - Interventions: [place]-Suicide Risk Severity Scale Last Done: 06/14/24 12:11 ED Discharge Assessment Last Done: 06/14/24 16:29 Discharge Date/Time: 06/14/24 16:30 Print Language: Irish
[2024-06-14 12:17] LABS: Appearance Urine Cloudy; Color Urine Dark Yellow; Glucose Urine UA Negative (Negative); Leukocyte Esterase Urine Trace (Negative); Nitrite Urine Negative (Negative); PH 5.5 (5.0-9.0); Specific Gravity - Urine >= 1.030 (1.005-1.025); UMIC TRIGGER UACC YES; Urine Blood Negative (Negative); Urine Ketones Negative (Negative); Urine Protein 30 (1+) mg/dL (Neg-Trace)
[2024-06-14 12:22] LABS: Bacteria Urine 4+ (None Seen); RBC Urine 0-2 /HPF (0-2); Squamous Epithelial Cell Urine >20 /HPF (0-2); UACC Culture Trigger YES
[2024-06-14 12:37] LABS: Amphetamine Screen Urine Not Detected (Not Detect); Barbiturates, Urine Not Detected (Not Detect); Benzodiazepines Screen Urine Not Detected (Not Detect); Buprenorphine Scr Not Detected (Not Detect); Cannabinoid Screen Urine Not Detected (Not Detect); Cocaine Screen Urine POSITIVE (Not Detect); Fentanyl, urine Not Detected (Not Detect); Methadone Screen, Urine Not Detected (Not Detect); Opiate Screen Urine Not Detected (Not Detect); Oxycodone Screen Urine Not Detected (Not Detect); Phencyclidine Screen Urine Not Detected (Not Detect)
[2024-06-14 12:41] LABS: MANUAL DIFF FLAG NO
[2024-06-14 12:43] LABS: Basophils Absolute Auto 0.1 X10*3/uL (0.0-0.2); Basophils Percent Auto 0.8 % (0-2); Eosinophils Absolute Auto 0.2 X10*3/uL (0.0-0.4); Eosinophils Percent Auto 2.5 % (0-4); Hematocrit 41.3 % (37.0-47.0); Hemoglobin 13.4 g/dl (12.0-16.0); Imm Gran Abs Auto 0.02 X10*3/uL (0.00-0.03); Imm Gran Pct Auto 0.3 % (0.0-0.4); Lymphocytes Absolute Auto 2.4 X10*3/uL (1.2-4.9); Lymphocytes Percent Auto 32.1 % (20-40); Mean Corpuscular HGB Conc 32.4 g/dl (31.0-35.0); Mean Corpuscular Hemoglobin 27.5 pg (27.0-33.0); Mean Corpuscular Volume 84.6 fL (80.0-98.0); Mean Platelet Volume 9.1 fL (9.4-12.3); Monocytes Absolute Auto 0.5 X10*3/uL (0.1-1.2); Neutrophils Absolute Auto 4.2 x10*3/uL (2.0-8.3); Neutrophils Percent Auto 57.3 % (45-73); Platelet Count 301 X10*3/uL (160-400); Red Blood Count 4.88 X10*6/uL (4.20-5.50); Red Cell Distribution Width 13.8 % (11.0-16.0); White Blood Count 7.3 X10*3/uL (4.8-10.8)
[2024-06-14 12:58] LABS: Acetaminophen LAB < 3 mcg/mL (<30); Alanine Aminotransferase 61 U/L (0-31); Albumin Level 4.2 g/dL (3.5-5.0); Alkaline Phosphatase 74 U/L (39-117); Anion Gap 14 (12-20); Aspartate Amino Transferase 38 U/L (5-31); Bilirubin Direct 0.2 mg/dL (0.0-0.5); Bilirubin Total 0.6 mg/dL (0.0-1.0); Blood Urea Nitrogen 16 mg/dL (9-16); Calcium 9.1 mg/dL (8.4-10.2); Carbon Dioxide 27 mmol/L (22-29); Chloride 106 mmol/L (96-108); Creatinine Clr Calc Pharmacy 73.3; Estimated Glomerular Filt Rate > 60; Ethanol < 10 mg/dL; Glucose Random 99 mg/dL (60-115); Potassium 3.9 mmol/L (3.3-5.1); Salicylate < 5.0 mg/dL (15-30); Sodium 143 mmol/L (135-145); Total Protein 7.9 g/dL (6.5-8.0)
--- NOTE | 2024-06-14 13:19 | PC.NURSE ---
Pt comes to ED today as a walk in, and comes to the Pod. Pt reports she has had two recent psych admits here and was just discharged about 5 days ago. She reports she has had a hard time getting her Rx from the pharmacy d/t the bus system and does not want to go to a custodial. Pt reports she has been using about $6000 worth of crack cocaine, last use was about 10 hrs ago. She denies SI/HI upon arrival to unit. Pt is calm and cooperative. Security present for ticket dispenser changer. All belongings searched and secured.
--- NOTE | 2024-06-14 13:51 | MHC.CARE ---
Pt does not meet the criteria for IPLOC secondary to denying SI, and HI. Pt's primary concern is substance use and is referred to the recovery team.
--- NOTE | 2024-06-14 14:52 | MHC.RECOVRN ---
Received request to assist pt. with detox services. Due to her current use of cocaine only, she needs to attend [facility]. T/W sent referral to [facility], called [facility] at [phone] and left message and called [facility], [facility], [facility]-no beds and [facility]-no answer. Update sent to care team.
[2024-06-14] MEDS: cefuroxime axetiL 500 MG TABLET PO (15:25)
--- NOTE | 2024-06-14 15:26 | PC.NURSE ---
Pt is awake and seen by CT. After being informed she will be d/c'd Pt requests to use the phone to call for possible transportation. Pt noted to make several calls and becomes tearful. While administering medications Pt states to this RN that she wants to and plans to get heroin and will OD upon leaving the facility. She makes repetitive statements that she will not be here tomorrow because she plans to . She states she is going straight to [address] to get as much heroin as she can. Care Team notified via [employer] of new with a plan.
--- NOTE | 2024-06-14 15:57 | PC.NURSE ---
Pt continues to make SI and HI statements. She reports she will be murdering her roommates tontoya and advises staff to watch the news for it. She requests pen and paper to make labels so she can label her body once she OD's. Care Team already notified of SI statements made earlier and was verbally made aware of on going statements as well as HI. Discussed with ED Provider Pts statements and will consult with attending. Awaiting dispo.
--- NOTE | 2024-06-14 16:27 | PC.NURSE ---
Pt refuses VS assessment at discharge. Pt also refuses to take Narcan to keep on person.
[2024-06-14 16:29] VITALS: BP 00/00; PULSE 0; RESP 0; TEMP -17.7; TEMP 0
== END 2024-06-14 16:30 | disposition home or self-care (01) ==
PROVIDERS: Physician Assistant; Emergency Provider Student in an Organized Health Care Education/Training Program; PCP Internal Medicine
DX: F33.1 Major depressive disorder, recurrent, moderate (principal); R45.851 Suicidal ideations; F14.10 Cocaine abuse, uncomplicated; N39.0 Urinary tract infection, site not specified; Z51.81 Encounter for therapeutic drug level monitoring; Z79.899 Other long term (current) drug therapy; Z71.51 Drug abuse counseling and surveillance of drug abuser
CPT/HCPCS: 36415; 80048; 80076; 80143; 80179; 80307; 81001; 83735; 85025; 87086; 99284; S9485

== ENCOUNTER 2024-08-06 11:01 | Emergency (ER) | payer OTHER, SELFPAY ==
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
[2024-08-06 11:17] VITALS: BP 150/101; PULSE 84; O2SAT 99
[2024-08-06 11:29] VITALS: BP 136/86; PULSE 69; RESP 16; TEMP 36.6; O2SAT 95; BMI 42.9
--- NOTE | 2024-08-06 11:32 | PC.NURSE ---
[place] [employer] officers x2 at pt.'s bedside
[2024-08-06 11:33] VITALS: BP 136/86; PULSE 69; RESP 16; TEMP 36.6; O2SAT 95
[2024-08-06 11:42] LABS: MANUAL DIFF FLAG NO
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
--- OUTSIDE RECORDS SUMMARY | 2024-08-06 11:42 | XMS_ITS | Continuity of Care Document ---
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 at bedtime, PRN Home Albuterol (Eqv-Proventil HFA) 90 mcg/inh inhalation aerosol, 180 mcg= 2 inhalation, Inhalation, Every 4 hours, PRN baclofen 10 mg oral tablet, 10 mg= 1 tablet, By Mouth, 3 times a day benztropine 0.5 mg oral tablet, 0.5 mg= 1 tablet, By Mouth, 2 times a day cloNIDine 0.1 mg oral tablet, 0.1 mg, By Mouth, 4 times a day, PRN furosemide 40 mg oral tablet, 40 mg= 1 tablet, By Mouth, Daily lurasidone 80 mg oral tablet, 80 mg= 1 tablet, By Mouth, Daily at supper, 1 refills Milk of Magnesia 1200 mg/15 mL oral liquid, 2400 mg= 30 mL, By Mouth, Daily, PRN MiraLax oral powder for reconstitution, 17 Gm, By Mouth, Daily Nicotine 7 mg/24 hour patch, 1 patch, Topically, Daily omeprazole 20 mg oral enteric coated capsule, 20 mg= 1 capsule, By Mouth, Daily OXcarbazepine 300 mg oral tablet, 600 mg= 2 tablet, By Mouth, 2 times a day prazosin 2 mg oral capsule, 2 mg= 1 capsule, By Mouth, Daily at bedtime simethicone 80 mg oral tablet, chewable, 80 mg= 1 tablet, Chew, 4 times a day, PRN traZODone 100 mg oral tablet, 100 mg= 1 tablet, By Mouth, Daily at bedtime, PRN Tylenol 325 mg oral tablet, 650 mg= 2 tablet, By Mouth, Every 6 hours, PRN Zofran ODT 4 mg oral tablet, disintegrating, 1 tablet, By Mouth, Every 6 hours, PRN Allergies Adderall Social History Alcohol Use: Past. Other: sober since 2016. Substance Abuse Use: Current. Type: Cocaine. Tobacco Use: 10 or more cigarettes (1/2 pack or more)/day in last 30 days. Unstable housing. Hx of cocaine use disorder. ?? Past Psychiatric History: Diagnoses: bipolar disorder, cocaine use disorder Hospitalizations: yes, last at [facility] for over 1 month Suicide attempts: yes, via intentioanl overdose on cocaine and heroin last year Medication trials: oxcarbazepine, prazosin, lurasidone, trazodone, lamotrigine, Abilify Providers: Nicci Capellan at [facility] Immunizations Vaccine Date Status influenza virus vaccine, inactivated 05/15/2024 Recorded pneumococcal 23-valent vaccine 06/21/2023 Recorded influenza virus vaccine, inactivated 06/21/2023 Recorded zoster vaccine, inactivated 09/21/2021 Recorded SARS-CoV-2 mRNA ([id number]) vax 09/21/2021 Recorded influenza virus vaccine, inactivated 03/12/2021 Recorded SARS-CoV-2 (COVID-19) mRNA BNT-162b2 vac 03/02/2021 Recorded SARS-CoV-2 (COVID-19) mRNA BNT-162b2 vac 09/08/2020 Recorded SARS-CoV-2 (COVID-19) mRNA BNT-162b2 vac 08/18/2020 Recorded influenza virus vaccine, inactivated 04/09/2020 Recorded influenza virus vaccine, inactivated 04/05/2019 Recorded influenza virus vaccine, inactivated 03/23/2018 Recorded pneumococcal 23-valent vaccine 03/16/2017 Recorded influenza virus vaccine, inactivated 03/16/2017 Recorded hepatitis B adult vaccine 01/09/2004 Recorded History and physical note * Sabrina MARTINEZ, Javier Polk: PERFORM Event Display: History and Physical Hospital Authored Date: [id number] Patient: ??JONNY LEARY ? Age:??58 Years?Sex:??Female?:??1965?? Chief Complaint/Reason for Consultation pt coming [facility], pt had an unwitnessed fall in her room. Staff heard it because slammed into the door and found her unresponsive. ??C/o left ankle pain. ambulates steady. History of Present Illness 58-year-old female??with past medical history significant for developmental delay,??seizure disorder,??bipolar disorder, SI,??and??GERD??who was brought to the emergency room last night??from[facility]??after a syncopal event with fall.?? The patient??reports??that she??de veloped??weakness,??malaise,??respiratory??congestion,??and nausea??on 07/28/2024,??and yesterday morning??felt like she was going to vomit.?? She got up quickly to try to go to the bathroom,??but fell against the door in her room.?? She remembers this,??but apparently??did lose consciousness??as she does not remember receiving chest compressions??when staff??discovered her.?? It is unclear if shewas ever truly pulseless or apneic. ??She has not had documented fever.?? She did not have preceding chest pain, palpitations, or shortness of breath, but does complain of chest pain??on the right side now,??likely related to??receiving CPR.?? She denies any abdominal pain, diarrhea, or urinary symp toms. ?? In the emergency room, the patient has remained afebrile.?? She had soft blood pressure down to??96/58, but has remained stable after 1 L normal saline bolus.?? She reports feeling generally weak,and asks when can I walk again?She was noted to have pulse oximetry down to 88% on room air, but has been saturating 96 to 98% on 2 L nasal cannula.?? She does not appear to be in any respiratory distress.?She has no signs of external trauma.?Head and neck CT was unremarkable.?? CT angio of the chest was obtained due to elevated D-dimer, which showed no pulmonary emboli and dependent atelectasis bilaterally.?? There was a small focus of nonspecific parenchymal disease in each lung, and the patient was found to be COVID-19 positive.?? Other laboratory workup was remarkable for potassium 3.2, glucose 110, and creatinine 1.04 (previous baseline 0.7).?? High-sensitivity troponin value was negative at 13.?? The patient was given dexamethasone 6 mg IV. Review of Systems Other than those positives as noted in the HPI above, all other systems were reviewed and are negative. Objective ? Vital Signs?? Temperature: 98.3 DegF (07/30/24 05:55:00) Temperature Route: Oral (07/30/24 05:55:00) Pulse Rate: 65 bpm (07/30/24 05:55:00) Respiratory Rate: 18 br/min (07/30/24 05:55:00) Systolic Blood Pressure: 100 mm Hg (07/30/24 05:55:00) Diastolic Blood Pressure: 61 mm Hg (07/30/24 05:55:00) Mean Arterial Pressure: 74 mm Hg (07/30/24 05:55:00) Pulse Pressure: 39 mm Hg (07/30/24 05:55:00) Oxygen Saturation: 98 % (07/30/24 05:55:00) Liters per Minute: 2 L/min (07/30/24 04:29:00) Mode of Delivery (Oxygen): Room air (07/30/24 05:55:00) Early Warning Score: 1 (07/30/24 05:56:01) ? Pain Scores 1 - 10 Pain Scale Score: 0 (04:29) ? Physical Exam General Appearance: Alert, no distress, answers questions appropriately HEENT: Normocephalic, atraumatic, PERRL, EOMI, no scleral icterus, no facial droop, moist mucous membranes, no oropharynx lesions?? Neck: Supple, no JVD, no C-Spine tenderness, no LAD Cardiac: RRR, S1 & S2 present, no m / r / g appreciated Chest: Clear to auscultation bilaterally, no wheezing / ronchi / rales, no tenderness to percussion Abdomen: Soft, nontender, obese, no rebound or guarding, no masses, normal bowel sounds in all quadrants Extremities: No clubbing??or??cyanosis, trace edema. ??2+ distal pulses.?? No calf tenderness or cords Skin: Warm, no rash Neuro: ??A & O x 3, CN III-XII intact, strength 5/5 of upper / lower extremities bilaterally, no drift, gross sensation intact Psych: ??Stable mood, appropriate affect Assessment/Plan Assessment:??58-year-old female??with past medical history significant for developmental delay,??seizure disorder,??bipolar disorder, SI,??and??GERD??who was brought to the emergency room last night??from??[facility]??after a syncopal event with fall.??The patient??reports??that she??developed??weakness,??malaise,??respiratory??congestion,??and nausea??on 07/28/2024,??and yesterday morning??felt like she was going to vomit.??She got up quickly to try to go to the bathroom,??but fell against the door in her room, with LOC.?She is found to be COVID-19 positive??with pulse oximetry 88% on room air.??Admission requested for ongoing management. ?? Syncope and collapse (R55):??I suspect the patient??syncopized in the setting of??dehydration and possible orthostatic hypotension.??Her blood pressure was soft in the emergency room and has been fluid responsive.??She has had general malaise in the setting of COVID-19 symptoms over the past 24 hours.?She reports right-sided chest pain after receiving chest compressions,??but there was no documentation that she was ever truly pulseless or apneic.?She does not have??significant elevated cardiac biomarkers??or ischemic EKG changes.??Seizure cannot be fully ruled out, but less likely as she had no postictal state. -Admit to the medical floor, continuous EKG monitoring -Seizure precautions -Check orthostatic vital signs -Encourage oral intake -Hold furosemide for today -PT evaluation prior to discharge (patient reports ongoing weakness without focal neurological findings on exam) ?? Hypokalemia (E87.6) S[place]IO (acute kidney injury) (N17.9):??The patient was found to have potassium level 3.2,??with creatinine 1.04??(baseline 0.7). She has had general malaise and poor oral intake over the past 24 hours with the onset of COVID symptoms. She is not oliguric. The patient received 1 L normal saline??IV in the emergency department, and has remained hemodynamically stable. Supplement potassium chloride??orally??and follow-up??metabolic panel. Check magnesium level and supplement as needed. Monitor urine output. Hold furosemide??for today as above, and avoid nephrotoxins. ?? COVID-19 virus infection (U07.1):??The patient was noted to have pulse oximetry 88% on room air. Lung exam is fairly clear without bronchospasm. Continue dexamethasone 6 mg??daily. Albuterol MDI 2 puffs every 2 hours as needed for wheezing. Monitor respiratory exam and pulse oximetry. ?? Seizure disorder (G40.909):??No current evidence for??seizure. Continue oxcarbazepine as prescribed. ?? Bipolar disorder (F31.9):??Mood is currently stable. She is on suicide precautions. Continue oxcarbazepine and prazosin as prescribed. Lurasidone is nonformulary here. Resume benztropine as prescribed. Continue clonidine up to 4 times daily as needed for anxiety. Continue trazodone at bedtime as needed for sleep. ?? GERD (gastroesophageal reflux disease) (K21.9):??Continue PPI as prescribed. ?? VTE Prophylaxis:??Lovenox 40 mg subcutaneously daily. ?VTE Prophylaxis Assessment:??VTE Prophylaxis Ordered ?? Discharge Planning:??Anticipate discharge back to [facility]. 1 to 2 days hospitalization. ?? Code Status:??FULL. ?Order Code Status:??Code Status Ordered ?? I spent a total of??75 minutes today reviewing the chart / medical records, evaluating the patient,evaluating and interpreting laboratory and imaging data, formulating and discussing the treatment plan, and documenting the encounter. ? Histories Allergies Allergies ?(Active and Proposed Allergies Only) Adderall? (Severity: Unknown severity, Onset: Unknown) ? Past Medical History/Problem List Active Problems(7) Bipolar disorder Developmental delay GERD (gastroesophageal reflux disease) Positive PPD 20mm Seizure disorder Severe obesity Suicidal ideation ? Past Surgical History No surgery history documented. ? Social History Alcohol Details:??Use: Past. ??Other: sober since 2016. Substance Abuse Details:??Use: Past. ??Type: Cocaine. Tobacco Details:??Use: 10 or more cigarettes (1/2 pack or more)/day in last 30 days. ? Family History No Family History??contributory to this admission. ? Medications Home Medications Albuterol (Albuterol (Eqv-Proventil HFA) 90 mcg/inh inhalation aerosol)??2 inhalation 180 MicrogramInhalation Every 4 hours as needed as needed for shortness of breath or wheezing Baclofen??10 Milligram By Mouth 2 times a day Benztropine (benztropine 1 mg oral tablet)??0.5 Milligram 0.5 tablet By Mouth 2 times a day Celecoxib (celecoxib 100 mg oral capsule)??1 capsule 100 Milligram By Mouth 2 times a day Clonidine (cloNIDine 0.1 mg oral tablet)??0.1 Milligram By Mouth 4 times a day as needed Anxiety Furosemide (furosemide 40 mg oral tablet)??40 Milligram 1 tablet By Mouth Daily lurasidone (lurasidone 80 mg oral tablet)??1 tab(s) 80 Milligram By Mouth Daily at supper with food Meloxicam (meloxicam 7.5 mg oral tablet)??1 tab(s) 7.5 Milligram By Mouth Daily Omeprazole (omeprazole 20 mg oral enteric coated capsule)??1 capsule 20 Milligram By Mouth Daily Oxcarbazepine (OXcarbazepine 300 mg oral tablet)??600 Milligram 2 tablet By Mouth 2 times a day Prazosin (prazosin 1 mg oral capsule)??2 Milligram 2 capsule By Mouth Daily at bedtime Trazodone (traZODone 50 mg oral tablet)??100 Milligram 2 tablet By Mouth Daily at bedtime as neededInsomnia ? Results Recent Labs BLOOD COUNT & DIFF WBC 8.0 k/mm3 ()?? 07/30/2024 00:52 RBC 4.52 m/mm3 ()?? 07/30/2024 00:52 Hgb 12.2 Gm/dL ()?? 07/30/2024 00:52 Hct 38.8 % ()?? 07/30/2024 00:52 MCV 85.8 femtoliters ()?? 07/30/2024 00:52 MCH 27.0 pg ()?? 07/30/2024 00:52 MCHC 31.4 Gm/dL (Low)?? 07/30/2024 00:52 Platelet Count 192 k/mm3 ()?? 07/30/2024 00:52 RDW-SD 42.5 femtoliters ()?? 07/30/2024 00:52 MPV 9.9 femtoliters ()?? 07/30/2024 00:52 Nucleated RBC (Automated) 0.0 #/100 WBC'S ()?? 07/30/2024 00:52 Abs. NRBC 0.0 k/mm3 ()?? 07/30/2024 00:52 Abs. Neut 6.0 k/mm3 ()?? 07/30/2024 00:52 Abs. Lymph 0.9 k/mm3 ()?? 07/30/2024 00:52 Abs. [place] 1.1 k/mm3 (High)?? 07/30/2024 00:52 Abs. Eo 0.0 k/mm3 ()?? 07/30/2024 00:52 Abs. Baso 0.0 k/mm3 ()?? 07/30/2024 00:52 Neut % 75.0 % ()?? 07/30/2024 00:52 Lymph % 10.8 % (Low)?? 07/30/2024 00:52 [place] % 13.2 % (High)?? 07/30/2024 00:52 Eos % 0.2 % ()?? 07/30/2024 00:52 Baso % 0.4 % ()?? 07/30/2024 00:52 Imm Gran 0.4 % ()?? 07/30/2024 00:52 Abs. Imm Gran 0.0 k/mm3 ()?? 07/30/2024 00:52 ?? CARDIAC High Sensitivity Troponin (HSTnT) 13 ng/L ()?? 07/30/2024 00:52 ?? CHEM GENERAL Sodium 138 mmol/L ()?? 07/30/2024 00:52 Potassium 3.2 mmol/L (Low)?? 07/30/2024 00:52 Chloride 101 mmol/L ()?? 07/30/2024 00:52 Bicarbonate Level 26 mmol/L ()?? 07/30/2024 00:52 Anion Gap 11 mmol/L ()?? 07/30/2024 00:52 Glucose Level 110 mg/dL (High)?? 07/30/2024 00:52 BUN 20 mg/dL ()?? 07/30/2024 00:52 Creatinine-Blood 1.04 mg/dL (High)?? 07/30/2024 00:52 Estimated GFR Creatinine 62 ML/MIN/1.73 M2 ()?? 07/30/2024 00:52 Calcium 8.3 mg/dL (Low)?? 07/30/2024 00:52 ?? COAG D-Dimer 5.36 mg/L FEU (High)?? 07/30/2024 00:52 ?? ENDOCRINE/TUMOR MARKER TSH 1.91 uIU/mL ()?? 07/30/2024 00:52 ?? HEME OTHER Hold Blue Top SPECIMEN DISCARDED AFTER 4 HOURS. ()?? 07/30/2024 00:52 ?? VIROLOGY Influenza A PCR NEGATIVE ()?? 07/30/2024 01:00 Influenza B PCR NEGATIVE ()?? 07/30/2024 01:00 RSV PCR NEGATIVE ()?? 07/30/2024 01:00 COVID-19 PCR Specimen Source NASAL ()?? 07/30/2024 01:00 COVID-19 PCR Result POSITIVE (Abnormal)?? 07/30/2024 01:00 ? Image XR Chest 2 Views Frontal and Lat??07/30/2024 03:48 by Nakia Martin ?IMPRESSION: Retrocardiac opacity can represent infection. ? CT Head/Brain W/O Contrast??07/30/2024 01:51 by Felipe Nieves ?IMPRESSION: No acute abnormality of the head or cervical spine. ? 12 Lead ECG??07/30/2024 00:11 by Javier Holliday DO ?Ventricular Rate: 73??BPM Atrial Rate: 73??BPM P-R Interval: 156??ms QRS Duration: 74??ms Q-T Interval: 380??ms QTC Calculation(Bazett): 418??ms P Linden: 46??degrees R Linden: 32??degrees T Linden: 32??degrees Normal sinus rhythm Nonspecific T wave abnormality Abnormal ECG When compared with ECG of 24-Jun-2023 15:09, No significant change was found Confirmed by JAVIER HOLLIDAY MD ([id number]) on 07/30/2024 7:33:23 AM ? CT Angio Chest??07/30/2024 03:41 by Felipe Nieves ?IMPRESSION: CTA 1. No pulmonary embolism to segmental level. 2. No thoracic aortic dissection. 3. Mid ascending aorta 39 mm which is unchanged. CHEST 1. Dependent atelectasis bilaterally. 2. A small focus of nonspecific parenchymal disease noted in each lung, possibly related to the known COVID 19 infection. 3. A major fissure lymph node on the right has slightly increased in size since prior exam, possibly reactive lung disease. 4. No pleural disease. 5. No acute mediastinal abnormality. 6. Moderate compression fracture of T4 new since 06/24/2023 and otherwise of uncertain age. No otherfracture. ?? EKG study * Event Display: ECG 12-Lead Authored Date: Please click on pdf link to open report * Event Display: ECG 12-Lead Authored Date: Ventricular Rate: 73 BPM Atrial Rate: 73 BPM P-R Interval: 156 ms QRS Duration: 74 ms Q-T Interval: 380 ms QTC Calculation(Bazett): 418 ms P Linden: 46 degrees R Linden: 32 degrees T Linden: 32 degrees Normal sinus rhythm Nonspecific T wave abnormality Abnormal ECG When compared with ECG of 24-Jun-2023 15:09, No significant change was found Confirmed by JAVIER HOLLIDAY MD ([id number]) on 07/30/2024 7:33:23 AM Clio: JAVIER HOLLIDAY MD Cardiology * Event Display: Cardiac Rhythm Strips Authored Date: [id number] Hospital Progress note * Sara Loja MD: PERFORM Event Display: Progress Note Hospital Authored Date: [id number] Patient: ??JONNY LEARY ? Age:??58 Years?Sex:??Female?:??1965?? Subjective Patient was seen and examined in AM.?? Denies any complaints.?? Very worried about her money.?? Sheis stating that she does not have any??clothes or shoes??in the hospital. stable from COVID standpoint,??currently on room air.?? She is medically cleared for discharge. However patient need??psych??clearance??for discharge.?? Review of Systems As above Objective Vital Signs?? Temperature: 98.8 DegF (08/02/24 07:59:00) Temperature Route: Oral (08/02/24 07:59:00) Pulse Rate: 71 bpm (08/02/24 14:50:00) Respiratory Rate: 17 br/min (08/02/24 14:50:00) Systolic Blood Pressure:??149 mm Hg??High (08/02/24 14:50:00) Diastolic Blood Pressure:??91 mm Hg??High (08/02/24 14:50:00) Blood pressure sites: Arm, right (08/02/24 14:50:00) Mean Arterial Pressure: 110 mm Hg (08/02/24 14:50:00) Pulse Pressure: 58 mm Hg (08/02/24 14:50:00) Oxygen Saturation: 97 % (08/02/24 14:50:00) Mode of Delivery (Oxygen): Room air (08/02/24 14:50:00) Early Warning Score: 0 (08/02/24 14:50:51) ? Intake/Output? 07/30 05:38 08/02 07:00 08/01 07:00 07/31 07:00 ?? 08/02 15:01 08/02 15:01 08/02 06:59 08/01 06:59 Urine Count ?2 ?0 ?1 ?1 ? Physical Exam Alert and oriented Chest she has no wheezing rhonchi or rales Cardiovascular: Regular rate and rhythm no rubs murmurs or gallops Abdomen soft nontender Extremities no edema Neurologic: Awake and alert moving all extremities no motor deficits she is ambulatory and independent in the room. Results Recent Labs BLOOD COUNT & DIFF WBC 5.4 k/mm3 ()?? 08/01/2024 06:45 RBC 4.44 m/mm3 ()?? 08/01/2024 06:45 Hgb 12.1 Gm/dL ()?? 08/01/2024 06:45 Hct 37.4 % ()?? 08/01/2024 06:45 MCV 84.2 femtoliters ()?? 08/01/2024 06:45 MCH 27.3 pg ()?? 08/01/2024 06:45 MCHC 32.4 Gm/dL (Low)?? 08/01/2024 06:45 Platelet Count 233 k/mm3 ()?? 08/01/2024 06:45 RDW-SD 41.2 femtoliters ()?? 08/01/2024 06:45 MPV 10.0 femtoliters ()?? 08/01/2024 06:45 Nucleated RBC (Automated) 0.0 #/100 WBC'S ()?? 08/01/2024 06:45 Abs. NRBC 0.0 k/mm3 ()?? 08/01/2024 06:45 Abs. Neut 2.6 k/mm3 ()?? 08/01/2024 06:45 Abs. Lymph 2.3 k/mm3 ()?? 08/01/2024 06:45 Abs. [place] 0.5 k/mm3 ()?? 08/01/2024 06:45 Abs. Eo 0.0 k/mm3 ()?? 08/01/2024 06:45 Abs. Baso 0.0 k/mm3 ()?? 08/01/2024 06:45 Neut % 47.3 % ()?? 08/01/2024 06:45 Lymph % 41.8 % ()?? 08/01/2024 06:45 [place] % 9.2 % ()?? 08/01/2024 06:45 Eos % 0.7 % ()?? 08/01/2024 06:45 Baso % 0.6 % ()?? 08/01/2024 06:45 Imm Gran 0.4 % ()?? 08/01/2024 06:45 Abs. Imm Gran 0.0 k/mm3 ()?? 08/01/2024 06:45 ?? CHEM GENERAL Sodium 139 mmol/L ()?? 08/01/2024 06:45 Potassium 3.8 mmol/L ()?? 08/01/2024 06:45 Chloride 102 mmol/L ()?? 08/01/2024 06:45 Bicarbonate Level 26 mmol/L ()?? 08/01/2024 06:45 Anion Gap 11 mmol/L ()?? 08/01/2024 06:45 Glucose Level 84 mg/dL ()?? 08/01/2024 06:45 BUN 14 mg/dL ()?? 08/01/2024 06:45 Creatinine-Blood 0.82 mg/dL ()?? 08/01/2024 06:45 Estimated GFR Creatinine 82 ML/MIN/1.73 M2 ()?? 08/01/2024 06:45 Calcium 9.1 mg/dL ()?? 08/01/2024 06:45 ?? URINE OTHER Est Creatinine Clearance 55.12 mL/min ()?? 08/01/2024 08:08 ? Assessment/Plan Diagnoses 1. ??Acute respiratory failure due to COVID-19 ??(U07.1) 2. ??Syncope and collapse ??(R55) 3. ??Hypokalemia ??(E87.6) 4. ??Seizure disorder ??(G40.909) 5. ??Bipolar disorder ??(F31.9) 6. ??GERD (gastroesophageal reflux disease) ??(K21.9) ?? 58-year-old female with bipolar disorder, apparently had a single episode of the outside facility. ?? no evidence of any cardiopulmonary issues at this time other than??COVID with mild acute hypoxic respiratory failure, now resolving. ?? Her other chronic issues include??bipolar disorder and substance abuse. ?? There is no clinical evidence of any pulmonary embolism,, her EKG is unremarkable for any arrhythmia and there is been no telemetry events. ?? Acute respiratory failure due to COVID-19 (U07.1):??She was given dexamethasone, we are taking her off oxygen now and see if there is any significant hypoxia.??If there is no hypoxia believe she be ready to go back to [facility] on oral dexamethasone??which she completed for 10 days.??Of course gettingback there with her??current COVID diagnosis may be challenging. ? Syncope and collapse (R55):??Resolved.??There is no evidence of any??telemetry events or neurologicdisease ?? Hypokalemia (E87.6):??Resolved ?? Seizure disorder (G40.909):??She was??likely not on oxcarbazepine for seizures she was likely on this for mood stabilization.??On clarifying the dose. ?? Bipolar disorder (F31.9):??Her medicines at the facility were the following: Lurasidone 80 mg Oxcarbazepine 600 mg twice daily Prazosin 2 mg at night Trazodone 100 mg as needed at night Baclofen 10 mg 3 times daily The rest of the medicines for as needed, see the med list for details. Psych consult requested ?? VTE Prophylaxis:??Continue Lovenox ?VTE Prophylaxis Assessment:??VTE Prophylaxis Ordered ?? Discharge Planning:??If her oxygenation is improved we will have to coordinate with her outside facility to see if she is a candidate to go back.??She is reporting that she is homeless .?? Social work and binder caser??following.?? Waiting for??psych evaluation Code Status:??Full code. ?Order Code Status:??Code Status Ordered ? * Leslie Perales RN: PERFORM, SIGN, VERIFY Event Display: Progress Note Hospital Authored Date: Patient: JONNY LEARY Age: 58 years Sex: Female : 1965 Associated Diagnoses: None Author: Angella SANCHEZ, Leslie Findings Problem Related to Alteration in Respiratory Function (new) : Alteration in Respiratory Function/new 08/02/2024 8:00 EST Alteration in Resp Status Related to COVID - 19 Goals & Outcomes, Respiratory Pt will maintain/resume baseline physical assessment, Pt will maintain adequate nutritional intake, Pt will maintain/resume normal fluid/electrolyte balance, Pt willnot develop complications r/t immobility, Pt will demonstrate proper technique w/self care procedures Interventions, Respiratory Assess/monitor tolerance to IV infusions; verify rate/dose, Assess for and report S&S of respiratory distress, Position for comfort & optimal oxygenation, Monitor sputum color & consistency. Report changes to MD KHAN Goals/Interventions, Respiratory Yes Respiratory, Problem Start 08/02/2024 3:46 Reviewed Plan with, Respiratory Patient Patient Progression, Respiratory Patient progressing according to plan . Nursing Data Cardiac Data. : Cardiac Data. 08/02/2024 8:00 EST Cardiovascular Symptoms None Nail Bed Color, Fingers [place] Nail Bed Color, Toes [place] Skin Temperature Upper Extremities Warm Skin Temperature Lower Extremities Warm Cardiac Rhythm Normal sinus rhythm Capillary Refill < 3 seconds Radial Pulse, Left Normal Radial Pulse, Right Normal Dorsalis Pedis Pulse, Left Normal Dorsalis Pedis Pulse, Right Normal school lunch monitor Yes Cardiovascular WNL except . Gastrointestinal Data. : Gastrointestinal Data. 08/02/2024 8:00 EST Gastrointestinal Symptoms None Abdomen Soft, Non-tender, Round Bowel Sounds All Quadrants Present Last Bowel Movement 08/01/2024 GI WNL except . Genitourinary Data. : Genitourinary Data. 08/02/2024 8:00 EST WNL . Integumentary Data. : Integumentary Data. 08/02/2024 8:00 EST Skin Color Normal for ethnicity Skin Description Dry Skin Temperature Warm Skin Integrity Intact Sensory Perception No impairment Sensory Perception No impairment Moisture Rarely moist Activity Walks occasionally Activity Walks occasionally Mobility Slightly limited Mobility Slightly limited Nutrition Adequate Friction and Shear Potential problem Stanley Score 19 Nursing Care Plan initiated/updated Yes Integumentary WNL . Musculoskeletal Data. : Musculoskeletal Data. 08/02/2024 8:00 EST Musculoskeletal Symptoms Weakness Musculoskeletal WNL except . Neurological Data. : Neurological Data. 08/02/2024 8:00 EST Tongue Disposition Midline Neurological Symptoms Impaired mental ability, Weakness or loss of muscle strength Level of Consciousness Full Consciousness Orientated to person, place, time Person, Place, Time, Event Hallucinations None Facial Symmetry Intact Characteristics of Speech Clear and normal Swallowing Difficulty None Pupil description, left Regular Pupil description, right Regular Pupil reaction, left Brisk Pupil reaction, right Brisk Strength LUE 4-Active movement against gravity & some resistance Strength RUE 4-Active movement against gravity & some resistance Strength LLE 4-Active movement against gravity & some resistance Strength RLE 4-Active movement against gravity & some resistance Tone LUE Normal Tone RUE Normal Tone LLE Normal Tone RLE Normal Sensation LUE Intact Sensation RUE Intact Sensation LLE Intact Sensation RLE Intact Movement LUE To command Movement RUE To command Movement LLE To command Movement RLE To command Gait Steady Tremors None Response Eye Opening Spontaneously Motor Response-Adult Obeys commands Verbal Response-Adult Oriented and converses [place] Coma Score 15 1 - 10 Pain Scale Score 6 Neuro WNL except Headache None Memory Intact Swallow - Neuro Normal . Patient Care Data. : Patient Care Data. 08/02/2024 8:00 EST Turn and Reposition Every two hours, With partial assist Sequential Compression Device Not ordered Ambulatory devices needed Walker TEDS Not indicated/Not ordered ID band on Yes Allergy band in place/verified Yes Blood Pressure/Venipuncture All 4 limbs may be used Call Walters in Reach-Ensure Ability to Use Yes Patient Instructed on Use of Call Walters Yes Alarms on (cardiac/respiratory) Yes Parameters on Alarm Checked Yes Isolation per Protocol Yes, Patient aware Type of Isolation Enhanced Respiratory Precautions Standard Safety Bed alert on, Bed in low position, Non-slip footwear, Upper/Half-length side-rails up, Wheels locked (Modified) Pt Ed-Learning: Person Taught Patient Pt Ed-Learning: Learning Readiness Yes, alert and oriented Pt Ed-Learning: Learning Barriers Cognitive deficit Pt Ed-Learning: Learning Style Verbal Pain system assessment Detailed pain assessment Fall Elimination No impairment Fall Agitation/Anxiety/Depression No impairment Fall Related Sign/Symptom/Condition None Fall Cognitive Limitations No impairment Fall Sensory and Physical Function History of Falls in the Past Six Months, Weak, Requires Staff Assistance with Transfer, Requires the Use of an Assistive Device Plan: Fall Sensory and Physical Function Encourage safe activities to maintain strength & mobility, Monitor patient's progress with physical activities, Place mobility aids near bedside Fall High Risk for Injury On Coumadin, IV Heparin, or Lovenox Total Falls Risk Score 13 Fall Risk Level High Risk Falls Prevention Plan for High Risk Fall risk decal outside of patient's room, Fall admissions nurse patient's chart, Apply yellow high fall risk wrist band to wrist, Ensure patient has yellow non-skid slippers, Supervise patient in the bathroom & shower, Activate bed exit alarm system, Evaluate footwear & ensure patient has non-skid slippers, Activate alternate alarm: bed (i.e. TABS), Bed in lowest locked position, Place personal care items & call walters within reach, Instruct patient/family to request assistance with ambulatio, Instruct patient/family not to get up without assistance, Supervise the patient when ambulating or making transfers, Check that needs are met to minimize attempts to get up, Hourly rounds, Ensure safe & uncluttered environment, Communicate falls risk to all providers . Respiratory/Pulmonary Data. : Respiratory/Pulmonary Data. 08/02/2024 8:00 EST Respiratory Symptoms None Respiratory effort Unlabored Chest expansion Symmetrical Accessory Muscles use No Respiratory Assessment Comment Patient on Enhanced Respiratory Precautions per +COVID Cough Non-productive Respiratory pattern Regular Left Upper Lobe Breath Sounds Clear, Diminished Right Upper Lobe Breath Sounds Clear, Diminished Right Middle Lobe Breath Sounds Clear, Diminished Left Lower Lobe Breath Sounds Clear, Diminished Right Lower Lobe Breath Sounds Clear, Diminished Respiratory distress None Respiratory Treatment(s) Cough and deep breathe Respiratory Treatment(s) Cough and deep breathe Respiratory WNL except . Vital Signs : VITAL SIGNS SECTION 08/02/2024 7:59 EST Early Warning Score 2.00 08/02/2024 7:59 EST Temperature 98.8 DegF Temperature Route Oral Pulse Rate 68 bpm Respiratory Rate 17 br/min Systolic Blood Pressure 116 mm Hg Diastolic Blood Pressure 46 mm Hg L Blood pressure sites Arm, right Mean Arterial Pressure 69 mm Hg Pulse Pressure 70 mm Hg Oxygen Saturation 95 % Mode of Delivery (Oxygen) Room air . Pain Data : PAIN SECTION 08/02/2024 8:00 EST 1 - 10 Pain Scale Score 6 . Psychosocial : Psychosocial Data. 08/02/2024 8:00 EST Affect/Behavior Calm, Cooperative, Needs Frequent Reassurance (Modified) . Evaluation See Biophysical Assessment in CIS for complete assessment. Will continue to monitor. * Louisa Xiong RN: PERFORM, SIGN, VERIFY Event Display: Progress Note Hospital Authored Date: [id number] Patient: JONNY LEARY Age: 58 years Sex: Female : 1965 Associated Diagnoses: None Author: Louisa Xiong RN Findings Problem Related to Alteration in Respiratory Function (new) : Alteration in Respiratory Function/new 08/02/2024 3:00 EST Alteration in Resp Status Related to COVID - 19 Goals & Outcomes, Respiratory Pt will maintain/resume baseline physical assessment, Pt will notdevelop complications r/t mechanical ventilation, Pt will maintain adequate nutritional intake, Pt will maintain/resume normal fluid/electrolyte balance, Pt will not develop complications r/t immobility, Pt will demonstrate proper technique w/self care procedures Interventions, Respiratory Assess/monitor tolerance to IV infusions; verify rate/dose, Assess for and report S&S of respiratory distress, Initiate VAP prevention strategies, Position for comfort & optimal oxygenation, Chest tube drainage, maintain drainage/suction as ordered, Initiate pulmonary rehab nurse consult, Monitor sputum color & consistency. Report changes to MD, Teach/encourage use of incentive spirometer, Teach the proper use of inhalers, Teach Pt/caregiver Smoking cessation education BH Goals/Interventions, Respiratory Yes Respiratory, Problem Start 08/02/2024 3:46 Reviewed Plan with, Respiratory Patient Patient Progression, Respiratory Patient progressing according to plan . Evaluation Pt is alert to self place and time. Pt is + for covid. Pt states she feels better. She is afebrlile. Ambualtes to the bathroom with walker and steady gait. Pt recieved breathing treatments. scheduleddexamethasone. She is SR on tele monitor. Will continue to monitor. See cis for a complete assessment. Note * Nereyda Kenney RN: PERFORM Event Display: Discharge/Transfer Note Hospital Authored Date: [id number] Nursing Discharge Note Entered On: 08/03/2024 14:38 EST Performed On: 08/03/2024 14:38 EST by Nereyda Kenney RN Nursing Discharge Note 2 Discharge Time : 08/03/2024 14:38 EST Discharge Level of Care at Discharge : Home/Prison/Foster Care Patient Left Unit Via : Wheelchair Patient Accompanied Off Unit with : Responsible adult DC Instructions Provided & Signed by Pt : Yes Patient Understands D/C Instructions : Yes Patient Instructions Discharge Signed : Yes Did Pt have Specialty Bed or Wound Vac : No Pablito SANCHEZ, Nereyda - 08/03/2024 14:38 EST * Araceli MARTINEZ, Jovanny: PERFORM Event Display: Discharge/Transfer Note Hospital Authored Date: [id number] Patient: ??JONNY LEARY ? Age:??58 Years?Sex:??Female?:??1965?? Patient Information Discharge Location: S1 Primary Care Physician: Not on Staff, PCP Admit Date/Time: 07/30/2024 05:38 Discharge Disposition Discharge Disposition: Home: No Services Discharge Diagnosis Acute respiratory failure due to COVID-19 (U07.1) Syncope and collapse (R55) Hypokalemia (E87.6) Seizure disorder (G40.909) Bipolar disorder (F31.9) GERD (gastroesophageal reflux disease) (K21.9) _ Discharge Medications Acetaminophen (Tylenol 325 mg oral tablet)??650 Milligram 2 tablet By Mouth Every 6 hours as neededPain , Mild Albuterol (Albuterol (Eqv-Proventil HFA) 90 mcg/inh inhalation aerosol)??2 inhalation 180 MicrogramInhalation Every 4 hours as needed Wheezing/Shortness of Breath Baclofen (baclofen 10 mg oral tablet)??10 Milligram 1 tablet By Mouth 3 times a day Benztropine (benztropine 0.5 mg oral tablet)??0.5 Milligram 1 tablet By Mouth 2 times a day Clonidine (cloNIDine 0.1 mg oral tablet)??0.1 Milligram By Mouth 4 times a day as needed Anxiety Furosemide (furosemide 40 mg oral tablet)??40 Milligram 1 tablet By Mouth Daily lurasidone (lurasidone 80 mg oral tablet)??1 tab(s) 80 Milligram By Mouth Daily at supper for 4 week(s) with food Milk of Magnesia (Milk of Magnesia 1200 mg/15 mL oral liquid)??30 Milliliter 2,400 Milligram By Mouth Daily as needed Constipation Nicotine (Nicotine 7 mg/24 hour patch)??1 patch(es) Topically Daily for 14 Days Omeprazole (omeprazole 20 mg oral enteric coated capsule)??1 capsule 20 Milligram By Mouth Daily Ondansetron (Zofran ODT 4 mg oral tablet, disintegrating)??1 tab(s) By Mouth Every 6 hours as needed Nausea Oxcarbazepine (OXcarbazepine 300 mg oral tablet)??600 Milligram 2 tablet By Mouth 2 times a day Polyethylene Glycol 3350 (MiraLax oral powder for reconstitution)??17 gram By Mouth Daily for 14 Days Prazosin (prazosin 2 mg oral capsule)??1 capsule 2 Milligram By Mouth Daily at bedtime Simethicone (simethicone 80 mg oral tablet, chewable)??80 Milligram 1 tablet Chew 4 times a day as needed Gas Trazodone (traZODone 100 mg oral tablet)??100 Milligram 1 tablet By Mouth Daily at bedtime as needed Insomnia ? Quality Measures Tobacco Use Treatment:?Cessation Medication Prescribed on Discharge:??Tobacco Cessation Medication Prescribed ? Medications Started none Medications Discontinued none Doses Changed none PCP Follow-Up/Heads-Up please follow with pcp?? within 2 weeks of discharge Hospital Course ??58-year-old female with bipolar disorder, apparently had a single episode of the outside facility. ??no evidence of any cardiopulmonary issues at this time other than??COVID with mild acute hypoxic respiratory failure, now resolving. ??Her other chronic issues include??bipolar disorder and substance abuse. ??There is no clinical evidence of any pulmonary embolism,, her EKG is unremarkable for any arrhythmia and there is been no telemetry events. ?? Acute respiratory failure due to COVID-19 (U07.1): s/p?? dexamethasone improved with symptoms plan for dc , no need for oxygen? Syncope and collapse (R55):??Resolved.??There is no evidence of any??telemetry events or neurologicdisease ?? Hypokalemia (E87.6):??Resolved ?? Seizure disorder (G40.909):??She was??likely not on oxcarbazepine for seizures she was likely on this for mood stabilization.??On clarifying the dose. ?? Bipolar disorder (F31.9):??Her medicines at the facility were the following: Lurasidone 80 mg Oxcarbazepine 600 mg twice daily Prazosin 2 mg at night Trazodone 100 mg as needed at night Baclofen 10 mg 3 times daily Psych consult requested?? and psych?? cleared the patient for discharge ?? patient stable for discharge with out-patient follow up Objective Vital Signs?? Temperature: 97.6 DegF (08/03/24 13:00:00) Temperature Route: Oral (08/03/24 13:00:00) Pulse Rate: 81 bpm (08/03/24 13:00:00) Respiratory Rate: 16 br/min (08/03/24 13:00:00) Systolic Blood Pressure:??140 mm Hg??High (08/03/24 13:00:00) Diastolic Blood Pressure:??94 mm Hg??High (08/03/24 13:00:00) Blood pressure sites: Arm, right (08/03/24 13:00:00) Mean Arterial Pressure: 87 mm Hg (08/03/24 01:39:00) Pulse Pressure: 46 mm Hg (08/03/24 13:00:00) Oxygen Saturation: 98 % (08/03/24 13:00:00) Mode of Delivery (Oxygen): Room air (08/03/24 13:00:00) Early Warning Score: 2 (08/03/24 13:18:19) ? . Physical Exam Alert and oriented Chest she has no wheezing rhonchi or rales Cardiovascular: Regular rate and rhythm no rubs murmurs or gallops Abdomen soft nontender Extremities no edema Neurologic: Awake and alert moving all extremities no motor deficits she is ambulatory and independent in the room Consultants psych Patient Instructions please take medications as prescribed please follow with psych?? out-patient Post Discharge Care please take medications as prescribed please follow with psych?? out-patient Home Health Face to Face ^HomeHealthFTF Results Discharge Labs BLOOD COUNT & DIFF WBC 5.4 k/mm3 ()?? 08/01/2024 06:45 RBC 4.44 m/mm3 ()?? 08/01/2024 06:45 Hgb 12.1 Gm/dL ()?? 08/01/2024 06:45 Hct 37.4 % ()?? 08/01/2024 06:45 MCV 84.2 femtoliters ()?? 08/01/2024 06:45 MCH 27.3 pg ()?? 08/01/2024 06:45 MCHC 32.4 Gm/dL (Low)?? 08/01/2024 06:45 Platelet Count 233 k/mm3 ()?? 08/01/2024 06:45 RDW-SD 41.2 femtoliters ()?? 08/01/2024 06:45 MPV 10.0 femtoliters ()?? 08/01/2024 06:45 Nucleated RBC (Automated) 0.0 #/100 WBC'S ()?? 08/01/2024 06:45 Abs. NRBC 0.0 k/mm3 ()?? 08/01/2024 06:45 Abs. Neut 2.6 k/mm3 ()?? 08/01/2024 06:45 Abs. Lymph 2.3 k/mm3 ()?? 08/01/2024 06:45 Abs. [place] 0.5 k/mm3 ()?? 08/01/2024 06:45 Abs. Eo 0.0 k/mm3 ()?? 08/01/2024 06:45 Abs. Baso 0.0 k/mm3 ()?? 08/01/2024 06:45 Neut % 47.3 % ()?? 08/01/2024 06:45 Lymph % 41.8 % ()?? 08/01/2024 06:45 [place] % 9.2 % ()?? 08/01/2024 06:45 Eos % 0.7 % ()?? 08/01/2024 06:45 Baso % 0.6 % ()?? 08/01/2024 06:45 Imm Gran 0.4 % ()?? 08/01/2024 06:45 Abs. Imm Gran 0.0 k/mm3 ()?? 08/01/2024 06:45 ?? CARDIAC High Sensitivity Troponin (HSTnT) 13 ng/L ()?? 07/30/2024 00:52 ? CHEM GENERAL Sodium 139 mmol/L ()?? 08/01/2024 06:45 Potassium 3.8 mmol/L ()?? 08/01/2024 06:45 Chloride 102 mmol/L ()?? 08/01/2024 06:45 Bicarbonate Level 26 mmol/L ()?? 08/01/2024 06:45 Anion Gap 11 mmol/L ()?? 08/01/2024 06:45 Glucose Level 84 mg/dL ()?? 08/01/2024 06:45 BUN 14 mg/dL ()?? 08/01/2024 06:45 Creatinine-Blood 0.82 mg/dL ()?? 08/01/2024 06:45 Estimated GFR Creatinine 82 ML/MIN/1.73 M2 ()?? 08/01/2024 06:45 Calcium 9.1 mg/dL ()?? 08/01/2024 06:45 Magnesium 1.9 mg/dL ()?? 07/30/2024 00:52 Protein, Total 6.7 Gm/dL ()?? 07/31/2024 08:42 Albumin 3.4 Gm/dL ()?? 07/31/2024 08:42 AG Ratio 1.0 ()?? 07/31/2024 08:42 Alkaline Phosphatase 57 units/L ()?? 07/31/2024 08:42 AST (SGOT) 28 units/L ()?? 07/31/2024 08:42 ALT (SGPT) 24 units/L ()?? 07/31/2024 08:42 Bilirubin, Total 0.2 mg/dL ()?? 07/31/2024 08:42 ?? COAG D-Dimer 5.36 mg/L FEU (High)?? 07/30/2024 00:52 ? ENDOCRINE/TUMOR MARKER TSH 1.91 uIU/mL ()?? 07/30/2024 00:52 ? HEME OTHER Hold Blue Top SPECIMEN DISCARDED AFTER 4 HOURS. ()?? 07/30/2024 00:52 ? URINE OTHER Est Creatinine Clearance 55.12 mL/min ()?? 08/01/2024 08:08 ? VIROLOGY Influenza A PCR NEGATIVE ()?? 07/30/2024 01:00 Influenza B PCR NEGATIVE ()?? 07/30/2024 01:00 RSV PCR NEGATIVE ()?? 07/30/2024 01:00 COVID-19 PCR Specimen Source NASAL ()?? 07/30/2024 01:00 COVID-19 PCR Result POSITIVE (Abnormal)?? 07/30/2024 01:00 ? Microbiology ?? COVID-19, RSV, and Flu A/B, Rapid PCR?? Completed?? Source: Nasal Body Site: Nose Collected Dt/Tm: 07/29/2024 23:36 Last Updated Dt/Tm: 07/30/2024 01:56 ? _35 minutes spent on discharge * Nereyda Kenney RN: PERFORM Event Display: Patient Education/Instruction Authored Date: [id number] Inpatient Adult Discharge Instructions. [address] [id number] Name: JONNY GIBRAN : 1965?? Visit: 07/30/2024 05:38?? Current Date: 08/03/2024 14:14 ?? Account: [id number]?? Inpatient Adult Discharge Instructions We would like to thank you for allowing us to assist you with your healthcare needs. The following includes patient education materials and information regarding your injury/illness. Our entire staffstrives to provide an excellent experience for our patients and their families. PLEASE ENSURE YOU FOLLOW-UP PER THE INSTRUCTIONS BELOW! ?? YOUR OPINION IS IMPORTANT TO US! Please complete the survey you may receive by mail or email. Your feedback will be used to make improvements to the healthcare experiences of our patients and their families. Surveys are administered by [employer] ?? If further treatment with your primary care physician or another doctor is recommended, it is important for you to keep the appointment. Call your primary care physician or return to the Emergency Department immediately if your condition worsens, fails to improve, or new symptoms develop. If you need to find a doctor, you can call [facility] [employer] for a referral at [phone] or toll free at [email or web address] ([phone]) or log in to [email or web address].. ?? [facility], in keeping with [facility] guidance, no longer requires face masks for staff, patientsor visitors in most situations. Similiar to time spent indoors at other locations, there is the chance that you were exposed to repiratory viruses during your time with us (such as flu or COVID-19). If you develop symptoms concerning for a viral respiratory infection, please seek testing (and treatment if indicated) from your medical provider or home test kit. ?? You can view and manage your care through the patient portal or by using a health care amber of your choosing. [employer] is a website that allows you to securely view your medical information including your hospital discharge summary, office visit summaries, medications and follow-up visits. You can also request appointments, renew medications, and request access to your medical information using a health care amber of your choosing, or just ask a question. You are entitled to know the individuals who participated in your treatment. This information is available within your medical record and will be provided upon your request. You can enroll at [email or web address] or register d uring your next office visit. You have been discharged from [facility], Patient Care Unit: S1??. If you have any questions regarding these instructions, including results of studies pending, afteryou leave, please call us and we will be happy to assist you 28/12. [facility] Your Care Team Attending Physician Jovanny Charles MD?? Consulting Providers Jovanny Charles MD?? Discharging Providers Jovanny Charles MD Reason for Your Visit pt coming from [facility], pt had an unwitnessed fall in her room. Staff heard it because slammed into the door and found her unresponsive. ??C/o left ankle pain. ambulates steady.?? Your Diagnosis Acute respiratory failure due to COVID-19 Syncope and collapse Hypokalemia Seizure disorder Bipolar disorder GERD (gastroesophageal reflux disease) Tests Performed Below is a partial list of the tests performed during your hospitalization. You may have had other tests and procedures not included in this list. Please discuss all test results with your provider. Basic Metabolic Panel CBC w/ Differential Comprehensive Metabolic Panel COVID-19, RSV, and Flu A/B, Rapid PCR D-DIMER High??Sensitivity??Troponin T?-- Results Pending -- Hold Blue Top Tube MAGNESIUM TSH with T4 Reflex (Adults Only) CT Angio Chest CT Cervical Spine W/O Contrast CT Head/Brain W/O Contrast XR Chest 2 Views Frontal and Lat Add On Lab Order?? Basic Metabolic Panel?? CBC w/ Differential?? COVID-19, RSV, and Flu A/B, Rapid PCR?? CT Angio Chest?? CT Cervical Spine W/O Contrast?? CT Head/Brain W/O Contrast?? Comprehensive Metabolic Panel?? D Dimer (D-DIMER)?? High??Sensitivity??Troponin T (High Sensitivity Troponin T)?? Hold Blue Top Tube?? Hold Lavender Tube (BB)?? Magnesium Level (MAGNESIUM)?? TSH with T4 Reflex (Adults Only)?? Chest 2 Views Frontal and Lat (XR Chest 2 Views Frontal and Lat)?? Primary Care Provider Not on Staff, PCP?? Advance Directive Health Care Proxy on File No Patient refuses to discuss Discharge Vitals Temperature: 97.6 DegF Height: 155 cm Pulse Rate: 81 bpm Weight: 104.5 kg Respiratory Rate: 16 br/min Body Mass Index:??43.5 kg/m2??Critical Systolic Blood Pressure:??140 mm Hg??High Body surface area: 2.12 Diastolic Blood Pressure:??94 mm Hg??High ?? Oxygen Saturation: 98 % ?? Studies Pending All studies ordered during this hospital stay have been completed unless listed below. Please discuss all pending results with your provider listed above in these instructions. ?? Add On Lab Order?? High??Sensitivity??Troponin T?? Hold Lavender Tube (BB)?? What to do next Instructions From Your Doctor ?? Orders?? , ??08/03/24 13:36:00 EST?? Discharge Medications JONNY LEARY :1965 Visit Date:07/30/2024 Medications: Please continue your medications until treatment is completed or stopped by your provider. Medications not listed below should be discontinued. Discuss any questions related to medications with your provider. What How Much When Instructions Next Dose New Nicotine (Nicotine 7 mg/ 24 hour patch) 1 patch(es) Topically Daily Duration: 14 Days Pickup at [facility] am 08/04 New Polyethylene Glycol 3350 (MiraLax oral powder for reconstitution) 17 gram Oral Daily Duration: 14 Days Pickup at [facility] am 08/04 Changed Albuterol (Albuterol (Eqv-Proventil HFA) 90 mcg/ inh inhalation aerosol) 2 inhalation Inhalation Every 4 hours as needed for Wheezing/Shortness of Breath as needed Changed Baclofen (baclofen 10 mg oral tablet) 1 tab(s) Oral 3 times a day 3pm 08/03 Changed Benztropine (benztropine 0.5 mg oral tablet) 1 tab(s) Oral Twice a day pm 08/03 Changed Prazosin (prazosin 2 mg oral capsule) 1 capsule Oral Daily at Bedtime pm 08/03 Changed Trazodone (traZODone 100 mg oral tablet) 1 tab(s) Oral Daily at Bedtime as needed for Insomnia pm 08/03 Changed lurasidone (lurasidone 80 mg oral tablet) 1 tab(s) Oral Daily at supper Duration: 4 week(s) with food ?? Pickup at [facility] 5pm 08/03 Unchanged Acetaminophen (Tylenol 325 mg oral tablet) 2 tab(s) Oral Every 6 hours as needed for Pain , Mild as needed Unchanged Clonidine (cloNIDine 0.1 mg oral tablet) 0.1 Milligram Oral 4 times a day as needed for Anxiety as needed Unchanged Furosemide (furosemide 40 mg oral tablet) 1 tab(s) Oral Daily am 08/04 Unchanged Milk of Magnesia (Milk of Magnesia 1200 mg/ 15 mL oral liquid) 30 Milliliter Oral Daily as needed for Constipation as needed Unchanged Omeprazole (omeprazole 20 mg oral enteric coated capsule) 1 capsule Oral Daily am 08/04 Unchanged Ondansetron (Zofran ODT 4 mg oral tablet, disintegrating) 1 tab(s) Oral Every 6 hours as needed for Nausea as needed Unchanged Oxcarbazepine (OXcarbazepine 300 mg oral tablet) 2 tab(s) Oral Twice a day pm 08/03 Unchanged Simethicone (simethicone 80 mg oral tablet, chewable) 1 tab(s) Chew 4 times a day as needed for Gas as needed Pharmacy Information [facility]: [address] [place], [place] [id number] [phone] ?? What How Much When Comments Stop Taking Aripiprazole (Abilify 20 mg oral tablet) 1 tab(s) Oral Daily Stop Taking bupropion (Wellbutrin) 100 Milligram Oral Twice a day Stop Taking Celecoxib (celecoxib 100 mg oral capsule) 1 capsule Oral Twice a day Stop Taking Loperamide (loperamide 2 mg oral capsule) 1 capsule Oral Every 6 hours as needed for as needed for loose stool Stop Taking Mirtazapine (mirtazapine 15 mg oral tablet) 0.5 tab(s) Oral Daily at Bedtime Stop Taking RifAMPIN (rifampin 300 mg oral capsule) 2 capsule Oral Daily Duration: 30 Days Stop Taking risperidone (Risperdal Tablet) 0.5 Milligram Oral Daily at Bedtime Stop Taking sertraline (Zoloft Tablet) 100 Milligram Oral Daily Prescription Given During Visit Nicotine (Nicotine 7 mg/24 hour patch) - 1 patch, Topically, Daily, # 14 patch, 0 Refills, [facility], [address] [place] [address] [phone]?? Polyethylene Glycol 3350 (MiraLax oral powder for reconstitution) - 17 Gm, By Mouth, Daily, # 238 Gm, 0 Refills, [facility], [address] [place] [phone]?? lurasidone (lurasidone 80 mg oral tablet) - 1 tablet = 80 mg, By Mouth, Daily at supper, # 28 tablet, 1 Refills, with food, [facility], [address] [place] [address] [id number]?? Laboratory Results Below is a partial list of the most recent Laboratory test results done prior to this discharge. You may have had other tests and procedures not included in this list. Please discuss all test resultswith your provider. Est Creatinine Clearance - 55.12 mL/min (08/01/2024) Basic Metabolic Panel (08/01/2024) ???Sodium - 139 mmol/L???Potassium - 3.8 mmol/L???Chloride - 102 mmol/L???Bicarbonate Level - 26 mmol/L???Anion Gap - 11 mmol/L???Glucose Level - 84 mg/dL???BUN - 14 mg/dL???Creatinine-Blood - 0.82 mg/dL???Estimated GFR Creatinine - 82 ML/MIN/1.73 M2???Calcium - 9.1 mg/dL CBC w/ Differential (08/01/2024) ???WBC - 5.4 k/mm3???RBC - 4.44 m/mm3???Hgb - 12.1 Gm/dL???Hct - 37.4 %???MCV - 84.2 femtoliters???MCH - 27.3 pg???MCHC - 32.4 Gm/dL???Platelet Count - 233 k/mm3???RDW-SD - 41.2 femtoliters???MPV - 10.0 femtoliters???Nucleated RBC (Automated) - 0.0 #/100 WBC'S???Abs. NRBC - 0.0 k/mm3???Abs. Neut - 2.6 k/mm3???Abs. Lymph - 2.3 k/mm3???Abs. Defiance - 0.5 k/mm3???Abs. Eo - 0.0 k/mm3???Abs. Baso - 0.0 k/mm3???Neut % - 47.3 %???Lymph % - 41.8 %???[place] % - 9.2 %???Eos % - 0.7 %???Baso % - 0.6 %???Imm Gran - 0.4 %???Abs. Imm Gran - 0.0 k/mm3 Comprehensive Metabolic Panel (07/31/2024) ???Sodium - 137 mmol/L???Potassium - 3.9 mmol/L???Chloride - 102 mmol/L???Bicarbonate Level - 22 mmol/L???Anion Gap - 13 mmol/L???Glucose Level - 88 mg/dL???BUN - 18 mg/dL???Creatinine-Blood - 0.83 mg/dL???Estimated GFR Creatinine - 81 ML/MIN/1.73 M2???Calcium - 8.8 mg/dL???Protein, Total - 6.7 Gm/d L???Albumin - 3.4 Gm/dL???AG Ratio - 1.0???Alkaline Phosphatase - 57 units/L???AST (SGOT) - 28 units/L???ALT (SGPT) - 24 units/L???Bilirubin, Total - 0.2 mg/dL COVID-19, RSV, and Flu A/B, Rapid PCR (07/30/2024) ???Influenza A PCR - NEGATIVE???Influenza B PCR - NEGATIVE???RSV PCR - NEGATIVE???COVID-19 PCR Specimen Source - NASAL???COVID-19 PCR Result - POSITIVE D-DIMER (07/30/2024) ???D-Dimer - 5.36 mg/L FEU Hold Blue Top Tube (07/30/2024) ???Hold Blue Top - SPECIMEN DISCARDED AFTER 4 HOURS. MAGNESIUM (07/30/2024) ???Magnesium - 1.9 mg/dL TSH with T4 Reflex (Adults Only) (07/30/2024) ???TSH - 1.91 uIU/mL You will be contacted within 72 hours with your results. Allergies (NKA means No Known Allergies) Adderall Problems Active Problems??(8) Bipolar disorder?? COVID-19?? Developmental delay?? GERD (gastroesophageal reflux disease)?? Positive PPD 20mm?? Seizure disorder?? Severe obesity?? Suicidal ideation?? Education Materials Below is the list of Educational Leaflet Providered with your Discharge Instructions. [employer] Patient Education - COVID-19: Caring for Yourself or Others?? [employer] Patient Education - Fall??Prevention?? [employer] Patient Education - What Is Syncope??? Valuables and Belongings I fully understand and agree that [facility] accepts no responsibility for all my personal property including clothing, toilet articles, radios, jewelry, dentures, hearing aids, rings, money, or any other property that is in my possession or is brought to me after admission. I understand certain valuables may be placed in a hospital safe for a short period of time. I understand that the hospital is not liable for loss or damage due to accident, fire, or other natural occurrence while said property is in the safe. I accept full responsibility for any personal property that I keep with me, and will not hold the hospital responsible in case of loss or disappearance. I acknowledge that i have been encouraged to send valuables and belongings home. ?? Date for Pt to Sign Valuables/Belongings: 08/01/24 05:26:00 ?? Other Discharge Information ? Pulmonary Rehab Status?? Pulmonary Rehab Discharge Status?? Respiratory Rate: 16 br/min ? Common Emergency Awareness Tips IS IT A STROKE? Act FAST and Check for these signs: FACE Does the face look uneven? ARM Does one arm drift down? SPEECH Does their speech sound strange? TIME Call at any sign of stroke ?? Heart Attack Signs Chest discomfort: Most heart attacks involve discomfort in the center of the chest and lasts more than a few minutes, or goes away and comes back. It can feel like uncomfortable pressure, squeezing, fullness or pain. Discomfort in upper body: Symptoms can include pain or discomfort in one or both arms, back, neck, jaw or stomach. Shortness of breath: With or without discomfort. Other signs: Breaking out in a cold sweat, nausea, or lightheaded. Remember, MINUTES DO MATTER. If you experience any of these heart attack warning signs, call to get immediate medical attention! ?? Smoking can increase your chances of developing chronic health problems and can cause harmful effects to other family members in your house. If you smoke, you are strongly encouraged to quit. Please call [facility] [employer] at [phone] or [phone]) or log in to [email or web address] for referrals to smoking cessation programs. ?? 661 Suicide & Crisis Lifeline is available 28/12 if you or someone you know needs to find a reason to keep living. By calling 027 you'll be connected to a skilled, trained counselor at a crisis center in your area. INPATIENT DISCHARGE INSTRUCTIONS SIGNATURE PAGE JONNY LEARY Location:[facility] Registration Date and Time:07/30/2024 05:38 EST Primary Care Physician: Not on Staff, PCP Attending Physician: Araceli MARTINEZ, Jovanny, Elaine DARLING LEARYIE, have received the above patient education materials/instructions and have verbalized understanding. If ambulance or transport services are being used I further acknowledge being givena choice of service. ?? If you need to contact me, please call me at this number: . Patient/Energy Conservation Director Name: Patient/Energy Conservation Director Signature: Relationship to Patient: Witness Name/Signature: Date: * Nereyda Kenney RN: PERFORM Event Display: Patient Education Leaflets Authored Date: [id number] COVID-19: Caring for Yourself or Others ?? [id number] COVID-19: Caring for Yourself or Others If you or a household member test positive for COVID-19 or have symptoms like fever, cough, fatigue, loss of taste or smell, follow these guidelines for preventing spread of the virus and managing symptoms. These apply even if you are vaccinated. If you have symptoms or have been diagnosed with COVID-19 If you have symptoms of COVID-19 or you test positive (even without symptoms): ??? Stay home and away from others (including people you live with who are not sick) if you have respiratory virus symptoms that aren't better explained by another cause. You can go back to your normal activities when, for at least 24 hours, both are true: o Your symptoms are getting better overall, and o You have not had a fever and are not using fever-reducing medicine. ??? When you go back to your normal activities, take extra precaution for the next 5 days, such as: o Improve airflow at home. For example, open windows to improve airflow, change filters in your air conditioning unit, and turn your thermostat to on instead of auto to improve airflow and filtration. For more tips, see the CDC website. o Don't share personal items such as eating or drinking utensils and linens or food. o Wear a high quality, well-fitting mask if you must be around others at home or in public. o If you develop a fever oryou start to feel worse after you have gone back to normal activities, stay home and away from others again and repeat the process. Stay home until, for at least 24 hours, your symptoms are getting better and you have not had a fever and are not using fever-reducing medicines. Take extra precautions for another 5 days. ??? If you need to cough or sneeze, do it into a tissue. Then throw the tissueinto the trash. If you don't have tissues, cough or sneeze into the bend of your elbow. ??? Wash your hands often. ?? Self-care at home?? Protection You can protect yourself and others from getting COVID-19 or from getting very sick if you get it: ??? Vaccinate. CDC recommends the 2022???2023 updated COVID-19 vaccines to protect against serious illness from COVID-19. No vaccine is ever 100% effective in preventing any illness, but the COVID-19vaccines work well and are safe. Expert groups, including ACOG and CDC, advise or people to be vaccinated. Talk with your healthcare provider about which COVID-19 vaccine is best for you and your family. ??? Practice good handwashing. ??? Stay home if you have suspected or confirmed COVID-19. ??? Keep your distance from anyone who is sick or has tested positive for COVID-19when possible. ??? Get tested if needed. ??? Wear a high-quality, well-fitted mask as advised. ??? I mprove airflow indoors and move indoor activities outside. Treatment Most people with COVID-19 recover with supportive care. This includes: ??? Getting rest. This helps your body fight the illness. ??? Staying hydrated. Drinking liquids isthe best way to prevent dehydration. Try to drink 6 to 8 glasses of liquids every day, or as advised by your provider. Also check with your provider about which fluids are best for you. Don't drink fluids that contain caffeine or alcohol. ??? Taking xkfj-gxj-tmasgex (OTC) pain medicine. These are used to help ease pain and reduce fever. Follow your healthcare provider's instructions for which OTCmedicine to use. If you've been treated for suspected or confirmed COVID-19, follow all of your healthcare team's instructions. If you were treated at a hospital and discharged, you may be sent home with a pulse oximeter. This is a small electronic device that you clip on your fingertip. It measures the amount of ox ygen in your body. Follow your healthcare team's instructions on its use, how they will be in touchwith you, and let you know when to call them. ?? Home care for a sick person? Follow all instructions from healthcare staff. ??? Wash your hands often. ??? Make sure the sick person wears a mask. If they can't wear a mask, limit your time in the same room with the person and wear a mask around them. ??? Keep track of the sick person???s symptoms. ??? Monitor yourself for symptoms and take a COVID-19 test as advised by the CDC. Take a test even if you feel fine. ??? Clean home surfaces often with disinfectant. This includes phones, kitchen counters, fridge door handle, bathroom surfaces, and others. ??? Don???t let anyone share household items with the sick person. This includes eating and drinking tools, towels, sheets, or blankets. ??? Clean fabrics and laundry thoroughly. ??? Wear a high-quality mask around others as advised. ?? When to call your healthcare provider If you have COVID-19 and are more likely to get very sick, call your healthcare provider or seek care right away. There are treatments available to reduce your risk of getting very sick or being hospitalized. Don't delay calling your provider or seeking care. Treatment must be started within 5 to 7days after you first develop symptoms. Call your healthcare provider right away if a sick person has any of these: ??? Trouble breathing ??? Pain or pressure in chest If a sick person has any of these, call 911: ??? Trouble breathing that gets worse ??? Pain or pressure in chest that gets worse ??? Blue tint to lips or face ??? Fast or irregular heartbeat ??? Confusion or trouble waking ??? Fainting or loss of consciousness ??? Coughing up blood ?? Date last modified: 11/15/2023 ?? Last Reviewed Date: 2023 ?? [employer]. All rights reserved. This information is not intended as a substitute for professional medical care. Always follow your healthcare professional's instructions. ?? * Nereyda Kenney RN: PERFORM Event Display: Patient Education Leaflets Authored Date: [id number] Fall??Prevention ?? [id number] Fall??Prevention Falls often take place due to slipping, tripping, or losing your balance. Millions of people fall every year and injure themselves.??Among older adults in the [place] falls are the most common cause oftraumatic brain injuries. Every 20 minutes, an older adult dies from a fall. Here are ways to reduce your risk of falling again: ??? Think about your fall. Was there anything that caused your fall that can be fixed, removed, or replaced? Make your home safe by keeping walkways clear of objects you may trip over, such as electrical cords. ??? Use nonslip pads under rugs. Don't use area rugs orsmall throw rugs. ??? Use nonslip mats in bathtubs and showers. ??? Hang grab rails by the toilet and inside and outside the shower. ??? Install handrails and lights on staircases. The handrails should be on both sides of the stairs. ??? Use night lights. ??? Don't walk in poorly lit areas. ??? Don't stand on chairs or wobbly ladders. ??? Use care when reaching overhead or looking up.??This position can cause a loss of balance. ??? Be sure your shoes fit well, are in good condition, and have non slip bottoms.? Wear shoes both inside and outside of your home. Don't go barefoot or wear slippers. ??? Be cautious when going up and down stairs, curbs, and when walking on uneven sidewalks. ??? If your balance is poor, consider using a cane or walker. Talk with your healthcare provider abouthaving a balance assessment. ??? If your fall was related to alcohol use, stop or limit alcohol intake.??Ask your provider for help if you think you may overuse alcohol and can't stop. ??? If your fall was related to use of sleeping medicines, talk with your provider about this.??You may need to reduce your dosage at bedtime if you wake up during the night to go to the bathroom.? To reducethe need for nighttime bathroom trips: o Don't drink fluids for several hours before going to bed oEmpty your bladder before going to bed o Men can keep a urinal at the bedside ??? Stay as active asyou can. Balance, flexibility, strength, and endurance all come from exercise. They all play a rolein preventing falls. Ask your provider which types of activity are right for you. Try to do some type of exercise every day. ??? Get your eyes checked once a year or more often if your vision changes??? If you have pets, know where they are before you stand up or walk so you don't trip over them. ??? Go over all your medicines with a pharmacist or other provider. This is to see if any of them could make you more likely to fall. Have this type of medicine review at least once every year. ??? Ifyour provider advises a new medicine, ask if the side effects will affect your balance. ??? Don't move quickly from one position to another. For instance, don't stand up fast from sitting. This can cause dizziness and may lead to a fall. ??? Sit down when putting on pants, socks, and shoes. This will make you less likely to lose your balance and fall. ??? Always let your provider know if you havefallen since your last visit. ??? Contact your provider right away if you're having balance problems or falling more often. Last Reviewed Date: 2021 ?? [employer]. All rights reserved. This information is not intended as a substitute for professional medical care. Always follow your healthcare professional's instructions. ?? * Nereyda Kenney RN: PERFORM Event Display: Patient Education Leaflets Authored Date: [id number] What Is Syncope? ?? 49425 What Is Syncope? Syncope is also known as fainting or a blackout. It's an abrupt and short-term loss of consciousness and motor tone. It's often caused by a sudden drop in blood flow to the brain or a lack of oxygen to the brain. It's then followed by complete and often rapid spontaneous recovery. Most people don???t need follow- up treatment. However, you need treatment for certain causes, such as a heart or neurological issue. Also seek treatment if you were injured when you fainted, such as a head injury. The heart pumps blood nonstop to the brain and the rest of the body. Understanding heart rate and blood pressure changes Your brain and body need a steady flow of oxygen-rich blood. Your heart rate and blood pressure change to keep that flow steady throughout all your activities. ??? The heart makes electrical signals that move through it on pathways. These signals set the heart rate. They also tell the heart when topump blood. ??? In response to your body???s needs, your brain may also trigger changes in your heart rate and blood pressure. Sensors in the body detect the amount of blood flow going to the brain and other parts of the body. If these sensors detect low blood flow, they signal the body to increasethe amount of fluid in the blood vessels??and increase the heart rate to provide more circulation. ??? The blood leaving the heart with each contraction supplies oxygen and nutrients as it flows in your brain. ?? Warning signs Syncope often happens suddenly. Warning signs include: ??? Dimmed, blackened, or tunnel vision ??? Lightheadedness ??? Sleepiness ??? Rapid heartbeat Some people may also feel nauseated or sweaty. But you may have no warning signs at all. After syncope, you get better quickly. But you may feel tired. Don't drive if you are having warning signs that you may faint. ?? Is it serious? Syncope is a common problem with many possible causes. Often these causes are not serious. For instance, syncope can be caused by standing for too long or sitting up too fast. In some cases, you may never faint again. But if you have syncope with a heart problem, it can be a warning sign of a more serious problem. For this reason, your healthcare provider may order several tests to look at heart function and rhythm. If you have had syncope, talk with your healthcare provider. In older adults, syncope may be a sign that a heart attack has happened. Don't delay seeking treatment. Even if the cause of syncope is not serious, there is a risk of injury from falling when you lose consciousness. When possible, finding a cause can reduce this risk. ?? Last Reviewed Date: 2023 ?? 0310-6322 [employer]. All rights reserved. This information is not intended as a substitute for professional medical care. Always follow your healthcare professional's instructions. ?? Patient Care team information Care Team Personnel Name: Iram Chris RN Position: [facility] RN Member Role: Primary Care Nurse Name: Not on Staff, PCP Position: [facility] Physician (General Medicine) Member Role: PCP Name: Kodak Boyd RN Position: [facility] RN Member Role: Primary Care Nurse Care Team Related Persons Name: CURLY MARQUEZ Insurance Providers Guarantor name: GABRIELA Health Plan Information #: 1 Payer: [facility] [employer] Member Number: [id number] Policy Number: NA Group Number: NA Health Plan Information #: 2 Payer: [facility] [employer] [employer] Member Number: [id number] Policy Number: NA Group Number: [id number]
[2024-08-06 11:44] LABS: Basophils Absolute Auto 0.1 X10*3/uL (0.0-0.2); Basophils Percent Auto 0.5 % (0-2); Eosinophils Absolute Auto 0.1 X10*3/uL (0.0-0.4); Eosinophils Percent Auto 0.7 % (0-4); Hematocrit 43.3 % (37.0-47.0); Hemoglobin 14.3 g/dl (12.0-16.0); Imm Gran Abs Auto 0.05 X10*3/uL (0.00-0.03); Imm Gran Pct Auto 0.5 % (0.0-0.4); Lymphocytes Absolute Auto 1.8 X10*3/uL (1.2-4.9); Mean Corpuscular Hemoglobin 27.5 pg (27.0-33.0); Mean Corpuscular Volume 83.3 fL (80.0-98.0); Mean Platelet Volume 9.3 fL (9.4-12.3); Monocytes Absolute Auto 0.7 X10*3/uL (0.1-1.2); Neutrophils Absolute Auto 7.4 x10*3/uL (2.0-8.3); Neutrophils Percent Auto 73.3 % (45-73); Platelet Count 371 X10*3/uL (160-400); Red Cell Distribution Width 13.4 % (11.0-16.0); White Blood Count 10.1 X10*3/uL (4.8-10.8)
[2024-08-06 11:58] LABS: Alanine Aminotransferase 214 U/L (0-31); Albumin Level 4.2 g/dL (3.5-5.0); Alkaline Phosphatase 92 U/L (39-117); Anion Gap 16 (12-20); Aspartate Amino Transferase 113 U/L (5-31); Blood Urea Nitrogen 20 mg/dL (9-16); Calcium 9.6 mg/dL (8.4-10.2); Carbon Dioxide 22 mmol/L (22-29); Chloride 107 mmol/L (96-108); Creatinine Clr Calc Pharmacy 76.8; Estimated Glomerular Filt Rate > 60; Glucose Random 102 mg/dL (60-115); Magnesium 2.3 mg/dL (1.6-2.6); Potassium 3.8 mmol/L (3.3-5.1); Sodium 141 mmol/L (135-145); Total Protein 8.5 g/dL (6.5-8.0)
[2024-08-06 12:01] LABS: Carbon Monoxide Refer to POC result
[2024-08-06 12:37] VITALS: BP 149/83; PULSE 83; RESP 20; TEMP 36.6; O2SAT 97
[2024-08-06 12:38] VITALS: BP 149/83; PULSE 83; RESP 20; TEMP 36.6; O2SAT 97
--- NOTE | 2024-08-06 12:38 | PC.NURSE ---
Pt. leaves [facility] in police custody with Henrietta CHOW x2 escorting her
== END 2024-08-06 12:39 ==
PROVIDERS: Physician Assistant; Emergency Provider Emergency Medicine
DX: F31.9 Bipolar disorder, unspecified (principal); T59.81 Toxic effect of smoke; Y92.019 Unspecified place in single-family (private) house as the place of occurrence of the external cause; R74.01 Elevation of levels of liver transaminase levels; F43.12 Post-traumatic stress disorder, chronic; F14.20 Cocaine dependence, uncomplicated; F17.210 Nicotine dependence, cigarettes, uncomplicated
CPT/HCPCS: 36415; 80053; 82375; 83735; 85025; 99284